=== PATIENT | male | born 1930 | race Caucasian/White ===

== ENCOUNTER → 2016-04-04 | Outpatient (CLI) | payer OTHER, BC ==
[~2016-04-04] MED LIST: ADVIN25/60 INH; ALBU1.257 INH; ALLO100T PO; B-COTAB18 PO; CLOP1TAB15 PO; DILT120C43 PO; DOXY-300 PO; DOXY100C76 PO; ESCI10TA17 PO; FLUT1INH INH; FURO40TA3 PO; IPRA1AER2 INH; IPRASOL4 INH; LEVO175T3 PO; MAGN1TAB19 PO; MECL1TAB42 PO; METO100T14 PO; MONT1TAB3 PO; NIVO1INJ INJ; ONDA8TAB6 PO; POLY335019 PO; POTA20TA13 PO; PRED10TA PO; PROC1TAB5 PO; PRT/40 PO; SPIR25TA PO; SPRIN/30 INH; WARF2TAB8 PO; WARF4TAB8 PO
[2016-04-04 11:09] LABS: HEMATOCRIT 34.1 % (42-52); MEAN CELL VOLUME 102.4 fL (80-100); MEAN CORPUSCULAR HEMOGLOBIN 32.7 pg (25-34); MEAN PLATELET VOLUME 10.7 fL (7.4-10.4); PLATELET COUNT 266 K/uL (130-400); RED BLOOD COUNT 3.33 M/uL (4.7-6.1)
[2016-04-04 11:41] LABS: BLOOD UREA NITROGEN 21 mg/dl (7-18); BUN/CREATININE RATIO 11.2 (10-20); CALCIUM 9.1 mg/dl (8.5-10.1); CARBON DIOXIDE 27 mmol/L (21-32); CHLORIDE 108 mmol/L (98-107); GLUCOSE 87 mg/dl (70-99); POTASSIUM 3.9 mmol/L (3.5-5.1); SODIUM 145 mmol/L (136-145)
== END | disposition home or self-care (01) ==
LOC: C.LAB 10:42
PROVIDERS: ATTEND Internal Medicine Cardiovascular Disease
DX: I10 Essential (primary) hypertension (principal); I47.1 Supraventricular tachycardia; I25.10 Atherosclerotic heart disease of native coronary artery without angina pectoris; I50.32 Chronic diastolic (congestive) heart failure; Z95.4 Presence of other heart-valve replacement; Z51.81 Encounter for therapeutic drug level monitoring; Z79.01 Long term (current) use of anticoagulants; I82.409 Acute embolism and thrombosis of unspecified deep veins of unspecified lower extremity

== ENCOUNTER → 2016-04-14 | Outpatient (CLI) | payer OTHER, BC ==
--- NOTE | 2016-04-14 11:01 | DIAGNOSTIC IMAGING REPORT ---
CHEST 2 VIEWS ROUTINE CLINICAL HISTORY: R06.09 Dyspnea on exertion COMPARISON STUDY: 03/23/2016 FINDINGS: There are postsurgical changes of a midline sternotomy and aortic valve replacement. The cardiac and mediastinal contours remain stable. There is chronic pleural and parenchymal scarring similar to the preceding study. There is no overt failure. There is no acute parenchymal consolidation.[ There are a few equivocal pulmonary nodules. These were better demonstrated on the prior January 2016 CT scan. IMPRESSION: 1. Stable pleural-parenchymal scarring. 2. The patient's known multiple pulmonary nodules are difficult to visualize with certainty on conventional radiographic imaging Electronically signed by: Sb Arredondo M.D. 04/14/2016 10:59 AM Dictated Date/Time: 04/14/2016 10:56 AM
[2016-04-14 11:31] LABS: URINE APPEARANCE CLEAR (CLEAR); URINE BILIRUBIN NEG (NEG); URINE COLOR YELLOW; URINE EPITHELIAL CELL AUTO 0-5 /lpf (0-5); URINE NITRITE NEG (NEG); URINE SPECIFIC GRAVITY 1.004 (1.000-1.030); UROBILINOGEN NEG (NEG)
[2016-04-14 11:40] LABS: MANUAL MICROSCOPIC REQUIRED? NO; REVIEW REQ? NO
== END | disposition home or self-care (01) ==
LOC: C.RAD 10:15
PROVIDERS: ATTEND Internal Medicine
DX: R06.09 Other forms of dyspnea (principal); R39.198 Other difficulties with micturition

== ENCOUNTER → 2016-04-22 | Outpatient (CLI) | payer OTHER, BC ==
--- NOTE | 2016-04-22 11:41 | DIAGNOSTIC IMAGING REPORT ---
CT SCAN OF THE CHEST WITH IV CONTRAST CLINICAL HISTORY: Dyspnea. Hypoxia. Metastatic renal cell carcinoma. COMPARISON STUDY: CT scan of the chest dated 02/15/2016. TECHNIQUE: Following the IV administration of 80 of Optiray 320, CT scan of the chest was performed from the upper abdomen to the thoracic inlet. The examination was performed to opacify the pulmonary arteries. Images are reviewed in the axial, sagittal, and coronal planes. IV contrast was administered without complication. Automated dose control exposure was utilized. CT DOSE: 500.91 mGy.cm FINDINGS: Thyroid: The right lobe of the thyroid gland is atrophic versus surgically absent. Thoracic aorta: There is atherosclerotic calcification of the thoracic aorta, which is normal in course and caliber. The aortic arch demonstrates standard 3-vessel anatomy. Pulmonary vasculature: The pulmonary trunk is normal in caliber. There are no filling defects identified in the main, lobar, or segmental pulmonary vessels to indicate pulmonary embolus. Heart: The patient is status post midline sternotomy and aortic valve replacement. The heart is mildly enlarged and without pericardial effusion. The coronary arteries are densely calcified. Lungs and pleural spaces: Emphysematous change is observed. There is no airspace consolidation typical for pneumonia. Trace pleural effusions are identified. Foci of scarring are seen in the lower lobes. Again seen are are too numerous to count small pulmonary and pleural-based metastatic lesions (greater than 20). These have continued to increase in size and number from to the 02/15/2016 examination. A printing supplies sales representative lesion at the right lung base and #70 measures 10 mm (previously measured 6 mm). A lesion at the left lung base image #57 measures 9 mm (previously measuring 5 mm). Mediastinum: There is no mediastinal lymphadenopathy. Iram: Mildly enlarged hilar lymph nodes measure up to 12 mm in short axis. Axillae: There is no axillary lymphadenopathy. Bony thorax: The skeletal structures are osteopenic. Degenerative change is noted throughout the thoracic spine. No lytic or blastic lesions are identified. There is a healed right posterior rib fracture. Soft tissues: Gynecomastia is noted. A 1.8 cm sebaceous cyst in the lower back on image #93 is unchanged. Upper abdomen: There is a small hiatal hernia. A 1.4 cm left adrenal nodule is unchanged. IMPRESSION: 1. There is no evidence of pulmonary embolus in the main, lobar, or segmental pulmonary arteries. 2. Cardiomegaly and emphysema. 3. There is no airspace consolidation typical for pneumonia. Trace pleural effusions are similar to previous. 4. There is been continued progression of pulmonary and pleural-based metastatic disease as compared to 02/15/2016. 5. Mildly enlarged hilar lymph nodes have modestly increased in size from previous. There is no mediastinal lymphadenopathy. 6. Additional findings as above. Electronically signed by: Arvind Keating M.D. 04/22/2016 11:40 AM Dictated Date/Time: 04/22/2016 11:26 AM
== END | disposition home or self-care (01) ==
LOC: C.CTS 11:06
PROVIDERS: ATTEND Internal Medicine Hematology & Oncology
DX: R06.02 Shortness of breath (principal); R09.02 Hypoxemia; I50.9 Heart failure, unspecified; J44.9 Chronic obstructive pulmonary disease, unspecified

== ENCOUNTER → 2016-05-20 | Outpatient (CLI) | payer OTHER, BC ==
[2016-05-20 13:54] LABS: BLOOD UREA NITROGEN 27 mg/dl (7-18); BUN/CREATININE RATIO 15.9 (10-20); CARBON DIOXIDE 29 mmol/L (21-32); CHLORIDE 110 mmol/L (98-107); GLUCOSE 105 mg/dl (70-99); MAGNESIUM 2.4 mg/dl (1.8-2.4); POTASSIUM 3.4 mmol/L (3.5-5.1); SODIUM 147 mmol/L (136-145)
== END | disposition home or self-care (01) ==
LOC: C.LAB 12:03
PROVIDERS: ATTEND Internal Medicine
DX: I27.2 Other secondary pulmonary hypertension (principal)

== ENCOUNTER → 2016-06-02 | Outpatient (CLI) | payer OTHER, BC ==
--- NOTE | 2016-06-02 12:59 | DIAGNOSTIC IMAGING REPORT ---
CHEST 2 VIEWS ROUTINE CLINICAL HISTORY: R06.09 Dyspnea on [id number] chest pain COMPARISON STUDY: 04/14/2016. FINDINGS: Chronic pleural and parenchymal change left and to a lesser extent right base. Prior median sternotomy. There are no focal acute infiltrate or changes. There has been a valve replacement. IMPRESSION: Chronic and postoperative change. No acute process. Electronically signed by: Lewis Mackey M.D. 06/02/2016 12:57 PM Dictated Date/Time: 06/02/2016 12:56 PM
== END | disposition home or self-care (01) ==
LOC: C.RAD1850 12:39
PROVIDERS: ATTEND Internal Medicine Pulmonary Disease
DX: R06.09 Other forms of dyspnea (principal)

== ENCOUNTER → 2016-07-14 | Outpatient (CLI) | payer OTHER, BC ==
[~2016-07-14] MED LIST changes: +MISCCAP55 PO; +OPTIRAY 320 IV PRN; +PANT40TA2 PO; -PRT/40 PO
--- NOTE | 2016-07-14 12:33 | DIAGNOSTIC IMAGING REPORT ---
CT ABD/PELVIS IV AND ORAL CONT CLINICAL HISTORY: Renal cell carcinoma. Restaging procedure. COMPARISON STUDY: None. TECHNIQUE: Following the IV administration of 100 mL of Optiray-320, CT scan of the abdomen and pelvis was performed from the lung bases to the proximal femurs. Images are reviewed in the axial, sagittal, and coronal planes. IV contrast was administered without complication. CT DOSE: FINDINGS: Lower chest: There are multiple lower lung zone peripheral subcentimeter nodules. There is bibasal atelectasis. Liver: The contrast-enhanced liver is normal in size, contour, and attenuation. There is no intrahepatic biliary ductal dilatation. The hepatic veins and portal veins are patent. Gallbladder: Cholelithiasis Spleen: Normal in size and attenuation. Pancreas: Unremarkable. Adrenal glands: There is a stable 11 mm left adrenal gland nodule Kidneys: There is a 51 mm complex left renal mass, similar to the prior study and consistent with a renal cell carcinoma. There is a stable 21 mm lower pole left renal lesion which exceeds water attenuation and is therefore indeterminate. There are also multiple renal cysts, the largest of which is located on the right measuring 5.9 cm. Bowel: There are no transition zones indicate bowel obstruction. There is colonic diverticulosis. There are no acute peridiverticular inflammatory changes. Peritoneum: There is no intraperitoneal free air or abdominal ascites. Vasculature: The abdominal aorta is normal in course and caliber. Adenopathy: None. Pelvic viscera: There is mild prostamegaly. There are bilateral fat-containing inguinal hernias. Skeletal structures: There are complex abdominal wall fluid collections. There is a left paracentral anterior abdominal wall collection measuring 37 mm. There is a right sided paracentral collection measuring 65 mm. These collections contain fat fluid levels and may represent fat necrosis. IMPRESSION: 1. Progressive lower lobe peripheral pulmonary nodules, suspicious for progressive metastatic disease 2. Stable 51 mm complex left renal mass, consistent with a renal cell carcinoma 3. No evidence of pathologic adenopathy 4. Anterior abdominal wall soft tissue nodules containing fat fluid levels, likely secondary to fat necrosis 5. No evidence of bowel obstruction. No evidence of free air Electronically signed by: Sb Arredondo M.D. 07/14/2016 12:31 PM Dictated Date/Time: 07/14/2016 12:24 PM
--- NOTE | 2016-07-14 12:44 | DIAGNOSTIC IMAGING REPORT ---
CT SCAN OF THE CHEST WITH IV CONTRAST CLINICAL HISTORY: Metastatic renal cell carcinoma. COMPARISON STUDY: Prior CT scans of the chest, most recently dated 04/22/2016. TECHNIQUE: Following the IV administration of 100 of Optiray 320, CT scan of the chest was performed from the upper abdomen to the thoracic inlet. The examination was performed to opacify the pulmonary arteries. Images are reviewed in the axial, sagittal, and coronal planes. IV contrast was administered without complication. Automated dose control exposure was utilized. CT DOSE: 1274.05 mGy.cm FINDINGS: Thyroid: The right lobe of the thyroid gland is atrophic versus surgically absent. A coarse calcification is noted in the left lobe. Thoracic aorta: There is atherosclerotic calcification of the thoracic aorta, which is normal in course and caliber. The aortic arch demonstrates standard 3-vessel anatomy. Pulmonary vasculature: The pulmonary trunk is normal in caliber. There are no filling defects identified in the central pulmonary vessels to indicate pulmonary embolus. Note that this examination was not protocoled to assess for pulmonary emboli. Heart: The patient is status post midline sternotomy and aortic valve replacement. The heart is enlarged and without pericardial effusion. The coronary arteries are densely calcified. Lungs and pleural spaces: Emphysematous change is observed. There is no airspace consolidation typical for pneumonia. Trace pleural effusions are again noted. Foci of scarring are again seen throughout both lungs. Again seen are are too numerous to count small pulmonary and pleural-based metastatic lesions (greater than 20). These have significantly decreased in size as compared to the 04/22/2016 examination. Reference Archivist lesions seen on the prior examination are difficult to discretely visualize today. The largest lesions on today's examination measure up to 7 mm as seen on images #198 and #200 at the right lung base. Mediastinum: There is no mediastinal lymphadenopathy. Iram: Mildly enlarged hilar lymph nodes measure up to 12 mm in short axis. Axillae: There is no axillary lymphadenopathy. Bony thorax: The skeletal structures are osteopenic. Degenerative change is noted throughout the thoracic spine. No lytic or blastic lesions are identified. There is a healed right posterior rib fracture. Soft tissues: Gynecomastia is noted. A 1.8 cm sebaceous cyst in the lower back on image #168 is unchanged. Upper abdomen: There is a small hiatal hernia. Mild nodularity of the hepatic surface contour is nonspecific and may represent early change of cirrhosis. A 1.3 cm left adrenal nodule is unchanged. Small upper pole renal cysts are only partially imaged. IMPRESSION: 1. Positive response to treatment with significant decrease in size of multifocal pulmonary metastatic lesions as compared to 04/22/2016. 2. Cardiomegaly and emphysema. 3. There is no airspace consolidation typical for pneumonia. Trace pleural effusions are unchanged. 4. Mildly enlarged hilar lymph nodes are unchanged from previous. 6. Additional findings as above. Electronically signed by: Arvind Keating M.D. 07/14/2016 12:42 PM Dictated Date/Time: 07/14/2016 12:28 PM
== END | disposition home or self-care (01) ==
LOC: C.CTS 11:46
PROVIDERS: ATTEND Internal Medicine Hematology & Oncology
DX: C64.2 Malignant neoplasm of left kidney, except renal pelvis (principal); R91.8 Other nonspecific abnormal finding of lung field; I51.7 Cardiomegaly; J43.9 Emphysema, unspecified

== ENCOUNTER → 2016-08-12 | Outpatient (CLI) | payer OTHER, BC ==
[~2016-08-12] MED LIST changes: -OPTIRAY 320 IV PRN
--- NOTE | 2016-08-12 16:13 | DIAGNOSTIC IMAGING REPORT ---
CHEST 2 VIEWS ROUTINE CLINICAL HISTORY: R06.02 Shortness of [id number] Chronic diastolic congestive he COMPARISON STUDY: 06/02/2016 FINDINGS: Mild stable cardiomegaly. Prior median sternotomy. Chronic pleural scarring and blunting of the gastric angles and diaphragms bilaterally. Chronic thickening of the major minor fissures. IMPRESSION: Chronic and postoperative change. No acute process. Electronically signed by: Lewis Mackey M.D. 08/12/2016 4:12 PM Dictated Date/Time: 08/12/2016 4:10 PM
== END | disposition home or self-care (01) ==
LOC: C.RAD1850 16:00
PROVIDERS: ATTEND Physician Assistant
DX: I50.32 Chronic diastolic (congestive) heart failure (principal); J43.9 Emphysema, unspecified; R06.02 Shortness of breath; R09.02 Hypoxemia

== ENCOUNTER → 2016-08-26 | Outpatient (CLI) | payer OTHER, BC ==
[~2016-08-26] MED LIST changes: -DOXY-300 PO
== END | disposition home or self-care (01) ==
LOC: C.LAB 11:05
PROVIDERS: ATTEND Physician Assistant
DX: C78.00 Secondary malignant neoplasm of unspecified lung (principal)

== ENCOUNTER → 2016-10-10 | Outpatient (CLI) | payer OTHER, BC ==
[~2016-10-10] MED LIST changes: -ADVIN25/60 INH; -IPRA1AER2 INH; -PANT40TA2 PO; +PRT/40 PO
[2016-10-10 10:24] LABS: CHOLESTEROL/HDL RATIO 2.1; MAGNESIUM 2.2 mg/dl (1.8-2.4)
== END | disposition home or self-care (01) ==
LOC: C.LAB 15:10
PROVIDERS: ATTEND Internal Medicine Cardiovascular Disease
DX: I10 Essential (primary) hypertension (principal); I47.1 Supraventricular tachycardia; I25.10 Atherosclerotic heart disease of native coronary artery without angina pectoris; I50.32 Chronic diastolic (congestive) heart failure; E83.42 Hypomagnesemia; C64.2 Malignant neoplasm of left kidney, except renal pelvis; C78.00 Secondary malignant neoplasm of unspecified lung; Z51.81 Encounter for therapeutic drug level monitoring; Z79.01 Long term (current) use of anticoagulants; I82.409 Acute embolism and thrombosis of unspecified deep veins of unspecified lower extremity

== ENCOUNTER → 2016-10-17 | Outpatient (CLI) | payer OTHER, BC ==
[~2016-10-17] MED LIST changes: +OPTIRAY 320 IV PRN
--- NOTE | 2016-10-17 13:53 | DIAGNOSTIC IMAGING REPORT ---
(CHEST) THORAX WITH CT DOSE: HISTORY: Renal cell carcinoma RENAL CELL CA TECHNIQUE: Multiaxial CT images of the chest were performed following the intravenous administration of contrast. A dose lowering technique was utilized adhering to the principles of ALARA. COMPARISON: 07/14/2016 FINDINGS: Pleural and parenchymal changes are slightly progressive compared to the prior study. The metastatic nodularity has remained generally stable. Slight increase in pleural thickening as well as a trace amount of fluid within the right as well as left hemithorax. Slight increase in fluid within the right as well as left major fissure. Slightly progressive interstitial change pulmonary apices. Mild stable cardiomegaly. Prior median sternotomy. Slightly progressive mid mediastinal adenopathy. This is most most prominent in the pretracheal and aortopulmonary window regions. Nodes have increased by several millimeters. Atherosclerotic change of thoracic aorta is stable. Pleural-based nodular densities previously described remains stable. Limited evaluation of the upper abdomen shows interval development of a trace amount of perihepatic and perisplenic ascites. Hyperplastic nodule change of the left adrenal is stable. IMPRESSION: 1. Slightly progressive mediastinal and hilar adenopathy with generally stable and are only slightly progressive pulmonary and pleural-based nodularity. 2. Slightly progressive pleural reactive change as well as pleural fluid in the lung bases and major fissure regions. 3. Slightly progressive and/or developing perihepatic as well as perisplenic ascites. 4. Although nonspecific, the overall impression of the study is one of potential slightly progressive metastatic change. The above report was generated using voice recognition software. It may contain grammatical, syntax or spelling errors. Electronically signed by: Lewis Mackey M.D. 10/17/2016 1:52 PM Dictated Date/Time: 10/17/2016 1:44 PM
--- NOTE | 2016-10-17 13:59 | DIAGNOSTIC IMAGING REPORT ---
ABD/PELVIS IV AND ORAL CONT CLINICAL HISTORY: 86 years-old Male presenting with RENAL CELL CA. TECHNIQUE: Multidetector CT of the abdomen and pelvis was performed after the administration of oral and intravenous contrast. IV contrast: 65 mL of Optiray 320. A dose lowering technique was used consistent with the principles of ALARA (as low as reasonably achievable). COMPARISON: 07/14/2016. CT DOSE (mGy.cm): The estimated cumulative dose is 1176.88 mGy.cm. FINDINGS: Plaster Patternmaker topogram: Median sternotomy wires and prosthetic aortic valve noted. Lung bases: Interval increase in small amount of pleural fluid and accompanying pleural thickening. Peripheral reticular and solid consolidation slightly increased from prior. Nodularity at the lung bases remains evident. Coronary artery and aortic valve calcification. Gynecomastia. Liver: Liver has a macronodular contour. Mild periportal edema. Patent hepatic vasculature. Biliary: No intrahepatic or extrahepatic biliary ductal dilatation. Gallbladder contains gallstones. Pancreas: Moderate parenchymal atrophy. Spleen: Normal. Adrenal glands: 11 mm left adrenal nodule unchanged from prior. Right adrenal gland normal. Kidneys and ureters: Previous seen noted complex left renal mass again demonstrates central hypodensity with peripheral soft tissue enhancing nodularity. The mass now measures 5.9 x 4.0 cm, previously 5.6 x 3.7 cm when remeasured at a comparable level. No evidence of vascular invasion or infiltration through the perinephric fat. Additionally, well-defined hypodensity in the right kidney likely simple cyst. Few additional hypodense lesions bilaterally likely also cysts. No hydronephrosis. Ureters normal. Gastrointestinal tract: Limited diverticulosis of the junction of the descending colon and sigmoid colon. Peritoneal cavity: Small amount of free fluid in the abdomen and pelvis. No free gas. Bladder: Incompletely evaluated secondary to underdistention. Pelvic organs: Prostate and seminal vesicles normal. Vasculature: Atherosclerosis of the normal caliber abdominal aorta. Lymph nodes: No enlarged lymph nodes in the abdomen or pelvis including at the level of the left renal hilum. Abdominal wall: Interval decrease in size of the subcutaneous collection in the anterior abdominal wall with a fat fluid level consistent with fat necrosis. Additional similar lesion along the right anterior abdominal wall more superiorly. Musculoskeletal: Degenerative changes of the spine. Bilateral pars defects of L5. IMPRESSION: 1. Stable to slight interval interval increase in size of the complex left renal mass consistent with renal cell carcinoma. No perinephric or vascular invasion or lymphadenopathy. 2. Interval increase in pleural fluid, pleural thickening, and dependent nodular opacities. This raises concern for worsening metastatic disease, although infection cannot be excluded. Correlate clinically. Electronically signed by: Anirudh Armstrong M.D. 10/17/2016 1:58 PM Dictated Date/Time: 10/17/2016 1:43 PM
== END | disposition home or self-care (01) ==
LOC: C.CTS 12:30
PROVIDERS: ATTEND Internal Medicine Hematology & Oncology
DX: C64.9 Malignant neoplasm of unspecified kidney, except renal pelvis (principal); R59.9 Enlarged lymph nodes, unspecified

== ENCOUNTER → 2017-01-02 | Outpatient (CLI) | payer OTHER, BC ==
[~2017-01-02] MED LIST changes: -DOXY100C76 PO; -PRED10TA PO
--- NOTE | 2017-01-02 15:32 | DIAGNOSTIC IMAGING REPORT ---
CT SCAN OF THE CHEST WITHOUT IV CONTRAST CLINICAL HISTORY: Metastatic renal cell carcinoma. COMPARISON STUDY: Prior CT scans of the chest, most recently dated 10/17/2016. TECHNIQUE: Unenhanced CT scan of the chest was performed from the upper abdomen to the thoracic inlet. Images are reviewed in the axial, sagittal, and coronal planes. IV contrast was not administered due to elevated serum creatinine. Automated dose control exposure was utilized. CT DOSE: 1400.65 mGy.cm FINDINGS: Thyroid: The right lobe of the thyroid gland is atrophic versus surgically absent. A coarse calcification is noted in the left lobe. Thoracic aorta: There is atherosclerotic calcification of the thoracic aorta, which is normal in course and caliber. The aortic arch demonstrates standard 3-vessel anatomy. Heart: The patient is status post midline sternotomy and aortic valve replacement. The heart is enlarged and without pericardial effusion. The coronary arteries are densely calcified. The main pulmonary arteries are mildly dilated suggesting pulmonary artery hypertension. Lungs and pleural spaces: Emphysematous change is observed. There is no airspace consolidation typical for pneumonia. Trace pleural effusions are again noted. Extensive subpleural scarring/fibrosis is again seen throughout both lungs. There has been continued positive response to treatment. The numerous pulmonary and pleural-based metastatic lesions seen on prior examinations have almost completely resolved. Residual subpleural nodules are seen in the right upper lobe on image #117 and in the right middle lobe on images #152 and #180.. These measure up to 4 mm. Mediastinum: There is no mediastinal lymphadenopathy. Iram: Normal assessed without IV contrast. Axillae: There is no axillary lymphadenopathy. Bony thorax: The skeletal structures are osteopenic. Degenerative change is noted throughout the thoracic spine. No lytic or blastic lesions are identified. There is a healed right posterior rib fracture. Soft tissues: Gynecomastia is noted. A 1.8 cm sebaceous cyst in the lower back on image #177 is unchanged. Upper abdomen: There is a small hiatal hernia. There are numerous calcified gallstones. Mild nodularity of the hepatic surface contour is nonspecific and may represent early change of cirrhosis. A 1.3 cm left adrenal nodule is unchanged. A 1.7 cm exophytic cyst arises from the upper pole of the left kidney. Heterogeneous mass lesion is partially visualized in the left kidney measures at least 4.3 cm. IMPRESSION: 1. Continued positive response to treatment. Pulmonary and pleural based metastatic lesions have almost completely resolved as compared to prior studies. No new pulmonary lesions are identified. 2. Cardiomegaly and emphysema. 3. There is no airspace consolidation typical for pneumonia. Trace pleural effusions are unchanged. 4. A mass lesion is partially visualized in the left kidney. 5. Additional findings as above. Electronically signed by: Arvind Keating M.D. 01/02/2017 3:31 PM Dictated Date/Time: 01/02/2017 3:22 PM
--- NOTE | 2017-01-02 15:34 | DIAGNOSTIC IMAGING REPORT ---
ABD/PELVIS ORAL CONT ONLY CLINICAL HISTORY: 86 years-old Male presenting with RENAL CELL CARCINOMA. TECHNIQUE: Multidetector CT of the abdomen and pelvis was performed after the administration of oral contrast only. IV contrast: None. A dose lowering technique was used consistent with the principles of ALARA (as low as reasonably achievable). COMPARISON: 10/17/2016. CT DOSE (mGy.cm): The estimated cumulative dose is 1400.65. FINDINGS: Hall Cleaner topogram: Median sternotomy wires and prosthetic aortic valve noted. Lung bases: Extensive dependent reticulation in diameter opacities, not significant changed from prior, possibly atelectasis and scarring. Normal heart size. Coronary artery calcification. Pleural thickening suggested. No pericardial effusion. Liver: Normal morphology. Normal density. Biliary: No intrahepatic or extrahepatic biliary ductal dilatation. Gallbladder contains gallstones. Pancreas: Moderate parenchymal atrophy. Spleen: Normal. Adrenal glands: Stable appearance of the 11 mm left adrenal nodule, which by density could suggest a benign adenoma (2 Hounsfield units). Right adrenal gland normal. Kidneys and ureters: Evaluation of the complex left renal mass limited bilateral contrast. The mass does not demonstrate significant change in size, now measuring proximally 5.5 cm, previously 5.8 cm. Hyperdense lesion at the upper pole the left kidney, indeterminate but unchanged in size. Multiple additional hypodensities bilaterally, likely cysts. No hydronephrosis. Ureters normal. No gross evidence of expansion of the renal vasculature to suggest intravascular tumor thrombus. Bladder: Normal. Pelvic organs: Prostate enlargement likely secondary to benign prostatic hyperplasia. Bowel: Diverticulosis of the sigmoid colon. Mild stool burden in normal caliber colon. No bowel obstruction. Peritoneal cavity: No free fluid or intraperitoneal gas. Lymph nodes: No gross lymphadenopathy allowing for noncontrast technique. Vasculature: Atherosclerosis of the normal caliber abdominal aorta. Abdominal wall: Sites of fat necrosis noted in the anterior abdominal wall, unchanged. Fat-containing inguinal hernias. Musculoskeletal: Degenerative changes of the spine. Bilateral pars defects of L5. No destructive osseous lesion. IMPRESSION: 1. Grossly stable appearance of the left renal mass. No lymphadenopathy. Evaluation significantly limited by lack of intravenous contrast. 2. Dependent opacities and pleural thickening. Please see separately dictated CT of the chest performed the same day. Electronically signed by: Anirudh Armstrong M.D. 01/02/2017 3:33 PM Dictated Date/Time: 01/02/2017 3:25 PM
== END | disposition home or self-care (01) ==
LOC: C.CTS 14:04
PROVIDERS: ATTEND Internal Medicine Hematology & Oncology
DX: C64.2 Malignant neoplasm of left kidney, except renal pelvis (principal); I51.7 Cardiomegaly; J43.9 Emphysema, unspecified

== ENCOUNTER → 2017-02-21 | Outpatient (CLI) | payer OTHER, BC ==
[~2017-02-21] MED LIST changes: -OPTIRAY 320 IV PRN; +PANT40TA2 PO; -PRT/40 PO
--- NOTE | 2017-02-21 14:44 | DIAGNOSTIC IMAGING REPORT ---
CHEST 2 VIEWS ROUTINE CLINICAL HISTORY: 86 years-old Male presenting with R06.00 [id number]. TECHNIQUE: PA and lateral views of the chest were obtained. COMPARISON: 08/12/2016. FINDINGS: Median sternotomy wires noted. Additional mediastinal surgical material and prosthetic aortic valve unchanged. Atherosclerosis of aortic arch. Cardiac silhouette normal in size. Persistent linear opacities in the right mid lung and left lung base. No new focal infiltrate. Blunting of the bilateral costophrenic angles could suggest trace pleural fluid. No pneumothorax. Degenerative changes of the thoracic spine. Upper abdomen normal. IMPRESSION: 1. Persistent right mid lung and left lung base atelectasis or scarring. 2. Trace bilateral pleural effusions. Electronically signed by: Anirudh Armstrong M.D. 02/21/2017 2:43 PM Dictated Date/Time: 02/21/2017 2:41 PM
[2017-02-21 15:56] LABS: ALT/SGPT 26 U/L (12-78); BLOOD UREA NITROGEN 47 mg/dl (7-18); CALCIUM 9.5 mg/dl (8.5-10.1); CARBON DIOXIDE 22 mmol/L (21-32); CHLORIDE 109 mmol/L (98-107); CREATININE 2.36 mg/dl (0.60-1.40); GLUCOSE 137 mg/dl (70-99); POTASSIUM 5.2 mmol/L (3.5-5.1); SODIUM 139 mmol/L (136-145)
[2017-02-21 15:59] LABS: ALB/GLOB RATIO 1.2 (0.9-2); ALKALINE PHOSPHATASE 93 U/L (45-117); AST/SGOT 19 U/L (15-37)
== END | disposition home or self-care (01) ==
LOC: C.RAD1850 14:09
PROVIDERS: ATTEND Physician Assistant
DX: R06.00 Dyspnea, unspecified (principal)

== ENCOUNTER → 2017-03-17 | Outpatient (CLI) | payer OTHER, BC ==
[~2017-03-17] MED LIST changes: +BUME1TAB PO; +BUME2TAB3 PO; +DANDELION ROOT PO; -FURO40TA3 PO; +IPRA-64 INH; -IPRASOL4 INH; +METO5TAB25 PO; +ONDA-170 PO; -ONDA8TAB6 PO; +PANT40TA PO; +PRED10TA PO; +PROC10TA PO; -PROC1TAB5 PO; +TORS20TA2 PO; +WARF-283 PO; +WARF4TAB43 PO
[2017-03-17 13:53] LABS: BLOOD UREA NITROGEN 53 mg/dl (7-18); CARBON DIOXIDE 23 mmol/L (21-32); CREATININE 2.24 mg/dl (0.60-1.40); GLUCOSE 150 mg/dl (70-99); POTASSIUM 5.6 mmol/L (3.5-5.1); SODIUM 142 mmol/L (136-145)
== END | disposition home or self-care (01) ==
LOC: C.LABBC 09:57
PROVIDERS: ATTEND Internal Medicine
DX: Z00.00 Encounter for general adult medical examination without abnormal findings (principal); N18.9 Chronic kidney disease, unspecified

== ENCOUNTER → 2017-03-22 | Outpatient (CLI) | payer OTHER, BC ==
[2017-03-22 16:54] LABS: BLOOD UREA NITROGEN 31 mg/dl (7-18); CALCIUM 8.7 mg/dl (8.5-10.1); CARBON DIOXIDE 26 mmol/L (21-32); CREATININE 1.69 mg/dl (0.60-1.40); GLUCOSE 146 mg/dl (70-99); POTASSIUM 4.7 mmol/L (3.5-5.1); SODIUM 142 mmol/L (136-145)
== END | disposition home or self-care (01) ==
LOC: C.LABBC 12:32
PROVIDERS: ATTEND Internal Medicine
DX: N18.9 Chronic kidney disease, unspecified (principal)

== ENCOUNTER → 2017-04-03 | Outpatient (CLI) | payer OTHER, BC ==
[~2017-04-03] MED LIST changes: -BUME1TAB PO; -BUME2TAB3 PO; -DANDELION ROOT PO; -IPRA-64 INH; +IPRASOL4 INH; -METO5TAB25 PO; -ONDA-170 PO; +ONDA8TAB6 PO; +OPTIRAY 320 IV PRN; -PANT40TA PO; -PROC10TA PO; +PROC1TAB5 PO; -SPIR25TA PO; -TORS20TA2 PO; -WARF-283 PO; -WARF4TAB8 PO
--- NOTE | 2017-04-03 16:13 | DIAGNOSTIC IMAGING REPORT ---
CT OF THE CHEST WITH IV CONTRAST CLINICAL HISTORY: RENAL CELL CARCINOMA COMPARISON STUDY: 01/02/2017 TECHNIQUE: Following the IV administration of 92 mL of Optiray-320, CT of the thorax was performed from the thoracic inlet to the lung bases. Images are reviewed in the axial, sagittal, and coronal planes. IV contrast was administered without complication. A dose lowering technique was utilized adhering to the principles of ALARA. CT DOSE: 1308.20 mGy.cm FINDINGS: Thyroid: The patient appears be status post a prior right thyroid resection. There is a 5 mm left thyroid nodule. Thoracic aorta: The thoracic aorta is normal in course and caliber, noting standard 3-vessel arch anatomy. No aneurysm or dissection is seen. Pulmonary vasculature: The pulmonary trunk is normal in caliber. There are no central filling defects identified to suggest pulmonary embolus. Note that this examination was not protocoled for the evaluation of pulmonary emboli. HEART: The heart is normal in size and configuration, without pericardial effusion. There are coronary artery calcifications. Lungs and pleural spaces: There is pulmonary emphysema. There is mild subpleural reticulation. There is mild lower lobe bronchiectasis. There is stable groundglass opacities within the anterior aspect of the left upper lobe. There is a stable 3 mm pleural-based right upper lobe pulmonary nodule. There is a stable 2 mm right middle lobe pulmonary nodule. There is stable left-sided pleural thickening. Mediastinum: There is no evidence of pathologic mediastinal lymphadenopathy. Iram: There is no evidence of pathologic hilar lymphadenopathy. Axilla: There is no evidence of pathologic axillary lymphadenopathy. Upper abdomen: There are bilateral renal masses including a partially visualized 5.4 cm left renal mass with areas of nodular enhancement suspicious for carcinoma. Skeletal structures: There are no lytic or blastic osseous lesions. IMPRESSION: 1. Stable tiny pulmonary nodules. No new or enlarging pulmonary nodules are visualized 2. No evidence of pathologic adenopathy 3. Stable interstitial lung disease with subpleural reticulation and mild lower lobe bronchiectasis 4. Partially visualized 5.4 cm left renal mass with areas of nodular enhancement suspicious for carcinoma Electronically signed by: Sb Arredondo M.D. 04/03/2017 4:11 PM Dictated Date/Time: 04/03/2017 4:04 PM
--- NOTE | 2017-04-03 16:21 | DIAGNOSTIC IMAGING REPORT ---
CT SCAN OF THE ABDOMEN AND PELVIS WITH IV CONTRAST CLINICAL HISTORY: Renal cell carcinoma. COMPARISON STUDY: Prior abdominal CT scans, most recently dated 01/02/2017. TECHNIQUE: Following the IV administration of 92 cc of Optiray 320, CT scan of the abdomen and pelvis is performed from the lung bases to the proximal femora. Images are reviewed in the axial, sagittal, and coronal planes. IV contrast was administered without complication. A dose lowering technique was utilized adhering to the principles of ALARA. FINDINGS: Lung bases: The patient is status post midline sternotomy. The coronary arteries are densely calcified. There is evidence of previous aortic valve surgery. The heart is mildly enlarged and without pericardial effusion. Chronic interstitial changes and pleural thickening are present at both lung bases. No airspace consolidation or pleural effusion is identified. There is a tiny hiatal hernia. A sebaceous cyst is present in the lower back on image #11. Liver: The contrast-enhanced liver is normal in size, contour, and attenuation. There is no intrahepatic biliary ductal dilatation. The hepatic veins and portal veins are patent. Gallbladder: There are layering calcified gallstones. There is no CT evidence of acute cholecystitis. Spleen: Normal in size and attenuation. Pancreas: Atrophic and grossly unremarkable. Adrenal glands: A 1.3 cm left adrenal adenoma is unchanged from previous. The right adrenal gland is normal in appearance. Kidneys: The contrast enhanced kidneys are atrophic and without hydronephrosis. The kidneys enhance symmetrically. A 5.4 cm solid and cystic mass lesion is again seen arising from the interpolar left kidney on image #158. Numerous bilateral renal cysts measure up to 6.2 cm. A 2.7 cm lesion arising from the upper pole of left kidney on image #129 and a 1.3 cm lesion arising from the interpolar right kidney on image #148 are indeterminant and likely resent complex cysts when compared to prior studies. Abdominal vasculature: The abdominal aorta is normal in course and caliber noting advanced atherosclerotic calcification. Bowel: There is moderate sigmoid diverticulosis without CT evidence of acute diverticulitis. Mild constipation is noted. No bowel obstruction is seen. The appendix is well-visualized and normal. Peritoneum: There is no intraperitoneal free air or abdominal ascites. There is a small fat-containing umbilical hernia. Lymphadenopathy: None. Pelvic viscera: The prostate gland is diminutive and heterogeneous. The bladder wall is thickened and trabeculated suggesting chronic outlet obstruction. There is a fat-containing right inguinal hernia. Skeletal structures: The skeletal structures are osteopenic. The skeletal structures are osteopenic. Moderate lumbosacral spondylosis is observed. No lytic or blastic lesions are seen. IMPRESSION: 1. There is been no significant change from 01/02/2017. 2. Again seen is a complex solid and cystic mass lesion arising from the interpolar left kidney typical in appearance for renal cell carcinoma. 3. There is no convincing evidence of metastatic disease in the abdomen or pelvis. 4. Additional cysts and indeterminant renal lesions are noted as above. These are similar to previous. 5. Colonic diverticulosis without CT evidence of acute diverticulitis. 6. Additional findings as above. Electronically signed by: Arvind Keating M.D. 04/03/2017 4:20 PM Dictated Date/Time: 04/03/2017 4:06 PM
== END | disposition home or self-care (01) ==
LOC: C.CTS 15:16
PROVIDERS: ATTEND Internal Medicine Hematology & Oncology
DX: C64.2 Malignant neoplasm of left kidney, except renal pelvis (principal); K57.30 Diverticulosis of large intestine without perforation or abscess without bleeding; R91.8 Other nonspecific abnormal finding of lung field; J84.9 Interstitial pulmonary disease, unspecified; J47.9 Bronchiectasis, uncomplicated

== ENCOUNTER → 2017-04-18 | Outpatient (CLI) | payer OTHER, BC ==
[~2017-04-18] MED LIST changes: -OPTIRAY 320 IV PRN
--- NOTE | 2017-04-18 15:23 | DIAGNOSTIC IMAGING REPORT ---
CHEST AND ABDOMEN 2 VIEWS HISTORY: Abdominal bloating. COMPARISON: Chest 02/21/2017. Abdomen and pelvis CT 04/03/2017. FINDINGS: Scarlike densities within the mid to lower lung zones are again noted. Stable blunting of the costophrenic sulci. No new focal lung consolidations. No evidence for pulmonary edema. No pneumothorax. There are poststernotomy changes. The heart is stable in size. No dilated loops of bowel to suggest an obstruction. No pneumoperitoneum or pneumatosis. Calcification within the right side the abdomen is likely vascular. No definite renal or ureteral calculi. Small to moderate amount of well-formed stool seen within the colon. Vascular calcifications are noted. IMPRESSION: 1. Stable chronic changes within the chest. 2. No evidence for bowel obstruction. Electronically signed by: Gonzalez Taylor M.D. 04/18/2017 3:22 PM Dictated Date/Time: 04/18/2017 3:19 PM
== END | disposition home or self-care (01) ==
LOC: C.RAD1850 15:02
PROVIDERS: ATTEND Physician Assistant
DX: R14.0 Abdominal distension (gaseous) (principal); Z99.81 Dependence on supplemental oxygen

== ENCOUNTER → 2017-05-04 | Outpatient (CLI) | payer OTHER, BC ==
[~2017-05-04] MED LIST changes: +BUME1TAB PO; +TORS20TA2 PO
[2017-05-04 14:17] LABS: BLOOD UREA NITROGEN 26 mg/dl (7-18); CALCIUM 9.5 mg/dl (8.5-10.1); CARBON DIOXIDE 30 mmol/L (21-32); CREATININE 1.62 mg/dl (0.60-1.40); GLUCOSE 179 mg/dl (70-99); POTASSIUM 3.6 mmol/L (3.5-5.1); SODIUM 142 mmol/L (136-145)
[2017-05-04 14:19] LABS: TRANSFERRIN 286 mg/dl (200-360)
== END | disposition home or self-care (01) ==
LOC: C.LAB1850 12:06
PROVIDERS: ATTEND Physician Assistant Medical
DX: R14.0 Abdominal distension (gaseous) (principal); Z99.81 Dependence on supplemental oxygen; I50.30 Unspecified diastolic (congestive) heart failure; I25.10 Atherosclerotic heart disease of native coronary artery without angina pectoris

== ENCOUNTER → 2017-05-15 | Outpatient (CLI) | payer OTHER, BC ==
[~2017-05-15] MED LIST changes: -TORS20TA2 PO
[2017-05-15 12:50] LABS: BLOOD UREA NITROGEN 39 mg/dl (7-18); CALCIUM 9.6 mg/dl (8.5-10.1); CARBON DIOXIDE 33 mmol/L (21-32); CREATININE 1.98 mg/dl (0.60-1.40); GLUCOSE 202 mg/dl (70-99); SODIUM 144 mmol/L (136-145)
== END | disposition home or self-care (01) ==
LOC: C.LAB1850 11:29
PROVIDERS: ATTEND Physician Assistant Medical
DX: R06.09 Other forms of dyspnea (principal); I50.30 Unspecified diastolic (congestive) heart failure

== ENCOUNTER → 2017-06-21 | Outpatient (CLI) | payer OTHER, BC ==
[~2017-06-21] MED LIST changes: +METO5TAB25 PO; +ONDA-170 PO; -ONDA8TAB6 PO
--- NOTE | 2017-06-21 15:52 | DIAGNOSTIC IMAGING REPORT ---
SOFT TISSUE NECK WITHOUT CLINICAL HISTORY: DYSPHAGIA TECHNIQUE: Transaxial acquisition with multi axial reformatted images COMPARISON STUDY: None FINDINGS: Major salivary glands of the neck are unremarkable. No significant cervical adenopathy. Structures of the pharynx and hypopharynx are unremarkable. Glottic and subglottic regions are unremarkable. Appears to be evidence for right thyroid lobe resection. There are degenerative changes of the cervical spine. IMPRESSION: 1. Post right thyroid lobe resection. 2. Otherwise negative study. The above report was generated using voice recognition software. It may contain grammatical, syntax or spelling errors. Electronically signed by: Lewis Mackey M.D. 06/21/2017 3:51 PM Dictated Date/Time: 06/21/2017 3:48 PM
== END | disposition home or self-care (01) ==
LOC: C.CTS 14:29
PROVIDERS: ATTEND Internal Medicine
DX: R13.10 Dysphagia, unspecified (principal)

== ENCOUNTER → 2017-06-21 | Outpatient (CLI) | payer OTHER, BC ==
--- NOTE | 2017-06-21 15:44 | DIAGNOSTIC IMAGING REPORT ---
ABD/PELVIS NO IV OR ORAL CONT CT DOSE: HISTORY: Renal cell carcinoma METASTATIC RENAL CELL CA TECHNIQUE: Multiaxial CT images of the abdomen and pelvis were performed without contrast. A dose lowering technique was utilized adhering to the principles of ALARA. COMPARISON STUDY: 04/03/2017 FINDINGS: Bibasilar chronic atelectatic/interstitial change. Minimal capsular scarring of the liver. Gallstones within the gallbladder lumen. Pancreas is uniform. Spleen is unremarkable. Several right renal cysts unchanged. The complex mass arising from the left kidney appears unchanged within limitations of an unenhanced scan. As a current maximum dimension of 5 cm essentially unaltered from the prior study. Several additional renal hyperdense and or simple cysts are present which also appear unchanged. Bowel pattern is nonobstructive. There is no significant abdominal or pelvic adenopathy. Bladder is midline. Mild chronic colonic diverticulosis. No evidence for acute diverticulitis. IMPRESSION: 1. No significant change in the examination compared to the prior study of 04/03/2017. 2. Stable left renal mass. 3. Unchanging bilateral renal cysts/hyperdense cysts. 4. No evidence for metastatic change The above report was generated using voice recognition software. It may contain grammatical, syntax or spelling errors. Electronically signed by: Lewis Mackey M.D. 06/21/2017 3:43 PM Dictated Date/Time: 06/21/2017 3:38 PM
--- NOTE | 2017-06-21 15:54 | DIAGNOSTIC IMAGING REPORT ---
(CHEST) THORAX WITHOUT CLINICAL HISTORY: 87 years-old Male presenting with METASTATIC RENAL CELL CA. TECHNIQUE: Multidetector CT imaging of the chest was performed without the use of intravenous contrast. IV contrast: None. A dose lowering technique was used consistent with the principles of ALARA (as low as reasonably achievable). COMPARISON: 04/03/2017. CT DOSE (mGy.cm): The estimated cumulative dose is 1405.31 mGycm. 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 On soft tissue windows, bilateral gynecomastia. The right lobe of the thyroid is surgically absent. Calcified nodule noted in the left lobe of the thyroid. No axillary, supraclavicular, or mediastinal lymphadenopathy. Evaluation of the jimena limited without intravenous contrast. Atherosclerosis of the aorta. Postsurgical changes of aortic valve replacement. Normal heart size. Coronary artery calcification. No pericardial or pleural effusion. The exophytic left renal mass is again noted though less well characterized without intravenous contrast. This is incompletely included within the [id number] but is grossly unchanged in size. Cholelithiasis. Small hiatal hernia. On lung windows, subpleural reticulation is similar to prior exam and is most pronounced in the dependent portions of the lower lobes though present to a lesser degree in the lateral right upper lobe. Architectural distortion of the lingula suggestive of scarring. Several punctate nodules are again noted (for example series 4 image 102, 137, 189). These are unchanged from prior and are largely in the right lung. No new or enlarging pulmonary nodule. Central airways patent to bronchial wall thickening noted with a lower lobe predominance. On bone windows, degenerative changes of the spine. IMPRESSION: 1. Stable punctate pulmonary nodules. No new pulmonary nodule or evidence of intrathoracic metastatic disease. 2. Subpleural reticulation could suggest chronic aspiration, postinfectious/postinflammatory change, or fibrosis. 3. Redemonstration of the partially visualized left renal mass, consistent with known renal cell carcinoma. Please see separately dictated CT of the abdomen and pelvis for additional findings. Electronically signed by: Anirudh Armstrong M.D. 06/21/2017 3:52 PM Dictated Date/Time: 06/21/2017 3:44 PM
== END | disposition home or self-care (01) ==
LOC: C.CTS 14:27
PROVIDERS: ATTEND Internal Medicine Hematology & Oncology
DX: C64.2 Malignant neoplasm of left kidney, except renal pelvis (principal); N28.1 Cyst of kidney, acquired

== ENCOUNTER → 2017-08-07 | Outpatient (CLI) | payer OTHER, BC ==
[~2017-08-07] MED LIST changes: +PROC10TA PO; -PROC1TAB5 PO
[2017-08-07 16:53] LABS: BASO % 0.1 %; BASO ABS # 0.01 K/uL (0-0.2); EOS % 1.5 %; EOS ABS # 0.12 K/uL (0-0.5); HEMATOCRIT 38.5 % (42-52); HEMOGLOBIN 12.7 g/dL (14.0-18.0); IG# 0.02 K/uL (0.00-0.02); LYMPH % 10.6 %; LYMPH ABS # 0.85 K/uL (1.2-3.4); MEAN CELL VOLUME 101.6 fL (80-100); MEAN CORPUSCULAR HEMOGLOBIN 33.5 pg (25-34); MEAN PLATELET VOLUME 10.7 fL (7.4-10.4); MONO ABS # 0.56 K/uL (0.11-0.59); NEUT % 80.6 %; NEUT ABS # 6.47 K/uL (1.4-6.5); PLATELET COUNT 177 K/uL (130-400); RED CELL DISTRIBUTION WIDTH CV 15.3 % (11.5-14.5); RED CELL DISTRIBUTION WIDTH SD 56.4 fL (36.4-46.3); WHITE BLOOD COUNT 8.03 K/uL (4.8-10.8)
[2017-08-07 17:05] LABS: ALBUMIN 2.8 gm/dl (3.4-5.0); ALT/SGPT 23 U/L (12-78); AST/SGOT 30 U/L (15-37); BLOOD UREA NITROGEN 38 mg/dl (7-18); CALCIUM 9.2 mg/dl (8.5-10.1); CARBON DIOXIDE 29 mmol/L (21-32); CREATININE 2.37 mg/dl (0.60-1.40); GLUCOSE 158 mg/dl (70-99); POTASSIUM 4.2 mmol/L (3.5-5.1); SODIUM 140 mmol/L (136-145)
[2017-08-07 17:16] LABS: ALKALINE PHOSPHATASE 85 U/L (45-117); TOTAL PROTEIN 6.9 gm/dl (6.4-8.2)
[2017-08-08 06:03] LABS: HEMOGLOBIN A1C 7.5 % (4.5-5.6)
== END | disposition home or self-care (01) ==
LOC: C.LABBC 12:39
PROVIDERS: ATTEND Internal Medicine
DX: D64.9 Anemia, unspecified (principal); N18.9 Chronic kidney disease, unspecified; E11.9 Type 2 diabetes mellitus without complications; F41.8 Other specified anxiety disorders; I25.10 Atherosclerotic heart disease of native coronary artery without angina pectoris; R26.89 Other abnormalities of gait and mobility; G25.2 Other specified forms of tremor; E55.9 Vitamin D deficiency, unspecified; R06.09 Other forms of dyspnea; I48.91 Unspecified atrial fibrillation

== ENCOUNTER 2017-08-09 12:47 | Emergency (ER) | payer OTHER, BC ==
[~2017-08-09] VITALS: Ht 167.6 cm; Wt 89.9 kg
[2017-08-09 12:56] VITALS: TEMP 36.6
[2017-08-09] MEDS ORDERED: SODIUM CHLORIDE 0.9% 1000ML 1,000 ML IV STA (13:14)
[2017-08-09 13:36] VITALS: O2SAT 95; Ht 167.6 cm; Wt 89.9 kg
--- NOTE | 2017-08-09 13:40 | DIAGNOSTIC IMAGING REPORT ---
CHEST ONE VIEW PORTABLE CLINICAL HISTORY: 87 years-old Male presenting with EVALUATE WEAKNESS. TECHNIQUE: Portable upright AP view of the chest was obtained. COMPARISON: 04/18/2017. FINDINGS: Median sternotomy wires and prosthetic aortic valve noted. Atherosclerosis and tortuosity of the thoracic aorta. Cardiac silhouette top normal in size. Mildly low lung volumes with hypoventilatory changes. Pulmonary vascular prominence. Ill-defined linear opacities at the lung bases. No large effusion or pneumothorax. Osseous structures normal. Upper abdomen normal. IMPRESSION: 1. Mildly low lung volumes with hypoventilatory changes and suspected bibasilar atelectasis. 2. Top normal cardiac size with possible volume overload. No misha pulmonary edema. Electronically signed by: Anirudh Armstrong M.D. 08/09/2017 1:39 PM Dictated Date/Time: 08/09/2017 1:37 PM
[2017-08-09 13:43] LABS: BASO % 0.2 %; BASO ABS # 0.01 K/uL (0-0.2); EOS % 2.1 %; EOS ABS # 0.14 K/uL (0-0.5); HEMATOCRIT 36.3 % (42-52); HEMOGLOBIN 12.3 g/dL (14.0-18.0); IG# 0.02 K/uL (0.00-0.02); LYMPH % 15.7 %; LYMPH ABS # 1.04 K/uL (1.2-3.4); MEAN CELL VOLUME 100.3 fL (80-100); MEAN CORPUSCULAR HGB CONC 33.9 g/dl (32-36); MEAN PLATELET VOLUME 10.5 fL (7.4-10.4); MONO % 6.2 %; MONO ABS # 0.41 K/uL (0.11-0.59); NEUT % 75.5 %; NEUT ABS # 5.02 K/uL (1.4-6.5); PLATELET COUNT 227 K/uL (130-400); RED CELL DISTRIBUTION WIDTH CV 15.2 % (11.5-14.5); RED CELL DISTRIBUTION WIDTH SD 56.2 fL (36.4-46.3); WHITE BLOOD COUNT 6.64 K/uL (4.8-10.8)
[2017-08-09 13:53] LABS: INR 2.9 (0.9-1.1); PTT PATIENT 38.5 SECONDS (21.0-31.0)
[2017-08-09 14:08] LABS: ALBUMIN 2.9 gm/dl (3.4-5.0); ALT/SGPT 23 U/L (12-78); AST/SGOT 30 U/L (15-37); BLOOD UREA NITROGEN 34 mg/dl (7-18); CALCIUM 9.2 mg/dl (8.5-10.1); CARBON DIOXIDE 29 mmol/L (21-32); CREATININE 2.27 mg/dl (0.60-1.40); GLUCOSE 113 mg/dl (70-99); POTASSIUM 4.8 mmol/L (3.5-5.1); SODIUM 141 mmol/L (136-145)
[2017-08-09 14:19] LABS: ALKALINE PHOSPHATASE 90 U/L (45-117); TOTAL PROTEIN 7.1 gm/dl (6.4-8.2)
--- NOTE | 2017-08-09 14:23 | DIAGNOSTIC IMAGING REPORT ---
CT HEAD WITHOUT CONTRAST (CT) CLINICAL HISTORY: Weakness COMPARISON STUDY: 10/18/2015 TECHNIQUE: Axial CT of the brain is performed from the vertex to the skull base. IV contrast was not administered for this examination. A dose lowering technique was utilized adhering to the principles of ALARA. CT DOSE: 537.48 mGy.cm FINDINGS: No intra or extra-axial mass lesions are visualized. There is no CT evidence of acute cortical infarction. There is no evidence of midline shift. There is no acute hemorrhage. No calvarial fractures are visualized. There are patchy white matter hypodensities likely on a small vessel basis. There is stable mild particular prominence which is felt to be secondary to volume loss There is minor mucosal thickening/fluid within the right sphenoid sinus IMPRESSION: No acute intracranial findings Electronically signed by: Sb Arredondo M.D. 08/09/2017 2:22 PM Dictated Date/Time: 08/09/2017 2:20 PM
[2017-08-09] MEDS ORDERED: PRED10TA PO (15:19)
[2017-08-09] MEDS ORDERED: DANDELION ROOT PO (15:19)
[2017-08-09] MEDS ORDERED: PANT40TA PO (15:19)
[2017-08-09] MEDS ORDERED: BUME2TAB3 PO (15:19)
[2017-08-09 17:23] VITALS: BP 143/72; PULSE 60; O2SAT 91
--- NOTE | 2017-08-09 19:18 | EMERGENCY ROOM VISIT NOTE ---
History Report prepared by Gricelda: Salvatore Nails Under the Supervision of: Dr. Ezio Conte D.O. 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 Per the patient's family, the patient saw Antonio Angeles of pulmonology, and was referred here because his pupils were not equal and he had weakness in his left arm. The patient states that he just feels worn out, and has had intermittent dizziness and nausea. He adds that he started coughing 10 days ago, and started having a runny nose a couple weeks ago. He says that when he stands up, blood runs to his head, and this even happens if he gets up slowly. The patient says that his last bowel movement was this morning and it was normal. Pt denies headache, change in vision, fevers, chest pain, worsening shortness of breath, vomiting, diarrhea, or pain with urination. He notes that he has not had any recent confusion. He is on Opdivo for his cancer. Per the nursing staff, the patient wears 2 liters of oxygen all the time, but when he showed up here he did not have his oxygen on. Source of History: patient, family, nursing staff Onset: Past couple weeks Position: other (global) Quality: other (weakness) Timing: worsening Associated Symptoms: + cough (and runny nose), + nausea, No fevers, No headache (or changes in vision), No chest pain, No SOB (no worsening), No vomiting, No diarrhea, No urinary symptoms Note: Associated symptoms: Dizziness. Denies confusion. Review of Systems See HPI for pertinent positives & negatives. A total of 10 systems reviewed and were otherwise negative. Past Medical & Surgical Medical Problems: (1) Aortic valve stenosis (2) Benign hypertension (3) Gout (4) Heart murmur (5) Hyperlipidemia Nec/Nos (6) Hypertension Nos (7) Kidney stone (8) Orthopedic surgery (9) Pre-diabetes (10) Renal disease (11) Spinal surgery Surgical Problems: (1) S/P CABG x 3 Family History Diabetes mellitus FHx: heart disease Hypertension Social History Smoking Status: Never Smoker Alcohol Use: none Drug Use: none Marital Status: , in relationship Housing Status: lives with significant other Occupation Status: retired Current/Historical Medications Scheduled Allopurinol (Zyloprim), 100 MG PO QAM B-Complex Vitamins (Vitamin B Complex), 1 TAB PO QAM Bumetanide (Bumex), 2 MG PO DAILY Clopidogrel (Plavix), 75 MG PO DAILY Diltiazem Hcl Coated Beads (Cartia Xt), 1 CAP PO QAM Escitalopram (Lexapro), 10 MG PO DAILY Fluticasone Furoate-Vilanterol (Breo Ellipta), 1 PUFF INH DAILY Ipratropium-Albuterol (Duoneb), 1 TREATMENT INH TID Levothyroxine Sodium (Levothyroxine Sodium), 87.5 MCG PO DAILY Magnesium Oxide (Mg Supplement (Magnesium Oxide), 400 MG PO DAILY Metolazone (Zaroxolyn), 5 MG PO Q2D Metoprolol Tartrate (Lopressor) (Lopressor), 150 MG PO BID Montelukast Sodium (Singulair), 10 MG PO HS Nivolumab (Opdivo), 1 DOSE INJ Q2WK Pantoprazole (Protonix), 40 MG PO BID Potassium Chloride Microencaps (Potassium Chloride Er), 40 MEQ PO BID Prednisone (Prednisone), Unknown Dose PO UD Tiotropium [place] (Spiriva Handihaler), 2 PUFFS INH DAILY Warfarin Sod (Jantoven), 4 MG PO 4XWK Warfarin Sodium (Warfarin Sodium), 2 MG PO 3XWK [Dandelion Root], 1 DOSE PO DAILY Scheduled PRN Albuterol Sulfate (Albuterol Sulfate), 1 UNIT INH Q4 PRN for SOB/Wheezing Meclizine Hcl (Meclizine Hcl), 1 TAB PO TID PRN for Dizziness or Vertigo Ondansetron Hcl (Zofran), 8 MG PO for Nausea Polyethylene Glycol 3350 (Miralax), 17 GM PO DAILY PRN for Constipation Prochlorperazine Maleate (Compazine), 10 MG PO DIRECTED PRN for Nausea or Vomiting Allergies Coded Allergies: ZACH Inhibitors (Verified Allergy, Intermediate, COUGH, 08/09/17) Cephalexin (Verified Allergy, Intermediate, ABDOMINAL PAIN, 08/09/17) Clindamycin (Verified Allergy, Intermediate, REFLUX, 08/09/17) Penicillins (Verified Allergy, Intermediate, ?RASH, 08/09/17) Sulfa Antibiotics (Verified Allergy, Intermediate, ?RASH, 08/09/17) Physical Exam Vital Signs Date Time Temp Pulse Resp B/P (MAP) Pulse Ox O2 Delivery O2 Flow Rate FiO2 08/09/17 17:23 60 18 143/72 91 Room Air 08/09/17 15:40 66 18 121/76 91 Room Air 08/09/17 14:52 66 18 126/70 71 124/68 66 121/76 08/09/17 14:51 64 18 92 Nasal Cannula 2.0 08/09/17 13:36 95 Room Air 08/09/17 13:36 95 Room Air 08/09/17 13:19 71 08/09/17 12:56 36.6 77 20 139/87 86 Room Air Physical Exam GENERAL: Laying in bed, on nasal cannula, chronically ill-appearing. EYE EXAM: normal conjunctiva. PERRL and EOM's intact. OROPHARYNX: no exudate, no erythema, lips, buccal mucosa, and tongue normal and mucous membranes are moist NECK: supple, no nuchal rigidity, no adenopathy, non-tender LUNGS: Clear to auscultation. Normal chest wall mechanics HEART: no murmurs, S1 normal and S2 normal ABDOMEN: abdomen soft, non-tender, normo-active bowel sounds, no masses, no rebound or guarding. BACK: Back is symmetrical on inspection and there is no deformity, no midline tenderness, no CVA tenderness. SKIN: no rashes and no bruising UPPER EXTREMITIES: upper extremities are grossly normal. LOWER EXTREMITIES: No pitting edema. NEURO EXAM: Normal sensorium, cranial nerves II-XII intact, normal speech, no weakness of arms, no weakness of legs. No drift. Finger to nose intact. Gross sensation intact. Medical Decision & Procedures ER Provider Diagnostic Interpretation: Radiology results as stated below per my review and the radiologist's interpretation: CT HEAD WITHOUT CONTRAST (CT) CLINICAL HISTORY: Weakness COMPARISON STUDY: 10/18/2015 TECHNIQUE: Axial CT of the brain is performed from the vertex to the skull base. IV contrast was not administered for this examination. A dose lowering technique was utilized adhering to the principles of ALARA. CT DOSE: 537.48 mGy.cm FINDINGS: No intra or extra-axial mass lesions are visualized. There is no CT evidence of acute cortical infarction. There is no evidence of midline shift. There is no acute hemorrhage. No calvarial fractures are visualized. There are patchy white matter hypodensities likely on a small vessel basis. There is stable mild particular prominence which is felt to be secondary to volume loss There is minor mucosal thickening/fluid within the right sphenoid sinus IMPRESSION: No acute intracranial findings Electronically signed by: Sb Arredondo M.D. 08/09/2017 2:22 PM Dictated Date/Time: 08/09/2017 2:20 PM CHEST ONE VIEW PORTABLE CLINICAL HISTORY: 87 years-old Male presenting with EVALUATE WEAKNESS. TECHNIQUE: Portable upright AP view of the chest was obtained. COMPARISON: 04/18/2017. FINDINGS: Median sternotomy wires and prosthetic aortic valve noted. Atherosclerosis and tortuosity of the thoracic aorta. Cardiac silhouette top normal in size. Mildly low lung volumes with hypoventilatory changes. Pulmonary vascular prominence. Ill-defined linear opacities at the lung bases. No large effusion or pneumothorax. Osseous structures normal. Upper abdomen normal. IMPRESSION: 1. Mildly low lung volumes with hypoventilatory changes and suspected bibasilar atelectasis. 2. Top normal cardiac size with possible volume overload. No misha pulmonary edema. Electronically signed by: Anirudh Armstrong M.D. 08/09/2017 1:39 PM Dictated Date/Time: 08/09/2017 1:37 PM Laboratory Results 08/09/17 13:30 Red Blood Count 3.62, Mean Corpuscular Volume 100.3, Mean Corpuscular Hemoglobin 34.0, Mean Corpuscular Hemoglobin Concent 33.9, Mean Platelet Volume 10.5, Neutrophils (%) (Auto) 75.5, Lymphocytes (%) (Auto) 15.7, Monocytes (%) ( Auto) 6.2, Eosinophils (%) (Auto) 2.1, Basophils (%) (Auto) 0.2, Neutrophils # ( Auto) 5.02, Lymphocytes # (Auto) 1.04, Monocytes # (Auto) 0.41, Eosinophils # ( Auto) 0.14, Basophils # (Auto) 0.01 08/09/17 13:30 Test 08/09/17 13:18 08/09/17 13:30 08/09/17 15:35 Bedside Glucose 113 mg/dl (70-99) White Blood Count 6.64 K/uL (4.8-10.8) Red Blood Count 3.62 M/uL (4.7-6.1) Hemoglobin 12.3 g/dL (14.0-18.0) Hematocrit 36.3 % (42-52) Mean Corpuscular Volume 100.3 fL (80-100) Mean Corpuscular Hemoglobin 34.0 pg (25-34) Mean Corpuscular Hemoglobin Concent 33.9 g/dl (32-36) Platelet Count 227 K/uL (130-400) Mean Platelet Volume 10.5 fL (7.4-10.4) Neutrophils (%) (Auto) 75.5 % Lymphocytes (%) (Auto) 15.7 % Monocytes (%) (Auto) 6.2 % Eosinophils (%) (Auto) 2.1 % Basophils (%) (Auto) 0.2 % Neutrophils # (Auto) 5.02 K/uL (1.4-6.5) Lymphocytes # (Auto) 1.04 K/uL (1.2-3.4) Monocytes # (Auto) 0.41 K/uL (0.11-0.59) Eosinophils # (Auto) 0.14 K/uL (0-0.5) Basophils # (Auto) 0.01 K/uL (0-0.2) RDW Standard Deviation 56.2 fL (36.4-46.3) RDW Coefficient of Variation 15.2 % (11.5-14.5) Immature Granulocyte % (Auto) 0.3 % Immature Granulocyte # (Auto) 0.02 K/uL (0.00-0.02) Prothrombin Time 29.7 SECONDS (9.0-12.0) Prothromb Time International Ratio 2.9 (0.9-1.1) Activated Partial Thromboplast Time 38.5 SECONDS (21.0-31.0) Partial Thromboplastin Ratio 1.5 Urine Color YELLOW Urine Appearance CLEAR (CLEAR) Urine pH 8.0 (4.5-7.5) Urine Specific [place] 1.012 (1.000-1.030) Urine Protein NEG (NEG) Urine Glucose (UA) NEG (NEG) Urine Ketones NEG (NEG) Urine Occult Blood NEG (NEG) Urine Nitrite NEG (NEG) Urine Bilirubin NEG (NEG) Urine Urobilinogen NEG (NEG) Urine Leukocyte Esterase NEG (NEG) Anion Gap 6.0 mmol/L (3-11) Est Creatinine Clear Calc Drug Dose 25.0 ml/min Estimated GFR () 29.4 Estimated GFR (Non- 25.4 BUN/Creatinine Ratio 14.8 (10-20) Calcium Level 9.2 mg/dl (8.5-10.1) Magnesium Level 2.4 mg/dl (1.8-2.4) Total Bilirubin 0.8 mg/dl (0.2-1) Direct Bilirubin 0.3 mg/dl (0-0.2) Aspartate Amino Transf (AST/SGOT) 30 U/L (15-37) Alanine Aminotransferase (ALT/SGPT) 23 U/L (12-78) Alkaline Phosphatase 90 U/L (45-117) Total Protein 7.1 gm/dl (6.4-8.2) Albumin 2.9 gm/dl (3.4-5.0) Thyroid Stimulating Hormone (TSH) 1.420 uIu/ml (0.300-4.500) Troponin I < 0.015 ng/ml (0-0.045) Laboratory results per my review. Medications Administered Medications (Trade) Dose Ordered Sig/Justin Route Start Time Stop Time Status Last Admin Dose Admin Sodium Chloride 1,000 ml @ 999 mls/hr Q1H1M STAT IV 08/09/17 13:14 08/09/17 14:14 DC 08/09/17 13:14 999 MLS/HR ECG Per My Interpretation Indication: nausea Rate (beats per minute): 68 Rhythm: sinus rhythm Findings: T-wave inversion (Inferior), left axis deviation Comparison ECG Date: compared to 03/23/16, T-wave inversions are new Change: Repeat EKG: Sinus rhythm at 60 bpm, normal axis, flipped T-wave in inferior leads, no ectopy. ED Course ED COURSE: Vital signs were reviewed and showed normal vitals requiring 2 liters of oxygen. The patients medical record was reviewed The above diagnostic studies were performed and reviewed. ED treatments and interventions as stated above. 1306: The patient was evaluated in room C8. A complete history and physical examination was performed. 1314: NSS 1000 ml @ 999 mls/hr IV. 1500: I discussed the patient with Antonio Carrasco PA-C [facility] - he said he will follow-up in outpatient. 1521: I reevaluated and updated the patient. 1713: I discussed the [facility] - he agrees with the plan of having the patient follow-up as outpatient, and having outpatient echo. 1716: Upon reevaluation, the patient is resting.I discussed my findings with the patient and he understands and agrees with the treatment plan. Based on the patients age, coexisting illnesses, exam and lab findings the decision to treat as an outpatient was made. The patient remained stable while under my care. The patient appeared well at the time of discharge. Medical Decision Differential Diagnosis includes but is not limited to dehydration, stroke, anemia, hypoglycemia, hyponatremia, hypernatremia, urinary tract infection, pneumonia, bronchitis, sepsis, gastroenteritis, additional abdominal pathology, metabolic abnormalities and infections. Patient is an 87-year-old male that presents the ER for weakness associated with intermittent shaking of the extremities. Patient has no other focal complaints. No chest pain or shortness of breath. CBC along with BMP was remarkable for a creatinine of 2.2 at baseline. LFTs, bilirubin and troponin was negative 2. TSH was unremarkable. 2 troponins were drawn due to the new inferior flipped T waves. Chest x-ray unremarkable. CT head was benign. I discussed my findings with Antonio Angeles and hematology oncology will follow him up as an outpatient. With the new flipped T waves I did discuss case with cardiology. They do agree with the current plan of care as patient has no cardiac symptoms at this time that he can likely be followed up as an outpatient. Patient was updated at bedside. He again notes that he has no chest pain or new shortness of breath. Patient was discharged follow-up with hematology oncology and cardiology as an outpatient to obtain an echo. Discussed with Pt concerning signs and symptoms to watch out for. Pt was instructed to follow up with their PCP and discussed with the patient their option to return to the ED at anytime for persistent or worsening symptoms. The appropriate anticipatory guidance and out-patient management, including indications for return to the emergency department, were explained at length to the patient and understood. Medication Reconcilliation Current Medication List: was personally reviewed by me Blood Pressure Screening Patient's blood pressure: Normal blood pressure Consults Time Called: 1450 Consulting Physician: Antonio Carrasco PA-C [facility] [place] Returned Call: 1500 I discussed the patient with Antonio Carrasco PA-C [facility] [place] - he said he will follow-up in outpatient. Additional Consults: Time Called: 171 Consulted Physician: Dr. Demetra HENDERSON cardiology Returned Call: 171 Additional Comments: I discussed the patient with Dr. Demetra HENDERSON cardiology - he agrees with the plan of having the patient follow-up as outpatient, and having outpatient echo. Impression Primary Impression: Weakness Additional Impression: Nonspecific ST-T wave electrocardiographic changes Scribe Attestation The scribe's documentation has been prepared under my direction and personally reviewed by me in its entirety. I confirm that the note above accurately reflects all work, treatment, procedures, and medical decision making performed by me. Departure Information Dispostion Home / Self-Care Referrals Anirudh Magdaleno M.D. (PCP) Migel Mccrary MD Patient Instructions ED Weakness [facility] [place] [facility] Additional Instructions Please follow up with your primary care doctor with in the next 24 hours. Any worsening of your symptoms, please return to the ED immediately. This includes any fevers greater than 100.4, worsening pain, chest pain, shortness breath, persistent nausea, vomiting, unable to eat or drink, or any other concerning signs or symptoms from your standpoint. Please call cardiology and set up an outpatient appointment for an echo. Please follow-up with your house superintendent oncologist. Problem Qualifiers
== END 2017-08-09 17:30 | disposition home or self-care (01) ==
LOC: C.EDB 12:49 → C.EDC 17:30
DX: R53.1 Weakness (principal); R25.1 Tremor, unspecified; R94.31 Abnormal electrocardiogram [ECG] [EKG]; I10 Essential (primary) hypertension; Z79.02 Long term (current) use of antithrombotics/antiplatelets; Z79.01 Long term (current) use of anticoagulants; N28.9 Disorder of kidney and ureter, unspecified; M10.9 Gout, unspecified; Z95.1 Presence of aortocoronary bypass graft; Z88.8 Allergy status to other drugs, medicaments and biological substances; Z88.1 Allergy status to other antibiotic agents; Z88.0 Allergy status to penicillin; Z88.2 Allergy status to sulfonamides

== ENCOUNTER 2018-09-09 12:43 | Inpatient (IN) ==
[2018-09-09] MEDS ORDERED: methylPREDNISolone 125 MG/2 ML VIAL IV STA (13:13)
[2018-09-09] MEDS ORDERED: ALBUT/IPRATROP 3MG/0.5MG NEB 3 ML VIAL NEB STA ×3 (13:13→14:00)
[2018-09-09 13:39] LABS: Basophils # (auto) 0.01 K/uL (0-0.2); Basophils % (auto) 0.1 %; Eosinophils # (auto) 0.77 K/uL (0-0.5); Eosinophils % (auto) 10.7 %; Hematocrit (blood only) 35.3 % (42-52); Hemoglobin 11.7 g/dL (14.0-18.0); Immature Granulocytes # (auto) 0.01 K/uL (0.00-0.02); Immature Granulocytes % (auto) 0.1 %; Lymphocytes # (auto) 0.94 K/uL (1.2-3.4); Lymphocytes % (auto) 13.1 %; Mean Corpuscular Hgb Conc 33.1 g/dL (32-36); Mean Corpuscular Volume 102.3 fL (80-100); Monocytes # (auto) 0.64 K/uL (0.11-0.59); Monocytes % (auto) 8.9 %; Neutrophils # (auto) 4.82 K/uL (1.4-6.5); Neutrophils % (auto) 67.1 %; Platelet Count 144 K/uL (130-400); RDW Coefficient of Variation 13.6 % (11.5-14.5); RDW Standard Deviation 51.1 fL (36.4-46.3); Red Blood Count 3.45 M/uL (4.7-6.1); White Blood Count 7.19 K/uL (4.8-10.8)
[2018-09-09 13:41] LABS: Base Excess VBG 4.7 mEq/L; Oxygen Saturation VBG 67.7 %; pH VBG 7.45 (7.36-7.41)
--- NOTE | 2018-09-09 13:46 | XRay Report ---
XR chest 1V portable CLINICAL HISTORY: Wheezing. Shortness of breath and cough. COMPARISON STUDY: Chest radiograph August 15, 2018. Chest CT July 16, 2018. FINDINGS: Median sternotomy wires and mediastinal surgical clips are noted. Cardiomediastinal silhoue tte is stable. Bibasilar opacities favor scarring or atelectasis. There is no evidence for pulmonary edema. Blunting of the costophrenic angles is unchanged. This is likely chronic. Right neck surgical clips are incidentally noted. IMPRESSION: No acute cardiopulmonary findings. No change in appearance of the chest. Electronically signed by: Mookie Lainez M.D. 09/09/2018 1:44 PM
[2018-09-09 13:49] LABS: INR 2.4 (0.9-1.1); Partial Thromboplastin Ratio 1.2; Partial Thromboplastin Time 33.4 Seconds (21.0-31.0)
[2018-09-09 13:55] LABS: Albumin Level 3.4 gm/dl (3.4-5.0); BUN Creatinine Ratio 8.9 (10-20); Bilirubin Direct 0.2 mg/dl (0-0.2); Calcium 9.1 mg/dl (8.5-10.1); Creatinine Clr Calc Pharmacy 23.9 ml/min; Est GFR (African American) 27.7; Est GFR (Non-African American) 23.9; Potassium 3.8 mmol/L (3.5-5.1)
[2018-09-09 14:00] LABS: Bilirubin,Total 0.9 mg/dl (0.2-1); Total Protein 6.6 gm/dl (6.4-8.2)
--- NOTE | 2018-09-09 15:20 | Emergency Department Note ---
Entered by Shania Vernon acting as a scribe for Navneet Ellison History of Present Illness General Chief complaint: Shortness of Breath/Dyspnea Stated complaint: SHORTNESS OF BREATH Time Seen by Provider: 09/09/18 13:10 Source: patient Limitations: no limitations History of Present Illness Provider complaint: cough Onset (ago): day(s) 5 Location: head Radiation: non-radiation Pain Consistency: + constant Maximum Pain Intensity: 0 Quality: + constant Exacerbated By: + none Associated symptoms: + cough; no chest pain and no fever/chills Treatments prior to arrival: other (3 L O2 at all times) The patient is a 88 year old male who presents to the emergency department with complaints of a cough. His family states that 6 days ago he was at a follow up appointment with his PCP and his lungs were clear. 5 days ago he developed a slight cough that was intermittent throughout the day. 4 days ago the cough worsened and has remained constant since. The patient is on 3 L of O2 at all times and denies any fever or chest pain. The patient also has a history of COPD and aphasia. Home Medications Home Medications Medication Instructions Recorded Confirmed Type DANDELION ROOT 1 dose PO QAM #0 08/09/17 09/09/18 History albuterol sulfate 1.25 mg INHALATION Q4H PRN 11/27/17 09/09/18 History allopurinol 100 mg PO QAM 11/27/17 09/09/18 History clopidogrel [Plavix] 75 mg PO QAM 11/27/17 09/09/18 History diltiazem HCl 120 mg PO QAM 11/27/17 09/09/18 History levothyroxine 87.5 mcg PO QAM 11/27/17 09/09/18 History magnesium oxide 400 mg PO QAM 11/27/17 09/09/18 History meclizine 25 mg PO TID PRN 11/27/17 09/09/18 History ondansetron HCl [Zofran] 8 mg PO UD PRN 11/27/17 09/09/18 History prochlorperazine maleate 10 mg PO UD PRN 11/27/17 09/09/18 History [Compazine] vitamin B complex 1 tab PO QAM 11/27/17 09/09/18 History metoprolol tartrate 100 mg tablet 150 mg PO BID tab 11/28/17 09/09/18 History nivolumab 40 mg/4 mL intravenous See Rx Instructions .ROUTE 11/28/17 09/09/18 History solution .COMPLEX ml pantoprazole 40 mg tablet,delayed 40 mg PO BID tab 11/28/17 09/09/18 History release polyethylene glycol 3350 17 gram 17 g PO DAILY PRN 11/28/17 09/09/18 History oral powder packet potassium chloride ER 20 mEq 40 meq PO BID tab 11/28/17 09/09/18 History tablet,extended release bumetanide 2 mg tablet 4 mg PO BID tab 03/06/18 09/09/18 History warfarin 4 mg tablet See Rx Instructions PO UD tab 07/30/18 09/09/18 History warfarin See Rx Instructions .ROUTE .COMPLEX 09/09/18 09/09/18 History Allergies Allergy/AdvReac Type Severity Reaction Status Date / Time ZACH Inhibitors Allergy Intermediate COUGH Verified 09/09/18 14:15 cephalexin Allergy Intermediate ABDOMINAL Verified 09/09/18 14:15 PAIN clindamycin Allergy Intermediate REFLUX Verified 09/09/18 14:15 Penicillins Allergy Intermediate ?RASH Verified 09/09/18 14:15 Sulfa (Sulfonamide Allergy Intermediate ?RASH Verified 09/09/18 14:15 Antibiotics) Past Med/Surg History Medical History Abdominal wall hematoma (Acute) Hypokalemia (Acute) Nasal bone fractures (Acute) Nasal bone fractures (Acute) Nonspecific ST-T wave electrocardiographic changes (Acute) PVC (premature ventricular contraction) (Acute) PVC (premature ventricular contraction) (Acute) Palpitations (Acute) Palpitations (Acute) Palpitations (Acute) Pre-diabetes Weakness (Acute) Surgical History S/P CABG x 3 (Chronic) Social History Feels Safe at Home: Yes Smoking Status: Former smoker Review of Systems See HPI for pertinent positives & negatives. and A total of 10 systems reviewed and were otherwise negative Physical Exam Vital Signs Vital Signs - 24 hr 09/09/18 12:55 09/09/18 12:59 09/09/18 13:20 Temperature 36.4 C L Temperature Source Oral Sepsis Recent Fever Within 48 Hours No Sepsis New/Unexplained Change in Mental Status No Sepsis Action Taken by Nursing No Action Required Pulse Rate 80 80 Pulse Rate [Finger] Pulse Rate from SpO2 Sensor Respiratory Rate 20 20 Respiratory Effort / Characteristics Blood Pressure 124/68 Blood Pressure Mean 86 Pulse Oximetry 91 97 97 Oxygen Delivery Method Nasal Cannula Nasal Cannula Nasal Cannula Oxygen Flow Rate 4 3 3 09/09/18 13:39 09/09/18 14:13 09/09/18 14:27 Temperature Temperature Source Sepsis Recent Fever Within 48 Hours Sepsis New/Unexplained Change in Mental Status Sepsis Action Taken by Nursing Pulse Rate 82 Pulse Rate [Finger] 72 71 Pulse Rate from SpO2 Sensor 72 Respiratory Rate 20 22 23 Respiratory Effort / Characteristics Spontaneous Short of Breath Spontaneous Short of Breath Blood Pressure 121/72 Blood Pressure Mean 88 Pulse Oximetry 93 96 98 Oxygen Delivery Method Nasal Cannula Nasal Cannula Nasal Cannula Oxygen Flow Rate 3 3 3 09/09/18 14:31 Temperature Temperature Source Sepsis Recent Fever Within 48 Hours Sepsis New/Unexplained Change in Mental Status Sepsis Action Taken by Nursing Pulse Rate 75 Pulse Rate [Finger] Pulse Rate from SpO2 Sensor 76 Respiratory Rate 19 Respiratory Effort / Characteristics Blood Pressure 124/80 Blood Pressure Mean 94 Pulse Oximetry 99 Oxygen Delivery Method Nasal Cannula Oxygen Flow Rate 3 Physical Exam GENERAL: He is oriented to person, place, and time. He appears well-developed and well-nourished. He does not appear distressed. ____ HENT: Exam performed. - Head: Normocephalic and atraumatic. - Right Ear: External ear normal. No mastoid tenderness. - Left Ear: External ear normal. No mastoid tenderness. - Mouth/Throat: The oropharynx is clear and moist. No trismus in the jaw. No dental abscesses or uvula swelling. No oropharyngeal exudate or tonsillar abscesses. ____ EYES: Conjunctivae and EOM are normal. Pupils are equal, round, and reactive to light. Right eye exhibits no discharge. Left eye exhibits no discharge. No scleral icterus. ____ NECK: Normal range of motion. Neck supple. No JVD present. No spinous process tenderness present. No carotid bruit present. No rigidity. No tracheal deviation and normal range of motion present. No Brudzinski's sign and no Kernig's sign noted. ____ CV: Normal rate, regular rhythm, normal heart sounds and intact distal pulses. There is no peripheral edema. Palpable radial pulses bue. ____ PULM/CHEST: Expiratory wheezes bilaterally. - Chest Wall: He exhibits no tenderness. ____ ABD: The abdomen is soft. Bowel sounds are normal. He has no distension. No mass is present. There is no tenderness. There is no rebound, no guarding, no Harper's sign and no tenderness at McBurney's point. Rovsig negative MUSC/SKEL: Normal range of motion. There is no peripheral edema, tenderness or deformity. LYMPH: No cervical adenopathy. ____ NEURO: He is alert and oriented to person, place, and time. He has normal strength. No cranial nerve deficit or sensory deficit. Coordination and gait normal. GCS eye subscore is 4. GCS verbal subscore is 5. GCS motor subscore is 6. cerbellar tests wnl. ____ SKIN: Skin is warm and dry. He is not diaphoretic. ____ PSYCH: He has a normal mood and affect. His behavior is normal. Judgment and thought content normal. ____ Course 1310: The patient was seen in room A10. He was evaluated and a physical exam was performed. 1430: The patient's vital signs are stable and he has a nasal cannula 3L O2 at all times. Status post the patient is still experiencing wheezes and does not feel better. His INR is therapeutic, normal proBNP and troponin, and his lactic acid is 3.4. It is thought that the elevated lactic acid level is not due to be an infection because the patient had no leukocytosis nor a fever. The elevated lactic acid level is most likely due to hypoxia or dehydration. His creatine level is 2.37 evaluated from baseline. I discussed admission with the patient for COPD exacerbation. I spoke with Teena Tom, [facility] hospitalist, who agreed to accept the patient for reevaluation. Administered Medications Discontinued Medications Albuterol (Duoneb) 3 ml NEB NOW STA Stop: 09/09/18 13:14 Last Admin: 09/09/18 13:33 Dose: 3 ml Documented by: [id number] Albuterol (Duoneb) 3 ml NEB NOW STA Stop: 09/09/18 13:20 Last Admin: 09/09/18 13:38 Dose: 3 ml Documented by: [id number] Albuterol (Duoneb) 3 ml NEB NOW STA Stop: 09/09/18 14:01 Last Admin: 09/09/18 14:09 Dose: 3 ml Documented by: [id number] Methylprednisolone (Solumedrol) 125 mg IV NOW STA Stop: 09/09/18 13:14 Last Admin: 09/09/18 13:44 Dose: 125 mg Documented by: [id number] Medical Decision Making Medical Records Attestation: I reviewed the patient's medical records. Home Medications Current Medication List: was personally reviewed by me Laboratory Data Attestation: I reviewed the patient's lab results. Result diagrams: 09/09/18 13:28 09/09/18 13:28 Lab Results 09/09/18 09/09/18 09/09/18 Range/Units 13:28 13:28 13:28 WBC 7.19 (4.8-10.8) K/uL RBC 3.45 L (4.7-6.1) M/uL Hgb 11.7 L (14.0-18.0) g/dL Hct 35.3 L (42-52) % MCV 102.3 H (80-100) fL MCH 33.9 (25-34) pg MCHC 33.1 (32-36) g/dL RDW Std Deviation 51.1 H (36.4-46.3) fL RDW Coeff of Sung 13.6 (11.5-14.5) % Plt Count 144 (130-400) K/uL MPV 11.0 H (7.4-10.4) fL Immature Gran % (Auto) 0.1 % Neut % (Auto) 67.1 % Lymph % (Auto) 13.1 % [place] % (Auto) 8.9 % Eos % (Auto) 10.7 % Baso % (Auto) 0.1 % Immature Gran # (Auto) 0.01 (0.00-0.02) K/uL Neut # (Auto) 4.82 (1.4-6.5) K/uL Lymph # (Auto) 0.94 L (1.2-3.4) K/uL [place] # (Auto) 0.64 H (0.11-0.59) K/uL Eos # (Auto) 0.77 H (0-0.5) K/uL Baso # (Auto) 0.01 (0-0.2) K/uL PT (9.0-12.0) Seconds INR (0.9-1.1) APTT (21.0-31.0) Seconds PTT Ratio VBG pH (7.36-7.41) VBG pCO2 (38-50) mmHg VBG pO2 mmHg VBG HCO3 mmol/L VBG O2 Saturation % VBG Base Excess mEq/L Barometric Pressure mm/Hg Sodium 145 (136-145) mmol/L Potassium 3.8 (3.5-5.1) mmol/L Chloride 105 (98-107) mmol/L Carbon Dioxide 32 (21-32) mmol/L Anion Gap 7.0 (3-11) BUN 21 H (7-18) mg/dl Creatinine 2.37 H (0.6-1.4) mg/dl Est Cr Clr Drug Dosing 23.9 ml/min Est GFR ( Amer) 27.7 Est GFR (Non-Af Amer) 23.9 BUN/Creatinine Ratio 8.9 L (10-20) Glucose 228 H (70-99) mg/dl Lactate 3.4 H* (0.4-2.0) mmol/L Calcium 9.1 (8.5-10.1) mg/dl Total Bilirubin 0.9 (0.2-1) mg/dl Direct Bilirubin 0.2 (0-0.2) mg/dl AST 21 (15-37) U/L ALT 22 (12-78) U/L Alkaline Phosphatase 114 (45-117) U/L Troponin I (0-0.045) ng/ml NT-Pro-B Natriuret Pep 831 (0-1800) pg/ml Total Protein 6.6 (6.4-8.2) gm/dl Albumin 3.4 (3.4-5.0) gm/dl 09/09/18 09/09/18 09/09/18 Range/Units 13:28 13:28 13:28 WBC (4.8-10.8) K/uL RBC (4.7-6.1) M/uL Hgb (14.0-18.0) g/dL Hct (42-52) % MCV (80-100) fL MCH (25-34) pg MCHC (32-36) g/dL RDW Std Deviation (36.4-46.3) fL RDW Coeff of Sung (11.5-14.5) % Plt Count (130-400) K/uL MPV (7.4-10.4) fL Immature Gran % (Auto) % Neut % (Auto) % Lymph % (Auto) % [place] % (Auto) % Eos % (Auto) % Baso % (Auto) % Immature Gran # (Auto) (0.00-0.02) K/uL Neut # (Auto) (1.4-6.5) K/uL Lymph # (Auto) (1.2-3.4) K/uL [place] # (Auto) (0.11-0.59) K/uL Eos # (Auto) (0-0.5) K/uL Baso # (Auto) (0-0.2) K/uL PT 23.0 H (9.0-12.0) Seconds INR 2.4 H (0.9-1.1) APTT 33.4 H (21.0-31.0) Seconds PTT Ratio 1.2 VBG pH 7.45 H (7.36-7.41) VBG pCO2 43 (38-50) mmHg VBG pO2 35 mmHg VBG HCO3 29 mmol/L VBG O2 Saturation 67.7 % VBG Base Excess 4.7 mEq/L Barometric Pressure 728.2 mm/Hg Sodium (136-145) mmol/L Potassium (3.5-5.1) mmol/L Chloride (98-107) mmol/L Carbon Dioxide (21-32) mmol/L Anion Gap (3-11) BUN (7-18) mg/dl Creatinine (0.6-1.4) mg/dl Est Cr Clr Drug Dosing ml/min Est GFR ( Amer) Est GFR (Non-Af Amer) BUN/Creatinine Ratio (10-20) Glucose (70-99) mg/dl Lactate (0.4-2.0) mmol/L Calcium (8.5-10.1) mg/dl Total Bilirubin (0.2-1) mg/dl Direct Bilirubin (0-0.2) mg/dl AST (15-37) U/L ALT (12-78) U/L Alkaline Phosphatase (45-117) U/L Troponin I < 0.015 (0-0.045) ng/ml NT-Pro-B Natriuret Pep (0-1800) pg/ml Total Protein (6.4-8.2) gm/dl Albumin (3.4-5.0) gm/dl Imaging Data Radiologist's Impression: Radiology results as stated below. Per my review and the radiologists interpretation: XR chest 1V portable CLINICAL HISTORY: Wheezing. Shortness of breath and cough. COMPARISON STUDY: Chest radiograph August 15, 2018. Chest CT July 16, 2018. FINDINGS: Median sternotomy wires and mediastinal surgical clips are noted. Cardiomediastinal silhouette is stable. Bibasilar opacities favor scarring or atelectasis. There is no evidence for pulmonary edema. Blunting of the costophrenic angles is unchanged. This is likely chronic. Right neck surgical clips are incidentally noted. IMPRESSION: No acute cardiopulmonary findings. No change in appearance of the chest. Electronically signed by: Mookie Lainez M.D. 09/09/2018 1:44 PM ECG Data Attestation: I personally reviewed and interpreted this ECG as follows: Indication: SOB/dyspnea Rate (beats per minute): 78 Rhythm: sinus rhythm Findings: + other (ND, QRS,QTC WNL); no ST depression and no ST elevation Blood Pressure Blood Pressure Findings: Normal blood pressure MDM Narrative The patient's vital signs are stable and he has a nasal cannula 3L O2 at all times. Status post the patient is still experiencing wheezes and does not feel better. His INR is therapeutic, normal proBNP and troponin, and his lactic acid is 3.4. It is thought that the elevated lactic acid level is not due to be an infection because the patient had no leukocytosis nor a fever. The elevated lactic acid level is most likely due to hypoxia or dehydration. His creatine level is 2.37 evaluated from baseline. I discussed admission with the patient for COPD exacerbation. I spoke with Teena Tom, [facility] hospitalist, who agreed to accept the patient for reevaluation. Impression & Plan COPD exacerbation Discharge Plan Visit Data Chief Complaint: Shortness of Breath/Dyspnea Stated Complaint: SHORTNESS OF BREATH ED Provider: Navneet Ellison Discharge Problem: COPD exacerbation Patient Disposition: Being Evaluated by Hospitalist Forms Stand Alone Forms: [facility] Prescriptions Prescriptions: No Action bumetanide 2 mg tablet 4 mg PO BID RF: 0 warfarin 4 mg tablet See Patient Comments PO UD RF: 0 albuterol sulfate 1.25 mg/3 mL Solution For Nebulization 1.25 mg INHALATION Q4H PRN (Reason: SOB) RF: 0 allopurinol 100 mg Tablet 100 mg PO QAM RF: 0 vitamin B complex Tablet 1 tab PO QAM RF: 0 levothyroxine 175 mcg Tablet 87.5 mcg PO QAM RF: 0 clopidogrel [Plavix] 75 mg Tablet 75 mg PO QAM RF: 0 magnesium oxide 400 mg (241.3 mg magnesium) Tablet 400 mg PO QAM RF: 0 meclizine 25 mg Tablet 25 mg PO TID PRN (Reason: Dizziness) RF: 0 diltiazem HCl 120 mg Capsule,Ext.Rel 24h Degradable 120 mg PO QAM RF: 0 ondansetron HCl [Zofran] 8 mg Tablet 8 mg PO UD PRN (Reason: Nausea) RF: 0 prochlorperazine maleate [Compazine] 10 mg Tablet 10 mg PO UD PRN (Reason: Nausea) RF: 0 metoprolol tartrate 100 mg tablet 150 mg PO BID RF: 0 nivolumab [Opdivo] 40 mg/4 mL solution See Patient Comments .ROUTE .COMPLEX RF: 0 pantoprazole 40 mg tablet,delayed release (DR/EC) 40 mg PO BID RF: 0 polyethylene glycol 3350 [Miralax] 17 gram powder in packet 17 g PO DAILY PRN (Reason: CONSTIPATION) RF: 0 potassium chloride 20 mEq tablet extended release 40 meq PO BID RF: 0 DANDELION ROOT 1 dose PO QAM Qty: 0 RF: 0 warfarin 2 mg Tablet See Rx Instructions .ROUTE .COMPLEX RF: 0 Referrals Referrals: Anirudh Magdaleno MD [Primary Care Provider] - The scribe's documentation has been prepared under my direction and personally reviewed by me in its entirety. I confirm that the note above accurately reflects all work, treatment, procedures, and medical decision making performed by me.
--- NOTE | 2018-09-09 16:11 | History & Physical Report ---
Date of Service September 09, 2018 Assessment & Plan (1) COPD exacerbation: Failed multiple outpt management attempts Nebs, solu-medrol 60mg TID CXR neg for PNA Possibly related to elevated pollen counts, humidity--family states it happens this time of year regulary Baseline O2 3L continuous Trop neg x1, BNP WNL Last CT chest 07/16 was neg for cancerous concerns but some suggestion of pulmonary fibrosis which is likely not helping his COPD status, will not repeat (2) Elevated blood sugar: Hx of DM that resolved s/p weight loss BS elevated in the setting of recent steroid use SSI PRN A1c pending (3) 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 Bee Active chemo Last CT chest 07/16 was neg for cancerous concerns but some suggestion of pulmonary fibrosis which is likely not helping his COPD status Baseline cr is 2.0-2.2, 2.3 on admission--monitor (4) Hypothyroid: continue home meds (5) HTN (hypertension): continue home meds (6) GERD (gastroesophageal reflux disease): continue home meds (7) Hx-TIA (transient ischemic attack): Plavix use (8) History of DVT (deep vein thrombosis): Remote--10 yrs ago Has been on coumadin since that time INR WNL (9) Hypokalemia: Stable, continue home meds (10) S/P AVR: continue home meds (11) DVT prophylaxis: Therapeutic on coumadin History of Present Illness Primary Care Provider: Anirudh Magdaleno MD 88 y/o M c/o SOB and wheezing. Pt has COPD and is baseline O2 dependent at 3L continuous. Over the last month pt has had ongoing issues with SOB. He follows with Antonio Angeles for his pulmonology issues. He was seen and completed a course of steroids and abx about 2 weeks ago for COPD exacerbation. He was feeling a bit improved. He saw Antonio Angeles in the office on Monday and was told his lungs were clear. Monday afternoon pt started to have a bit of SOB again. It was worse on . They called Antonio Angeles and he was directed to use his nebs Q4hrs and an additional neb medication was added. They are unsure as to which one. Pt continued to have worsening SOB, especially at night. SOB was with exertion and at rest. He increased his O2 to 4L, but no improvement. He notes that after he would use the nebs, he would have about 2 hours of improvement, but then his SOB would worsen again. Family states that this happens every spring. Pt was given steroids and multiple nebs in the ED, but was still with audible wheezing until the last neb. He states he is feeling much better. No longer SOB at rest. Family states they can no longer hear him wheeze. 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 He follows with Dr. Bee. Family states that they were told that the chemo he is getting could cause his COPD to worsen. He has regular CT scans to monitor. They state that his lung nodules are no longer seen on imaging. He had an appt with Dr. Bee last week and they report that he is happy with pt's progress. Pt denies fever, chest pain, abd pain, n/v/c/d, LE pain or swelling. Allergies Allergy/AdvReac Type Severity Reaction Status Date / Time ZACH Inhibitors Allergy Intermediate COUGH Verified 09/09/18 14:15 cephalexin Allergy Intermediate ABDOMINAL Verified 09/09/18 14:15 PAIN clindamycin Allergy Intermediate REFLUX Verified 09/09/18 14:15 Penicillins Allergy Intermediate ?RASH Verified 09/09/18 14:15 Sulfa (Sulfonamide Allergy Intermediate ?RASH Verified 09/09/18 14:15 Antibiotics) Home Medications Home Medications Medication Instructions Recorded Confirmed Type DANDELION ROOT 1 dose PO QAM #0 08/09/17 09/09/18 History albuterol sulfate 1.25 mg INHALATION Q4H PRN 11/27/17 09/09/18 History allopurinol 100 mg PO QAM 11/27/17 09/09/18 History clopidogrel [Plavix] 75 mg PO QAM 11/27/17 09/09/18 History diltiazem HCl 120 mg PO QAM 11/27/17 09/09/18 History levothyroxine 87.5 mcg PO QAM 11/27/17 09/09/18 History magnesium oxide 400 mg PO QAM 11/27/17 09/09/18 History meclizine 25 mg PO TID PRN 11/27/17 09/09/18 History ondansetron HCl [Zofran] 8 mg PO UD PRN 11/27/17 09/09/18 History prochlorperazine maleate 10 mg PO UD PRN 11/27/17 09/09/18 History [Compazine] vitamin B complex 1 tab PO QAM 11/27/17 09/09/18 History metoprolol tartrate 100 mg tablet 150 mg PO BID tab 11/28/17 09/09/18 History nivolumab 40 mg/4 mL intravenous See Rx Instructions .ROUTE 11/28/17 09/09/18 History solution .COMPLEX ml pantoprazole 40 mg tablet,delayed 40 mg PO BID tab 11/28/17 09/09/18 History release polyethylene glycol 3350 17 gram 17 g PO DAILY PRN 11/28/17 09/09/18 History oral powder packet potassium chloride ER 20 mEq 40 meq PO BID tab 11/28/17 09/09/18 History tablet,extended release bumetanide 2 mg tablet 4 mg PO BID tab 03/06/18 09/09/18 History warfarin 4 mg tablet See Rx Instructions PO UD tab 07/30/18 09/09/18 History warfarin See Rx Instructions .ROUTE .COMPLEX 09/09/18 09/09/18 History Past Med/Surg History Medical History Abdominal wall hematoma (Acute) Hypokalemia (Acute) Nasal bone fractures (Acute) Nasal bone fractures (Acute) Nonspecific ST-T wave electrocardiographic changes (Acute) PVC (premature ventricular contraction) (Acute) PVC (premature ventricular contraction) (Acute) Palpitations (Acute) Palpitations (Acute) Palpitations (Acute) Pre-diabetes Weakness (Acute) Surgical History S/P CABG x 3 (Chronic) Family History Mother Myocardial infarction Father Myocardial infarction Social History Preferred Language: Mohawk Communication Ability: Effective Beliefs That Will Affect Care: None Current Living Situation: Significant Other Other Information That Helps Us Care for You: No Feels Safe at Home: Yes Safety Concerns: Feels Safe At This Time Smoking Status: Former smoker Number of Years Since Quit: 60 Hx Alcohol Use: No Hx Substance Use: No Review of Systems Review of Systems: Pertinent positives and negatives reviewed in HPI--all others negative Physical Exam Constitutional: WD/WN, vitals as above Eyes: normal visual lynch by confrontation and + anicteric sclerae Neck: normal visual inspection and trachea midline Respiratory: normal respiratory effort; no respiratory distress Auscultation: + wheezes (diffuse, expiratory) No audible wheezing without stethoscope Cardiovascular: Rate/Rhythm: regular rate and regular rhythm Gastrointestinal (Abdomen): Inspection/Auscultation: abdomen not distended Percussion/Palpation: abdomen soft; abdomen nontender Musculoskeletal: Head/Neck/Chest: normocephalic and head atraumatic negative for edema, peripheral pulses intact Skin: no rashes, warm and dry Neurologic: awake; not confused Speech / Cognition: normal speech Psychiatric: A+Ox3, euthymic affect Results & Data Vital Signs (Past 12 Hours) Vital Signs Temp Pulse Pulse Resp BP Pulse Ox 09/09/18 15:31 73 15 167/89 H 97 09/09/18 15:01 65 21 143/72 H 95 09/09/18 14:31 75 19 124/80 99 09/09/18 14:27 82 23 121/72 98 09/09/18 14:13 71 22 96 09/09/18 13:39 72 20 93 09/09/18 13:20 80 20 97 09/09/18 12:59 97 09/09/18 12:55 36.4 C L 80 20 124/68 91 Diagnostic Findings CXR: neg for acute ECG Additional Comments: Incomplete LBBB Code Status & VTE Plan Code Status Full code, although pt states no prolonged mechanical life support, feeding tubes, etc VTE Prophylaxis Plan VTE Prophylaxis will be ordered: Yes PG Care Time/CCT Total # of Minutes Spent Total Time Spent with Patient: Total time spent is greater than 50% in coordination of care (as documented) at patient's floor/unit and/or counseling patient:
[2018-09-09] MEDS ORDERED: ACETAMINOPHEN 325 MG TAB PO PRN (18:18)
[2018-09-09] MEDS ORDERED: GLUCOSE 10 TABS/TUBE PO PRN (18:18)
[2018-09-09] MEDS ORDERED: GLUCAGON FOR INJ 1 MG VIAL SQ PRN (18:18)
[2018-09-09] MEDS ORDERED: POLYETHYLENE (MIRALAX) 17 GM PACK PO PRN (18:18)
[2018-09-09] MEDS ORDERED: PROCHLORPERAZINE MALEATE 10 MG TAB PO PRN (18:18)
[2018-09-09] MEDS ORDERED: MECLIZINE HCL 25 MG TAB PO PRN (18:18)
[2018-09-09] MEDS ORDERED: ONDANSETRON 8 MG TABLET PO PRN (18:18)
[2018-09-09] MEDS ORDERED: ALBUTEROL HFA 8 GM INHALER INH PRN (18:18)
[2018-09-09] MEDS ORDERED: MAGNESIUM HYDROXIDE SUSP 30 ML UDC PO PRN (18:18)
[2018-09-09] MEDS ORDERED: CARBOHYDRATES FOR HYPOGLYCEMIA PO PRN (18:18)
[2018-09-09] MEDS ORDERED: DEXTROSE 50% 50 ML SYRINGE IV PRN (18:18)
[2018-09-09] MEDS ORDERED: ONDANSETRON INJ 2 MG/ML 2 ML VIAL IV PRN (18:18)
[2018-09-09] MEDS ORDERED: GLUCOSE 40% GEL 15 GM TUBE PO PRN (18:18)
[2018-09-09] MEDS ORDERED: POTASSIUM CHLORIDE 20 MEQ TABCR PO SCH (19:00)
[2018-09-09] MEDS: BUMETANIDE 1 MG TAB PO SCH (19:50)
[2018-09-09] MEDS: WARFARIN SOD 2 MG TAB PO SCH (19:50)
[2018-09-09] MEDS: METOPROLOL TARTRATE 100 MG TAB PO SCH (19:51)
[2018-09-09] MEDS: PANTOprazole 40 MG TAB PO SCH (19:52)
[2018-09-09] MEDS: INSULIN ASPART 100 UNITS/ML 3 ML PEN SC SCH ×2 (19:53→23:25)
[2018-09-09] MEDS: LEVALBUTEROL 1.25MG/0.5ML NEB INH SCH ×2 (20:01→23:41)
[2018-09-09] MEDS: methylPREDNISolone 60 MG in SYRINGE 0 ML IV SCH (20:57)
[2018-09-10] MEDS: LEVALBUTEROL 1.25MG/0.5ML NEB INH SCH ×6 (03:25→23:20)
[2018-09-10] MEDS ORDERED: LEVOTHYROXINE SODIUM 175 MCG TABLET PO SCH (06:30)
[2018-09-10 07:26] LABS: Prothrombin Time 19.7 Seconds (9.0-12.0)
[2018-09-10 07:35] LABS: BUN Creatinine Ratio 10.1 (10-20); Calcium 9.2 mg/dl (8.5-10.1); Creatinine Clr Calc Pharmacy 23.6 ml/min; Est GFR (African American) 27.3; Est GFR (Non-African American) 23.5; Potassium 4.5 mmol/L (3.5-5.1)
[2018-09-10 08:43] LABS: Estimated Average Glucose 186 mg/dl; Hemoglobin A1C 8.1 % (4.5-5.6)
[2018-09-10] MEDS ORDERED: INSULIN GLARGINE SOLOSTAR 100 UNITS/ML 3 ML PEN SC SCH ×3 (09:00→21:00)
[2018-09-10] MEDS ORDERED: DANDELION ROOT PO SCH (09:00)
[2018-09-10] MEDS: INSULIN ASPART 100 UNITS/ML 3 ML PEN SC SCH ×4 (09:38→21:37)
[2018-09-10] MEDS: BUMETANIDE 1 MG TAB PO SCH ×2 (09:43→17:09)
[2018-09-10] MEDS: METOPROLOL TARTRATE 100 MG TAB PO SCH ×2 (09:45→21:35)
[2018-09-10] MEDS: POTASSIUM CHLORIDE 20 MEQ TABCR PO SCH ×2 (09:45→17:11)
[2018-09-10] MEDS: MAGNESIUM OXIDE 400 MG TAB PO SCH (09:47)
[2018-09-10] MEDS: CLOPIDOGREL BISULFATE 75 MG TAB PO SCH (09:47)
[2018-09-10] MEDS: PANTOprazole 40 MG TAB PO SCH ×2 (09:48→21:37)
[2018-09-10] MEDS: VITAMIN B COMPLEX TAB PO SCH (09:48)
[2018-09-10] MEDS: ALLOPURINOL 100 MG TAB PO SCH (09:48)
[2018-09-10] MEDS: methylPREDNISolone 60 MG in SYRINGE 0 ML IV SCH ×3 (09:50→21:38)
[2018-09-10] MEDS ORDERED: INSULIN GLARGINE SOLOSTAR 100 UNITS/ML 3 ML PEN SC STA (11:49)
[2018-09-10] MEDS ORDERED: PHARMACY GLYCEMIC MGMT CONSULT PRN (12:44)
[2018-09-10] MEDS ORDERED: INSULIN GLARGINE SOLOSTAR 100 UNITS/ML 3 ML PEN SC ONE (12:45)
[2018-09-10] MEDS ORDERED: INSULIN HUMAN REGULAR PER UNIT 9 UNITS in SYRINGE 8.91 ML IV ONE (13:00)
--- NOTE | 2018-09-10 14:42 | Pharmacy Report ---
Glycemic Control Consultation - Date of Service September 10, 2018 - Scope Scope: Glycemic Pharmacist consulted by Dr Schultz on 09/10/18 for glycemic control and to write orders per [facility] inpatient glycemic control protocol - Objective Weight: 93.3 kg Accuchecks BSG (last 24hrs): 09/09/18 09/09/18 09/10/18 18:34 23:23 06:49 Glucose 284 H POC Glucose 270 H 308 H* 09/10/18 09/10/18 09/10/18 07:45 07:47 11:34 Glucose POC Glucose 306 H* 292 H 327 H* 09/10/18 11:37 Glucose POC Glucose 303 H* Laboratory Data (last 24hrs): 09/10/18 06:49 Potassium 4.5 D Carbon Dioxide 29 Anion Gap 6.0 Creatinine 2.40 H Est Cr Clr Drug Dosing 23.6 HbA1c: Hemoglobin A1c 8.1 % (4.5-5.6) H 09/10/18 06:49 - Recent Pertinent Medications Outpatient Anti-diabetic Regimen: * N/A The patient is currently receiving: * Basal insulin: Lantus 10 units every 12 hours * Correctional Insulin: Novolog Correction per scale ACHS Goal Range: Low 100 mg/dL - High 140 mg/dL Correction Factor: 20 mg/dL/unit * Prandial insulin: Per carb ratio of 1 unit per 8 grams CHO consumed Risk Factors for Insulin Resistance: * Steroids: Solu-Medrol 125 mg IV x 1 then Solu-Medrol 60 mg IV q8 hours --> COPD exacerbation * Diet: T2DM - Assessment & Plan Assessment & Plan: ASSESSMENT: * Mr Beth is an 88 y/o M with previously undiagnosed diabetes who presents with a COPD exacerbation. Patient received Solu-Medrol 125 mg yesterday in the ED at 1344 and was started on Solu-Medrol 60 mg IV TID. * Pharmacy received consult around noon today. Blood sugar this morning was 306 mg/dL and was 327 mg/dL at lunch. Patient received 11 units of Novolog and 10 units of Lantus this morning. * Since patient is on high-dose steroids start weight-based stress of 3 Novolog with overnight checks. Gave additional 10 units to make 20 units (1/2 weight- based stress of 3) plus a scale of Lantus tonight with doses of weight-based stress of 1,2, 3 as options. Overnight checks added to ensure 24 hour control. * As steroids taper expect patient's needs to decrease. PLAN FOR INPATIENT GLYCEMIC CONTROL: * Basal insulin * Lantus 10 units SQ x 1 then 10-20 (10 units if blood sugar less than 120 mg/dL; 15 units if blood sugar 120-180 mg/dL; 20 units if blood sugar over 180 mg/dL) * Bolus insulin * NovoLog per scale ACHS or Q6hrs while NPO * Goal Range: Low 110 mg/dL - High 140 mg/dL * Correction Factor: 15 mg/dL/unit * Nutritional / Prandial insulin per carb ratio of 1 unit per 5 grams CHO consumed * Please note that the plan above was derived based on current level of insulin resistance and hospital stress. These recommendations are appropriate for inpatient admission only. Plan of care upon discharge will need to be reassessed to avoid potential outpatient hypo/hyperglycemia. Thank you.
--- NOTE | 2018-09-10 16:10 | Hospitalist Progress Note ---
Date of Service September 10, 2018 Assessment & Plan (1) COPD exacerbation: Failed multiple outpt management attempts with prednisone and antibiotics CXR neg for PNA Possibly related to elevated pollen counts, humidity--family states it happens this time of year regularly Baseline O2 3L continuous and remains on that now VBG within acceptable limits Trop neg x1, BNP WNL Last CT chest 07/16 was neg for cancerous concerns but some suggestion of pulmonary fibrosis which is likely not helping his COPD status, will not repeat -Much improved today with IV steroids -Given severe hyperglycemia, along with improvement in pulmonary symptoms-will begin tapering steroids down to Solu-Medrol 60 mg IV every 12 hours -Continue levalbuterol nebs [id number] (2) Hypothyroid: Most recent TSH was elevated at 6 and levothyroxine dose was increased as per to 137 mcg daily -Change dose here to 137 mcg once daily in the morning (3) HTN (hypertension): Blood pressures are well controlled here -Continue bumetanide 4 mg p.o. twice daily, diltiazem 120 mg p.o. once daily, and metoprolol tartrate 150 mg p.o. twice daily (4) GERD (gastroesophageal reflux disease): No acute issues -Continue pantoprazole 40 mg p.o. twice daily (5) Hx-TIA (transient ischemic attack): No current issues -Continue Plavix, atorvastatin (6) History of DVT (deep vein thrombosis): Remote--10 yrs ago, had DVT x2 Has been on coumadin since that time INR therapeutic today at 2.0 -Continue Coumadin -Follow INR in the morning (7) Hypokalemia: Potassium levels are actually creeping upward here, could be related to steroid use -Decrease potassium chloride to 20 mEq p.o. twice daily -Follow BMP in the morning (8) S/P AVR: For history of severe aortic stenosis Follows with Dr. Mccrary of cardiology (9) Chronic respiratory failure with hypoxia: Chronic respiratory failure with hypoxia in setting of COPD who is dependent on O2 ATC -Continue supplemental O2 3 L nasal cannula continuously (10) CAD (coronary artery disease), [place] coronary artery: Status post CABG. No evidence of acute coronary syndrome here, no chest p ain -Continue Plavix, statin, beta-tiera (11) CKD (chronic kidney disease) stage 4, GFR 15-29 ml/min: Baseline creatinine around 2.2, fairly stable here today with creatinine 2.4 -Avoid nephrotoxins -Renally dose medications -Follow BMP (12) Diabetes mellitus: Was previously told he had diet controlled diabetes but now hemoglobin A1c is up to 8.1% likely due to frequent steroid use for his moderately severe COPD over the years With hyperglycemia here secondary to IV Solu-Medrol use -Added on Lantus and tightened NovoLog -Consulted pharmacy glycemic management -He should definitely be started on some sort of medication upon discharge- perhaps insulin? 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 Bee, diagnosed in 2016 and doing fairly well now on immunotherapy with Opdivo Last CT chest 07/16 was neg for cancerous concerns but some suggestion of pulmonary fibrosis which is likely not helping his COPD status (14) DVT prophylaxis: Therapeutic on coumadin Disposition-remain hospitalized Subjective Patient reports feeling much better today. He is less short of breath. He is coughing up minimal sputum. Denies chest pain, denies headache or lightheadedness, denies abdominal pain. Denies constipation or diarrhea. Review of Systems Review of Systems: All systems reviewed & are unremarkable except as noted in HPI & below Physical Exam Constitutional: WD/WN, vitals as above Eyes: PERRL, conjunctivae normal, anicteric sclerae ENMT: external ear and nose normal, oropharynx normal Neck: trachea midline, no thyromegaly Respiratory: normal respiratory effort; no labored breathing Auscultation: + wheezes (Diffuse bilateral expiratory) and + abnormal I/E ratio (Prolonged expiratory phase); no crackles and no rhonchi Cardiovascular: RRR, no murmur, no edema Gastrointestinal (Abdomen): normal bowel sounds, soft, nontender, no hepatosplenomegaly Musculoskeletal: Extremities: extremities normal to inspection; no cyanosis and no clubbing Skin: no rashes, warm and dry Neurologic: moves all extremities and awake; no focal motor deficits Psychiatric: A+Ox3, euthymic affect Results & Data Vital Signs (Past 12 Hours) Vital Signs Temp Pulse Resp BP Pulse Ox 09/10/18 15:21 36.7 C 69 16 127/72 95 09/10/18 15:15 65 18 96 09/10/18 11:16 72 16 98 06/17/19 11:00 36.7 C 71 20 137/78 94 09/10/18 07:25 70 16 97 09/10/18 07:18 36.9 C 72 20 171/90 H 96 Laboratory Results 09/10/18 09/10/18 09/10/18 Range/Units 16:46 14:50 11:37 PT (9.0-12.0) Seconds INR (0.9-1.1) Sodium (136-145) mmol/L Potassium (3.5-5.1) mmol/L Chloride (98-107) mmol/L Carbon Dioxide (21-32) mmol/L Anion Gap (3-11) BUN (7-18) mg/dl Creatinine (0.6-1.4) mg/dl Est Cr Clr Drug Dosing ml/min Est GFR ( Amer) Est GFR (Non-Af Amer) BUN/Creatinine Ratio (10-20) Glucose (70-99) mg/dl POC Glucose 210 H 202 H 303 H* (70-99) Estimat Average Glucose mg/dl Hemoglobin A1c (4.5-5.6) % Calcium (8.5-10.1) mg/dl Procalcitonin (0-0.5) ng/ml 09/10/18 09/10/18 09/10/18 Range/Units 11:34 07:47 07:45 PT (9.0-12.0) Seconds INR (0.9-1.1) Sodium (136-145) mmol/L Potassium (3.5-5.1) mmol/L Chloride (98-107) mmol/L Carbon Dioxide (21-32) mmol/L Anion Gap (3-11) BUN (7-18) mg/dl Creatinine (0.6-1.4) mg/dl Est Cr Clr Drug Dosing ml/min Est GFR ( Amer) Est GFR (Non-Af Amer) BUN/Creatinine Ratio (10-20) Glucose (70-99) mg/dl POC Glucose 327 H* 292 H 306 H* (70-99) Estimat Average Glucose mg/dl Hemoglobin A1c (4.5-5.6) % Calcium (8.5-10.1) mg/dl Procalcitonin (0-0.5) ng/ml 09/10/18 09/10/18 09/10/18 Range/Units 06:49 06:49 06:49 PT 19.7 H (9.0-12.0) Seconds INR 2.0 H (0.9-1.1) Sodium 139 (136-145) mmol/L Potassium 4.5 D (3.5-5.1) mmol/L Chloride 104 (98-107) mmol/L Carbon Dioxide 29 (21-32) mmol/L Anion Gap 6.0 (3-11) BUN 24 H (7-18) mg/dl Creatinine 2.40 H (0.6-1.4) mg/dl Est Cr Clr Drug Dosing 23.6 ml/min Est GFR ( Amer) 27.3 Est GFR (Non-Af Amer) 23.5 BUN/Creatinine Ratio 10.1 (10-20) Glucose 284 H (70-99) mg/dl POC Glucose (70-99) Estimat Average Glucose 186 mg/dl Hemoglobin A1c 8.1 H (4.5-5.6) % Calcium 9.2 (8.5-10.1) mg/dl Procalcitonin (0-0.5) ng/ml 09/09/18 09/09/18 09/09/18 Range/Units 23:23 18:34 13:28 PT (9.0-12.0) Seconds INR (0.9-1.1) Sodium (136-145) mmol/L Potassium (3.5-5.1) mmol/L Chloride (98-107) mmol/L Carbon Dioxide (21-32) mmol/L Anion Gap (3-11) BUN (7-18) mg/dl Creatinine (0.6-1.4) mg/dl Est Cr Clr Drug Dosing ml/min Est GFR ( Amer) Est GFR (Non-Af Amer) BUN/Creatinine Ratio (10-20) Glucose (70-99) mg/dl POC Glucose 308 H* 270 H (70-99) Estimat Average Glucose mg/dl Hemoglobin A1c (4.5-5.6) % Calcium (8.5-10.1) mg/dl Procalcitonin 0.08 (0-0.5) ng/ml PG Care Time/CCT Total # of Minutes Spent Total Time Spent with Patient: Total time spent is greater than 50% in coordination of care (as documented) at patient's floor/unit and/or counseling patient:
[2018-09-10] MEDS ORDERED: WARFARIN SOD 4 MG TAB PO SCH (17:00)
[2018-09-10] MEDS: ATORVASTATIN 40 MG TAB PO SCH (21:35)
[2018-09-11] MEDS ORDERED: INSULIN ASPART 100 UNITS/ML 3 ML PEN SC SCH (02:00)
[2018-09-11] MEDS: LEVALBUTEROL 1.25MG/0.5ML NEB INH SCH ×5 (03:05→19:47)
[2018-09-11] MEDS: LEVOTHYROXINE SODIUM 137 MCG TABLET PO SCH (06:40)
[2018-09-11 08:04] LABS: INR 2.4 (0.9-1.1)
[2018-09-11 08:25] LABS: BUN Creatinine Ratio 14.4 (10-20); Calcium 9.6 mg/dl (8.5-10.1); Creatinine Clr Calc Pharmacy 18.7 ml/min; Est GFR (African American) 20.7; Est GFR (Non-African American) 17.8; Potassium 4.5 mmol/L (3.5-5.1)
[2018-09-11] MEDS: CLOPIDOGREL BISULFATE 75 MG TAB PO SCH (08:42)
[2018-09-11] MEDS: PANTOprazole 40 MG TAB PO SCH ×2 (08:42→21:28)
[2018-09-11] MEDS: BUMETANIDE 1 MG TAB PO SCH (08:42)
[2018-09-11] MEDS: POTASSIUM CHLORIDE 20 MEQ TABCR PO SCH ×2 (08:42→16:33)
[2018-09-11] MEDS: ALLOPURINOL 100 MG TAB PO SCH (08:46)
[2018-09-11] MEDS: METOPROLOL TARTRATE 100 MG TAB PO SCH ×2 (08:46→21:28)
[2018-09-11] MEDS: MAGNESIUM OXIDE 400 MG TAB PO SCH (08:48)
[2018-09-11] MEDS: VITAMIN B COMPLEX TAB PO SCH (08:48)
[2018-09-11] MEDS: INSULIN ASPART 100 UNITS/ML 3 ML PEN SC SCH ×4 (08:52→21:26)
[2018-09-11] MEDS: methylPREDNISolone 60 MG in SYRINGE 0 ML IV SCH (08:53)
[2018-09-11] MEDS ORDERED: INSULIN GLARGINE SOLOSTAR 100 UNITS/ML 3 ML PEN SC ONE ×2 (09:00→21:00)
--- NOTE | 2018-09-11 11:08 | Pharmacy Report ---
Pharmacy Glycemic Short Note 2 - Date of Service September 11, 2018 - Glycemic Short BSG Results (Last 24 hours): 09/10/18 09/10/18 09/10/18 11:34 11:37 14:50 Glucose POC Glucose 327 H* 303 H* 202 H 09/10/18 09/10/18 09/11/18 16:46 20:28 02:26 Glucose POC Glucose 210 H 244 H 219 H 09/11/18 09/11/18 07:39 07:45 Glucose 255 H POC Glucose 250 H OUTPATIENT ANTIDIABETIC REGIMEN: * None. Patient had diabetes that resolved s/p weight loss * HbA1c 8.1% on 09/10/18 is elevated. However, patient also had recent steroid use. ASSESSMENT: * 88 yo M w hx of metastatic renal CA on active chemo admitted with COPD exacerbation * Patient currently with steroid-induced hyperglycemia. Methylprednisolone tapered from q8h to q12h yesterday afternoon * BSG's persistently elevated, ranging 210-306 mg/dL yesterday * AM fasting elevated to 250 mg/dL - will increase Lantus, but only slightly and will continue BID as concerned about being overly aggressive and then have steroids tapered/discontinued which may cause AM hypoglycemia. Will not order basal insulin for tomorrow to allow for assessment of steroid plan/changes * OK to tighten CHO ratio as post-prandial elevations are noted, but this will need to be loosened if/when steroids are tapered/discontinued PLAN FOR INPATIENT GLYCEMIC CONTROL: * Basal insulin: Lantus 30 units x1 now then HS x1 tonight based on BSG (PM dose to be held if methylprednisolone not admin in PM) * 0 units for BSG less than 120 mg/dL * 10 units for BSG 120-180 mg/dL * 20 units for BSG greater than 180 mg/dL * Bolus insulin * NovoLog per scale ACHS or Q6hrs while NPO * Goal Range: Low 110 mg/dL - High 140 mg/dL * Correction Factor: 15 mg/dL/unit * Nutritional / Prandial insulin per carb ratio of 1 unit per 4 grams CHO consumed PLAN FOR DISCHARGE: * Recheck HbA1c as outpatient after patient has been off steroids for at least 1 month (2-3 months preferred) * If patient will be on frequent steroids as an outpatient (and assuming the steroid used will be prednisone), may consider starting NPH qAM to be given on days where patient also receives prednisone qAM
[2018-09-11] MEDS: SODIUM CHLORIDE 0.9% 1000ML 1,000 ML IV SCH (14:11)
[2018-09-11] MEDS: WARFARIN SOD 2 MG TAB PO SCH (16:33)
--- NOTE | 2018-09-11 17:59 | Hospitalist Progress Note ---
Date of Service September 11, 2018 Assessment & Plan (1) COPD exacerbation: Failed multiple outpt management attempts with prednisone and antibiotics CXR neg for PNA Possibly related to elevated pollen counts, humidity--family states it happens this time of year regularly Baseline O2 3L continuous and remains on that now VBG within acceptable limits Trop neg x1, BNP WNL Last CT chest 07/16 was neg for cancerous concerns but some suggestion of pulmonary fibrosis which is likely not helping his COPD status, will not repeat -continues to improve symptomatically, is less dyspneic -continue to taper Solu-Medrol down to 40 mg IV every 12 hours and will convert to po prednisone taper on discharge -Continue levalbuterol nebs [id number] -will need f/u with Pulm after discharge (2) Hypothyroid: Most recent TSH was elevated at 6 and levothyroxine dose was increased as per to 137 mcg daily -Change dose here to 137 mcg once daily in the morning (3) HTN (hypertension): Blood pressures are well controlled here and low at times -Continue diltiazem 120 mg p.o. once daily, and metoprolol tartrate 150 mg p.o. twice daily -hold bumetanide 4 mg p.o. twice daily for CARLOS as below (4) GERD (gastroesophageal reflux disease): No acute issues -Continue pantoprazole 40 mg p.o. twice daily (5) Hx-TIA (transient ischemic attack): No current issues -Continue Plavix, atorvastatin (6) History of DVT (deep vein thrombosis): Remote--10 yrs ago, had DVT x2 Has been on coumadin since that time INR therapeutic today at 2.4 -Continue Coumadin -Follow INR in the morning (7) Hypokalemia: Potassium levels have been normal and now with CARLOS and holding Bumex--> will dc po KCl for now -Follow BMP in the morning (8) S/P AVR: For history of severe aortic stenosis Follows with Dr. Mccrary of cardiology (9) Chronic respiratory failure with hypoxia: Chronic respiratory failure with hypoxia in setting of COPD who is dependent on O2 ATC -Continue supplemental O2 3 L nasal cannula continuously (10) CAD (coronary artery disease), [place] coronary artery: Status post CABG. No evidence of acute coronary syndrome here, no chest pain -Continue Plavix, statin, beta-tiera (11) CKD (chronic kidney disease) stage 4, GFR 15-29 ml/min: Baseline creatinine around 2.2, now with worsening renal function/CARLOS -Avoid nephrotoxins -Renally dose medications -Follow BMP (12) Diabetes mellitus: Was previously told he had diet controlled diabetes but now hemoglobin A1c is up to 8.1% likely due to frequent steroid use for his moderately severe COPD over the years With hyperglycemia here secondary to IV Solu-Medrol use -Pharmacy managing--> increased Lantus to 30 units in the AM and sliding scale of Lantus for evening, continue supplemental NovoLog -appreciate pharmacy glycemic management and Diabetic Nurse Educator teaching, he received a glucometer -plan to start insulin on discharge--> Pharmacy suggests NPH with AM prednisone, but Lantus pen may be easier -He will need close follow-up with PCP (13) 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 Bee, diagnosed in 2015 and doing fairly well now on immunotherapy with Opdivo Last CT chest 07/16 was neg for cancerous concerns but some suggestion of pulmonary fibrosis which is likely not helping his COPD status (14) CARLOS (acute kidney injury): Cane Stripper up to 3.[address] also [address] up to 44. Likely prerenal given low BPs and steroid use, hyperglycemia may be leading ot dehydration in settin gof taking Bumex. Also pt reports not taking much water in like he usually does -hold Bumex -give 500mL of NS at 80mL/hr -follow BMP in AM (15) DVT prophylaxis: Therapeutic on coumadin Disposition-remain hospitalized, likely dc to home tomorrow if renal function stable to improved Subjective Feeling greatly improved today. Breathing improved, not nearly as dyspneic as before. Was able to get up and walk around the room and rearrange his furniture without much difficulty. He is urinating but not as much as before. Moving his bowels. Denies CP. He is coughing up some white sputum. Afebrile Review of Systems Review of Systems: All systems reviewed & are unremarkable except as noted in HPI & below Physical Exam Constitutional: WD/WN, vitals as above Eyes: PERRL, conjunctivae normal, anicteric sclerae ENMT: external ear and nose normal, oropharynx normal Neck: trachea midline, no thyromegaly Respiratory: normal respiratory effort; no labored breathing Auscultation: + wheezes (a few bilateral expiratory wheezes but improved air movement throughout ); no crackles and no rhonchi Cardiovascular: RRR, no murmur, no edema Gastrointestinal (Abdomen): normal bowel sounds, soft, nontender, no hepatosplenomegaly Musculoskeletal: Extremities: extremities normal to inspection; no cyanosis and no clubbing Skin: no rashes, warm and dry Neurologic: moves all extremities and awake; no focal motor deficits Psychiatric: A+Ox3, euthymic affect Results & Data Vital Signs (Past 12 Hours) Vital Signs Temp Pulse Resp BP Pulse Ox 09/11/18 15:45 36.5 C 67 20 129/70 95 09/11/18 15:12 70 16 97 09/11/18 11:57 36.6 C 71 20 143/73 H 97 09/11/18 11:33 71 16 97 09/11/18 08:00 36.8 C 68 20 122/62 96 09/11/18 07:36 68 16 96 Laboratory Results 09/11/18 09/11/18 09/11/18 Range/Units 20:58 16:41 11:31 PT (9.0-12.0) Seconds INR (0.9-1.1) Sodium (136-145) mmol/L Potassium (3.5-5.1) mmol/L Chloride (98-107) mmol/L Carbon Dioxide (21-32) mmol/L Anion Gap (3-11) BUN (7-18) mg/dl Creatinine (0.6-1.4) mg/dl Est Cr Clr Drug Dosing ml/min Est GFR ( Amer) Est GFR (Non-Af Amer) BUN/Creatinine Ratio (10-20) Glucose (70-99) mg/dl POC Glucose 261 H 157 H 214 H (70-99) Calcium (8.5-10.1) mg/dl 09/11/18 09/11/18 09/11/18 Range/Units 07:45 07:39 07:39 PT 23.0 H (9.0-12.0) Seconds INR 2.4 H (0.9-1.1) Sodium 140 (136-145) mmol/L Potassium 4.5 (3.5-5.1) mmol/L Chloride 103 (98-107) mmol/L Carbon Dioxide 26 (21-32) mmol/L Anion Gap 11.0 (3-11) BUN 44 H D (7-18) mg/dl Creatinine 3.02 H D (0.6-1.4) mg/dl Est Cr Clr Drug Dosing 18.7 ml/min Est GFR ( Amer) 20.7 Est GFR (Non-Af Amer) 17.8 BUN/Creatinine Ratio 14.4 (10-20) Glucose 255 H (70-99) mg/dl POC Glucose 250 H (70-99) Calcium 9.6 (8.5-10.1) mg/dl 09/11/ Range/Units 02:26 PT (9.0-12.0) Seconds INR (0.9-1.1) Sodium (136-145) mmol/L Potassium (3.5-5.1) mmol/L Chloride (98-107) mmol/L Carbon Dioxide (21-32) mmol/L Anion Gap (3-11) BUN (7-18) mg/dl Creatinine (0.6-1.4) mg/dl Est Cr Clr Drug Dosing ml/min Est GFR ( Amer) Est GFR (Non-Af Amer) BUN/Creatinine Ratio (10-20) Glucose (70-99) mg/dl POC Glucose 219 H (70-99) Calcium (8.5-10.1) mg/dl PG Care Time/CCT Total # of Minutes Spent Total Time Spent with Patient: Total time spent is greater than 50% in coordination of care (as documented) at patient's floor/unit and/or counseling patient:
[2018-09-11] MEDS: ATORVASTATIN 40 MG TAB PO SCH (21:28)
[2018-09-11] MEDS: methylPREDNISolone 40 MG in SYRINGE 0 ML IV SCH (21:30)
[2018-09-11] MEDS: LEVALBUTEROL HCL 1.25 MG/3 ML NEB INH SCH (23:16)
[2018-09-12] MEDS ORDERED: INSULIN ASPART 100 UNITS/ML 3 ML PEN SC ONE (02:00)
[2018-09-12] MEDS: SODIUM CHLORIDE 0.9% 1000ML 1,000 ML IV SCH ×2 (02:02→13:57)
[2018-09-12] MEDS: LEVALBUTEROL HCL 1.25 MG/3 ML NEB INH SCH ×3 (03:10→11:32)
[2018-09-12] MEDS: LEVOTHYROXINE SODIUM 137 MCG TABLET PO SCH (06:01)
[2018-09-12 06:47] LABS: INR 2.9 (0.9-1.1)
[2018-09-12 07:00] LABS: BUN Creatinine Ratio 18.1 (10-20); Calcium 8.8 mg/dl (8.5-10.1); Creatinine Clr Calc Pharmacy 19.2 ml/min; Est GFR (African American) 21.3; Est GFR (Non-African American) 18.3; Potassium 4.3 mmol/L (3.5-5.1)
[2018-09-12] MEDS: INSULIN ASPART 100 UNITS/ML 3 ML PEN SC SCH ×2 (08:14→12:02)
[2018-09-12] MEDS: VITAMIN B COMPLEX TAB PO SCH (08:25)
[2018-09-12] MEDS: MAGNESIUM OXIDE 400 MG TAB PO SCH (08:25)
[2018-09-12] MEDS: METOPROLOL TARTRATE 100 MG TAB PO SCH (08:26)
[2018-09-12] MEDS: PANTOprazole 40 MG TAB PO SCH (08:28)
[2018-09-12] MEDS: CLOPIDOGREL BISULFATE 75 MG TAB PO SCH (08:29)
[2018-09-12] MEDS: ALLOPURINOL 100 MG TAB PO SCH (08:29)
[2018-09-12] MEDS: methylPREDNISolone 40 MG in SYRINGE 0 ML IV SCH (08:29)
[2018-09-12] MEDS ORDERED: INSULIN GLARGINE SOLOSTAR 100 UNITS/ML 3 ML PEN SC ONE (09:00)
--- NOTE | 2018-09-12 11:34 | Discharge Summary ---
Date of Service September 12, 2018 Admission HPI Per Admitting Provider 88 y/o M c/o SOB and wheezing. Pt has COPD and is baseline O2 dependent at 3L continuous. Over the last month pt has had ongoing issues with SOB. He follows with Antonio Angeles for his pulmonology issues. He was seen and completed a course of steroids and abx about 2 weeks ago for COPD exacerbation. He was feeling a bit improved. He saw Antonio Angeles in the office on Monday and was told his lungs were clear. Monday afternoon pt started to have a bit of SOB again. It was worse on . They called Antonio Angeles and he was directed to use his nebs Q4hrs and an additional neb medication was added. They are unsure as to which one. Pt continued to have worsening SOB, especially at night. SOB was with exertion and at rest. He increased his O2 to 4L, but no improvement. He notes that after he would use the nebs, he would have about 2 hours of improvement, but then his SOB would worsen again. Family states that this happens every spring. Pt was given steroids and multiple nebs in the ED, but was still with audible wheezing until the last neb. He states he is feeling much better. No longer SOB at rest. Family states they can no longer hear him wheeze. 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 He follows with Dr. Bee. Family states that they were told that the chemo he is getting could cause his COPD to worsen. He has regular CT scans to monitor. They state that his lung nodules are no longer seen on imaging. He had an appt with Dr. Bee last week and they report that he is happy with pt's progress. Pt denies fever, chest pain, abd pain, n/v/c/d, LE pain or swelling. Principal Diagnosis Acute exacerbation of COPD Discharge Exam Constitutional WD/WN, vitals as above Eyes PERRL, conjunctivae normal, anicteric sclerae ENMT external ear and nose normal, oropharynx normal Neck trachea midline, no thyromegaly Respiratory normal respiratory effort; no labored breathing Auscultation: + diminished lung sounds (But improved from previous, moving air better); no crackles, no rhonchi and no wheezes Cardiovascular RRR, no murmur, no edema Gastrointestinal (Abdomen) normal bowel sounds, soft, nontender, no hepatosplenomegaly Musculoskeletal Extremities: extremities normal to inspection; no cyanosis and no clubbing Skin no rashes, warm and dry Neurologic moves all extremities and awake; no focal motor deficits Psychiatric A+Ox3, euthymic affect Discharge Data Allergies Allergy/AdvReac Type Severity Reaction Status Date / Time ZACH Inhibitors Allergy Intermediate COUGH Verified 09/09/18 14:15 cephalexin Allergy Intermediate ABDOMINAL Verified 09/09/18 14:15 PAIN clindamycin Allergy Intermediate REFLUX Verified 09/09/18 14:15 Penicillins Allergy Intermediate ?RASH Verified 09/09/18 14:15 Sulfa (Sulfonamide Allergy Intermediate ?RASH Verified 09/09/18 14:15 Antibiotics) Consultations None Ordered Studies Chest x-ray Hospital Course (1) COPD exacerbation: Failed multiple outpt management attempts with prednisone and antibiotics CXR neg for PNA Possibly related to elevated pollen counts, humidity--family states it happens this time of year regularly Baseline O2 3L continuous and remains on that now VBG within acceptable limits Trop neg x1, BNP WNL Last CT chest 07/16 was neg for cancerous concerns but some suggestion of pulmonary fibrosis which is likely not helping his COPD status -Is much improved and dyspnea have returned to baseline by the day of discharge. He was ambulating the halls -Initially treated with IV Solu-Medrol and will convert to po prednisone taper on discharge with 60 mg daily and then decreasing by 10 mg every 3 days -Continue albuterol nebulizer regularly at home -will need f/u with Pulm after discharge (2) Hypothyroid: Most recent TSH was elevated at 6 and levothyroxine dose was increased as per to 137 mcg daily -Continue 137 mcg once daily in the morning -We will need repeat TSH in 4 to 6 weeks (3) HTN (hypertension): Blood pressures are well controlled here -Continue diltiazem 120 mg p.o. once daily, and metoprolol tartrate 150 mg p.o. twice daily -hold bumetanide 4 mg p.o. twice daily for CARLOS as below until after repeat labs in 2 days (4) GERD (gastroesophageal reflux disease): No acute issues -Continue pantoprazole 40 mg p.o. twice daily (5) Hx-TIA (transient ischemic attack): No current issues -Continue Plavix, atorvastatin (6) History of DVT (deep vein thrombosis): Remote--10 yrs ago, had DVT x2 Has been on coumadin since that time INR therapeutic today at 2.9 -Continue Coumadin usual dosing -Follow INR as scheduled at anticoagulation clinic in 1 week (7) Hypokalemia: Potassium levels have been normal and now with CARLOS and holding Bumex--> will dc po KCl for now and can restart when he restarts his Bumex -Follow BMP in 2 days as an outpatient with results sent to PCP (8) S/P AVR: For history of severe aortic stenosis Follows with Dr. Mccrary of cardiology (9) Chronic respiratory failure with hypoxia: Chronic respiratory failure with hypoxia in setting of COPD who is dependent on O2 ATC -Continue supplemental O2 3 L nasal cannula continuously (10) CAD (coronary artery disease), knik coronary artery: Status post CABG. No evidence of acute coronary syndrome here, no chest pain -Continue Plavix, statin, beta-tiera (11) CKD (chronic kidney disease) stage 4, GFR 15-29 ml/min: Baseline creatinine around 2.2, had worsening renal function/CARLOS as below which is now improved -Avoid nephrotoxins -Renally dose medications -Follow BMP (12) Diabetes mellitus: Was previously told he had diet controlled diabetes but now hemoglobin A1c is up to 8.1% likely due to frequent steroid use for his moderately severe COPD over the years With hyperglycemia here secondary to IV Solu-Medrol use -Was treated with Lantus and supplemental NovoLog -Appreciate diabetic Nurse Educator teaching, he received a glucometer and will check his sugar 4 times a day -plan to start insulin on discharge--> Pharmacy suggests NPH with AM prednisone, will give 40 units once daily and decrease by 10 units every 3 days until he gets to 10 units once daily indefinitely -He will need close follow-up with PCP (13) 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 Bee, diagnosed in 2016 and doing fairly well now on immunotherapy with Opdivo Last CT chest 07/16 was neg for cancerous concerns but some suggestion of pulmonary fibrosis which is likely not helping his COPD status (14) CARLOS (acute kidney injury): Property Assistant up to 3.0 the day prior to discharge and BUN also increased to the 50s. Likely prerenal given low BPs and steroid use, hyperglycemia may be leading to dehydration in the setting of taking Bumex. Also pt reports not taking much water in like he usually does Creatinine had improved to 2.95 on the day of discharge with giving gentle IV fluids and holding his Bumex -continue to hold Bumex after discharge -Instructed and given a prescription for BMP to check on the morning of 09/14 with results sent to the primary care physician -Advised him to await results from PCP to determine if he should restart his Bumex and potassium supplement on Monday -In the meantime, he is certainly not volume overloaded, he is making urine (15) DVT prophylaxis: Therapeutic on coumadin Disposition-remain hospitalized, likely dc to home tomorrow if renal function stable to improved stable for discharge to home Total Time Total Time Spent Total Time Spent (In Minutes): Greater than 30 minutes Total Time Includes: Examination of the Patient, Discharge Planning and Medication Reconciliation Discharge Plan Discharge Items Patient Disposition: Home - Self-Care Reason For Visit: COPD EXACERBATION Discharge Diagnosis: COPD Exacerbation Condition: Good Discharge Goals: Diagnostic testing, Learn about illness and Therapeutic intervention Activity: As commented below Lifting: Gradually increase as tolerated Bathing: No limitations Exercise/Sports: Gradually increase as tolerated Non-emergency contact: Primary Care Provider and Stencil Typist Call non-emergency contact if: you have any medication questions, your symptoms worsen and your temperature is above 100.5 Follow-up/Referrals: Anirudh Magdaleno MD [Primary Care Provider] - 09/18/18 3:45 pm (A follow up appointment has been made with your PCP, Dr. Anirudh Magdaleno, on MondaySeptember 18 at 3:45pm. If you have any questions or need to reschedule, please call the office at [phone].) Sukhwinder Angeles PA-C [Family Provider] - 09/24/18 1:00 pm (Dr. Sukhwinder Angeles does not have any follow up appointments available at this time. A pulmonary appointment was scheduled with ENRIQUE España, on MondaySeptember 24 at 1:00pm. It is located at [address] [place] [address] in [place], [place]. Call the offi ce if you have any questions or have to reschedule [phone].) Diet: Carb Consistent or DM2 Other Ambulatory Orders: Basic Metabolic Panel (Routine) Timeframe: 2 Days Location: Determined by Patient Ordered By: Radhika Tamayo Provider Instructions: Please finish out the course of prednisone as instructed and continue your nebulizer treatments as needed for your COPD exacerbation. A follow up appointment will be made for you with Antonio Anglees. Please discuss with him about starting back on a long acting daily inhaler for your COPD such as Spiriva or Advair, etc. Your blood sugar was quite high while you were admitted, some of which was from the steroids you received for your COPD. Your hemoglobin A1C is now up to 8.1% and you were started on insulin. Please continue the Novolin NPH insulin once daily in the morning and check your blood glucose 4 times daily (in the morning and before lunch, before dinner, and at bedtime). Please follow the taper down on the insulin regimen. Keep a log record of your blood sugars for your doctor. Your insulin may need to be adjusted over time; your blood sugar may start to go lower as your prednisone dose decreases as well. Your kidney function was slightly worse while you were here but was improving at the time of discharge. Please continue to HOLD OFF ON TAKING your bumetanide (water pill) and your potassium pills until advised to restart by your doctor. Go to the lab on Monday morning 09/14/18 to have your blood work redrawn to check your kidney function. Please follow up with your PCP as scheduled for you within 1 week. Prescriptions: New prednisone 20 mg tablet 60 mg PO DAILY Qty: 32 RF: 0 Accu-Chek Guide strip .ROUTE .MEDSUPPLY Qty: 100 RF: 0 lancets [Accu-Chek Fastclix Lancet Drum] misc .ROUTE .MEDSUPPLY Qty: 100 RF: 0 Novolin N NPH U-100 Insulin 100 unit/mL suspension 40 units SQ QAM Qty: 10 RF: 0 syringe with needle 1/2 mL 28 x 1/2" syringe .ROUTE .MEDSUPPLY Qty: 500 RF: 0 Continued warfarin 4 mg tablet See Patient Comments PO UD RF: 0 albuterol sulfate 1.25 mg/3 mL Solution For Nebulization 1.25 mg INHALATION Q4H PRN (Reason: SOB) RF: 0 allopurinol 100 mg Tablet 100 mg PO QAM RF: 0 vitamin B complex Tablet 1 tab PO QAM RF: 0 clopidogrel [Plavix] 75 mg Tablet 75 mg PO QAM RF: 0 magnesium oxide 400 mg (241.3 mg magnesium) Tablet 400 mg PO QAM RF: 0 meclizine 25 mg Tablet 25 mg PO TID PRN (Reason: Dizziness) RF: 0 diltiazem HCl 120 mg Capsule,Ext.Rel 24h Degradable 120 mg PO QAM RF: 0 ondansetron HCl [Zofran] 8 mg Tablet 8 mg PO UD PRN (Reason: Nausea) RF: 0 prochlorperazine maleate [Compazine] 10 mg Tablet 10 mg PO UD PRN (Reason: Nausea) RF: 0 metoprolol tartrate 100 mg tablet 150 mg PO BID RF: 0 nivolumab [Opdivo] 40 mg/4 mL solution See Patient Comments .ROUTE .COMPLEX RF: 0 polyethylene glycol 3350 [Miralax] 17 gram powder in packet 17 g PO DAILY PRN (Reason: CONSTIPATION) RF: 0 DANDELION ROOT 1 dose PO QAM Qty: 0 RF: 0 pantoprazole 40 mg tablet,delayed release (DR/EC) 40 mg PO BID Qty: 180 RF: 3 warfarin 2 mg Tablet See Rx Instructions .ROUTE .COMPLEX RF: 0 atorvastatin 40 mg tablet 40 mg PO HS RF: 0 levothyroxine 137 mcg tablet 137 mcg PO DAILY RF: 0 Discontinued bumetanide 2 mg tablet 4 mg PO BID RF: 0 potassium chloride 20 mEq tablet extended release 40 meq PO BID RF: 0 Stand-Alone Forms: [facility] Discharge Orders: Discharge Order (Routine); Ordered 09/12/18 Ordered By: Radhika Schultz Admission Data Admit Date/Time: 09/09/18 16:05 Attending Provider: Radhika Schultz Admit Provider: Angie Tom Primary Care Provider: Anirudh Magdaleno Other Providers: Angie Tom Service: Medical Other Interventions: Discharge Summary Assessment (RN) Last Done: 09/12/18 11:48 Pending Studies at Discharge: No DC Date/Time DO NOT enter until pt leaves facility: 09/12/18 14:16
== END 2018-09-12 14:16 | disposition home or self-care (01) | DRG 191 ==
LOC: ED 12:43 → 2N 16:05 → SUATTDRO 16:05 → 2N 17:17

== ENCOUNTER 2019-02-18 15:15 | Inpatient (IN) ==
[2019-02-18 15:54] LABS: Basophils # (auto) 0.01 K/uL (0-0.2); Basophils % (auto) 0.1 %; Eosinophils # (auto) 0.03 K/uL (0-0.5); Eosinophils % (auto) 0.3 %; Hemoglobin 13.4 g/dL (14.0-18.0); Immature Granulocytes # (auto) 0.03 K/uL (0.00-0.02); Immature Granulocytes % (auto) 0.3 %; Lymphocytes # (auto) 0.87 K/uL (1.2-3.4); Lymphocytes % (auto) 8.7 %; Mean Corpuscular Hemoglobin 33.8 pg (25-34); Mean Corpuscular Hgb Conc 32.7 g/dL (32-36); Mean Corpuscular Volume 103.3 fL (80-100); Monocytes # (auto) 0.33 K/uL (0.11-0.59); Monocytes % (auto) 3.3 %; Neutrophils # (auto) 8.78 K/uL (1.4-6.5); Neutrophils % (auto) 87.3 %; Platelet Count 185 K/uL (130-400); RDW Coefficient of Variation 13.5 % (11.5-14.5); RDW Standard Deviation 50.9 fL (36.4-46.3); Red Blood Count 3.97 M/uL (4.7-6.1); White Blood Count 10.05 K/uL (4.8-10.8)
[2019-02-18 16:22] LABS: Albumin Globulin Ratio 1.2 (0.9-2); Albumin Level 3.8 gm/dl (3.4-5.0); BUN Creatinine Ratio 13.2 (10-20); Bilirubin,Total 0.7 mg/dl (0.2-1); Calcium 8.9 mg/dl (8.5-10.1); Creatinine Clr Calc Pharmacy 20.2 ml/min; Est GFR (African American) 22.7; Est GFR (Non-African American) 19.6; Globulin 3.2 gm/dl (2.5-4.0); Potassium 4.3 mmol/L (3.5-5.1)
[2019-02-18 16:22] LABS: Appearance Urine Clear (Clear); Bilirubin Urine Negative (Negative); Blood Urine Negative (Negative); Color Urine Yellow; Glucose Urine UA 3+ (Negative); Ketones Urine Negative (Negative); Leukocyte Esterase Urine Negative (Negative); Nitrite Urine Negative (Negative); Protein Urine Negative (Negative); Urobilinogen Urine Negative (Negative)
[2019-02-18 16:59] LABS: Beta-Hydroxybutyrate 2.84 mg/dl (0.2-2.81)
[2019-02-18] MEDS ORDERED: INSULIN PROTOCOL GOAL RANGE ONE (17:32)
[2019-02-18] MEDS ORDERED: INSULIN REGULAR 250 UNITS in SODIUM CHLORIDE 0.9% 247.5 ML IV SCH ×2 (17:45→20:28)
--- NOTE | 2019-02-18 18:18 | Emergency Department Note ---
Entered by Jolene Guerrero acting as a scribe for History of Present Illness General Chief complaint: Hyperglycemia Stated complaint: HIGH BP Source: patient and family () History of Present Illness Onset (ago): hour(s) (this afternoon) Location: head Pain Consistency: + other (episode) Quality: + other (hyperglycemia) Associated symptoms: + denies other symptoms (vomiting, diarrhea, chest pain) and + other (dizziness, excessive thirst, urinary frequency, weakness) The patient is a 88 year old male that is presenting to the Emergency Room with complaints of an episode of hyperglycemia that was found on a blood test this afternoon. The patient reports that he was getting blood work done prior to his chemotherapy treatment tomorrow, and he states that he was told to come to the ED as his blood glucose was over 600mg/dL. He denies being diabetic or taking any insulin currently. He notes that he had a similar episode in the past but states that it was secondary to steroid use at that time. He reports that he is on steroids chronically but denies that there has been any recent change in his regiment. His states that the patient has blood work done monthly prior to his treatments and notes that his blood glucose has been around 400mg/dL in the past. His reports that the patient has been placed on insulin in the past for a short period of time until his blood glucose returned to normal. His notes that the patients blood sugar level was 196mg/dL at home last week. The patient states that he has had increasing dizziness over the past year that his PCP, Dr. Magdaleno, has attributed to an inner ear issue. He notes that he is feeling thirsty all of the time and has been urinating often. His states that his thirst has been worse over the past 3-4 days. He reports feeling weak recently. He denies any vomiting, diarrhea, or chest pain. He notes that he has eaten today as usual. Home Medications Home Medications Medication Instructions Recorded Confirmed Type magnesium oxide 400 mg PO QAM 11/27/17 02/18/19 History meclizine 25 mg PO TID PRN 11/27/17 02/18/19 History ondansetron HCl [Zofran] 8 mg PO UD PRN 11/27/17 02/18/19 History vitamin B complex 1 tab PO QAM 11/27/17 02/18/19 History nivolumab 40 mg/4 mL intravenous See Rx Instructions .ROUTE 11/28/17 02/18/19 History solution .COMPLEX ml polyethylene glycol 3350 17 gram 17 g PO DAILY PRN 11/28/17 02/18/19 History oral powder packet atorvastatin 40 mg PO HS 09/10/18 02/18/19 History pantoprazole 40 mg tablet,delayed 40 mg PO BID #180 tab 09/12/18 02/18/19 Rx release albuterol sulfate 2.5 mg/3 mL 1.25 mg INH Q4H PRN 09/13/18 02/18/19 History (0.083 %) solution for nebulization dandelion 500 mg capsule 500 mg PO DAILY cap 09/13/18 02/18/19 History ipratropium bromide 0.02 % 1.25 ml INH QID PRN ml 09/13/18 02/18/19 History solution for inhalation prednisone 10 mg tablet 10 mg PO DAILY #30 tab 12/05/18 02/18/19 Rx clopidogrel 75 mg PO DAILY 12/10/18 02/18/19 History diltiazem HCl 120 mg 120 mg PO QAM #90 cap 12/18/18 02/18/19 Rx capsule,extended release 24 hr, controlled allopurinol 100 mg tablet 100 mg PO DAILY #90 tab 01/14/19 02/18/19 Rx potassium chloride 20 mEq 100 meq PO DAILY #450 tab 01/15/19 02/18/19 Rx tablet,extended release metoprolol tartrate 100 mg tablet 100 mg PO BID #180 tab 02/03/19 02/18/19 Rx warfarin 4 mg tablet 4 mg PO 2XWK 02/12/19 02/18/19 History azithromycin 500 mg PO .PRN/UD PRN 02/18/19 02/18/19 History levothyroxine 75 mcg PO QAM 02/18/19 02/18/19 History warfarin 2 mg PO 5XWK 02/18/19 02/18/19 History bumetanide 2 mg tablet 4 mg PO BID #120 tab 02/19/19 Rx Allergies Allergy/AdvReac Type Severity Reaction Status Date / Time cephalexin Allergy Intermediate ABDOMINAL Verified 02/18/19 17:16 PAIN pramipexole [From Mirapex] AdvReac Severe Hallucinati Verified 02/18/19 17:16 ng ZACH Inhibitors AdvReac Intermediate COUGH Verified 02/18/19 17:16 clindamycin AdvReac Intermediate REFLUX Verified 02/18/19 17:16 Penicillins AdvReac Intermediate ?RASH Verified 02/18/19 17:17 Sulfa (Sulfonamide AdvReac Intermediate ?RASH Verified 02/18/19 17:17 Antibiotics) Past Med/Surg History Medical History Adult situational stress disorder (Acute) Anemia (Acute) Arteriosclerosis of coronary artery (Acute) Asthma (Acute) Asymptomatic carotid artery stenosis (Acute) Atrial fibrillation (Acute) Chronic constipation (Acute) Chronic diastolic congestive heart failure (Chronic) COPD, moderate (Acute) Dependence on supplemental oxygen (Acute) Depression with anxiety (Acute) DVT, recurrent, lower extremity, chronic (Acute) Dyslipidemia (Resolved) Dysphagia (Acute) Dyspnea on exertion (Acute) Elevated prostate specific antigen (PSA) (Acute) Fatigue (Acute) Gout (Resolved 05/11/12) Hearing loss (Acute) Heart failure with preserved ejection fraction (Acute) Hyperlipidemia (Acute) Hypokalemia (Resolved) Hypomagnesemia (Acute) Intention tremor (Acute) Kidney stone (Resolved 05/11/12) [place] cell carcinoma (Acute) 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) Nasal bone fractures (Resolved) Nasal bone fractures (Resolved) Nonspecific ST-T wave electrocardiographic changes (Resolved) Palpitations (Resolved) Palpitations (Resolved) Paroxysmal supraventricular tachycardia (Acute) Personal history of gout (Acute) 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 (Acute) Pulmonary hypertension, secondary (Acute) PVC (premature ventricular contraction) PVC (premature ventricular contraction) (Resolved) Reactive airway disease (Acute) Renal cancer Slowing of urinary stream (Acute) Transient ischemic attack (TIA) (Acute) Vitamin D deficiency (Acute) Surgical History S/P CABG x 3 (Chronic) S/P spinal surgery (Resolved 05/11/12) Family History Mother Myocardial infarction Father Myocardial infarction Unknown Diabetes Heart disease Hypertension Social History Preferred Language: Monegasque Communication Ability: Effective Hearing Ability: Use of Hearing Aid Manager Front Office Required: No Beliefs That Will Affect Care: None marital status: Life Partner Current Living Situation: Significant Other Feels Safe at Home: Yes Smoking Status: Never smoker Tobacco Type: cigarettes ; Age Started Using Tobacco: 17 ; Age Quit Using Tobacco: 38 ; packs per day: 3 ; Second Hand Exposure: No ; Hx Alcohol Use: No Hx Substance Use: No Seatbelt Use: always Sunscreen Use: No Review of Systems See HPI for pertinent positives & negatives. and A total of 10 systems reviewed and were otherwise negative Physical Exam Vital Signs Vital Signs - 24 hr 02/18/19 15:22 02/18/19 17:20 Temperature 36.6 C Temperature Source Oral Pulse Rate 73 Pulse Rate [Right Finger] 76 Respiratory Rate 73 H 20 Respiratory Effort / Characteristics Non-Labored Respiratory Depth Normal Blood Pressure 185/79 H Blood Pressure [Left Arm] 177/84 H Blood Pressure Mean 114 Blood Pressure Mean [Left Arm] 115 Pulse Oximetry 94 96 Oxygen Delivery Method Nasal Cannula Nasal Cannula Oxygen Flow Rate 2 2 Sepsis Recent Fever Within 48 Hours No Sepsis New/Unexplained Change in Mental Status No Sepsis Action Taken by Nursing No Action Required Vital signs reviewed. General: Chronically ill-appearing male, in no significant distress. On nasal cannula. HEENT: No scleral icterus, PERRLA, neck supple. Atraumatic. DMM. Cardiovascular: Regular rate and rhythm, no extra sounds. Pulmonary: Clear to auscultation bilaterally, normal work of breathing. Abdomen: Soft, nontender, nondistended, positive bowel sounds. Musculoskeletal: Atraumatic, no peripheral edema. Neurologic: Patient awake alert and oriented x 3. Skin: Warm, dry, no rash Course Course 1547:The patient was evaluated in room C04. A complete history and physical examination was performed. 1735: I discussed the patients case with Dr. Bean, who will evaluate the patient for further management and care. 1740: Upon reevaluation, the patient is resting comfortably. I discussed laboratory and radiographic results with the patient. He verbalized agreement of the treatment plan. The patient will be evaluated for further management and care. Administered Medications Discontinued Medications Allopurinol (Zyloprim) 100 mg PO DAILY TI Stop: 03/21/19 08:59 Last Admin: 02/19/19 08:58 Dose: 100 mg Documented by: [id number] Atorvastatin Calcium (Lipitor) 40 mg PO HS [facility] Stop: 03/20/19 20:59 Last Admin: 02/18/19 21:46 Dose: 40 mg Documented by: [id number] Clopidogrel Bisulfate (Plavix) 75 mg PO DAILY [facility] Stop: 03/21/19 08:59 Last Admin: 02/19/19 08:58 Dose: 75 mg Documented by: [id number] Diltiazem HCl (Dilacor Xr) 120 mg PO QAM [facility] Stop: 03/21/19 08:59 Last Admin: 02/19/19 08:58 Dose: 120 mg Documented by: [id number] Insulin Human Regular 250 (units/ Sodium Chloride) 250 mls @ 0.9 mls/hr IV .Q24H [facility]; Protocol Stop: 03/20/19 17:44 Last Titration: 02/19/19 09:00 Dose: 0 units/hr, 0 mls/hr Documented by: [id number] Cosigned by: [id number] Titration: 02/19/19 08:30 Dose: 0.8 units/hr, 0.8 mls/hr Documented by: [id number] Cosigned by: [id number] Titration: 02/19/19 07:30 Dose: 0.7 units/hr, 0.7 mls/hr Documented by: [id number] Cosigned by: [id number] Titration: 02/19/19 07:15 Dose: 0 units/hr, 0 mls/hr Documented by: [id number] Cosigned by: [id number] Titration: 02/19/19 06:33 Dose: 0.7 units/hr, 0.7 mls/hr Documented by: [id number] Cosigned by: [id number] Titration: 02/19/19 05:30 Dose: 0.9 units/hr, 0.9 mls/hr Documented by: [id number] Cosigned by: [id number] Titration: 02/19/19 04:32 Dose: 0.9 units/hr, 0.9 mls/hr Documented by: [id number] Cosigned by: [id number] Titration: 02/19/19 03:33 Dose: 1.1 units/hr, 1.1 mls/hr Documented by: [id number] Cosigned by: [id number] Titration: 02/19/19 02:33 Dose: 1.1 units/hr, 1.1 mls/hr Documented by: [id number] Cosigned by: [id number] Titration: 02/19/19 01:27 Dose: 1.1 units/hr, 1.1 mls/hr Documented by: [id number] Cosigned by: [id number] Titration: 02/19/19 00:33 Dose: 1.4 units/hr, 1.4 mls/hr Documented by: [id number] Cosigned by: [id number] Titration: 02/18/19 23:33 Dose: 1.4 units/hr, 1.4 mls/hr Documented by: [id number] Cosigned by: [id number] Titration: 02/18/19 22:34 Dose: 1.7 units/hr, 1.7 mls/hr Documented by: [id number] Cosigned by: [id number] Titration: 02/18/19 21:32 Dose: 2.1 units/hr, 2.1 mls/hr Documented by: [id number] Cosigned by: [id number] Titration: 02/18/19 20:40 Dose: 2.6 units/hr, 2.6 mls/hr Documented by: [id number] Cosigned by: [id number] Admin: 02/18/19 18:44 Dose: 2.2 units/hr, 2.2 mls/hr Documented by: [id number] Cosigned by: [id number] Parenteral Electrolytes (Normosol-R) 1,000 mls @ 500 mls/hr IV .Q2H TI Stop: 02/18/19 22:59 Last Infusion: 02/18/19 23:23 Dose: 0 mls/hr Documented by: [id number] Admin: 02/18/19 21:19 Dose: 500 mls/hr Documented by: [id number] Potassium Chloride/Dextrose/Sod Cl (D5w And 1/2nss + 20meq Kcl) 20 meq in 1,000 mls @ 125 mls/hr IV .Q8H TI Stop: 03/20/19 22:59 Last Infusion: 02/19/19 11:58 Dose: 0 mls/hr Documented by: [id number] Admin: 02/19/19 06:34 Dose: 125 mls/hr Documented by: [id number] Infusion: 02/19/19 06:34 Dose: 125 mls/hr Documented by: [id number] Admin: 02/18/19 23:02 Dose: 125 mls/hr Documented by: [id number] Insulin Aspart (Novolog Flexpen) 0 units SC ACHS TI Stop: 03/20/19 20:59 Last Admin: 02/19/19 11:50 Dose: Not Given Documented by: [id number] Cosigned by: [id number] Admin: 02/19/19 08:58 Dose: Not Given Documented by: [id number] Cosigned by: [id number] Admin: 02/18/19 21:47 Dose: Not Given Documented by: [id number] Cosigned by: [id number] Insulin Human Regular (Novolin R Bolus From Bag) 2 units IV ONE ONE Stop: 02/18/19 18:31 Last Admin: 02/18/19 18:46 Dose: 2 units Documented by: [id number] Cosigned by: [id number] Levothyroxine Sodium (Synthroid) 75 mcg PO DAILYBB [facility] Stop: 03/21/19 06:29 Last Admin: 02/19/19 06:08 Dose: 75 mcg Documented by: [id number] Magnesium Oxide (Mag-Ox) 400 mg PO QAM [facility] Stop: 03/21/19 08:59 Last Admin: 02/19/19 08:58 Dose: 400 mg Documented by: [id number] Metoprolol Tartrate (Lopressor) 100 mg PO BID [facility] Stop: 03/20/19 20:59 Last Admin: 02/19/19 08:58 Dose: 100 mg Documented by: [id number] Admin: 02/18/19 21:46 Dose: 100 mg Documented by: [id number] Miscellaneous (Insulin Protocol Goal Range) 1 ea N/A ONE ONE Stop: 02/18/19 17:33 Last Admin: 02/18/19 19:03 Dose: Not Given Documented by: [id number] Miscellaneous (Insulin Protocol Moderate Stress Level) 1 ea N/A ONE ONE Stop: 02/18/19 18:31 Last Admin: 02/18/19 18:46 Dose: 1 ea Documented by: [id number] Miscellaneous (Insulin Protocol Hhs Goal Range) 1 ea N/A ONE ONE Stop: 02/18/19 20:29 Last Admin: 02/18/19 21:46 Dose: 1 ea Documented by: [id number] Pantoprazole Sodium (Protonix) 40 mg PO BID [facility] Stop: 03/20/19 20:59 Last Admin: 02/19/19 08:58 Dose: 40 mg Documented by: [id number] Admin: 02/18/19 21:46 Dose: 40 mg Documented by: [id number] Potassium Chloride (Klor-Con M20) 100 meq PO DAILY [facility] Stop: 03/21/19 08:59 Last Admin: 02/19/19 09:06 Dose: Not Given Documented by: [id number] Prednisone (Prednisone) 10 mg PO DAILY TI Stop: 03/21/19 08:59 Last Admin: 02/19/19 08:58 Dose: 10 mg Documented by: [id number] Vitamin B Complex (Vitamin B Complex) 1 tab PO DAILY TI Stop: 03/21/19 08:59 Last Admin: 02/19/19 08:58 Dose: 1 tab Documented by: [id number] Warfarin Sodium (Coumadin) 2 mg PO [id number] TI Stop: 03/20/19 21:59 Last Admin: 02/18/19 21:58 Dose: 2 mg Documented by: [id number] Medical Decision Making Differential Diagnosis Differential Diagnosis includes but is not limited to dehydration, stroke, anemia, hypoglycemia, hyponatremia, hypernatremia, urinary tract infection, pneumonia, bronchitis, sepsis, gastroenteritis, additional abdominal pathology, metabolic abnormalities and infections. Medical Records Attestation: I reviewed the patient's medical records. Home Medications Current Medication List: was personally reviewed by me Laboratory Data Attestation: I reviewed the patient's lab results. Result diagrams: 02/18/19 15:34 02/19/19 07:20 Lab Results 02/18/19 02/18/19 02/18/19 Range/Units 15:34 15:34 15:34 WBC 10.05 (4.8-10.8) K/uL RBC 3.97 L (4.7-6.1) M/uL Hgb 13.4 L (14.0-18.0) g/dL Hct 41.0 L (42-52) % MCV 103.3 H (80-100) fL MCH 33.8 (25-34) pg MCHC 32.7 (32-36) g/dL RDW Std Deviation 50.9 H (36.4-46.3) fL RDW Coeff of [place]ung 13.5 (11.5-14.5) % Plt Count 185 (130-400) K/uL MPV 12.0 H (7.4-10.4) fL Immature Gran % (Auto) 0.3 % Neut % (Auto) 87.3 % Lymph % (Auto) 8.7 % [place] % (Auto) 3.3 % Eos % (Auto) 0.3 % Baso % (Auto) 0.1 % Immature Gran # (Auto) 0.03 H (0.00-0.02) K/uL Neut # (Auto) 8.78 H (1.4-6.5) K/uL Lymph # (Auto) 0.87 L (1.2-3.4) K/uL [place] # (Auto) 0.33 (0.11-0.59) K/uL Eos # (Auto) 0.03 (0-0.5) K/uL Baso # (Auto) 0.01 (0-0.2) K/uL PT (9.0-12.0) Seconds INR (0.9-1.1) Sodium 133 L (136-145) mmol/L Potassium 4.3 (3.5-5.1) mmol/L Chloride 97 L (98-107) mmol/L Carbon Dioxide 31 (21-32) mmol/L Anion Gap 5.0 (3-11) BUN 37 H (7-18) mg/dl Creatinine 2.79 H (0.6-1.4) mg/dl Est Cr Clr Drug Dosing 20.2 ml/min Est GFR ( Amer) 22.7 Est GFR (Non-Af Amer) 19.6 BUN/Creatinine Ratio 13.2 (10-20) Glucose 705 H* (70-99) mg/dl POC Glucose (70-99) Estimat Average Glucose 286 mg/dl Hemoglobin A1c 11.6 H (4.5-5.6) % Calcium 8.9 (8.5-10.1) mg/dl Total Bilirubin 0.7 (0.2-1) mg/dl AST 21 (15-37) U/L ALT 29 (12-78) U/L Alkaline Phosphatase 101 (45-117) U/L Total Protein 7.0 (6.4-8.2) gm/dl Albumin 3.8 (3.4-5.0) gm/dl Globulin 3.2 (2.5-4.0) gm/dl Albumin/Globulin Ratio 1.2 (0.9-2) Beta-Hydroxybutyric Acd 2.84 H (0.2-2.81) mg/dl Urine Color Urine Appearance (Clear) Urine pH (4.5-7.5) Ur Specific [place] (1.000-1.030) Urine Protein (Negative) Urine Glucose (UA) (Negative) Urine Ketones (Negative) Urine Blood (Negative) Urine Nitrite (Negative) Urine Bilirubin (Negative) Urine Urobilinogen (Negative) Ur Leukocyte Esterase (Negative) 02/18/19 02/18/19 02/18/19 Range/Units 15:34 16:00 18:19 WBC (4.8-10.8) K/uL RBC (4.7-6.1) M/uL Hgb (14.0-18.0) g/dL Hct (42-52) % MCV (80-100) fL MCH (25-34) pg MCHC (32-36) g/dL RDW Std Deviation (36.4-46.3) fL RDW Coeff of [place] (11.5-14.5) % Plt Count (130-400) K/uL MPV (7.4-10.4) fL Immature Gran % (Auto) % Neut % (Auto) % Lymph % (Auto) % [place] % (Auto) % Eos % (Auto) % Baso % (Auto) % Immature Gran # (Auto) (0.00-0.02) K/uL Neut # (Auto) (1.4-6.5) K/uL Lymph # (Auto) (1.2-3.4) K/uL [place] # (Auto) (0.11-0.59) K/uL Eos # (Auto) (0-0.5) K/uL Baso # (Auto) (0-0.2) K/uL PT 24.1 H (9.0-12.0) Seconds INR 2.5 H (0.9-1.1) Sodium (136-145) mmol/L Potassium (3.5-5.1) mmol/L Chloride (98-107) mmol/L Carbon Dioxide (21-32) mmol/L Anion Gap (3-11) BUN (7-18) mg/dl Creatinine (0.6-1.4) mg/dl Est Cr Clr Drug Dosing ml/min Est GFR ( Amer) Est GFR (Non-Af Amer) BUN/Creatinine Ratio (10-20) Glucose (70-99) mg/dl POC Glucose 526 H* (70-99) Estimat Average Glucose mg/dl Hemoglobin A1c (4.5-5.6) % Calcium (8.5-10.1) mg/dl Total Bilirubin (0.2-1) mg/dl AST (15-37) U/L ALT (12-78) U/L Alkaline Phosphatase (45-117) U/L Total Protein (6.4-8.2) gm/dl Albumin (3.4-5.0) gm/dl Globulin (2.5-4.0) gm/dl Albumin/Globulin Ratio (0.9-2) Beta-Hydroxybutyric Acd (0.2-2.81) mg/dl Urine Color Yellow Urine Appearance Clear (Clear) Urine pH 7.0 (4.5-7.5) Ur Specific [place] 1.020 (1.000-1.030) Urine Protein Negative (Negative) Urine Glucose (UA) 3+ H (Negative) Urine Ketones Negative (Negative) Urine Blood Negative (Negative) Urine Nitrite Negative (Negative) Urine Bilirubin Negative (Negative) Urine Urobilinogen Negative (Negative) Ur Leukocyte Esterase Negative (Negative) Blood Pressure Blood Pressure Findings: Elevated blood pressure Blood Pressure Disposition: elevated BP felt to be situational MDM Narrative creatinine is 2.79.This patient was evaluated and appeared to be in no significant distress. Patient is found to have dry mucous membranes but otherwise stable physical exam. Laboratory work reveals blood glucose of 705. Beta hydroxybutyrate is found to be high normal at 2.84. Patient's creatinine is 2.79. IV hydration was initiated with normal saline solution. An insulin drip was initiated for better glucose control. Patient's case was discussed with the hospitalist service will evaluate the patient for further management. Patient is aware of the plan and agrees. 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 I confirm that the note above accurately reflects all work, treatment, procedures, and medical decision making performed by me.
[2019-02-18] MEDS ORDERED: NovoLIN-R BOLUS FROM BAG IV ONE ×2 (18:30)
[2019-02-18] MEDS ORDERED: MODERATE STRESS LEVEL ONE (18:30)
--- NOTE | 2019-02-18 18:30 | History & Physical Report ---
Date of Service February 18, 2019 Assessment & Plan (1) Severe hyperglycemia due to diabetes mellitus: appears that his change in eating habits over the last few days probably precipitated a degree of hyperglycemic dehydration, and unfortunately once he started to get thirsty he drank a soda to quench his thirst making it worse, driving his sugars higher. -Admit to telemetry for close monitoring with insulin infusion and IV fluids -Given his CHF history we will be more gentle with his IV fluids then normally would, however given that he is more or less asymptomatic with this and his labs are not in severe disarray, I suspect he is more 3 to 5 L down than the typical 8-10 of a true HHS. (2) Diabetes mellitus: Currently uncontrolled, PCP has an A1c goal of less than 8, which seems quite reasonable given his overall situation. Check an A1c, educated on the importance of avoiding soda. (3) CKD (chronic kidney disease) stage 4, GFR 15-29 ml/min: Acute renal failure superimposed on CKDanticipate improvement with fluids (4) Chronic respiratory failure with hypoxia: Appears most likely related to his COPD but also chronic HFpEF. Follow closely, hold Bumex, continue oxygen. (5) COPD, moderate: See above, continue home meds (6) Atrial fibrillation: Rate controlled with metoprolol and diltiazem, anticoagulation with Coumadin (7) CARLOS (acute kidney injury): See above. Anticipate improvement. (8) Arteriosclerosis of coronary artery: As well as HFpEFcurrently dry. Hold Bumex, follow closely, discussed with patient if he starts to feel even the slightest shortness of breath we would want to be notified as he is currently dry, but obviously the risk of volume overload looms. More gentle with fluids only normally would be because of this. No angina as it relates to his coronary disease. (9) DVT, recurrent, lower extremity, chronic: Continue Coumadin (10) Hypothyroid: Continue Synthroid (11) HTN (hypertension): Continue home meds and follow (12) GERD (gastroesophageal reflux disease): Continue home PPI (13) Discharge planning issues: Admit to telemetry under the care of [facility] [place] [facility] service. Anticipate ability to discharge home once his sugar and volume status has improved. History of Present Illness Chief Complaint: Hyperglycemia Primary Care Provider: Anirudh Magdaleno MD Patient is a very pleasant 88-year-old male who presented after being called with outpatient labs showing a sugar greater than 600. He notes that he was coming for his Opdivo infusion and as part of the lab work they noted his sugar was high. He notes it was not much past when he got home that they called and said he should come to the ER for further evaluation. He notes generally speaking he is feeling okay. He has chronic lightheaded and dizziness that he is been told is an inner ear problem and he notes this is may be slightly worse than normal but not in any dramatic since. Otherwise the only thing he is really noticed its new his brings forward is polyuria and polydipsia over the last couple of days. Over the weekend they had traveled to [place] for a . It seems that their eating habits were not the same as normal, started to get more thirsty and water was not quenching his thirst so he started quenching his thirst with Coca-Cola. He is on chronic prednisone for what sounds to be a COPD, this is no different and has been on it for a couple of months. There are no other new medication changes, and otherwise he does not feel ill. Allergies Allergy/AdvReac Type Severity Reaction Status Date / Time cephalexin Allergy Intermediate ABDOMINAL Verified 02/18/19 17:16 PAIN pramipexole [From Mirapex] AdvReac Severe Hallucinati Verified 02/18/19 17:16 ng ZACH Inhibitors AdvReac Intermediate COUGH Verified 02/18/19 17:16 clindamycin AdvReac Intermediate REFLUX Verified 02/18/19 17:16 Penicillins AdvReac Intermediate ?RASH Verified 02/18/19 17:17 Sulfa (Sulfonamide AdvReac Intermediate ?RASH Verified 02/18/19 17:17 Antibiotics) Home Medications Home Medications Medication Instructions Recorded Confirmed Type magnesium oxide 400 mg PO QAM 11/27/17 02/18/19 History meclizine 25 mg PO TID PRN 11/27/17 02/18/19 History ondansetron HCl [Zofran] 8 mg PO UD PRN 11/27/17 02/18/19 History vitamin B complex 1 tab PO QAM 11/27/17 02/18/19 History nivolumab 40 mg/4 mL intravenous See Rx Instructions .ROUTE 11/28/17 02/18/19 History solution .COMPLEX ml polyethylene glycol 3350 17 gram 17 g PO DAILY PRN 11/28/17 02/18/19 History oral powder packet atorvastatin 40 mg PO HS 09/10/18 02/18/19 History pantoprazole 40 mg tablet,delayed 40 mg PO BID #180 tab 09/12/18 02/18/19 Rx release albuterol sulfate 2.5 mg/3 mL 1.25 mg INH Q4H PRN 09/13/18 02/18/19 History (0.083 %) solution for nebulization dandelion 500 mg capsule 500 mg PO DAILY cap 09/13/18 02/18/19 History ipratropium bromide 0.02 % 1.25 ml INH QID PRN ml 09/13/18 02/18/19 History solution for inhalation bumetanide 2 mg tablet 4 mg PO BID tab 10/31/18 02/18/19 History prednisone 10 mg tablet 10 mg PO DAILY #30 tab 12/05/18 02/18/19 Rx clopidogrel 75 mg PO DAILY 12/10/18 02/18/19 History diltiazem HCl 120 mg 120 mg PO QAM #90 cap 12/18/18 02/18/19 Rx capsule,extended release 24 hr, controlled allopurinol 100 mg tablet 100 mg PO DAILY #90 tab 01/14/19 02/18/19 Rx potassium chloride 20 mEq 100 meq PO DAILY #450 tab 01/15/19 02/18/19 Rx tablet,extended release metoprolol tartrate 100 mg tablet 100 mg PO BID #180 tab 02/03/19 02/18/19 Rx warfarin 4 mg tablet 4 mg PO 2XWK 02/12/19 02/18/19 History azithromycin 500 mg PO .PRN/UD PRN 02/18/19 02/18/19 History levothyroxine 75 mcg PO QAM 02/18/19 02/18/19 History warfarin 2 mg PO 5XWK 02/18/19 02/18/19 History Past Med/Surg History Medical History Adult situational stress disorder (Acute) Anemia (Acute) Arteriosclerosis of coronary artery (Acute) Asthma (Acute) Asymptomatic carotid artery stenosis (Acute) Atrial fibrillation (Acute) Chronic constipation (Acute) Chronic diastolic congestive heart failure (Chronic) COPD, moderate (Acute) Dependence on supplemental oxygen (Acute) Depression with anxiety (Acute) DVT, recurrent, lower extremity, chronic (Acute) Dyslipidemia (Resolved) Dysphagia (Acute) Dyspnea on exertion (Acute) Elevated prostate specific antigen (PSA) (Acute) Fatigue (Acute) Gout (Resolved 05/11/12) Hearing loss (Acute) Heart failure with preserved ejection fraction (Acute) Hyperlipidemia (Acute) Hypokalemia (Resolved) Hypomagnesemia (Acute) Intention tremor (Acute) Kidney stone (Resolved 05/11/12) [place] cell carcinoma (Acute) 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) Nasal bone fractures (Resolved) Nasal bone fractures (Resolved) Nonspecific ST-T wave electrocardiographic changes (Resolved) Palpitations (Resolved) Palpitations (Resolved) Paroxysmal supraventricular tachycardia (Acute) Personal history of gout (Acute) 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 (Acute) Pulmonary hypertension, secondary (Acute) PVC (premature ventricular contraction) PVC (premature ventricular contraction) (Resolved) Reactive airway disease (Acute) Renal cancer Slowing of urinary stream (Acute) Transient ischemic attack (TIA) (Acute) Vitamin D deficiency (Acute) Surgical History S/P CABG x 3 (Chronic) S/P spinal surgery (Resolved 05/11/12) Family History Mother Myocardial infarction Father Myocardial infarction Unknown Diabetes Heart disease Hypertension Social History Preferred Language: [place] Communication Ability: Effective Hearing Ability: Use of Hearing Aid Beliefs That Will Affect Care: None marital status: Single Current Living Situation: Significant Other Feels Safe at Home: Yes Smoking Status: Never smoker Tobacco Type: cigarettes ; Age Started Using Tobacco: 17 ; Age Quit Using Tobacco: 38 ; packs per day: 3 ; Hx Alcohol Use: No Hx Substance Use: No Seatbelt Use: always Sunscreen Use: No Review of Systems Review of Systems: All systems reviewed & are unremarkable except as noted in HPI & below Physical Exam Physical Exam: General he is awake alert oriented pleasant no distress HEENT normocephalic atraumatic mucous membranes neutral, may be slightly on the dry side of moist Cardio is regular without rubs there is may be a little bit of a murmur in the aortic valve area no gallops Lungs clear to auscultation may be minimally decreased air entry globally but no rales no rhonchi no wheezes good effort no accessory muscle use Abdomen soft nondistended nontender no masses organomegaly Extremities show no sinus clubbing or edema no calf tenderness Skin shows no rashes no pallor or icterus Neuro shows no focal deficits cranial nerves II through XII are grossly intact gross motor and sensory are intact Mental status shows good recent and remote recall normal mood and affect good judgment and insight Musculoskeletal exam shows no gross deformities lesions or restrictions Results & Data Vital Signs (Past 12 Hours) Vital Signs Temp Pulse Pulse Resp BP BP Pulse Ox 02/18/19 17:20 76 20 177/84 H 96 02/18/19 15:22 97.9 F 73 73 H 185/79 H 94 Code Status & VTE Plan VTE Prophylaxis Plan VTE Prophylaxis will be ordered: Yes PG Care Time/CCT Total # of Minutes Spent Total Time Spent with Patient: Total time spent is greater than 50% in coordination of care (as documented) at patient's floor/unit and/or counseling patient: (1) HTN (hypertension) Hypertension type: essential hypertension Qualified Code(s): I10 - Essential (primary) hypertension (2) Diabetes mellitus Diabetes mellitus type: type 2 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
[2019-02-18] MEDS ORDERED: IPRATROPIUM BROMIDE NEB SOLN 0.02% 2.5 ML VIAL INH PRN (20:28)
[2019-02-18] MEDS ORDERED: ALBUTEROL 0.083% NEBU SOLN 3 ML VIAL INH PRN (20:28)
[2019-02-18] MEDS ORDERED: ALUMINUM/MAGNESIUM SUSP 30 ML UDC PO PRN (20:28)
[2019-02-18] MEDS ORDERED: MAGNESIUM HYDROXIDE SUSP 30 ML UDC PO PRN (20:28)
[2019-02-18] MEDS ORDERED: ACETAMINOPHEN 325 MG TAB PO PRN (20:28)
[2019-02-18] MEDS ORDERED: HHS GOAL RANGE 250-350 mg/dl ONE (20:28)
[2019-02-18] MEDS ORDERED: POLYETHYLENE (MIRALAX) 17 GM PACK PO PRN (20:28)
[2019-02-18] MEDS ORDERED: PENDING D5 1/2NS+20mEq KCL IVF SCH (20:28)
[2019-02-18] MEDS ORDERED: MECLIZINE HCL 25 MG TAB PO PRN (20:28)
[2019-02-18] MEDS ORDERED: ONDANSETRON 8 MG TABLET PO PRN (20:28)
[2019-02-18] MEDS ORDERED: ONDANSETRON INJ 2 MG/ML 2 ML VIAL IV PRN (20:28)
[2019-02-18] MEDS ORDERED: NORMOSOL-R 1,000 ML IV SCH ×2 (21:00→23:00)
[2019-02-18] MEDS ORDERED: ATORVASTATIN 40 MG TAB PO SCH (21:00)
[2019-02-18 21:04] LABS: INR 2.5 (0.9-1.1); Prothrombin Time 24.1 Seconds (9.0-12.0)
[2019-02-18] MEDS: PANTOprazole 40 MG TAB PO SCH (21:46)
[2019-02-18] MEDS: METOPROLOL TARTRATE 100 MG TAB PO SCH (21:46)
[2019-02-18] MEDS: INSULIN ASPART 100 UNITS/ML 3 ML PEN SC SCH (21:47)
[2019-02-18] MEDS ORDERED: WARFARIN SOD 2 MG TAB PO SCH (22:00)
[2019-02-18] MEDS: D5W AND 1/2NSS + 20MEQ KCL 20 MEQ/1,000 ML BAG IV SCH (23:02)
[2019-02-19 06:08] LABS: Estimated Average Glucose 286 mg/dl; Hemoglobin A1C 11.6 % (4.5-5.6)
[2019-02-19] MEDS ORDERED: LEVOTHYROXINE SODIUM 75 MCG TABLET PO SCH (06:30)
[2019-02-19] MEDS: D5W AND 1/2NSS + 20MEQ KCL 20 MEQ/1,000 ML BAG IV SCH (06:34)
[2019-02-19 07:46] LABS: INR 2.4 (0.9-1.1); Prothrombin Time 23.5 Seconds (9.0-12.0)
[2019-02-19] MEDS: POTASSIUM CHLORIDE 20 MEQ TABCR PO SCH ×2 (08:58→09:06)
[2019-02-19] MEDS: PANTOprazole 40 MG TAB PO SCH (08:58)
[2019-02-19] MEDS: INSULIN ASPART 100 UNITS/ML 3 ML PEN SC SCH ×2 (08:58→11:50)
[2019-02-19] MEDS: METOPROLOL TARTRATE 100 MG TAB PO SCH (08:58)
[2019-02-19] MEDS ORDERED: VITAMIN B COMPLEX TAB PO SCH (09:00)
[2019-02-19] MEDS ORDERED: allopurinoL 100 MG TAB PO SCH (09:00)
[2019-02-19] MEDS ORDERED: MAGNESIUM OXIDE 400 MG TAB PO SCH (09:00)
[2019-02-19] MEDS ORDERED: predniSONE 10 MG TABLET PO SCH (09:00)
[2019-02-19] MEDS ORDERED: CLOPIDOGREL BISULFATE 75 MG TAB PO SCH (09:00)
[2019-02-19 10:12] LABS: Calcium 8.9 mg/dl (8.5-10.1); Creatinine Clr Calc Pharmacy 27.8 ml/min; Est GFR (Non-African American) 29.3; Potassium 3.6 mmol/L (3.5-5.1)
[2019-02-19] MEDS ORDERED: WARFARIN SOD 4 MG TAB PO SCH (16:00)
--- NOTE | 2019-02-19 17:56 | Discharge Summary ---
Date of Service February 19, 2019 Admission HPI Per Admitting Provider Patient is a very pleasant 88-year-old male who presented after being called with outpatient labs showing a sugar greater than 600. He notes that he was coming for his Opdivo infusion and as part of the lab work they noted his sugar was high. He notes it was not much past when he got home that they called and said he should come to the ER for further evaluation. He notes generally speaking he is feeling okay. He has chronic lightheaded and dizziness that he is been told is an inner ear problem and he notes this is may be slightly worse than normal but not in any dramatic since. Otherwise the only thing he is really noticed its new his brings forward is polyuria and polydipsia over the last couple of days. Over the weekend they had traveled to [place] for a . It seems that their eating habits were not the same as normal, started to get more thirsty and water was not quenching his thirst so he started quenching his thirst with Coca-Cola. He is on chronic prednisone for what sounds to be a COPD, this is no different and has been on it for a couple of months. There are no other new medication changes, and otherwise he does not feel ill. Principal Diagnosis hyperglycemic dehydration Discharge Exam General he is awake and alert pleasant no distress. HEENT normocephalic atrauma tic mucous members moist. Breathing unlabored no accessory muscle use good effort. Skin shows no rashes no pallor or icterus. Discharge Data Allergies Allergy/AdvReac Type Severity Reaction Status Date / Time cephalexin Allergy Intermediate ABDOMINAL Verified 02/18/19 17:16 PAIN pramipexole [From Mirapex] AdvReac Severe Hallucinati Verified 02/18/19 17:16 ng ZACH Inhibitors AdvReac Intermediate COUGH Verified 02/18/19 17:16 clindamycin AdvReac Intermediate REFLUX Verified 02/18/19 17:16 Penicillins AdvReac Intermediate ?RASH Verified 02/18/19 17:17 Sulfa (Sulfonamide AdvReac Intermediate ?RASH Verified 02/18/19 17:17 Antibiotics) Consultations 02/19/19 12:38 Consult [employer] tool technician Routine Hospital Course (1) Severe hyperglycemia due to diabetes mellitus: appears that his change in eating habits over the last few days probably precipitated a degree of hyperglycemic dehydration, and unfortunately once he started to get thirsty he drank a soda to quench his thirst making it worse, driving his sugars higher. -Improved nicely with IV fluids and IV insulin. Off of IV insulin his sugars did not rise precipitously. Discussed avoiding soda, recommended minimizing carbohydrates. It appears that his hyperglycemic dehydration is resolved. Stable for home. See below otherwise. (2) Diabetes mellitus: A1c has jumped significantly up to 11.6. I suspect steroids of played a significant role in this, but it is also not clear how much lifestyle has. Given his age and renal function med management is somewhat risky at any angle. We will start with having him improve diet and check postprandial sugars, then follow-up with his PCP closely. If his sugars do require further control, addin g a basal insulin alone may be enough to get him more towards an A1c of 8, or adding a GLP would be another reasonable option. Given the lack of clear-cut good choices, and the need for ongoing management, as well as the fact that now that he is out of hyperglycemic dehydration there is no emergency, I will defer to his PCPs judgment in this regard. (3) CKD (chronic kidney disease) stage 4, GFR 15-29 ml/min: Acute renal failure superimposed on CKDimproved with fluids (4) Chronic respiratory failure with hypoxia: Stable for home. (5) COPD, moderate: See above, continue home meds (6) Atrial fibrillation: Rate controlled with metoprolol and diltiazem, anticoagulation with Coumadin (7) CARLOS (acute kidney injury): See above. (8) Arteriosclerosis of coronary artery: Asymptomatic with this during his stay (9) DVT, recurrent, lower extremity, chronic: Continue Coumadin (10) Hypothyroid: Continue Synthroid (11) HTN (hypertension): Continue home meds and follow (12) GERD (gastroesophageal reflux disease): Continue home PPI (13) Discharge planning issues: Discharging this afternoon in anticipation of his Opdivo infusion. Close PCP follow-up thereafter. Total Time Total Time Spent Total Time Spent (In Minutes): Greater than 30 Discharge Plan Discharge Items Patient Disposition: Home - Self-Care Reason For Visit: HYPERGLYCEMIA,ARF Discharge Diagnosis: hyperglycemia, dehydration from high sugars Activity: Resume your previous activity Non-emergency contact: Primary Care Provider Call non-emergency contact if: you have any medication questions Follow-up/Referrals: [facility] [Provider Group] - 12/02/19 10:00 am (Please, follow up at [facility] on MondayFebruary 25 at 10:00 am. *If you need to change this appointment, call Central Scheduling at [phone].) Anirudh Magdaleno MD [Primary Care Provider] - 02/27/19 11:00 am (Please, follow up at Dr. Anirudh Magdaleno's office with his associate, Mary Sanders PA-C, on MondayFebruary 27 at 11:00 am. *If you need to change this appointment, call their office at [phone].) Sukhwinder Angeles PA-C [Physician Heat Engineering Teacher] - 03/08/19 10:00 am (Please, follow up at [facility] with Antonio Angeles PA-C on MondayMarch 08 at 10:00 am. *The office is located at [address] [place] [address] in [place]. *If you need to change this appointment, call the office at [phone].) Diet: Carb Consistent or DM2 Addtl Attending Provider Instructions: hyperglycemic dehydration / uncontrolled type 2 diabetes -your sugars got high on you initially, most likely due to a change in diet when you were travelling. from there, once sugars are above about 200, they start to act a little like a diuretic -- by osmosis they pull fluid out of your cells and into your kidneys. this creates a stress response where in response to the dehydration, your adrenal glands crank out a hormone called cortisol that raises sugar higher. this, in and of itself, is a vicious cycle that leads to really high sugars and dehydration, but on top of it the sugar intake from soda was what "put you over the top" so quickly. 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 it's looking like we'll need to do something to offset the effect of the steroids - but with your age and kidney function the "best answer" is somewhat difficult to discern --> and since Dr Magdaleno knows you well / will be following through with how you're doing with this (and because, now that we have your sugars in reasonable ranges there's not a crisis emergency) we'll defer to his judgement on what will be the best option -one option would be a once daily dose of insulin (like lantus or NPH) to just bring sugars down some during the day when you're eating -- the downside would be that it's a daily injection and can potentially cause low sugars - a different option would be a once weekly injectable (like victoza) that makes your pancreas release more insulin when you eat -- there's less risk of low sugars and it's only once a week, but cost can sometimes be an issue -for now, be more regular at checking sugars -- check 1-2 times a day - particularly AFTER you eat so that you can see what your worst readings are -- that way as you meet with Dr Magdaleno you'll both have real information to review to help guide the decision making -regardless of what direction things need to go with medications, it is critical to minimize simple sugars and simple starches as much as you can, and avoid sugary drinks like sodas as though they are poison! doing that will at least help keep things more reasonable as you move forward. Pending Studies at Discharge: No Stand-Alone Forms: [facility] SourceClear, Smoking Cessation Medications and DC Order Prescriptions: Continued vitamin B complex Tablet 1 tab PO QAM RF: 0 magnesium oxide 400 mg (241.3 mg magnesium) Tablet 400 mg PO QAM RF: 0 meclizine 25 mg Tablet 25 mg PO TID PRN (Reason: Dizziness) RF: 0 ondansetron HCl [Zofran] 8 mg Tablet 8 mg PO UD PRN (Reason: Nausea) RF: 0 nivolumab [Opdivo] 40 mg/4 mL solution See Rx Instructions .ROUTE .COMPLEX RF: 0 polyethylene glycol 3350 [Miralax] 17 gram powder in packet 17 g PO DAILY PRN (Reason: CONSTIPATION) RF: 0 pantoprazole 40 mg tablet,delayed release (DR/EC) 40 mg PO BID Qty: 180 RF: 3 diltiazem HCl 120 mg capsule,ext.rel 24h degradable 120 mg PO QAM Qty: 90 RF: 1 allopurinol 100 mg tablet 100 mg PO DAILY Qty: 90 RF: 3 potassium chloride 20 mEq tablet extended release 100 meq PO DAILY Qty: 450 RF: 3 metoprolol tartrate 100 mg tablet 100 mg PO BID Qty: 180 RF: 1 albuterol sulfate 2.5 mg /3 mL (0.083 %) solution for nebulization 1.25 mg INH Q4H PRN (Reason: Shortness Of Breath Or Wheezing) RF: 0 dandelion 500 mg capsule 500 mg PO DAILY RF: 0 ipratropium bromide 0.02 % solution 1.25 ml INH QID PRN (Reason: shortness of breath or wheezing) RF: 0 prednisone 10 mg tablet 10 mg PO DAILY Qty: 30 RF: 3 atorvastatin 40 mg tablet 40 mg PO HS RF: 0 clopidogrel 75 mg tablet 75 mg PO DAILY RF: 0 warfarin 4 mg tablet 4 mg PO 2XWK RF: 0 levothyroxine 75 mcg tablet 75 mcg PO QAM RF: 0 warfarin 4 mg Tablet 2 mg PO 5XWK RF: 0 azithromycin 250 mg tablet 500 mg PO .PRN/UD PRN (Reason: Prophylaxis) RF: 0 No Action bumetanide 2 mg tablet 4 mg PO BID Qty: 120 RF: 3 Discharge Orders: Discharge Order (Routine); Ordered 02/19/19 Ordered By: Ezio Galvan/Other Patient Handouts: Diabetes Sports Internship Complications, Insulin Injected, Insulin Types, Diabetes Healthy Meals, Diabetes Carbs, Diabetes Exercise Benefits, Diabetes Low Blood Sugar Ch, Diabetes Living Life, A1C Admission Data Admit Date/Time: 02/18/19 18:22 Attending Provider: Ezio Kincaid Admit Provider: Ezio Kincaid Primary Care Provider: Anirudh Magdaleno Other Interventions: Discharge Summary Assessment (RN) Last Done: 02/19/19 13:03 DC Date/Time DO NOT enter until pt leaves facility: 02/19/19 13:43
== END 2019-02-19 13:43 | disposition home or self-care (01) | DRG 638 ==
LOC: ED 15:15 → 2S 18:22

== ENCOUNTER 2020-12-05 12:19 | Inpatient (IN) ==
--- NOTE | 2020-12-05 12:53 | Emergency Department Note ---
History of Present Illness General Chief complaint: Leg Injury/Pain Stated complaint: LEG PAIN Time Seen by Provider: 12/05/20 12:26 Source: patient and family (Significant other who is at the bedside) Mode of arrival: ambulatory Limitations: no limitations History of Present Illness Maximum Pain Intensity: 6 This patient comes in after having pain and redness in his right murray. This happened about 3 or 4 weeks ago when he woke up and he had an area in the central murray that looked bruised there is no trauma he is on Coumadin. It was dark. Since then is gotten more red. He saw Dr. Magdaleno's surgical assistant certified this past week and had ultrasound of the soft tissue which showed multiple soft tissue lesions and MRI was recommended follow-up. Since then he has had bruising in the left ankle is increasing redness it hurts when he walks. He is on chronic oxygen for COPD but has had no change in that. Denies chest pain or increased cough. No fever chills or abdominal pain. He does have a history of having blood clots in his legs in the past. 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 Home Medications Medication Instructions Recorded Confirmed Type magnesium oxide 400 mg (241.3 mg 400 mg PO QAM 11/27/17 12/05/20 History magnesium) tablet vitamin B complex 1 tab PO QAM 11/27/17 12/05/20 History nivolumab 40 mg/4 mL intravenous See Rx Instructions .ROUTE 11/28/17 12/05/20 History solution (Opdivo) .COMPLEX ml polyethylene glycol 3350 17 gram 17 g PO DAILY PRN 11/28/17 12/05/20 History oral powder packet (Miralax) dandelion 500 mg capsule 500 mg PO DAILY cap 09/13/18 12/05/20 History levothyroxine 75 mcg tablet 75 mcg PO QAM 02/18/19 12/05/20 History metoprolol tartrate 100 mg tablet 100 mg PO BID #180 tab 02/03/20 12/05/20 Rx nebulizers #1 ea 02/19/20 12/05/20 Rx ipratropium 0.5 mg-albuterol 3 mg 3 ml INHALATION Q6H PRN #360 ml 04/15/20 12/05/20 Rx (2.5 mg base)/3 mL nebulization soln diltiazem HCl 120 mg 120 mg PO QAM #90 cap 06/09/20 12/05/20 Rx capsule,extended release 24 hr, controlled cholecalciferol (vitamin D3) 25 25 mcg PO DAILY 06/11/20 12/05/20 History mcg (1,000 unit) tablet insulin NPH isoph U-100 human 100 12 unit SQ Q OTHER DAY ml 06/18/20 12/05/20 History unit/mL (3 mL) subcutaneous pen (Humulin N NPH U-100 Insulin KwikPen) pantoprazole 40 mg tablet,delayed 40 mg PO BID #180 tab 06/25/20 12/05/20 Rx release nebulizer accessories #1 ea 07/07/20 12/05/20 Rx nebulizers #1 ea 07/07/20 12/05/20 Rx bumetanide 2 mg tablet 4 mg PO BID #140 tab 08/17/20 12/05/20 Rx lactulose 10 gram/15 mL (15 mL) 10 g PO BID PRN #1440 ml 09/23/20 12/05/20 Rx oral solution clopidogrel 75 mg tablet 75 mg PO DAILY #90 tab 09/24/20 12/05/20 Rx nut.tx.gluc.intol,lac-free,soy 1 ea PO DAILY ml 09/30/20 12/05/20 History (Glucerna Shake) warfarin 4 mg tablet See Rx Instructions PO UD tab 10/05/20 12/05/20 History atorvastatin 40 mg tablet 40 mg PO HS #90 tab 11/03/20 12/05/20 Rx potassium chloride 20 mEq 60 meq PO BID #450 tab 11/24/20 12/05/20 Rx tablet,extended release prednisone 20 mg tablet 10 mg PO DAILY tab 12/02/20 12/05/20 History Allergies Allergy/AdvReac Type Severity Reaction Status Date / Time cephalexin Allergy Intermediate ABDOMINAL Verified 12/05/20 14:34 PAIN pramipexole [From Mirapex] AdvReac Severe Hallucinati Verified 12/05/20 14:34 ng ZACH Inhibitors AdvReac Intermediate COUGH Verified 12/05/20 14:34 clindamycin AdvReac Intermediate REFLUX Verified 12/05/20 14:34 Penicillins AdvReac Intermediate ?RASH Verified 12/05/20 14:34 Sulfa (Sulfonamide AdvReac Intermediate ?RASH Verified 12/05/20 14:34 Antibiotics) Past Med/Surg History Medical History (Updated 12/05/20 @ 15:49 by Rufino Pablo MD) Chronic constipation DVT, recurrent, lower extremity, chronic Dysphagia Dyspnea on exertion Gout (05/11/12) Hearing loss History of DVT (deep vein thrombosis) Hypokalemia Kidney stone (05/11/12) 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 Nasal bone fractures Nasal bone fractures Nonspecific ST-T wave electrocardiographic changes Palpitations Palpitations Paroxysmal supraventricular tachycardia Personal history of gout 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, secondary PVC (premature ventricular contraction) PVC (premature ventricular contraction) Reactive airway disease Slowing of urinary stream SNHL (sensorineural hearing loss) Vitamin D deficiency Surgical History 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 S/P spinal surgery (05/11/12) Family History Mother Myocardial infarction Heart disease Father Myocardial infarction Hypertension Stroke Heart disease Unknown Diabetes Aunt Colorectal cancer Myocardial infarction Other No family history of adverse response to anesthesia No family history of bleeding disorder Denies family history of Ovarian cancer Prostate cancer Breast cancer Social History Smoking Status: Former smoker Tobacco Type: Cigarettes Age Started Using Tobacco: 17; Age Quit Using Tobacco: 38; packs per day: 3; Years Smoked: 20; Number of Years Since Quit: 50; Second Hand Exposure: No; Hx Alcohol Use: No Hx Substance Use: No Preferred Language: Malian Communication Ability: Effective Visual Impairment: No Limitations Hearing Ability: Use of Hearing Aid Automobile Rental Agent Required: No Beliefs That Will Affect Care: None marital status: Life Partner Current Living Situation: Significant Other current occupational status: retired How many Children do You have: 2 Feels Safe at Home: Yes Childhood Exposure to Second-Hand Smoke: No caffeine: Yes Dental Care, Regularly: Yes Physical Activity Frequency: Does not Exercise Seatbelt Use: always Sunscreen Use: No Assistive Devices: Denture - Upper and Denture - Lower Review of Systems A total of 10 systems reviewed and were otherwise negative Physical Exam Vital Signs Vital Signs - 24 hr 12/05/20 12:21 12/05/20 13:11 12/05/20 13:30 Temperature 36.5 C Temperature Source Oral Pulse Rate 76 Pulse Rhythm Regular Pulse Strength Normal Respiratory Rate 20 21 Respiratory Effort / Characteristics Non-Labored Spontaneous Non-Labored Non-Labored Respiratory Depth Normal Respiratory Pattern Regular Blood Pressure 163/85 H Blood Pressure Mean 111 Pulse Oximetry 97 99 Oxygen Delivery Method Room Air Nasal Cannula Oxygen Flow Rate 3 Sepsis Recent Fever Within 48 Hours No Sepsis New/Unexplained Change in Mental Status N/A Sepsis Action Taken by Nursing No Action Required General: Well developed well nourished not ill-appearing older male who appears in no acute distress, breathing comfortably on baseline nasal cannula oxygen. Normal speech HEENT: Normal cephalic atraumatic. Pupils are equal round and reactive to light. Extraocular movements are intact. Oropharynx is pink with moist mucous membranes. No swelling of the mouth lips or tongue. Neck: Supple with a midline trachea. No meningeal signs or stiffness, no JVD or bruits. No Stridor. Chest: Clear to auscultation bilaterally. No wheezes or rhonchi. No increased work of breathing. Heart: Regular rate and rhythm without murmurs or gallops. Abdomen: Soft nontender, nondistended without rebound guarding or rigidity. Extremities: No cyanosis clubbing or edema. He has a rare red swollen area in the right anterior murray that has some redness around it distally in the ankle there is bruising he does have palpable pulses there is edema to the right leg compared to the left Spine/Back. Non tender to palpation. No CVA tenderness Skin: Good turgor without rashes. Neurologic exam: Cranial nerves two through 12 are intact. Motor and sensation are intact and symmetrical throughout. Medical Decision Making Differential Diagnosis Hematoma, DVT, abscess, cellulitis, electrolyte or metabolic abnormality, trauma, vascular disease, tumor Medical Records Attestation: I reviewed the patient's medical records. Home Medications Current Medication List: was personally reviewed by me Laboratory Data Attestation: I reviewed the patient's lab results. Result diagrams: 12/05/20 13:19 12/05/20 13:19 Lab Results 12/05/20 12/05/20 12/05/20 Range/Units 13:19 13:19 13:19 WBC 10.42 (4.8-10.8) K/uL RBC 3.41 L (4.7-6.1) M/uL Hgb 11.5 L (14.0-18.0) g/dL Hct 35.3 L (42-52) % MCV 103.5 H (80-100) fL MCH 33.7 (25-34) pg MCHC 32.6 (32-36) g/dL RDW Std Deviation 53.5 H (36.4-46.3) fL RDW Coeff of Sung 14.3 (11.5-14.5) % Plt Count 192 (130-400) K/uL MPV 11.3 H (7.4-10.4) fL Immature Gran % (Auto) 0.6 % Neut % (Auto) 83.5 % Lymph % (Auto) 6.3 % [place] % (Auto) 8.3 % Eos % (Auto) 1.2 % Baso % (Auto) 0.1 % Neut # (Auto) 8.70 H (1.4-6.5) K/uL Lymph # (Auto) 0.66 L (1.2-3.4) K/uL [place] # (Auto) 0.87 H (0.11-0.59) K/uL Eos # (Auto) 0.12 (0-0.5) K/uL Baso # (Auto) 0.01 (0-0.2) K/uL Immature Gran # (Auto) 0.06 H (0.00-0.02) K/uL PT 17.1 H (9.0-12.0) Seconds INR 1.8 H (0.9-1.1) APTT 27.6 (21.0-31.0) Seconds PTT Ratio 1.0 Sodium (136-145) mmol/L Potassium (3.5-5.1) mmol/L Chloride (98-107) mmol/L Carbon Dioxide (21-32) mmol/L Anion Gap (3-11) BUN (7-18) mg/dl Creatinine (0.6-1.4) mg/dl Est Cr Clr Drug Dosing ml/min Est GFR ( Amer) ml/min Est GFR (Non-Af Amer) ml/min BUN/Creatinine Ratio (10-20) Glucose (70-99) mg/dl Lactate (0.4-2.0) mmol/L Calcium (8.5-10.1) mg/dl Magnesium (1.8-2.4) mg/dl Total Bilirubin (0.2-1) mg/dl AST (15-37) U/L ALT (12-78) U/L Alkaline Phosphatase (45-117) U/L Total Protein (6.4-8.2) gm/dl Albumin (3.4-5.0) gm/dl Globulin (2.5-4.0) gm/dl Albumin/Globulin Ratio (0.9-2) Procalcitonin 0.10 (0-0.5) ng/ml Urine Color Urine Appearance (Clear) Urine pH (4.5-7.5) Ur Specific [place] (1.000-1.030) Urine Protein (Negative) Urine Glucose (UA) (Negative) Urine Ketones (Negative) Urine Blood (Negative) Urine Nitrite (Negative) Urine Bilirubin (Negative) Urine Urobilinogen (Negative) Ur Leukocyte Esterase (Negative) Urine WBC (Auto) (0-5) /hpf Urine RBC (Auto) (0-4) /hpf U Hyaline Cast (Auto) (0-5) /lpf U Epithel Cells (Auto) (0-5) /lpf Urine Bacteria (Auto) (Negative) 12/05/20 12/05/20 12/05/20 Range/Units 13:19 13:19 14:05 WBC (4.8-10.8) K/uL RBC (4.7-6.1) M/uL Hgb (14.0-18.0) g/dL Hct (42-52) % MCV (80-100) fL MCH (25-34) pg MCHC (32-36) g/dL RDW Std Deviation (36.4-46.3) fL RDW Coeff of Sung (11.5-14.5) % Plt Count (130-400) K/uL MPV (7.4-10.4) fL Immature Gran % (Auto) % Neut % (Auto) % Lymph % (Auto) % [place] % (Auto) % Eos % (Auto) % Baso % (Auto) % Neut # (Auto) (1.4-6.5) K/uL Lymph # (Auto) (1.2-3.4) K/uL [place] # (Auto) (0.11-0.59) K/uL Eos # (Auto) (0-0.5) K/uL Baso # (Auto) (0-0.2) K/uL Immature Gran # (Auto) (0.00-0.02) K/uL PT (9.0-12.0) Seconds INR (0.9-1.1) APTT (21.0-31.0) Seconds PTT Ratio Sodium 143 (136-145) mmol/L Potassium 3.6 (3.5-5.1) mmol/L Chloride 104 (98-107) mmol/L Carbon Dioxide 34 H (21-32) mmol/L Anion Gap 5.0 (3-11) BUN 36 H (7-18) mg/dl Creatinine 2.23 H (0.6-1.4) mg/dl Est Cr Clr Drug Dosing 23.2 ml/min Est GFR ( Amer) 29.4 ml/min Est GFR (Non-Af Amer) 25.4 ml/min BUN/Creatinine Ratio 15.9 (10-20) Glucose 253 H (70-99) mg/dl Lactate 2.2 H* (0.4-2.0) mmol/L Calcium 8.8 (8.5-10.1) mg/dl Magnesium 2.6 H (1.8-2.4) mg/dl Total Bilirubin 1.1 H (0.2-1) mg/dl AST 16 (15-37) U/L ALT 23 (12-78) U/L Alkaline Phosphatase 95 (45-117) U/L Total Protein 6.4 (6.4-8.2) gm/dl Albumin 3.3 L (3.4-5.0) gm/dl Globulin 3.1 (2.5-4.0) gm/dl Albumin/Globulin Ratio 1.1 (0.9-2) Procalcitonin (0-0.5) ng/ml Urine Color Yellow Urine Appearance Clear (Clear) Urine pH 7.0 (4.5-7.5) Ur Specific [place] 1.011 (1.000-1.030) Urine Protein Trace H (Negative) Urine Glucose (UA) 1+ H (Negative) Urine Ketones Negative (Negative) Urine Blood Negative (Negative) Urine Nitrite Negative (Negative) Urine Bilirubin Negative (Negative) Urine Urobilinogen Negative (Negative) Ur Leukocyte Esterase Negative (Negative) Urine WBC (Auto) 0 (0-5) /hpf Urine RBC (Auto) 0-4 (0-4) /hpf U Hyaline Cast (Auto) 1-5 (0-5) /lpf U Epithel Cells (Auto) 5-10 H (0-5) /lpf Urine Bacteria (Auto) Negative (Negative) Imaging Data Attestation: I personally reviewed and interpreted this imaging study as follow s: Radiologist's Impression: Soft Tissue Ultrasound 12/05/20 12:39 US soft tissue ext ltd HISTORY: 89 years-old Male eval for abcess/mass rle soft tissue swelling of the right lower leg COMPARISON: Ultrasound study 12/02/2020 TECHNIQUE: Multiple real-time sonographic images of the right calf were obtained assessing grayscale appearance and color flow FINDINGS: Within the mid pretibial tissues there is a 7.0 x 1.7 x 3.6 cm complex hypoechoic collection. Within the medial mid proximal calf there is a complex 4.8 x 1.3 x 3.6 cm collection. Lastly, within the proximal medial calf there is a 3.2 x 0.6 x 1.7 cm collection. Moderate associated subcutaneous edema. These findings are similar in size from comparison however are more hypoechoic on today's study. IMPRESSION: Hypoechoic complex collections of the right lower extremity are suggestive of liquefying hematomas, similar in size to the 12/02/2020 exam. Follow-up recommended. ACT 112: Negative or not required by law. The above report was generated using voice recognition software. It may contain grammatical, syntax or spelling errors. Electronically signed by: Terry Roberts M.D. 12/05/2020 3:28 PM Venous Doppler Study 12/05/20 12:39 US venous doppler LE RT HISTORY: 89 years-old Male eval for dvt acute pain and swelling of the right lower extremity COMPARISON: Duplex venous Doppler study 07/31/2015 TECHNIQUE: Multiple real-time sonographic images of the right lower extremity deep venous structures were obtained assessing grayscale appearance, color and spectral flow. FINDINGS: Normal flow, compressibility, phasicity and augmentation. Subcutaneous edema. IMPRESSION: No sonographic evidence of deep venous thrombosis. ACT 112: Negative or not required by law. The above report was generated using voice recognition software. It may contain grammatical, syntax or spelling errors. Electronically signed by: Terry Roberts M.D. 12/05/2020 3:22 PM ECG Data Attestation: I personally reviewed and interpreted this ECG as follows: Indication: + weakness Rate (beats per minute): 60 Rhythm: + normal sinus ECG Intervals/blocks: + Left bundle branch block (Incomplete), + Prolonged QT and + Normal CO ECG Jerome: + Normal ECG ST segments: + Nonspecific ST abnormalities ECG Findings: no PACs or no PVCs Comparison ECG Date: from (09/09/18) Change: no significant change MDM Narrative Patient comes in as described above he has had increasing redness and bruising in his right leg. He had ultrasound done just of the soft tissues but not the vascular areas a couple days ago and it was a vague read with concern for possible live liposarcoma. Clinically I think is more likely hematomas given his presentation. IV access was established and blood work was obtained he had a full sepsis type work-up given the redness and the concern for possible infection. I also repeated the ultrasound and did a vascular ultrasound as well to rule in or out DVT. He is on Coumadin. He was reassessed frequently. His ultrasound was negative for DVT. White counts not elevated nor his procalcitonin however lactic acid is mildly elevated. He has baseline renal insufficiency. He has nothing to suggest acute a UTI. EKG does not suggest acute ischemic changes. He was actually subtherapeutic with an INR of 1.8. His soft tissue ultrasound shows no fluid collections which I think are hematomas they appear more hypoechoic. I am concerned he may have a secondary cellulitis as well as lactic acid is elevated however given the fact that he has significant CHF and his vital signs are stable and not given the significant fluid bolus I did give him Rocephin 2 g IV and have consulted the [facility] hospitalist to see him for these measures. I am concerned about infection and the fact that he has significant pain and ambulatory issues that and the fact that he is on Coumadin. He has no evidence suggest compartment syndrome at this point or neurovascular compromise. Continuous cardiac monitoring: Orders placed in EMR for continuous cardiac monitoring. Upon my interpretation the patient was noted to be normal sinus rhythm with a rate of 70 Impression & Plan Cellulitis, Leg pain, right, Leg edema, right, Current use of watermelon inspector anticoagulation, Hematoma Discharge Plan Visit Data Chief Complaint: Leg Injury/Pain Stated Complaint: LEG PAIN ED Provider: Rufino Pablo Discharge Problem: Cellulitis, Leg pain, right, Leg edema, right, Current use of jail ant icoagulation, Hematoma Forms Stand Alone Forms: My [facility] Prescriptions Prescriptions: No Action prednisone 20 mg tablet 10 mg PO DAILY RF: 0 vitamin B complex Tablet 1 tab PO QAM RF: 0 magnesium oxide 400 mg (241.3 mg magnesium) Tablet 400 mg PO QAM RF: 0 nivolumab [Opdivo] 40 mg/4 mL solution See Rx Instructions .ROUTE .COMPLEX RF: 0 Hold Instructions: Stopped by oncology polyethylene glycol 3350 [Miralax] 17 gram powder in packet 17 g PO DAILY PRN (Reason: CONSTIPATION) RF: 0 warfarin 4 mg tablet See Rx Instructions PO UD RF: 0 metoprolol tartrate 100 mg tablet 100 mg PO BID Qty: 180 RF: 3 (DME) nebulizers Misc See Rx Instructions .ROUTE .MEDSUPPLY Qty: 1 RF: 0 diltiazem HCl 120 mg capsule,ext.rel 24h degradable 120 mg PO QAM Qty: 90 RF: 3 pantoprazole 40 mg tablet,delayed release (DR/EC) 40 mg PO BID Qty: 180 RF: 3 (DME) nebulizers Misc See Rx Instructions miscellaneous .MEDSUPPLY Qty: 1 RF: 0 (DME) nebulizer accessories Kit See Rx Instructions .MEDSUPPLY Qty: 1 RF: 0 bumetanide 2 mg tablet 4 mg PO BID Qty: 140 RF: 3 lactulose 10 gram/15 mL (15 mL) solution 10 g PO BID PRN (Reason: constipation) Qty: 1440 RF: 1 clopidogrel 75 mg tablet 75 mg PO DAILY Qty: 90 RF: 3 atorvastatin 40 mg tablet 40 mg PO HS Qty: 90 RF: 3 potassium chloride 20 mEq tablet extended release 60 meq PO BID Qty: 450 RF: 3 cholecalciferol (vitamin D3) 25 mcg (1,000 unit) tablet 25 mcg PO DAILY RF: 0 Humulin N NPH Insulin KwikPen 100 unit/mL (3 mL) insulin pen 12 unit SQ Q OTHER DAY RF: 0 Glucerna Shake Liquid 1 ea PO DAILY RF: 0 dandelion 500 mg capsule 500 mg PO DAILY RF: 0 ipratropium-albuterol 0.5 mg-3 mg(2.5 mg base)/3 mL solution for nebulization 3 ml inhalation Q6H PRN (Reason: wheezing) Qty: 360 RF: 5 levothyroxine 75 mcg tablet 75 mcg PO QAM RF: 0 Referrals Referrals: Anirudh Magdaleno MD [Primary Care Provider] -
[2020-12-05 13:45] LABS: Basophils # (auto) 0.01 K/uL (0-0.2); Basophils % (auto) 0.1 %; Eosinophils # (auto) 0.12 K/uL (0-0.5); Eosinophils % (auto) 1.2 %; Hematocrit (blood only) 35.3 % (42-52); Hemoglobin 11.5 g/dL (14.0-18.0); Immature Granulocytes # (auto) 0.06 K/uL (0.00-0.02); Immature Granulocytes % (auto) 0.6 %; Lymphocytes # (auto) 0.66 K/uL (1.2-3.4); Lymphocytes % (auto) 6.3 %; Mean Corpuscular Hemoglobin 33.7 pg (25-34); Mean Corpuscular Hgb Conc 32.6 g/dL (32-36); Mean Corpuscular Volume 103.5 fL (80-100); Mean Platelet Volume 11.3 fL (7.4-10.4); Monocytes # (auto) 0.87 K/uL (0.11-0.59); Monocytes % (auto) 8.3 %; Neutrophils % (auto) 83.5 %; Platelet Count 192 K/uL (130-400); RDW Coefficient of Variation 14.3 % (11.5-14.5); RDW Standard Deviation 53.5 fL (36.4-46.3); Red Blood Count 3.41 M/uL (4.7-6.1); White Blood Count 10.42 K/uL (4.8-10.8)
[2020-12-05 14:02] LABS: Albumin Level 3.3 gm/dl (3.4-5.0); BUN Creatinine Ratio 15.9 (10-20); Calcium 8.8 mg/dl (8.5-10.1); Creatinine Clr Calc Pharmacy 23.2 ml/min; Est GFR (African American) 29.4 ml/min; Est GFR (Non-African American) 25.4 ml/min; INR 1.8 (0.9-1.1); Magnesium 2.6 mg/dl (1.8-2.4); Partial Thromboplastin Time 27.6 Seconds (21.0-31.0); Potassium 3.6 mmol/L (3.5-5.1); Prothrombin Time 17.1 Seconds (9.0-12.0)
[2020-12-05 14:04] LABS: Albumin Globulin Ratio 1.1 (0.9-2); Bilirubin,Total 1.1 mg/dl (0.2-1); Globulin 3.1 gm/dl (2.5-4.0); Total Protein 6.4 gm/dl (6.4-8.2)
[2020-12-05 14:52] LABS: Appearance Urine Clear (Clear); Bacteria Urine Automated Negative (Negative); Bilirubin Urine Negative (Negative); Blood Urine Negative (Negative); Color Urine Yellow; Glucose Urine UA 1+ (Negative); Ketones Urine Negative (Negative); Leukocyte Esterase Urine Negative (Negative); Nitrite Urine Negative (Negative); Protein Urine Trace (Negative); RBC Urine Automated 0-4 /hpf (0-4); Specific Gravity Urine 1.011 (1.000-1.030); Urobilinogen Urine Negative (Negative); WBC Urine Automated 0 /hpf (0-5)
--- NOTE | 2020-12-05 15:23 | Ultrasound Report ---
US venous doppler LE RT HISTORY: 89 years-old Male eval for dvt acute pain and swelling of the right lower extremity COMPARISON: Duplex venous Doppler study 07/31/2015 TECHNIQUE: Multiple real-time sonographic images of the right lower extremity deep venous structures were obtained assessing grayscale appearance, color and spectral flow. FINDINGS: Normal flow, compressibility, phasicity and augmentation. Subcutaneous edema. IMPRESSION: No sonographic evidence of deep venous thrombosis. ACT 112: Negative or not required by law. The above report was generated using voice recognition software. It may contain grammatical, syntax o r spelling errors. Electronically signed by: Terry Roberts M.D. 12/05/2020 3:22 PM
--- NOTE | 2020-12-05 15:30 | Ultrasound Report ---
US soft tissue ext ltd HISTORY: 89 years-old Male eval for abcess/mass rle soft tissue swelling of the right lower leg COMPARISON: Ultrasound study 12/02/2020 TECHNIQUE: Multiple real-time sonographic images of the right calf were obtained assessing grayscale appearance and color flow FINDINGS: Within the mid pretibial tissues there is a 7.0 x 1.7 x 3.6 cm complex hypoechoic collection. Within the medial mid proximal calf there is a complex 4.8 x 1.3 x 3.6 cm collection. Lastly, within the pro ximal medial calf there is a 3.2 x 0.6 x 1.7 cm collection. Moderate associated subcutaneous edema. T hese findings are similar in size from comparison however are more hypoechoic on today's study. IMPRESSION: Hypoechoic complex collections of the right lower extremity are suggestive of liquefying hematomas, similar in size to the 12/02/2020 exam. Follow-up recommended. ACT 112: Negative or not required by law. The above report was generated using voice recognition software. It may contain grammatical, syntax o r spelling errors. Electronically signed by: Terry Roberts M.D. 12/05/2020 3:28 PM
[2020-12-05] MEDS ORDERED: cefTRIAXone SODIUM 2,000 MG/70 ML BAG IV STA (15:35)
--- NOTE | 2020-12-05 17:06 | History & Physical Report ---
Date of Service December 05, 2020 Assessment & Plan (1) Leg edema, right: Plan: Possible infected hematoma with cellulitis- Patient with history of trauma and fracture to that leg in the past - MRI evaluate for mass and/or bone involvement - Hold warfarin for afib stroke reduction for now - Continue Plavix - Edie hose for compression - Received Rocephin 2GM in EMD- defer continuing until imaging results - Daptomycin added 4mg/kg (2) Hematoma: Plan: As above presumed spontaneous with no reported history of trauma/injury recently - evaluate for mass or oncological process with MRI - Continue Plavix as above (3) Cellulitis: Plan: As above- local cellulins or infected hematoma - MRI - Surgical consult pending if needed (4) Mild cognitive impairment: Plan: Mild - maitnain normal sleep wake cycle - delirium precautions - re-orient frequently as needed (5) Hyperlipidemia: Plan: Continue statin (6) Heart failure with preserved ejection fraction: Plan: Continue BB Continue Bumex - Echo 09/16/20: Normal LV size/function. EF 55-60%. No RWMA. Septal motion consistent with prior cardiac surgery. Mild LVH. Bioprosthetic aortic valve with appropriate transvalvular gradient/velocity. RVSP 35. Normal RV size, mildly reduced systolic function. (7) COPD, moderate: Plan: Continue with Albuterol Nebs prn (8) Atrial fibrillation: Plan: Rate controlled continue with Dilt and Metoprlol - Hold Warfarin until evaluation of fluid collection and surgical indication/need identified (9) H/O heart valve replacement with bioprosthetic valve: Plan: Continue Plavix - Tissue valve - See echo results as above - no symptoms of congestion or worsening History of Present Illness Primary Care Provider: Anirudh Magdaleno MD 89 YOM with past medical history of: Renal cell carcinoma, Autumn cell carcinoma left neck , COPD, OA, HTN, HLD, CAD with CABG prosthetic AVR (on Plavix), Afib (on Warfarin), HFpEF, Hypothyroidism, GERD, DMII (on insulin), Carotid artery disease. Patient comes to the emergency room for increase in swelling, bruising and pain to his righ lower leg and ankle. The patient was originally seen for this on December 15 by his PCP. The patient states that it has been going on for the past 10 days, and was spontaneous, without trauma or other injury. After that encounter, the patient had an ultrasound performed which revealed, Multiple subcutaneous lesions as detailed above. Liposarcoma cannot be completely ruled out. Further evaluation with MRI is suggested. In the EMD patient had a repeat ultrasound of his right leg revealed liquefying hematoma in similar size, and also had a ultrasound performed that was negative for DVT. For concern of surrounding cellulitis and pain the patient was started given 2GM Rocephin in the EMD. The Hospitalist team was consulted for admission secondary to pain with ambulating and continued workup. Patient will be observed overnight, MRI of the right lower leg and ankle will be obtained to better identify fluid collection and bone involvement. Will hold his Warfarin and will cover with Daptomycin. Patient has received his COVID vaccine and his COVID test on admission is: Allergies Allergy/AdvReac Type Severity Reaction Status Date / Time cephalexin Allergy Intermediate ABDOMINAL Verified 12/05/20 14:34 PAIN pramipexole [From Mirapex] AdvReac Severe Hallucinati Verified 12/05/20 14:34 ng ZACH Inhibitors AdvReac Intermediate COUGH Verified 12/05/20 14:34 clindamycin AdvReac Intermediate REFLUX Verified 12/05/20 14:34 Penicillins AdvReac Intermediate ?RASH Verified 12/05/20 14:34 Sulfa (Sulfonamide AdvReac Intermediate ?RASH Verified 12/05/20 14:34 Antibiotics) Home Medications Medication Instructions Recorded Confirmed Type magnesium oxide 400 mg (241.3 mg 400 mg PO QAM 11/27/17 12/05/20 History magnesium) tablet vitamin B complex 1 tab PO QAM 11/27/17 12/05/20 History nivolumab 40 mg/4 mL intravenous See Rx Instructions .ROUTE 11/28/17 12/05/20 History solution (Opdivo) .COMPLEX ml polyethylene glycol 3350 17 gram 17 g PO DAILY PRN 11/28/17 12/05/20 History oral powder packet (Miralax) dandelion 500 mg capsule 500 mg PO DAILY cap 09/13/18 12/05/20 History levothyroxine 75 mcg tablet 75 mcg PO QAM 02/18/19 12/05/20 History metoprolol tartrate 100 mg tablet 100 mg PO BID #180 tab 02/03/20 12/05/20 Rx nebulizers #1 ea 02/19/20 12/05/20 Rx ipratropium 0.5 mg-albuterol 3 mg 3 ml INHALATION Q6H PRN #360 ml 04/15/20 12/05/20 Rx (2.5 mg base)/3 mL nebulization soln diltiazem HCl 120 mg 120 mg PO QAM #90 cap 06/09/20 12/05/20 Rx capsule,extended release 24 hr, controlled cholecalciferol (vitamin D3) 25 25 mcg PO DAILY 06/11/20 12/05/20 History mcg (1,000 unit) tablet insulin NPH isoph U-100 human 100 12 unit SQ Q OTHER DAY ml 06/18/20 12/05/20 History unit/mL (3 mL) subcutaneous pen (Humulin N NPH U-100 Insulin KwikPen) pantoprazole 40 mg tablet,delayed 40 mg PO BID #180 tab 06/25/20 12/05/20 Rx release nebulizer accessories #1 ea 07/07/20 12/05/20 Rx nebulizers #1 ea 07/07/20 12/05/20 Rx bumetanide 2 mg tablet 4 mg PO BID #140 tab 08/17/20 12/05/20 Rx lactulose 10 gram/15 mL (15 mL) 10 g PO BID PRN #1440 ml 09/23/20 12/05/20 Rx oral solution clopidogrel 75 mg tablet 75 mg PO DAILY #90 tab 09/24/20 12/05/20 Rx nut.tx.gluc.intol,lac-free,soy 1 ea PO DAILY ml 09/30/20 12/05/20 History (Jeremiasertimbo Workman) warfarin 4 mg tablet See Rx Instructions PO UD tab 10/05/20 12/05/20 History atorvastatin 40 mg tablet 40 mg PO HS #90 tab 11/03/20 12/05/20 Rx potassium chloride 20 mEq 60 meq PO BID #450 tab 11/24/20 12/05/20 Rx tablet,extended release prednisone 20 mg tablet 10 mg PO DAILY tab 12/02/20 12/05/20 History Past Med/Surg History Medical History Chronic constipation DVT, recurrent, lower extremity, chronic Dysphagia Dyspnea on exertion Gout (05/11/12) Hearing loss History of DVT (deep vein thrombosis) Hypokalemia Kidney stone (05/11/12) 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 Nasal bone fractures Nasal bone fractures Nonspecific ST-T wave electrocardiographic changes Palpitations Palpitations Paroxysmal supraventricular tachycardia Personal history of gout 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, secondary PVC (premature ventricular contraction) PVC (premature ventricular contraction) Reactive airway disease Slowing of urinary stream SNHL (sensorineural hearing loss) Vitamin D deficiency Surgical History (Updated 12/05/20 @ 16:58 by YOEL Vasques) 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 S/P spinal surgery (05/11/12) Family History Mother Myocardial infarction Heart disease Father Myocardial infarction Hypertension Stroke Heart disease Unknown Diabetes Aunt Colorectal cancer Myocardial infarction Other No family history of adverse response to anesthesia No family history of bleeding disorder Denies family history of Ovarian cancer Prostate cancer Breast cancer Social History Smoking Status: Former smoker Tobacco Type: Cigarettes Age Started Using Tobacco: 17; Age Quit Using Tobacco: 38; packs per day: 3; Years Smoked: 20; Smoking End Date: 60 YEARS AGO; Number of Years Since Quit: 50; Second Hand Exposure: No; Hx Alcohol Use: No Hx Substance Use: No Preferred Language: Tajik Communication Ability: Effective Visual Impairment: No Limitations Hearing Ability: Use of Hearing Aid Distance Learning Program Coordinator Required: No Beliefs That Will Affect Care: Taoist Taoist Beliefs: YARSANISM marital status: Life Partner Current Living Situation: Spouse current occupational status: retired How many Children do You have: 2 Other Information That Helps Us Care for You: No Feels Safe at Home: Yes Safety Concerns: Feels Safe At This Time Childhood Exposure to Second-Hand Smoke: No caffeine: Yes Dental Care, Regularly: Yes Physical Activity Frequency: Does not Exercise Seatbelt Use: always Sunscreen Use: No Assistive Devices: Walker Review of Systems Review of Systems: REVIEW OF SYSTEMS: Constitutional: No fever, sweats or chills Eyes: No diplopia, no worsening or blurred vision ENT: normal hearing, no trouble swallowing Respiratory: No cough, sputum, dyspnea at rest or on exertion Cardiovascular: No chest pain, tightness or palpitations Abdomen: No pain, nausea, vomiting, diarrhea or constipation Musculoskeletal: (+) right murray pain and ankle joint pain, calf pain, swelling Neurologic: No weakness, numbness/tingling, or balance problems Psychiatric: No anxiety or depression Skin: No rash or itch Physical Exam Physical Exam: PHYSICAL EXAM: General: awake, alert, no apparent distress Head: Normocephalic, atraumatic ENT: PERRL, EOMI, no pharyngeal exudate, mucous membranes moist Neuro: AAO x 3, speech clear and appropriate, strength intact bilaterally 5/5, sensation intact and equal all extremities and dermatomes, no pronator drift Chest: equal rise and fall of the chest, no accessory muscle use, no heaves or thirlls, scattered wheeze in the bases bilaterally, on room air, Cardiac: irregular rate and rhythm, telemetry reviewed-Afib, skin warm dry, cap refill <3 seconds, peripheral pulses +2 no JVD, no murmur, no JVD, no edema to left leg, +3 edema to the right leg GI: NABS x 4 quadrants, soft, nontender to palpation, no rebound, guarding or tenderness : Spontaneously voiding, no pain, no CVA tenderness, Psych: Normal mood and affect Skin: soft area with fluctuance on the right murray with surrounding erythema and edema, small pinpoint white area on the murray that had just came out in the day, ecchymosis that has extended to the ankle medially and laterally, painful to the murray and top of the foot. Results & Data Results & Data ([facility]) Vital Signs (Past 12 Hours) Vital Signs Temp Pulse Resp BP Pulse Ox 12/05/20 13:30 21 99 12/05/20 12:21 36.5 C 76 20 163/85 H 97 Laboratory Results Abnormal lab results 12/05/20 12/05/20 12/05/20 Range/Units 13:19 13:19 13:19 RBC 3.41 L (4.7-6.1) M/uL Hgb 11.5 L (14.0-18.0) g/dL Hct 35.3 L (42-52) % MCV 103.5 H (80-100) fL RDW Std Deviation 53.5 H (36.4-46.3) fL MPV 11.3 H (7.4-10.4) fL Neut # (Auto) 8.70 H (1.4-6.5) K/uL Lymph # (Auto) 0.66 L (1.2-3.4) K/uL Ector # (Auto) 0.87 H (0.11-0.59) K/uL Immature Gran # (Auto) 0.06 H (0.00-0.02) K/uL PT 17.1 H (9.0-12.0) Seconds INR 1.8 H (0.9-1.1) Carbon Dioxide 34 H (21-32) mmol/L BUN 36 H (7-18) mg/dl Creatinine 2.23 H (0.6-1.4) mg/dl Glucose 253 H (70-99) mg/dl Lactate (0.4-2.0) mmol/L Magnesium 2.6 H (1.8-2.4) mg/dl Total Bilirubin 1.1 H (0.2-1) mg/dl Albumin 3.3 L (3.4-5.0) gm/dl Urine Protein (Negative) Urine Glucose (UA) (Negative) U Epithel Cells (Auto) (0-5) /lpf 12/05/20 12/05/20 Range/Units 13:19 14:05 RBC (4.7-6.1) M/uL Hgb (14.0-18.0) g/dL Hct (42-52) % MCV (80-100) fL RDW Std Deviation (36.4-46.3) fL MPV (7.4-10.4) fL Neut # (Auto) (1.4-6.5) K/uL Lymph # (Auto) (1.2-3.4) K/uL Ector # (Auto) (0.11-0.59) K/uL Immature Gran # (Auto) (0.00-0.02) K/uL PT (9.0-12.0) Seconds INR (0.9-1.1) Carbon Dioxide (21-32) mmol/L BUN (7-18) mg/dl Creatinine (0.6-1.4) mg/dl Glucose (70-99) mg/dl Lactate 2.2 H* (0.4-2.0) mmol/L Magnesium (1.8-2.4) mg/dl Total Bilirubin (0.2-1) mg/dl Albumin (3.4-5.0) gm/dl Urine Protein Trace H (Negative) Urine Glucose (UA) 1+ H (Negative) U Epithel Cells (Auto) 5-10 H (0-5) /lpf Diagnostic Findings Soft Tissue Ultrasound 12/05/20 12:39 US soft tissue ext ltd HISTORY: 89 years-old Male eval for abcess/mass rle soft tissue swelling of the right lower leg COMPARISON: Ultrasound study 12/02/2020 TECHNIQUE: Multiple real-time sonographic images of the right calf were obtained assessing grayscale appearance and color flow FINDINGS: Within the mid pretibial tissues there is a 7.0 x 1.7 x 3.6 cm complex hypoechoic collection. Within the medial mid proximal calf there is a complex 4.8 x 1.3 x 3.6 cm collection. Lastly, within the proximal medial calf there is a 3.2 x 0.6 x 1.7 cm collection. Moderate associated subcutaneous edema. These findings are similar in size from comparison however are more hypoechoic on today's study. IMPRESSION: Hypoechoic complex collections of the right lower extremity are suggestive of liquefying hematomas, similar in size to the 12/02/2020 exam. Follow-up recommended. ACT 112: Negative or not required by law. The above report was generated using voice recognition software. It may contain grammatical, syntax or spelling errors. Electronically signed by: Terry Roberts M.D. 12/05/2020 3:28 PM Venous Doppler Study 12/05/20 12:39 US venous doppler LE RT HISTORY: 89 years-old Male eval for dvt acute pain and swelling of the right lower extremity COMPARISON: Duplex venous Doppler study 07/31/2015 TECHNIQUE: Multiple real-time sonographic images of the right lower extremity deep venous structures were obtained assessing grayscale appearance, color and spectral flow. FINDINGS: Normal flow, compressibility, phasicity and augmentation. Subcutaneous edema. IMPRESSION: No sonographic evidence of deep venous thrombosis. ACT 112: Negative or not required by law. The above report was generated using voice recognition software. It may contain grammatical, syntax or spelling errors. Electronically signed by: Terry Roberts M.D. 12/05/2020 3:22 PM Medications Administered Home Medications magnesium oxide 400 mg (241.3 mg magnesium) tablet 400 mg PO QAM 11/27/17 [History Confirmed 12/05/20] vitamin B complex 1 tab PO QAM 11/27/17 [History Confirmed 12/05/20] nivolumab 40 mg/4 mL intravenous solution (Opdivo) See Rx Instructions .ROUTE .COMPLEX ml 11/28/17 [History Confirmed 12/05/20] polyethylene glycol 3350 17 gram oral powder packet (Miralax) 17 g PO DAILY PRN 11/28/17 [History Confirmed 12/05/20] dandelion 500 mg capsule 500 mg PO DAILY cap 09/13/18 [History Confirmed 12/05/20] levothyroxine 75 mcg tablet 75 mcg PO QAM 02/18/19 [History Confirmed 12/05/20] metoprolol tartrate 100 mg tablet 100 mg PO BID #180 tab 02/03/20 [Rx Confirmed 12/05/20] nebulizers #1 ea 02/19/20 [Rx Confirmed 12/05/20] ipratropium 0.5 mg-albuterol 3 mg (2.5 mg base)/3 mL nebulization soln 3 ml INHALATION Q6H PRN #360 ml 04/15/20 [Rx Confirmed 12/05/20] diltiazem HCl 120 mg capsule,extended release 24 hr, controlled 120 mg PO QAM #90 cap 06/09/20 [Rx Confirmed 12/05/20] cholecalciferol (vitamin D3) 25 mcg (1,000 unit) tablet 25 mcg PO DAILY 06/11/20 [History Confirmed 12/05/20] insulin NPH isoph U-100 human 100 unit/mL (3 mL) subcutaneous pen (Humulin N NPH U-100 Insulin KwikPen) 12 unit SQ Q OTHER DAY ml 06/18/20 [History Confirmed 12/05/20] pantoprazole 40 mg tablet,delayed release 40 mg PO BID #180 tab 06/25/20 [Rx Confirmed 12/05/20] nebulizer accessories #1 ea 07/07/20 [Rx Confirmed 12/05/20] nebulizers #1 ea 07/07/20 [Rx Confirmed 12/05/20] bumetanide 2 mg tablet 4 mg PO BID #140 tab 08/17/20 [Rx Confirmed 12/05/20] lactulose 10 gram/15 mL (15 mL) oral solution 10 g PO BID PRN #1440 ml 09/23/20 [Rx Confirmed 12/05/20] clopidogrel 75 mg tablet 75 mg PO DAILY #90 tab 09/24/20 [Rx Confirmed 12/05/20] nut.tx.gluc.intol,lac-free,soy (Glucerna Shake) 1 ea PO DAILY ml 09/30/20 [History Confirmed 12/05/20] warfarin 4 mg tablet See Rx Instructions PO UD tab 10/05/20 [History Confirmed 12/05/20] atorvastatin 40 mg tablet 40 mg PO HS #90 tab 11/03/20 [Rx Confirmed 12/05/20] potassium chloride 20 mEq tablet,extended release 60 meq PO BID #450 tab 11/24/20 [Rx Confirmed 12/05/20] prednisone 20 mg tablet 10 mg PO DAILY tab 12/02/20 [History Confirmed 12/05/20] ECG Additional Comments: Normal sinus rhythm Left ventricular hypertrophy with QRS widening ST & T wave abnormality, consider inferior ischemia Abnormal ECG When compared with ECG of 10-DEC-2018 21:28, No significant change was found Code Status & VTE Plan Code Status CODE: FULL VTE: TEDS, chemoprophylaxis on hold pending MRI VTE Prophylaxis Plan VTE Prophylaxis will be ordered: Yes Supervising Physician Co-Signing Physician Notes Attending addendum: I have physically seen this patient, have supervised the TRIPP's activities, and agree with the H&P unless as otherwise noted. Assessment and Plan: Right lower extremity edema/cellulitis with possible infected hematoma- MRI to further assess Hold warfarin Continue Plavix EDIE hose Given ceftriaxone 2 g IV in ED Placed on daptomycin 4 mg kilogram IV daily Remaining orders and notations as noted PG Care Time/CCT Total # of Minutes Spent Total Time Spent with Patient: Total time spent is greater than 50% in coordination of care (as documented) at patient's floor/unit and/or counseling patient: Coding Level of Care Code INT OBSERVATION CARE 72M LVL 3 Diagnoses Leg edema, right R60.0 Hematoma T14.8XXA Cellulitis L03.115 Laterality: right Site of cellulitis: extremity Site of cellulitis of extremity: lower extremity Mild cognitive impairment G31.84 Hyperlipidemia E78.5 Heart failure with preserved ejection fraction I50.30 COPD, moderate J44.9 Atrial fibrillation I48.91 H/O heart valve replacement with bioprosthetic valve Z95.3 (1) Cellulitis Laterality: right Site of cellulitis: extremity Site of cellulitis of extremity: lower extremity Qualified Code(s): L03.115 - Cellulitis of right lower limb
--- NOTE | 2020-12-05 20:05 | Magnetic Resonance Report ---
MR lower leg RT wo con HISTORY: 89 years-old Male evaluate fluid collection and infection/mass soft tissue swelling status post trauma in the right lower leg COMPARISON: Lower extremity ultrasound of same day and also 12/12/2020 TECHNIQUE: Multiplanar multisequence MRI of the right lower leg was obtained without the use of IV co ntrast. FINDINGS: Extensive diffuse subcutaneous edema. Moderate lower extremity muscular atrophy. There are 3 separate subcutaneous lesions/collections which demonstrate intermediate to slightly increased T1 signal with mixed T2/STIR signal characteristics. The largest pretibial lesion measures 4.2 x 1.2 x 5.5 cm. The more lateral lesion measures 3.2 x 1.4 x 5.5 cm. The smallest most lateral lesion measures 1.3 cm in greatest dimension. Osteoarthritis of the knee and ankle. No bone marrow edema, acute fracture, subluxation or marrow rep lacing process. IMPRESSION: 1. There are three subcutaneous lesions of the mid lower leg redemonstrated, the largest within the p retibial tissues measuring up to 5.5 cm demonstrating signal characteristics suggestive of probable h ematomas. Clinical follow-up recommended. 2. Diffuse subcutaneous edema suggestive of venous stasis, cellulitis or lymphedema. 3. No acute fracture or bone marrow edema. ACT 112: Negative or not required by law. The above report was generated using voice recognition software. It may contain grammatical, syntax o r spelling errors. Electronically signed by: Terry Roberts M.D. 12/05/2020 8:04 PM
[2020-12-05] MEDS ORDERED: ALBUT/IPRATROP 3MG/0.5MG NEB 3 ML VIAL INH PRN (21:14)
[2020-12-05] MEDS ORDERED: GLUCAGON FOR INJ 1 MG VIAL SQ PRN (21:14)
[2020-12-05] MEDS ORDERED: GLUCOSE 10 TABS/TUBE PO PRN (21:14)
[2020-12-05] MEDS ORDERED: CARBOHYDRATES FOR HYPOGLYCEMIA PO PRN (21:14)
[2020-12-05] MEDS ORDERED: LACTULOSE SYRUP 20 GM/30 ML UDC PO PRN (21:14)
[2020-12-05] MEDS ORDERED: GLUCOSE 40% GEL 15 GM TUBE PO PRN (21:14)
[2020-12-05] MEDS ORDERED: ALBUTEROL 0.083% NEBU SOLN 3 ML VIAL NEB PRN (21:14)
[2020-12-05] MEDS ORDERED: ACETAMINOPHEN 325 MG TAB PO PRN (21:14)
[2020-12-05] MEDS ORDERED: DEXTROSE 50% 50 ML SYRINGE IV PRN (21:14)
[2020-12-05 21:41] LABS: C Reactive Protein 1.49 mg/dl (0-0.29)
[2020-12-05] MEDS ORDERED: DAPTOmycin 275 MG in SYRINGE 0 ML IV SCH (22:00)
[2020-12-05] MEDS: METOPROLOL TARTRATE 100 MG TAB PO SCH (22:25)
[2020-12-05] MEDS: POTASSIUM CHLORIDE CRTAB 20 MEQ TABCR PO SCH (22:26)
[2020-12-05] MEDS: PANTOprazole 40 MG TAB PO SCH (22:26)
[2020-12-05] MEDS: INSULIN ASPART 100 UNITS/ML 3 ML PEN SC SCH (22:27)
[2020-12-05] MEDS: BUMETANIDE 1 MG TAB PO SCH (22:27)
[2020-12-05] MEDS: ATORVASTATIN 40 MG TAB PO SCH (22:27)
[2020-12-06] MEDS: LEVOTHYROXINE SODIUM 75 MCG TABLET PO SCH (05:58)
[2020-12-06 07:54] LABS: Eosinophils # (auto) 0.07 K/uL (0-0.5); Eosinophils % (auto) 0.9 %; Hemoglobin 10.1 g/dL (14.0-18.0); Immature Granulocytes # (auto) 0.05 K/uL (0.00-0.02); Immature Granulocytes % (auto) 0.6 %; Lymphocytes # (auto) 0.86 K/uL (1.2-3.4); Lymphocytes % (auto) 10.9 %; Mean Corpuscular Hemoglobin 33.1 pg (25-34); Mean Corpuscular Hgb Conc 32.6 g/dL (32-36); Mean Corpuscular Volume 101.6 fL (80-100); Mean Platelet Volume 11.1 fL (7.4-10.4); Monocytes # (auto) 0.87 K/uL (0.11-0.59); Monocytes % (auto) 11.1 %; Neutrophils # (auto) 6.02 K/uL (1.4-6.5); Neutrophils % (auto) 76.5 %; Platelet Count 171 K/uL (130-400); RDW Coefficient of Variation 14.6 % (11.5-14.5); RDW Standard Deviation 53.5 fL (36.4-46.3); Red Blood Count 3.05 M/uL (4.7-6.1); White Blood Count 7.87 K/uL (4.8-10.8)
[2020-12-06 08:21] LABS: BUN Creatinine Ratio 17.4 (10-20); Calcium 8.6 mg/dl (8.5-10.1); Est GFR (African American) 31.8 ml/min; Est GFR (Non-African American) 27.4 ml/min; Magnesium 2.4 mg/dl (1.8-2.4); Potassium 3.8 mmol/L (3.5-5.1)
[2020-12-06] MEDS: INSULIN ASPART 100 UNITS/ML 3 ML PEN SC SCH ×4 (08:37→21:18)
[2020-12-06] MEDS: BUMETANIDE 1 MG TAB PO SCH ×2 (08:40→18:00)
[2020-12-06] MEDS: dilTIAZem ER 120 MG CAPCR PO SCH (08:40)
[2020-12-06] MEDS: METOPROLOL TARTRATE 100 MG TAB PO SCH ×2 (08:41→20:04)
[2020-12-06] MEDS: CLOPIDOGREL BISULFATE 75 MG TAB PO SCH (08:41)
[2020-12-06] MEDS: POTASSIUM CHLORIDE CRTAB 20 MEQ TABCR PO SCH ×2 (08:42→20:03)
[2020-12-06] MEDS: PANTOprazole 40 MG TAB PO SCH ×2 (08:42→20:04)
[2020-12-06] MEDS: predniSONE 10 MG TABLET PO SCH (08:43)
--- NOTE | 2020-12-06 08:49 | Magnetic Resonance Report ---
MR ankle RT wo con HISTORY: Right ankle swelling. evaluate for infection or oncologic process TECHNIQUE: Multiplanar multisequence MRI of the right ankle was performed without contrast according to standard departmental protocol. COMPARISON STUDY: Right lower leg MRI 12/05/2020. FINDINGS: Please refer to the same day right lower leg MRI for further evaluation of the distal right lower leg. There is diffuse subcutaneous edema within the right ankle and visualized foot. Thickenin g and abnormal signal within the peroneus brevis tendon consistent with a tendinopathy. The flexor, e xtensor, and Achilles tendons appear intact. Severe osteoarthritis of the tibiotalar joint demonstrat ed by full-thickness cartilage loss, subchondral cystic change, and mild subchondral edema. The plant ar fascia is intact. No fracture or dislocation within the ankle. No suspicious erosive changes or ma rrow signal abnormality to suggest an osteomyelitis. Thinning of the medial and lateral stabilizing l igaments suggestive of chronic injury. There is a plantar heel spur. Edema within the plantar muscles which may also be chronic. IMPRESSION: 1. Diffuse subcutaneous trace edema within the ankle and foot. This could be due to venous stasis, ce llulitis, or lymphedema. 2. No evidence for osteomyelitis. 3. Severe degenerative changes at the tibiotalar joint. ACT 112: Negative or not required by law. Electronically signed by: Gonzaelz Taylor M.D. 12/06/2020 8:48 AM
--- NOTE | 2020-12-06 09:24 | Electrocardiogram Report ---
Test Reason : Blood Pressure : / mmHG Vent. Rate : 072 BPM Atrial Rate : 072 BPM P-R Int : 132 ms QRS Dur : 120 ms QT Int : 428 ms P-R-T Axes : 063 -13 -81 degrees QTc Int : 468 ms Normal sinus rhythm Left ventricular hypertrophy with QRS widening Abnormal ECG When compared with ECG of 10-DEC-2018 21:28, No significant change was found Confirmed by Ceasar Grant ([id number]) on 12/06/2020 9:24:00 AM Referred By: REFERRED SELF Confirmed By:Ceasar Grant
[2020-12-06] MEDS: SOD PHOSPHATE/SOD BIPHOSPHATE ENEMA 132 ML BTL PR SCH (11:08)
--- NOTE | 2020-12-06 12:12 | Billing Data ---
Date of Service December 06, 2020 Coding Level of Care Code INT OBSERVATION CARE 72M LVL 3
--- NOTE | 2020-12-06 19:42 | Hospitalist Progress Note ---
Date of Service December 06, 2020 Assessment & Plan (1) Leg edema, right: Plan: Possible infected hematoma with cellulitis- Patient with history of trauma and fracture to that leg in the past - MRI completed show signs of hematoma, no bone involement. -May consider consult ortho. -will monitor for another 24 hours. -may benefit from warm compresses at discharge - Hold warfarin for afib stroke reduction for now - Continue Plavix - Parrish hose for compression - Received Rocephin 2GM in EMD- defer continuing until imaging results - Daptomycin added 4mg/kg -uncertain if this is cellulitis, may consider keflex at discharge. (2) Hematoma: Plan: As above presumed spontaneous with no reported history of trauma/injury recently - evaluate for mass or oncological process with MRI - Continue Plavix as above (3) Cellulitis: Plan: As above- local cellulins or infected hematoma - MRI - Ortho consult pending if needed (4) Mild cognitive impairment: Plan: Mild - maitnain normal sleep wake cycle - delirium precautions - re-orient frequently as needed (5) Hyperlipidemia: Plan: Continue statin (6) Heart failure with preserved ejection fraction: Plan: Continue BB Continue Bumex - Echo 09/16/20: Normal LV size/function. EF 55-60%. No RWMA. Septal motion consistent with prior cardiac surgery. Mild LVH. Bioprosthetic aortic valve with appropriate transvalvular gradient/velocity. RVSP 35. Normal RV size, mildly reduced systolic function. (7) COPD, moderate: Plan: Continue with Albuterol Nebs prn (8) Atrial fibrillation: Plan: Rate controlled continue with Dilt and Metoprlol - Hold Warfarin until evaluation of fluid collection and surgical indication/need identified (9) H/O heart valve replacement with bioprosthetic valve: Plan: Continue Plavix - Tissue valve - See echo results as above - no symptoms of congestion or worsening Admission and Anticipated Discharge Date Admission Date: December 05, 2020 Subjective Patient reports his pain has improved. Review of Systems Review of Systems: All systems reviewed & are unremarkable except as noted in HPI & below Physical Exam Physical Exam: General: awake, alert, no apparent distress Head: Normocephalic, atraumatic ENT: PERRL, EOMI, no pharyngeal exudate, mucous membranes moist Neuro: AAO x 3, speech clear and appropriate, strength intact bilaterally 5/5, sensation intact and equal all extremities and dermatomes, no pronator drift Chest: equal rise and fall of the chest, no accessory muscle use, no heaves or thirlls, scattered wheeze in the bases bilaterally, on room air, Cardiac: irregular rate and rhythm, telemetry reviewed-Afib, skin warm dry, cap refill <3 seconds, peripheral pulses +2 no JVD, no murmur, no JVD, no edema to left leg, +3 edema to the right leg GI: NABS x 4 quadrants, soft, nontender to palpation, no rebound, guarding or tenderness : Spontaneously voiding, no pain, no CVA tenderness, Psych: Normal mood and affect Skin:dry dressing over affected leg Results & Data Results & Data ([facility]) Vital Signs (Past 12 Hours) Vital Signs Temp Pulse Resp BP Pulse Ox 12/06/20 15:26 37.1 C 69 18 149/78 H 95 12/06/20 07:43 36.9 C 66 18 175/84 H 94 PG Care Time/CCT Total # of Minutes Spent Total Time Spent with Patient: Total time spent is greater than 50% in coordination of care (as documented) at patient's floor/unit and/or counseling patient: Coding Level of Care Code 84282 Subseq Obs Care Lvl 2 Diagnoses Leg edema, right R60.0 Hematoma T14.8XXA Cellulitis L03.115 Laterality: right Site of cellulitis: extremity Site of cellulitis of extremity: lower extremity Mild cognitive impairment G31.84 Hyperlipidemia E78.5 Heart failure with preserved ejection fraction I50.30 COPD, moderate J44.9 Atrial fibrillation I48.91 H/O heart valve replacement with bioprosthetic valve Z95.3 (1) Cellulitis Laterality: right Site of cellulitis: extremity Site of cellulitis of extremity: lower extremity Qualified Code(s): L03.115 - Cellulitis of right lower limb
[2020-12-06] MEDS: ATORVASTATIN 40 MG TAB PO SCH (20:04)
[2020-12-07] MEDS: LEVOTHYROXINE SODIUM 75 MCG TABLET PO SCH (06:00)
[2020-12-07 08:34] LABS: Eosinophils # (auto) 0.11 K/uL (0-0.5); Eosinophils % (auto) 1.5 %; Hematocrit (blood only) 32.2 % (42-52); Hemoglobin 10.4 g/dL (14.0-18.0); Immature Granulocytes # (auto) 0.03 K/uL (0.00-0.02); Immature Granulocytes % (auto) 0.4 %; Lymphocytes # (auto) 1.16 K/uL (1.2-3.4); Lymphocytes % (auto) 15.7 %; Mean Corpuscular Hemoglobin 33.5 pg (25-34); Mean Corpuscular Hgb Conc 32.3 g/dL (32-36); Mean Corpuscular Volume 103.9 fL (80-100); Mean Platelet Volume 10.7 fL (7.4-10.4); Monocytes # (auto) 0.83 K/uL (0.11-0.59); Monocytes % (auto) 11.2 %; Neutrophils # (auto) 5.28 K/uL (1.4-6.5); Neutrophils % (auto) 71.2 %; Platelet Count 166 K/uL (130-400); RDW Coefficient of Variation 14.5 % (11.5-14.5); RDW Standard Deviation 55.3 fL (36.4-46.3); White Blood Count 7.41 K/uL (4.8-10.8)
[2020-12-07] MEDS: PANTOprazole 40 MG TAB PO SCH ×2 (08:36→20:17)
[2020-12-07] MEDS: METOPROLOL TARTRATE 100 MG TAB PO SCH ×2 (08:36→20:16)
[2020-12-07] MEDS: dilTIAZem ER 120 MG CAPCR PO SCH (08:36)
[2020-12-07] MEDS: predniSONE 10 MG TABLET PO SCH (08:37)
[2020-12-07] MEDS: BUMETANIDE 1 MG TAB PO SCH ×2 (08:37→17:20)
[2020-12-07] MEDS: CLOPIDOGREL BISULFATE 75 MG TAB PO SCH (08:37)
[2020-12-07] MEDS: POTASSIUM CHLORIDE CRTAB 20 MEQ TABCR PO SCH ×2 (08:38→20:16)
[2020-12-07] MEDS: INSULIN ASPART 100 UNITS/ML 3 ML PEN SC SCH ×4 (08:42→20:47)
[2020-12-07 09:00] LABS: BUN Creatinine Ratio 16.6 (10-20); Calcium 8.8 mg/dl (8.5-10.1); Creatinine Clr Calc Pharmacy 24.3 ml/min; Est GFR (African American) 30.7 ml/min; Est GFR (Non-African American) 26.5 ml/min; Magnesium 2.6 mg/dl (1.8-2.4); Potassium 3.5 mmol/L (3.5-5.1)
[2020-12-07] MEDS: SOD PHOSPHATE/SOD BIPHOSPHATE ENEMA 132 ML BTL PR SCH (09:48)
[2020-12-07 10:54] LABS: INR 1.3 (0.9-1.1); Prothrombin Time 12.9 Seconds (9.0-12.0)
[2020-12-07] MEDS ORDERED: PHARMACY GLYCEMIC MGMT CONSULT PRN (12:44)
[2020-12-07] MEDS ORDERED: INSULIN GLARGINE SOLOSTAR 100 UNITS/ML 3 ML PEN SC ONE (13:15)
--- NOTE | 2020-12-07 13:17 | Pharmacy Report ---
Pharmacy Glycemic Short Note 2 - Date of Service December 07, 2020 - Glycemic Short BSG Results (Last 24 hours): 12/06/20 12/06/20 12/06/20 17:18 17:20 20:49 Glucose POC Glucose 316 H* 299 H 297 H 12/07/20 12/07/20 12/07/20 08:20 08:27 12:27 Glucose 163 H POC Glucose 162 H 176 H OUTPATIENT ANTIDIABETIC REGIMEN: * NPH 12 units QOD * prednisone 10 mg daily ASSESSMENT: * Mr Beth is an 89 y/o M with a PMH of T2DM controlled with insulin who presents with a hematoma. * Patient's BSGs yesterday were [phone] mg/dL. * Fasting today was 162 mg/dL. * Pharmacy consulted at lunchtime. Give Lantus 20 units x 1 (~0.2 units/kg) then weight-based scale tomorrow morning. * Weight-based stress of 3 Novolog until Lantus at steady state. PLAN FOR INPATIENT GLYCEMIC CONTROL: * Basal insulin * Lantus 20 units SQ x 1 then 10-20 units qAM (see eMAR for scale) * Bolus insulin * NovoLog per scale ACHS or Q6hrs while NPO * Goal Range: Low 110 mg/dL - High 140 mg/dL * Correction Factor: 20 mg/dL/unit * Nutritional / Prandial insulin per carb ratio of 1 unit per 7 grams CHO consumed PLAN FOR DISCHARGE: * TBD
--- NOTE | 2020-12-07 15:20 | Surgery Consultation ---
Date of Consultation December 07, 2020 Assessment & Plan (1) Current use of rat exterminator anticoagulation: (2) Hematoma: discussed his options. I do not believe it is infected. I do believe draining it would improve his symptoms quickly. may be a difficult area to self resolve. d/w Dr. Randhawa. Ok to hole plavix and coumadin. INR 1.3 now. will hold plavix as well and plan I&D on monday. (3) Leg pain, right: (4) Leg edema, right: (5) H/O heart valve replacement with bioprosthetic valve: History of Present Illness Attending Physician: Nate Randhawa MD History of Present Illness 89 y/o with extensive PHM including ckd, cad, renal ca, chronic resp failure, htn, copd, dm, afib on plavix and coumadin. about 2 weeks ago developed pain/swelling over murray of the RLE. mild erythema. pain only with standing or pushing hard on it. vaguely recalls bumping it on a car door awhile ago. Allergies Allergy/AdvReac Type Severity Reaction Status Date / Time cephalexin Allergy Intermediate ABDOMINAL Verified 12/05/20 14:34 PAIN pramipexole [From Mirapex] AdvReac Severe Hallucinati Verified 12/05/20 14:34 ng ZACH Inhibitors AdvReac Intermediate COUGH Verified 12/05/20 14:34 clindamycin AdvReac Intermediate REFLUX Verified 12/05/20 14:34 Penicillins AdvReac Intermediate ?RASH Verified 12/05/20 14:34 Sulfa (Sulfonamide AdvReac Intermediate ?RASH Verified 12/05/20 14:34 Antibiotics) Home Medications Medication Instructions Recorded Confirmed Type magnesium oxide 400 mg (241.3 mg 400 mg PO QAM 11/27/17 12/05/20 History magnesium) tablet vitamin B complex 1 tab PO QAM 11/27/17 12/05/20 History nivolumab 40 mg/4 mL intravenous See Rx Instructions .ROUTE 11/28/17 12/05/20 History solution (Opdivo) .COMPLEX ml polyethylene glycol 3350 17 gram 17 g PO DAILY PRN 11/28/17 12/05/20 History oral powder packet (Miralax) dandelion 500 mg capsule 500 mg PO DAILY cap 09/13/18 12/05/20 History levothyroxine 75 mcg tablet 75 mcg PO QAM 02/18/19 12/05/20 History metoprolol tartrate 100 mg tablet 100 mg PO BID #180 tab 02/03/20 12/05/20 Rx nebulizers #1 ea 02/19/20 12/05/20 Rx ipratropium 0.5 mg-albuterol 3 mg 3 ml INHALATION Q6H PRN #360 ml 04/15/2012/05 Rx (2.5 mg base)/3 mL nebulization soln diltiazem HCl 120 mg 120 mg PO QAM #90 cap 06/09/20 12/05/20 Rx capsule,extended release 24 hr, controlled cholecalciferol (vitamin D3) 25 25 mcg PO DAILY 06/11/20 12/05/20 History mcg (1,000 unit) tablet insulin NPH isoph U-100 human 100 12 unit SQ Q OTHER DAY ml 06/18/20 12/05/20 History unit/mL (3 mL) subcutaneous pen (Humulin N NPH U-100 Insulin KwikPen) pantoprazole 40 mg tablet,delayed 40 mg PO BID #180 tab 06/25/20 12/05/20 Rx release nebulizer accessories #1 ea 07/07/20 12/05/20 Rx nebulizers #1 ea 07/07/20 12/05/20 Rx bumetanide 2 mg tablet 4 mg PO BID #140 tab 08/17/20 12/05/20 Rx lactulose 10 gram/15 mL (15 mL) 10 g PO BID PRN #1440 ml 09/23/20 12/05/20 Rx oral solution clopidogrel 75 mg tablet 75 mg PO DAILY #90 tab 09/24/20 12/05/20 Rx nut.tx.gluc.intol,lac-free,soy 1 ea PO DAILY ml 09/30/20 12/05/20 History (Glucerna Shake) warfarin 4 mg tablet See Rx Instructions PO UD tab 10/05/20 12/05/20 History atorvastatin 40 mg tablet 40 mg PO HS #90 tab 11/03/20 12/05/20 Rx potassium chloride 20 mEq 60 meq PO BID #450 tab 11/24/20 12/05/20 Rx tablet,extended release prednisone 20 mg tablet 10 mg PO DAILY tab 12/02/20 12/05/20 History Patient History Medical History Chronic constipation DVT, recurrent, lower extremity, chronic Dysphagia Dyspnea on exertion Gout (05/11/12) Hearing loss History of DVT (deep vein thrombosis) Hypokalemia Kidney stone (05/11/12) 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 Nasal bone fractures Nasal bone fractures Nonspecific ST-T wave electrocardiographic changes Palpitations Palpitations Paroxysmal supraventricular tachycardia Personal history of gout 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, secondary PVC (premature ventricular contraction) PVC (premature ventricular contraction) Reactive airway disease Slowing of urinary stream SNHL (sensorineural hearing loss) Vitamin D deficiency Surgical History (Updated 12/05/20 @ 16:58 by YOEL Vasques) 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 S/P spinal surgery (05/11/12) Family History Mother Myocardial infarction Heart disease Father Myocardial infarction Hypertension Stroke Heart disease Unknown Diabetes Aunt Colorectal cancer Myocardial infarction Other No family history of adverse response to anesthesia No family history of bleeding disorder Denies family history of Ovarian cancer Prostate cancer Breast cancer Social History Smoking Status: Former smoker Tobacco Type: Cigarettes Age Started Using Tobacco: 17; Age Quit Using Tobacco: 38; packs per day: 3; Years Smoked: 20; Smoking End Date: 60 YEARS AGO; Number of Years Since Quit: 50; Second Hand Exposure: No; Hx Alcohol Use: No Hx Substance Use: No Preferred Language: Maltese Communication Ability: Effective Visual Impairment: No Limitations Hearing Ability: Use of Hearing Aid Internet Marketing Manager Required: No Beliefs That Will Affect Care: Catholic Catholic Beliefs: JAIN marital status: Life Partner Current Living Situation: Spouse current occupational status: retired How many Children do You have: 2 Other Information That Helps Us Care for You: No Feels Safe at Home: Yes Safety Concerns: Feels Safe At This Time Childhood Exposure to Second-Hand Smoke: No caffeine: Yes Dental Care, Regularly: Yes Physical Activity Frequency: Does not Exercise Seatbelt Use: always Sunscreen Use: No Assistive Devices: None Review of Systems Review of Systems: All systems reviewed & are unremarkable except as noted in HPI & below Physical Exam Constitutional: WD/WN, vitals as above no acute distress and not ill appearing Eyes: PERRL, conjunctivae normal, anicteric sclerae EOM intact bilaterally ENMT: external ear and nose normal, oropharynx normal Ears: no hearing impairment Neck: trachea midline, no thyromegaly Respiratory: normal respiratory effort; no respiratory distress and does not use accessory muscles Cardiovascular: irregular rhythm/pulses Gastrointestinal (Abdomen): normal bowel sounds, soft, nontender, no hepatosplenomegaly Skin: area over RLE anterior lower leg c/w fluid/hematoma. mildly tender. mild erythema. approx 8-9 cm diameter. Psychiatric: Orientation: alert, oriented x 3 and cooperative Results & Data ([facility]) Vital Signs (Past 12 Hours) Vital Signs Temp Pulse Resp BP BP Pulse Ox 12/07/20 14:59 36.6 C 63 18 150/74 H 100 12/07/20 12:31 66 160/72 H 96 12/07/20 07:17 36.7 C 61 16 180/82 H 98 PG Care Time/CCT Total # of Minutes Spent Total Time Spent with Patient: Total time spent is greater than 50% in coordination of care (as documented) at patient's floor/unit and/or counseling patient: Coding Level of Care Code 24727 Initial Inpt Care Lvl 3 Diagnoses Current use of rat exterminator anticoagulation Z79.01 Hematoma T14.8XXA Leg pain, right M79.604 Leg edema, right R60.0 H/O heart valve replacement with bioprosthetic valve Z95.3
[2020-12-07] MEDS: ATORVASTATIN 40 MG TAB PO SCH (20:16)
[2020-12-08] MEDS: LEVOTHYROXINE SODIUM 75 MCG TABLET PO SCH (06:03)
[2020-12-08 06:20] LABS: Eosinophils # (auto) 0.11 K/uL (0-0.5); Eosinophils % (auto) 1.4 %; Hematocrit (blood only) 33.2 % (42-52); Hemoglobin 10.7 g/dL (14.0-18.0); Immature Granulocytes # (auto) 0.03 K/uL (0.00-0.02); Immature Granulocytes % (auto) 0.4 %; Lymphocytes # (auto) 0.92 K/uL (1.2-3.4); Lymphocytes % (auto) 11.9 %; Mean Corpuscular Hemoglobin 33.5 pg (25-34); Mean Corpuscular Hgb Conc 32.2 g/dL (32-36); Mean Corpuscular Volume 104.1 fL (80-100); Mean Platelet Volume 10.9 fL (7.4-10.4); Monocytes # (auto) 0.83 K/uL (0.11-0.59); Monocytes % (auto) 10.8 %; Neutrophils # (auto) 5.81 K/uL (1.4-6.5); Neutrophils % (auto) 75.5 %; Platelet Count 174 K/uL (130-400); RDW Coefficient of Variation 14.4 % (11.5-14.5); RDW Standard Deviation 54.9 fL (36.4-46.3); Red Blood Count 3.19 M/uL (4.7-6.1)
[2020-12-08 06:35] LABS: INR 1.2 (0.9-1.1); Prothrombin Time 11.9 Seconds (9.0-12.0)
[2020-12-08 06:59] LABS: BUN Creatinine Ratio 16.8 (10-20); Calcium 8.9 mg/dl (8.5-10.1); Est GFR (African American) 30.2 ml/min; Est GFR (Non-African American) 26.1 ml/min; Magnesium 2.5 mg/dl (1.8-2.4); Potassium 3.9 mmol/L (3.5-5.1)
--- NOTE | 2020-12-08 08:21 | Surgery Progress Note ---
Date of Service December 08, 2020 Assessment & Plan (1) Hematoma: Plan: IN are now normalized and Plavix held for yesterday today and tomorrow. Discussed options with Lalito. Discussed risks which include bleeding/infection/DVT/PE/MN/CVA etc. Answered all of his questions. We will make him n.p.o. after midnight tonight and planned incision and drainage of right lower extremity hematoma tomorrow morning. Admission and Anticipated Discharge Date Admission Date: December 07, 2020 Subjective pt seen. no changes fromyesterday. Physical Exam Physical Exam: alert. oriented. nad leg exam unchanged from yesterday. Results & Data ([facility]) Vital Signs (Past 12 Hours) Vital Signs Temp Pulse Pulse Resp BP Pulse Ox 12/08/20 07:48 36.4 C L 66 20 181/77 H 99 12/07/20 20:51 36.9 C 71 16 149/72 H 97 PG Care Time/CCT Total # of Minutes Spent Total Time Spent with Patient: Total time spent is greater than 50% in coordination of care (as documented) at patient's floor/unit and/or counseling patient: Coding Level of Care Code 57901 Subseq Hosp Care Lvl 2 Diagnoses Hematoma T14.8XXA
[2020-12-08] MEDS: BUMETANIDE 1 MG TAB PO SCH ×2 (08:36→17:55)
[2020-12-08] MEDS: dilTIAZem ER 120 MG CAPCR PO SCH (08:37)
[2020-12-08] MEDS: METOPROLOL TARTRATE 100 MG TAB PO SCH ×2 (08:37→21:03)
[2020-12-08] MEDS: PANTOprazole 40 MG TAB PO SCH ×2 (08:37→21:03)
[2020-12-08] MEDS: predniSONE 10 MG TABLET PO SCH (08:37)
[2020-12-08] MEDS: POTASSIUM CHLORIDE CRTAB 20 MEQ TABCR PO SCH ×2 (08:37→21:03)
[2020-12-08] MEDS ORDERED: INSULIN GLARGINE SOLOSTAR 100 UNITS/ML 3 ML PEN SC SCH (09:00)
[2020-12-08] MEDS: INSULIN ASPART 100 UNITS/ML 3 ML PEN SC SCH ×4 (09:08→21:04)
--- NOTE | 2020-12-08 09:49 | Hospitalist Progress Note ---
Date of Service December 07, 2020 Assessment & Plan (1) Hematoma: Plan: Hematoma - low suspicion of infection although not seen on admission by myself but no WBC or fever/chills - Patient with history of trauma and fracture to that leg in the past - MRI completed show signs of hematoma, no bone involvement. - Hold warfarin for afib stroke reduction for now - Hold Plavix (already had dose today) - Parrish hose for compression - stop daptomycin Consult general surgery (2) Leg edema, right: Plan: as above (3) Cellulitis: Plan: low suspicion of this - stop daptomycin (4) Mild cognitive impairment: Plan: Mild - maitnain normal sleep wake cycle - delirium precautions - re-orient frequently as needed (5) Hyperlipidemia: Plan: Continue statin (6) Heart failure with preserved ejection fraction: Plan: Continue BB Continue Bumex - Echo 09/16/20: Normal LV size/function. EF 55-60%. No RWMA. Septal motion consistent with prior cardiac surgery. Mild LVH. Bioprosthetic aortic valve with appropriate transvalvular gradient/velocity. RVSP 35. Normal RV size, mildly reduced systolic function. (7) COPD, moderate: Plan: Continue with Albuterol Nebs prn (8) Atrial fibrillation: Plan: NSR on EKG. RRR today. Rate controlled continue with Dilt and Metoprol - Hold Warfarin for hematoma (9) H/O heart valve replacement with bioprosthetic valve: Plan: Hold Plavix - Tissue valve - See echo results as above - no symptoms of congestion or worsening Admission and Anticipated Discharge Date Admission Date: December 05, 2020 Subjective No fevers or chills. Reports no significant change in hematoma since admission. Possibly erythema surrounding hematoma has improved but he is unclear about this. Still having significant pain on walking. Thinks he may have bumped it against a car door. Review of Systems Review of Systems: All systems reviewed & are unremarkable except as noted in HPI & below Physical Exam Constitutional: WD/WN, vitals as above Respiratory: normal respiratory effort, lungs clear to auscultation Cardiovascular: RRR, no murmur, no edema Skin: Hematoma on right lower extremity. NV intact distally. Results & Data Results & Data ([facility]) Vital Signs (Past 12 Hours) Vital Signs Temp Pulse Resp BP Pulse Ox 12/07/20 12:31 66 160/72 H 96 09/13/21 07:17 36.7 C 61 16 180/82 H 98 PG Care Time/CCT Total # of Minutes Spent Total Time Spent with Patient: Total time spent is greater than 50% in coordination of care (as documented) at patient's floor/unit and/or counseling patient: Coding Level of Care Code 92683 Subseq Hosp Care Lvl 2 Diagnoses Leg edema, right R60.0 Hematoma T14.8XXA Cellulitis L03.115 Laterality: right Site of cellulitis: extremity Site of cellulitis of extremity: lower extremity Mild cognitive impairment G31.84 Hyperlipidemia E78.5 Heart failure with preserved ejection fraction I50.30 COPD, moderate J44.9 Atrial fibrillation I48.91 H/O heart valve replacement with bioprosthetic valve Z95.3 (1) Cellulitis Laterality: right Site of cellulitis: extremity Site of cellulitis of extremity: lower extremity Qualified Code(s): L03.115 - Cellulitis of right lower limb
[2020-12-08] MEDS: ceFAZolin 1000MG 1,000 MG/7.5 ML SYR IV SCH ×2 (10:50→21:04)
[2020-12-08] MEDS: SOD PHOSPHATE/SOD BIPHOSPHATE ENEMA 132 ML BTL PR SCH (10:58)
--- NOTE | 2020-12-08 12:25 | Hospitalist Progress Note ---
Date of Service December 08, 2020 Assessment & Plan (1) Hematoma: Plan: Hematoma - low suspicion of infection although not seen on admission by myself but no WBC or fever/chills - Patient with history of trauma and fracture to that leg in the past - MRI completed show signs of hematoma, no bone involvement. - Hold warfarin for afib stroke reduction for now - Hold Plavix (last dose was Monday) - Parrish hose for compression - stopped daptomycin, will continue on Ancef as planning on surgical evacuation of hematoma Consult general surgery (2) Leg edema, right: Plan: as above (3) Cellulitis: Plan: low suspicion of this - stop daptomycin, start Ancef as above (4) Mild cognitive impairment: Plan: Mild - maitnain normal sleep wake cycle - delirium precautions - re-orient frequently as needed (5) Hyperlipidemia: Plan: Continue statin (6) Heart failure with preserved ejection fraction: Plan: Continue BB Continue Bumex - Echo 09/16/20: Normal LV size/function. EF 55-60%. No RWMA. Septal motion consistent with prior cardiac surgery. Mild LVH. Bioprosthetic aortic valve with appropriate transvalvular gradient/velocity. RVSP 35. Normal RV size, mildly reduced systolic function. (7) COPD, moderate: Plan: Continue with Albuterol Nebs prn (8) Atrial fibrillation: Plan: NSR on EKG. RRR today. Rate controlled continue with Dilt and Metoprol - Hold Warfarin for hematoma (9) H/O heart valve replacement with bioprosthetic valve: Plan: Hold Plavix - Tissue valve - See echo results as above - no symptoms of congestion or worsening Admission and Anticipated Discharge Date Admission Date: December 07, 2020 Subjective No fevers or chills. Reports no significant change in hematoma since admission. Surgery planning on hematoma evacuation tomorrow. Hgb stable. No dizziness, chest pain or shortness of breath. Review of Systems Review of Systems: All systems reviewed & are unremarkable except as noted in HPI & below Physical Exam Constitutional: WD/WN, vitals as above Respiratory: normal respiratory effort, lungs clear to auscultation Cardiovascular: RRR, no murmur, no edema Skin: approximately 7 x4 cm hematoma RLE without surrounding cellulitis Results & Data Results & Data ([facility]) Vital Signs (Past 12 Hours) Vital Signs Temp Pulse Resp BP Pulse Ox 12/08/20 07:48 36.4 C L 66 20 181/77 H 99 PG Care Time/CCT Total # of Minutes Spent Total Time Spent with Patient: Total time spent is greater than 50% in coordination of care (as documented) at patient's floor/unit and/or counseling patient: Coding Level of Care Code 52680 Subseq Hosp Care Lvl 2 Diagnoses Hematoma T14.8XXA Leg edema, right R60.0 Cellulitis L03.115 Laterality: right Site of cellulitis: extremity Site of cellulitis of extremity: lower extremity Mild cognitive impairment G31.84 Hyperlipidemia E78.5 Heart failure with preserved ejection fraction I50.30 COPD, moderate J44.9 Atrial fibrillation I48.91 H/O heart valve replacement with bioprosthetic valve Z95.3 (1) Cellulitis Laterality: right Site of cellulitis: extremity Site of cellulitis of extremity: lower extremity Qualified Code(s): L03.115 - Cellulitis of right lower limb
--- NOTE | 2020-12-08 14:36 | Pharmacy Report ---
Pharmacy Glycemic Short Note 2 - Date of Service December 08, 2020 - Glycemic Short BSG Results (Last 24 hours): 12/07/20 12/07/20 12/08/20 17:19 20:39 05:59 Glucose 114 H POC Glucose 174 H 264 H 12/08/20 12/08/20 08:18 12:08 Glucose POC Glucose 112 H 184 H OUTPATIENT ANTIDIABETIC REGIMEN: * NPH 12 units QOD * prednisone 10 mg daily ASSESSMENT: 12/09: * Patient received total 47 units of insulin yesterday; 20 units basal + 27 units bolus. * Fasting BSG today = 112 mg/dl. Pt received Lantus 10 units this AM. * Pre-lunch BSG increased to 184. Novolog CR tightened slightly to 6 12/07/20: * Mr Beth is an 89 y/o M with a PMH of T2DM controlled with insulin who presents with a hematoma. * Patient's BSGs yesterday were [phone] mg/dL. * Fasting today was 162 mg/dL. * Pharmacy consulted at lunchtime. Give Lantus 20 units x 1 (~0.2 units/kg) then weight-based scale tomorrow morning. * Weight-based stress of 3 Novolog until Lantus at steady state. PLAN FOR INPATIENT GLYCEMIC CONTROL: * Basal insulin: increased * Lantus 10 units today * Lantus 20 units QAM * Bolus insulin: tightened CR * NovoLog per scale ACHS or Q6hrs while NPO * Goal Range: Low 110 mg/dL - High 140 mg/dL * Correction Factor: 20 mg/dL/unit * Nutritional / Prandial insulin per carb ratio of 1 unit per 6 grams CHO consumed PLAN FOR DISCHARGE: * TBD
[2020-12-08] MEDS: ATORVASTATIN 40 MG TAB PO SCH (21:02)
--- NOTE | 2020-12-08 22:12 | Anesthesiology Consultation ---
Date of Service December 08, 2020 Assessment & Plan (1) Encounter for pre-operative examination: Chart Review Chart Review: Acceptable Risk for Surgery and Patient NOT seen in Pre Admission Testing Consults Requested none History Surgery Operation Date: 12/09/20 08:45 Proposed Procedures p Right Incision and Drainage Lower Extremity Hematoma - Salvatore Benson, DO Height/Weight Height: 5 ft 6.5 in Weight: 83.6 kg Allergies Allergy/AdvReac Type Severity Reaction Status Date / Time cephalexin Allergy Intermediate ABDOMINAL Verified 12/05/20 14:34 PAIN pramipexole [From Mirapex] AdvReac Severe Hallucinati Verified 12/05/20 14:34 ng ZACH Inhibitors AdvReac Intermediate COUGH Verified 12/05/20 14:34 clindamycin AdvReac Intermediate REFLUX Verified 12/05/20 14:34 Penicillins AdvReac Intermediate ?RASH Verified 12/05/20 14:34 Sulfa (Sulfonamide AdvReac Intermediate ?RASH Verified 12/05/20 14:34 Antibiotics) Medications Home Medications Medication Instructions Recorded Confirmed Last Taken magnesium oxide 400 mg (241.3 mg 400 mg PO QAM 11/27/17 12/05/20 12/04/20 magnesium) tablet vitamin B complex 1 tab PO QAM 11/27/17 12/05/20 12/04/20 nivolumab 40 mg/4 mL intravenous See Rx Instructions .ROUTE 11/28/17 12/05/20 09/04/18 solution (Opdivo) .COMPLEX ml polyethylene glycol 3350 17 gram 17 g PO DAILY PRN 11/28/17 12/05/20 Unknown oral powder packet (Miralax) dandelion 500 mg capsule 500 mg PO DAILY cap 09/13/18 12/05/20 12/04/20 levothyroxine 75 mcg tablet 75 mcg PO QAM 02/18/19 12/05/20 12/04/20 metoprolol tartrate 100 mg tablet 100 mg PO BID #180 tab 02/03/20 12/05/20 12/04/20 nebulizers #1 ea 02/19/20 12/05/20 12/04/20 ipratropium 0.5 mg-albuterol 3 mg 3 ml INHALATION Q6H PRN #360 ml 04/15/20 12/05/20 Unknown (2.5 mg base)/3 mL nebulization soln diltiazem HCl 120 mg 120 mg PO QAM #90 cap 06/09/20 12/05/20 12/04/20 capsule,extended release 24 hr, controlled cholecalciferol (vitamin D3) 25 25 mcg PO DAILY 06/11/20 12/05/20 12/04/20 mcg (1,000 unit) tablet insulin NPH isoph U-100 human 100 12 unit SQ Q OTHER DAY ml 06/18/20 12/05/20 12/04/20 unit/mL (3 mL) subcutaneous pen (Humulin N NPH U-100 Insulin KwikPen) pantoprazole 40 mg tablet,delayed 40 mg PO BID #180 tab 06/25/20 12/05/20 12/04/20 release nebulizer accessories #1 ea 07/07/20 12/05/20 12/04/20 nebulizers #1 ea 07/07/20 12/05/20 12/04/20 bumetanide 2 mg tablet 4 mg PO BID #140 tab 08/17/20 12/05/20 12/04/20 lactulose 10 gram/15 mL (15 mL) 10 g PO BID PRN #1440 ml 09/23/20 12/05/20 12/04/20 oral solution clopidogrel 75 mg tablet 75 mg PO DAILY #90 tab 09/24/20 12/05/20 12/04/20 nut.tx.gluc.intol,lac-free,soy 1 ea PO DAILY ml 09/30/20 12/05/20 12/04/20 (Glucerna Shake) warfarin 4 mg tablet See Rx Instructions PO UD tab 10/05/20 12/05/20 12/04/20 atorvastatin 40 mg tablet 40 mg PO HS #90 tab 11/03/20 12/05/20 12/04/20 potassium chloride 20 mEq 60 meq PO BID #450 tab 11/24/20 12/05/20 12/04/20 tablet,extended release prednisone 20 mg tablet 10 mg PO DAILY tab 12/02/20 12/05/20 12/04/20 Active Medications Generic Name Dose Route Start Last Admin Trade Name Freq PRN Reason Stop Dose Admin Atorvastatin Calcium 40 mg 12/05/20 21:14 12/08/20 21:02 Atorvastatin 40 Mg Tab PO 01/04/21 21:13 40 mg HS TI Administration Bumetanide 4 mg 12/05/20 21:14 12/08/20 17:55 Bumetanide 1 Mg Tab PO 01/04/21 21:13 4 mg BID17 IT Administration Clopidogrel Bisulfate 75 mg 12/06/20 09:00 12/07/20 08:37 Clopidogrel Bisulfate 75 Mg Tab PO 01/05/21 08:59 75 mg DAILY TI Administration Diltiazem HCl 120 mg 12/06/20 09:00 12/08/20 08:37 Diltiazem Er 120 Mg Capcr PO 01/05/21 08:59 120 mg QAM TI Administration Cefazolin Sodium 1,000 mg in 7.5 mls @ 2.5 mls/min 12/08/20 10:00 12/08/20 21:04 Ancef 1000mg IV 12/15/20 09:59 2.5 mls/min Q12H TI Administration Protocol Insulin Aspart 0 units 12/05/20 21:14 12/08/20 21:04 Insulin Aspart 100 Units/Ml 3 Ml Pen SC 01/04/21 21:13 1 units ACHS TI Administration Levothyroxine Sodium 75 mcg 12/06/20 06:30 12/08/20 06:03 Levothyroxine Sodium 75 Mcg Tablet PO 01/05/21 06:29 75 mcg DAILYBB TI Administration Metoprolol Tartrate 100 mg 12/05/20 21:14 12/08/20 21:03 Metoprolol Tartrate 100 Mg Tab PO 01/04/21 21:13 100 mg BID TI Administration Pantoprazole Sodium 40 mg 12/05/20 21:14 12/08/20 21:03 Pantoprazole 40 Mg Tab PO 01/04/21 21:13 40 mg BID TI Administration Potassium Chloride 60 meq 12/05/20 21:14 12/08/20 21:03 Potassium Chloride Crtab 20 Meq Tabcr PO 01/04/21 21:13 60 meq BID TI Administration Prednisone 10 mg 12/06/20 09:00 12/08/20 08:37 Prednisone 10 Mg Tablet PO 01/05/21 08:59 10 mg DAILY TI Administration Sodium Biphosphate/Sodium Phosphate 132 ml 12/06/20 10:00 12/08/20 10:58 Sod Phosphate/Sod Biphosphate Enema 132 Ml Btl [place] 01/05/21 09:59 Not Given DAILY TI Past Medical History Medical History (Updated 12/08/20 @ 22:10 by Ester Osei MD) Chronic constipation DVT, recurrent, lower extremity, chronic Dysphagia Dyspnea on exertion Gout (05/11/12) Hearing loss History of DVT (deep vein thrombosis) Hypokalemia Kidney stone (05/11/12) 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 Nasal bone fractures Nasal bone fractures Nonspecific ST-T wave electrocardiographic changes Palpitations Palpitations Paroxysmal supraventricular tachycardia Personal history of gout 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, secondary PVC (premature ventricular contraction) PVC (premature ventricular contraction) Reactive airway disease Slowing of urinary stream SNHL (sensorineural hearing loss) Vitamin D deficiency Past Family History Family History Mother Myocardial infarction Heart disease Father Myocardial infarction Hypertension Stroke Heart disease Unknown Diabetes Aunt Colorectal cancer Myocardial infarction Other No family history of adverse response to anesthesia No family history of bleeding disorder Denies family history of Ovarian cancer Prostate cancer Breast cancer Past Surgical History Surgical History (Updated 12/05/20 @ 16:58 by YOEL Vasques) 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 S/P spinal surgery (05/11/12) Social History Smoking Status: Former smoker tobacco type: cigarettes Smoking End Date: 60 YEARS AGO Hx Alcohol Use: No Hx Substance Use: No Physical Exam Vital Signs Last Vital Signs Temp 36.9 C 12/08/20 15:30 Pulse 66 12/08/20 20:58 Resp 16 12/08/20 15:30 BP 156/71 H 12/08/20 20:58 Pulse Ox 99 12/08/20 07:48 Testing Laboratory Results 12/08/20 05:59 12/08/20 05:59 PT 11.9 Seconds (9.0-12.0) 12/08/20 05:59 INR 1.2 (0.9-1.1) H 12/08/20 05:59 APTT 27.6 Seconds (21.0-31.0) 12/05/20 13:19 Urine Color Yellow 12/05/20 14:05 Urine Appearance Clear (Clear) 12/05/20 14:05 Urine pH 7.0 (4.5-7.5) 12/05/20 14:05 Ur Specific [place] 1.011 (1.000-1.030) 12/05/20 14:05 Urine Protein Trace (Negative) H 12/05/20 14:05 Urine Glucose (UA) 1+ (Negative) H 12/05/20 14:05 Urine Ketones Negative (Negative) 12/05/20 14:05 Urine Nitrite Negative (Negative) 12/05/20 14:05 Ur Leukocyte Esterase Negative (Negative) 12/05/20 14:05 Urine WBC (Auto) 0 /hpf (0-5) 12/05/20 14:05 Urine RBC (Auto) 0-4 /hpf (0-4) 12/05/20 14:05 U Hyaline Cast (Auto) 1-5 /lpf (0-5) 12/05/20 14:05 U Epithel Cells (Auto) 5-10 /lpf (0-5) H 12/05/20 14:05 Urine Bacteria (Auto) Negative (Negative) 12/05/20 14:05 12/05/20 13:53 Aerobic Blood Culture - Preliminary Blood No growth in Aerobic bottle after 48 hours. Anaerobic Blood Culture - Preliminary No growth in Anaerobic bottle after 48 hours. 12/05/20 13:19 Aerobic Blood Culture - Preliminary Blood No growth in Aerobic bottle after 48 hours. Anaerobic Blood Culture - Preliminary No growth in Anaerobic bottle after 48 hours. 12/08/20 12/08/20 12/08/20 20:18 17:12 12:08 POC Glucose 156 H 232 H 184 H Electrocardiogram Date: 12/05/20 Findings: + NSR @ (72) Left ventricular hypertrophy with QRS widening Abnormal ECG When compared with ECG of 10-DEC-2018 21:28, No significant change was found Echocardiogram Date: 09/16/20 EF: 55-60% LV Function: normal RWMA: + none Other Findings: + LVH (mild concentric) Valvular Disease: + MR (mild) functioning bioprosthetic valve, nl RVSP, normal RV size with mildly decreased function, mild left atrial dilation.
[2020-12-09] MEDS ORDERED: Nursing to Pharmacy Communication SCH ×2 (04:15→12:00)
[2020-12-09] MEDS ORDERED: INSULIN ASPART 100 UNITS/ML 3 ML PEN SC SCH ×2 (06:00→12:00)
[2020-12-09] MEDS: LEVOTHYROXINE SODIUM 75 MCG TABLET PO SCH (06:35)
[2020-12-09 07:49] LABS: Estimated Average Glucose 192 mg/dl; Hemoglobin A1C 8.3 % (4.5-5.6)
--- NOTE | 2020-12-09 08:31 | History & Physical Bridge Note ---
Date of Service December 09, 2020 History & Physical Bridge Note I have examined the patient, reviewed the History & Physical and in the interval since the performance of the History & Physical I have noted the following changes of clinical significance: no changes noted
[2020-12-09] MEDS ORDERED: MIDAZOLAM HCL 1 MG/ML 2ML VIAL ONE (08:35)
[2020-12-09] MEDS ORDERED: PROPOFOL IV EMULSION 10 MG/ML 20 ML VIAL IV ONE (08:35)
[2020-12-09] MEDS ORDERED: fentaNYL citrate 100 MCG/2 ML VIAL ONE (08:35)
[2020-12-09] MEDS ORDERED: LIDOCAINE 2% 2 ML VIAL/AMP(20MG/ML) INFIL ONE (08:35)
[2020-12-09] MEDS ORDERED: EPINEPHrine INJ 1 MG/ML AMP ONE (08:46)
[2020-12-09] MEDS ORDERED: BUPIVACAINE 0.5 % 5 MG/1 ML MPF 30ML VIAL ONE (08:46)
[2020-12-09] MEDS ORDERED: ONDANSETRON INJ 2 MG/ML 2 ML VIAL IV PRN (08:49)
[2020-12-09] MEDS ORDERED: fentaNYL citrate 100 MCG/2 ML VIAL IV PRN (08:49)
[2020-12-09] MEDS ORDERED: HYDROmorphone INJ 2 MG/ML SYR/VIAL IV PRN (08:49)
[2020-12-09] MEDS ORDERED: ATROPINE SULFATE 0.1 MG/ML 10ML SYR IV PRN (08:49)
[2020-12-09] MEDS ORDERED: ePHEDrine sulfate 50 MG/ML AMP IV PRN (08:49)
--- NOTE | 2020-12-09 08:49 | Anesthesiology Consultation ---
Date of Service December 09, 2020 Assessment & Plan ASA ASA3 Proposed Anesthesia Anesthesia Type: MAC Risk / Benefits Reviewed With: PT / POA / Parent / Guardian, Accepts Plan and Informed Consent Obtained History Surgery Operation Date: 12/09/20 08:45 Proposed Procedures p Right Incision and Drainage Lower Extremity Hematoma - Salvatore Benson, DO Height/Weight Height: 5 ft 6.5 in Weight: 83.6 kg Allergies Allergy/AdvReac Type Severity Reaction Status Date / Time cephalexin Allergy Intermediate ABDOMINAL Verified 12/05/20 14:34 PAIN pramipexole [From Mirapex] AdvReac Severe Hallucinati Verified 12/05/20 14:34 ng ZACH Inhibitors AdvReac Intermediate COUGH Verified 12/05/20 14:34 clindamycin AdvReac Intermediate REFLUX Verified 12/05/20 14:34 Penicillins AdvReac Intermediate ?RASH Verified 12/05/20 14:34 Sulfa (Sulfonamide AdvReac Intermediate ?RASH Verified 12/05/20 14:34 Antibiotics) Medications Home Medications Medication Instructions Recorded Confirmed Last Taken magnesium oxide 400 mg (241.3 mg 400 mg PO QAM 11/27/17 12/05/20 12/04/20 magnesium) tablet vitamin B complex 1 tab PO QAM 11/27/17 12/05/20 12/04/20 nivolumab 40 mg/4 mL intravenous See Rx Instructions .ROUTE 11/28/17 12/05/20 09/04/18 solution (Opdivo) .COMPLEX ml polyethylene glycol 3350 17 gram 17 g PO DAILY PRN 11/28/17 12/05/20 Unknown oral powder packet (Miralax) dandelion 500 mg capsule 500 mg PO DAILY cap 09/13/18 12/05/20 12/04/20 levothyroxine 75 mcg tablet 75 mcg PO QAM 02/18/19 12/05/20 12/04/20 metoprolol tartrate 100 mg tablet 100 mg PO BID #180 tab 02/03/20 12/05/20 12/04/20 nebulizers #1 ea 02/19/20 12/05/20 12/04/20 ipratropium 0.5 mg-albuterol 3 mg 3 ml INHALATION Q6H PRN #360 ml 04/15/20 12/05/20 Unknown (2.5 mg base)/3 mL nebulization soln diltiazem HCl 120 mg 120 mg PO QAM #90 cap 06/09/20 12/05/20 12/04/20 capsule,extended release 24 hr, controlled cholecalciferol (vitamin D3) 25 25 mcg PO DAILY 06/11/20 12/05/20 12/04/20 mcg (1,000 unit) tablet insulin NPH isoph U-100 human 100 12 unit SQ Q OTHER DAY ml 06/18/20 12/05/20 12/04/20 unit/mL (3 mL) subcutaneous pen (Humulin N NPH U-100 Insulin KwikPen) pantoprazole 40 mg tablet,delayed 40 mg PO BID #180 tab 06/25/20 12/05/20 12/04/20 release nebulizer accessories #1 ea 07/07/20 12/05/20 12/04/20 nebulizers #1 ea 07/07/20 12/05/20 12/04/20 bumetanide 2 mg tablet 4 mg PO BID #140 tab 08/17/20 12/05/20 12/04/20 lactulose 10 gram/15 mL (15 mL) 10 g PO BID PRN #1440 ml 09/23/20 12/05/20 12/04/20 oral solution clopidogrel 75 mg tablet 75 mg PO DAILY #90 tab 09/24/20 12/05/20 12/04/20 nut.tx.gluc.intol,lac-free,soy 1 ea PO DAILY ml 09/30/20 12/05/20 12/04/20 (Glucerna Shake) warfarin 4 mg tablet See Rx Instructions PO UD tab 10/05/20 12/05/20 12/04/20 atorvastatin 40 mg tablet 40 mg PO HS #90 tab 11/03/20 12/05/20 12/04/20 potassium chloride 20 mEq 60 meq PO BID #450 tab 11/24/20 12/05/20 12/04/20 tablet,extended release prednisone 20 mg tablet 10 mg PO DAILY tab 12/02/20 12/05/20 12/04/20 Active Medications Generic Name Dose Route Start Last Admin Trade Name Freq PRN Reason Stop Dose Admin Atorvastatin Calcium 40 mg 12/05/20 21:14 12/08/20 21:02 Atorvastatin 40 Mg Tab PO 01/04/21 21:13 40 mg HS TI Administration Bumetanide 4 mg 12/05/20 21:14 12/08/20 17:55 Bumetanide 1 Mg Tab PO 01/04/21 21:13 4 mg BID17 TI Administration Clopidogrel Bisulfate 75 mg 12/06/20 09:00 12/07/20 08:37 Clopidogrel Bisulfate 75 Mg Tab PO 01/05/21 08:59 75 mg DAILY TI Administration Diltiazem HCl 120 mg 12/06/20 09:00 12/08/20 08:37 Diltiazem Er 120 Mg Capcr PO 01/05/21 08:59 120 mg QAM TI Administration Cefazolin Sodium 1,000 mg in 7.5 mls @ 2.5 mls/min 12/08/20 10:00 12/08/20 21:04 Ancef 1000mg IV 12/15/20 09:59 2.5 mls/min Q12H TI Administration Protocol Insulin Aspart 0 units 12/09/20 06:00 12/09/20 06:23 Insulin Aspart 100 Units/Ml 3 Ml Pen SC 01/04/21 21:13 Not Given Q6 TI Levothyroxine Sodium 75 mcg 12/06/20 06:30 12/09/20 06:35 Levothyroxine Sodium 75 Mcg Tablet PO 01/05/21 06:29 75 mcg DAILYBB TI Administration Metoprolol Tartrate 100 mg 12/05/20 21:14 12/08/20 21:03 Metoprolol Tartrate 100 Mg Tab PO 01/04/21 21:13 100 mg BID TI Administration Pantoprazole Sodium 40 mg 12/05/20 21:14 12/08/20 21:03 Pantoprazole 40 Mg Tab PO 01/04/21 21:13 40 mg BID TI Administration Potassium Chloride 60 meq 12/05/20 21:14 12/08/20 21:03 Potassium Chloride Crtab 20 Meq Tabcr PO 01/04/21 21:13 60 meq BID TI Administration Prednisone 10 mg 12/06/20 09:00 12/08/20 08:37 Prednisone 10 Mg Tablet PO 01/05/21 08:59 10 mg DAILY TI Administration Sodium Biphosphate/Sodium Phosphate 132 ml 12/06/20 10:00 12/08/20 10:58 Sod Phosphate/Sod Biphosphate Enema 132 Ml Btl [place] 01/05/21 09:59 Not Given DAILY TI NPO Date Last Intake of Fluids: 12/08/20 Time Last Intake of Fluids: 20:00 Date Last Intake of Solids: 12/08/20 Time Last Intake of Solids: 21:00 Past Medical History Medical History (Updated 12/08/20 @ 22:10 by Ester Osei MD) Chronic constipation DVT, recurrent, lower extremity, chronic Dysphagia Dyspnea on exertion Gout (05/11/12) Hearing loss History of DVT (deep vein thrombosis) Hypokalemia Kidney stone (05/11/12) 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 Nasal bone fractures Nasal bone fractures Nonspecific ST-T wave electrocardiographic changes Palpitations Palpitations Paroxysmal supraventricular tachycardia Personal history of gout 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, secondary PVC (premature ventricular contraction) PVC (premature ventricular contraction) Reactive airway disease Slowing of urinary stream SNHL (sensorineural hearing loss) Vitamin D deficiency Exercise / Class Metabolic Activity II 4-5 Yardwork/Stairs/Walk up hill Past Family History Family History Mother Myocardial infarction Heart disease Father Myocardial infarction Hypertension Stroke Heart disease Unknown Diabetes Aunt Colorectal cancer Myocardial infarction Other No family history of adverse response to anesthesia No family history of bleeding disorder Denies family history of Ovarian cancer Prostate cancer Breast cancer Past Surgical History Surgical History (Updated 12/05/20 @ 16:58 by YOEL Vasques) 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 S/P spinal surgery (05/11/12) Past Anesthesia History No Hx of Anesthesia Complications and No Family Hx of Anesthesia Complications History of PONV No Hx of PONV and No Hx of Motion Sickness Social History Smoking Status: Former smoker tobacco type: cigarettes Smoking End Date: 60 YEARS AGO Hx Alcohol Use: No Hx Substance Use: No Review of Systems denies fever/cough/ colds/ chest pain/ SOB/ ABELARDO wheres 2l O2 17/10 denies ABELARDO Physical Exam Vital Signs Last Vital Signs Temp 37 C 12/09/20 08:24 Pulse 68 12/09/20 08:24 Resp 20 12/09/20 08:24 BP 172/82 H 12/09/20 08:24 Pulse Ox 100 12/09/20 08:24 ENMT Mouth: + poor dentition; no TMJ abnormality and no dentition abnormality Thyromental Distance: > or= 3.5 Finger Breadths Mallampati Class: III Neck neck extension not limited Respiratory normal respiratory effort; no respiratory distress Auscultation: lungs clear to auscultation bilaterally Cardiovascular Rate/Rhythm: regular rate and regular rhythm Neurologic moves all extremities Psychiatric Orientation: alert and oriented x 3 Testing Laboratory Results 12/08/20 05:59 12/08/20 05:59 PT 11.9 Seconds (9.0-12.0) 12/08/20 05:59 INR 1.2 (0.9-1.1) H 12/08/20 05:59 APTT 27.6 Seconds (21.0-31.0) 12/05/20 13:19 Hemoglobin A1c 8.3 % (4.5-5.6) H 12/08/20 05:59 Urine Color Yellow 12/05/20 14:05 Urine Appearance Clear (Clear) 12/05/20 14:05 Urine pH 7.0 (4.5-7.5) 12/05/20 14:05 Ur Specific [place] 1.011 (1.000-1.030) 12/05/20 14:05 Urine Protein Trace (Negative) H 12/05/20 14:05 Urine Glucose (UA) 1+ (Negative) H 12/05/20 14:05 Urine Ketones Negative (Negative) 12/05/20 14:05 Urine Nitrite Negative (Negative) 12/05/20 14:05 Ur Leukocyte Esterase Negative (Negative) 12/05/20 14:05 Urine WBC (Auto) 0 /hpf (0-5) 12/05/20 14:05 Urine RBC (Auto) 0-4 /hpf (0-4) 12/05/20 14:05 U Hyaline Cast (Auto) 1-5 /lpf (0-5) 12/05/20 14:05 U Epithel Cells (Auto) 5-10 /lpf (0-5) H 12/05/20 14:05 Urine Bacteria (Auto) Negative (Negative) 12/05/20 14:05 12/05/20 13:53 Aerobic Blood Culture - Preliminary Blood No growth in Aerobic bottle after 48 hours. Anaerobic Blood Culture - Preliminary No growth in Anaerobic bottle after 48 hours. 12/05/20 13:19 Aerobic Blood Culture - Preliminary Blood No growth in Aerobic bottle after 48 hours. Anaerobic Blood Culture - Preliminary No growth in Anaerobic bottle after 48 hours. 12/09/20 05:54 POC Glucose 114 H Electrocardiogram Date: 12/05/20 Findings: + NSR @ (72) Left ventricular hypertrophy with QRS widening Abnormal ECG When compared with ECG of 10-DEC-2018 21:28, No significant change was found Echocardiogram Date: 09/16/20 EF: 55-60% LV Function: normal RWMA: + none Other Findings: + LVH (mild concentric) Valvular Disease: + MR (mild) functioning bioprosthetic valve, nl RVSP, normal RV size with mildly decreased function, mild left atrial dilation.
[2020-12-09] MEDS ORDERED: INSULIN GLARGINE SOLOSTAR 100 UNITS/ML 3 ML PEN SC SCH ×3 (09:00)
[2020-12-09] MEDS ORDERED: ONDANSETRON INJ 2 MG/ML 2 ML VIAL ONE (09:05)
--- NOTE | 2020-12-09 09:27 | Operative Report ---
PG Post Operative Report Pre & Post Diagnosis Operation Date: 12/09/20 08:45 Pre-Op Diagnosis: RIGHT LEG HEMATOMA Post-Op Diagnosis: RIGHT LEG HEMATOMA I identified the patient and participated in the time-out.: Yes Procedure Operation Date: 12/09/20 08:45 Actual Procedures p Right Incision and Drainage Lower Extremity Hematoma(Right) - Salvatore Benson DO Surgeon Salvatore Benson, Palliative Care Nurse none Estimated Blood Loss 5 Findings Consistent with Post-Op Diagnosis Specimens fluid for culture Description of Procedure After informed consent was attained the patient was taken the operating room placed in supine position. IV sedation was administered by anesthesia and titrated to effect. After adequate sedation the right lower extremity was sterilely prepped and draped in usual fashion. Marcaine with epinephrine was injected in the skin overlying the hematoma. I then made a vertical incision with a 15 blade scalpel. This immediately released a large old hematoma. There was no foul odor no pus. I did send fluid for Gram stain culture and sensitivity. After I evacuated the hematoma I then irrigated the wound. We then placed a compressive dressing using gauze, gauze Zohreh as well as an Ricky wrap. The patient was awakened and transferred to recovery in stable condition. I attest to the content of the Intraoperative Record and any orders documented therein. Any exceptions are noted below.
[2020-12-09] MEDS: predniSONE 10 MG TABLET PO SCH (10:50)
[2020-12-09] MEDS: dilTIAZem ER 120 MG CAPCR PO SCH (10:50)
[2020-12-09] MEDS: METOPROLOL TARTRATE 100 MG TAB PO SCH (10:51)
[2020-12-09] MEDS: POTASSIUM CHLORIDE CRTAB 20 MEQ TABCR PO SCH (10:51)
[2020-12-09] MEDS: BUMETANIDE 1 MG TAB PO SCH (10:51)
[2020-12-09] MEDS: PANTOprazole 40 MG TAB PO SCH (10:51)
--- NOTE | 2020-12-09 10:59 | Anesthesiology Progress Note ---
Date of Service December 09, 2020 Anesthesia Post Procedure Vital Signs Vital Signs: Temp Pulse Pulse Pulse Resp BP Pulse Ox 12/09/20 10:45 37.0 C 66 20 177/90 H 98 12/09/20 10:35 67 18 179/80 H 100 12/09/20 10:20 68 18 169/78 H 98 12/09/20 10:10 68 16 149/74 H 99 12/09/20 10:00 37.2 C 68 16 165/95 H 100 12/09/20 09:50 67 15 175/82 H 100 12/09/20 09:40 67 15 177/86 H 100 12/09/20 09:30 37.4 C 67 14 170/87 H 100 12/09/20 08:24 37 C 68 20 172/82 H 100 12/09/20 07:07 36.8 C 66 16 164/80 H 98 12/09/20 02:29 36.5 C 64 16 153/67 H 96 12/08/20 20:58 66 156/71 H 12/08/20 15:30 36.9 C 69 16 162/78 H Pain Intensity Right Leg: Pain Intensity: 2 Transfer of Care Handoff Completed per policy Notes Mental Status: alert / awake / arousable and participated in evaluation Patient Amnestic to Procedure: Yes Nausea / Vomiting: adequately controlled Pain: adequately controlled Airway Patency, RR, SpO2: stable & adequate BP & HR: stable & adequate Hydration State: stable & adequate Anesthetic Complications: no major complications apparent and Pt Satisfied with anesthetic care
[2020-12-09] MEDS: ceFAZolin 1000MG 1,000 MG/7.5 ML SYR IV SCH (11:01)
--- NOTE | 2020-12-09 11:45 | Pharmacy Report ---
Pharmacy Glycemic Short Note 2 - Date of Service December 09, 2020 - Glycemic Short BSG Results (Last 24 hours): 12/08/20 12/08/20 12/08/20 12:08 17:12 20:18 POC Glucose 184 H 232 H 156 H 12/09/20 05:54 POC Glucose 114 H OUTPATIENT ANTIDIABETIC REGIMEN: * NPH 12 units QOD * prednisone 10 mg daily ASSESSMENT: 12/09/20 * Patient's BSGs yesterday were [phone] mg/dL. Patient received 36 units of insulin with 10 units of basal and 26 units of bolus insulin. * Patient's fasting today is 114 mg/dL. He was NPO but now has diet. * Give Lantus 8 units today since was NPO then continue 10 units tomorrow as fasting in goal range. * Tighten carbohydrate ratio since BSGs trend upwards throughout the day. 12/08: * Patient received total 47 units of insulin yesterday; 20 units basal + 27 unit s bolus. * Fasting BSG today = 112 mg/dl. Pt received Lantus 10 units this AM. * Pre-lunch BSG increased to 184. Novolog CR tightened slightly to 6 12/07/20: * Mr Beth is an 89 y/o M with a PMH of T2DM controlled with insulin who presents with a hematoma. * Patient's BSGs yesterday were [phone] mg/dL. * Fasting today was 162 mg/dL. * Pharmacy consulted at lunchtime. Give Lantus 20 units x 1 (~0.2 units/kg) then weight-based scale tomorrow morning. * Weight-based stress of 3 Novolog until Lantus at steady state. PLAN FOR INPATIENT GLYCEMIC CONTROL: * Basal insulin: * Lantus 8 units today * Lantus 10 units QAM * Bolus insulin: tightened CR * NovoLog per scale ACHS or Q6hrs while NPO * Goal Range: Low 110 mg/dL - High 140 mg/dL * Correction Factor: 20 mg/dL/unit * Nutritional / Prandial insulin per carb ratio of 1 unit per 5 grams CHO consumed PLAN FOR DISCHARGE: * Patient's HbA1C is slightly above goal range. Goal would be <8% and HbA1C is currently 8.3% * It is reasonable to consider NPH 15 units daily with prednisone 10 mg daily.
[2020-12-09] MEDS: SOD PHOSPHATE/SOD BIPHOSPHATE ENEMA 132 ML BTL PR SCH (14:32)
[2020-12-10] MEDS ORDERED: INSULIN GLARGINE SOLOSTAR 100 UNITS/ML 3 ML PEN SC SCH (09:00)
--- NOTE | 2020-12-10 15:44 | Discharge Summary ---
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 Patient comes to the emergency room for increase in swelling, bruising and pain to his righ lower leg and ankle. The patient was originally seen for this on December 15 by his PCP. The patient states that it has been going on for the past 10 days, and was spontaneous, without trauma or other injury. After that encounter, the patient had an ultrasound performed which revealed, Multiple subcutaneous lesions as detailed above. Liposarcoma cannot be completely ruled out. Further evaluation with MRI is suggested. In the EMD patient had a repeat ultrasound of his right leg revealed liquefying hematoma in similar size, and also had a ultrasound performed that was negative for DVT. For concern of surrounding cellulitis and pain the patient was started given 2GM Rocephin in the EMD. The Hospitalist team was consulted for admission secondary to pain with ambulating and continued workup. Patient will be observed overnight, MRI of the right lower leg and ankle will be obtained to better identify fluid collection and bone involvement. Will hold his Warfarin and will cover with Daptomycin. Patient has received his COVID vaccine and his COVID test on admission is: Principal Diagnosis Right leg hematoma Discharge Exam Constitutional WD/WN, vitals as above Respiratory normal respiratory effort; no labored breathing Skin Dressing clean dry and intact over hematoma, not removed NV intact distally Neurologic moves all extremities and awake; no focal motor deficits Psychiatric A+Ox3, euthymic affect Discharge Data Allergies Allergy/AdvReac Type Severity Reaction Status Date / Time cephalexin Allergy Intermediate ABDOMINAL Verified 12/05/20 14:34 PAIN pramipexole [From Mirapex] AdvReac Severe Hallucinati Verified 12/05/20 14:34 ng ZACH Inhibitors AdvReac Intermediate COUGH Verified 12/05/20 14:34 clindamycin AdvReac Intermediate REFLUX Verified 12/05/20 14:34 Penicillins AdvReac Intermediate ?RASH Verified 12/05/20 14:34 Sulfa (Sulfonamide AdvReac Intermediate ?RASH Verified 12/05/20 14:34 Antibiotics) Consultations 12/05/20 15:49 ED Decision to Admit Stat 12/07/20 10:44 Consult General Surgery Routine Procedures Performed Operation Date: 12/09/20 08:45 Actual Procedures p Right Incision and Drainage Lower Extremity Hematoma(Right) - Salvatore Benson DO Ordered Studies 12/05/20 12:39 US soft tissue ext ltd Routine FINDINGS: Within the mid pretibial tissues there is a 7.0 x 1.7 x 3.6 cm complex hypoechoic collection. Within the medial mid proximal calf there is a complex 4.8 x 1.3 x 3.6 cm collection. Lastly, within the proximal medial calf there is a 3.2 x 0.6 x 1.7 cm collection. Moderate associated subcutaneous edema. These findings are similar in size from comparison however are more hypoechoic on today's study. IMPRESSION: Hypoechoic complex collections of the right lower extremity are suggestive of liquefying hematomas, similar in size to the 12/02/2020 exam. Follow-up recommended. US venous doppler LE RT Stat FINDINGS: Normal flow, compressibility, phasicity and augmentation. Subcutaneous edema. IMPRESSION: No sonographic evidence of deep venous thrombosis. 12/05/20 17:41 MR ankle RT wo con Urgent FINDINGS: Please refer to the same day right lower leg MRI for further evaluation of the distal right lower leg. There is diffuse subcutaneous edema within the right ankle and visualized foot. Thickening and abnormal signal within the peroneus brevis tendon consistent with a tendinopathy. The flexor, extensor, and Achilles tendons appear intact. Severe osteoarthritis of the tib iotalar joint demonstrated by full-thickness cartilage loss, subchondral cystic change, and mild subchondral edema. The plantar fascia is intact. No fracture or dislocation within the ankle. No suspicious erosive changes or marrow signal abnormality to suggest an osteomyelitis. Thinning of the medial and lateral stabilizing ligaments suggestive of chronic injury. There is a plantar heel spur. Edema within the plantar muscles which may also be chronic. IMPRESSION: 1. Diffuse subcutaneous trace edema within the ankle and foot. This could be due to venous stasis, cellulitis, or lymphedema. 2. No evidence for osteomyelitis. 3. Severe degenerative changes at the tibiotalar joint. MR lower leg RT wo con Stat FINDINGS: Extensive diffuse subcutaneous edema. Moderate lower extremity muscular atrophy. There are 3 separate subcutaneous lesions/collections which demonstrate intermediate to slightly increased T1 signal with mixed T2/STIR signal characteristics. The largest pretibial lesion measures 4.2 x 1.2 x 5.5 cm. The more lateral lesion measures 3.2 x 1.4 x 5.5 cm. The smallest most lateral lesion measures 1.3 cm in greatest dimension. Osteoarthritis of the knee and ankle. No bone marrow edema, acute fracture, subluxation or marrow replacing process. IMPRESSION: 1. There are three subcutaneous lesions of the mid lower leg redemonstrated, the largest within the pretibial tissues measuring up to 5.5 cm demonstrating signal characteristics suggestive of probable hematomas. Clinical follow-up recommended. 2. Diffuse subcutaneous edema suggestive of venous stasis, cellulitis or lymphedema. 3. No acute fracture or bone marrow edema. Hospital Course (1) Hematoma: Lalito Dias is an 89 year old male admitted at [facility] from December 05 - 2020 due to right leg hematoma. His warfarin and clopidogrel were held and he underwent incision and drainage by Dr Benson on December 09. He should continue with daily pressure dressing changes at home with gauze, gauze Zohreh wrap, and ZACH bandage. He can restart clopidogrel on MondayDecember 11. Warfarin can be restarted December 10 and will be uptitrated as needed by the anticoagulation clinic. No infection was found on gram stain of evacuated hematoma but to cover for possible surrounding cellulitis he was treated during his inpatient stay with daptomycin and Ancef and will be switched to Keflex as prescribed for three further days on discharge. I am unclear why his insulin is dosed every other day but recommend daily dosing of this while on prednisone with 15 units based upon inpatient utilization. He should follow up with his primary care physician for ongoing management of this. (2) Leg edema, right: (3) Cellulitis: (4) Mild cognitive impairment: (5) Hyperlipidemia: (6) Heart failure with preserved ejection fraction: (7) COPD, moderate: (8) Atrial fibrillation: (9) H/O heart valve replacement with bioprosthetic valve: Total Time Total Time Spent Total Time Spent (In Minutes): 35 Discharge Plan Discharge Items Patient Disposition: Home - Home Health Services Reason For Visit: RIGHT LEG HEMATOMA Discharge Diagnosis: Right leg hematoma Activity: Resume your previous activity Non-emergency contact: Primary Care Provider Call non-emergency contact if: you have any medication questions and your symptoms worsen Follow-up/Referrals: Anirudh Magdaleno MD [Primary Care Provider] - 12/15/20 3:45 pm Salvatore Benson DO [Surgeon] - 12/16/20 1:15 pm Diet: Carb Consistent or DM2 Addtl Attending Provider Instructions: You were admitted at [facility] from December 05 - 2020 due to right leg hematoma. Your warfarin and clopidogrel were held and you underwent incision and drainage by Dr Benson on December 09. Please restart your clopidogrel on MondayDecember 11. Warfarin can be restarted tomorrow at your usual dose with ongoing management per the anticoagulation clinic. No infetion was found on gram stain of evacuated hematoma but to cover for possible surrounding cellulitis please continue on Keflex as prescribed for three further days. Please use your insulin daily while on prednisone and follow up with your primary care physician for ongoing management of this. Kind regards, Dr Nate Randhawa Pending Studies at Discharge: Yes Stand-Alone Forms: My [facility], Smoking Cessation Medications and DC Order Prescriptions: New cephalexin 250 mg tablet 250 mg PO BID 3 Days Qty: 6 RF: 0 Continued prednisone 20 mg tablet 10 mg PO DAILY RF: 0 vitamin B complex Tablet 1 tab PO QAM RF: 0 magnesium oxide 400 mg (241.3 mg magnesium) Tablet 400 mg PO QAM RF: 0 nivolumab [Opdivo] 40 mg/4 mL solution See Rx Instructions .ROUTE .COMPLEX RF: 0 Hold Instructions: Stopped by oncology polyethylene glycol 3350 [Miralax] 17 gram powder in packet 17 g PO DAILY PRN (Reason: CONSTIPATION) RF: 0 warfarin 4 mg tablet See Rx Instructions PO UD RF: 0 metoprolol tartrate 100 mg tablet 100 mg PO BID Qty: 180 RF: 3 (DME) nebulizers Misc See Rx Instructions .ROUTE .MEDSUPPLY Qty: 1 RF: 0 diltiazem HCl 120 mg capsule,ext.rel 24h degradable 120 mg PO QAM Qty: 90 RF: 3 pantoprazole 40 mg tablet,delayed release (DR/EC) 40 mg PO BID Qty: 180 RF: 3 (DME) nebulizers Misc See Rx Instructions miscellaneous .MEDSUPPLY Qty: 1 RF: 0 (DME) nebulizer accessories Kit See Rx Instructions .MEDSUPPLY Qty: 1 RF: 0 bumetanide 2 mg tablet 4 mg PO BID Qty: 140 RF: 3 lactulose 10 gram/15 mL (15 mL) solution 10 g PO BID PRN (Reason: constipation) Qty: 1440 RF: 1 clopidogrel 75 mg tablet 75 mg PO DAILY Qty: 90 RF: 3 atorvastatin 40 mg tablet 40 mg PO HS Qty: 90 RF: 3 potassium chloride 20 mEq tablet extended release 60 meq PO BID Qty: 450 RF: 3 cholecalciferol (vitamin D3) 25 mcg (1,000 unit) tablet 25 mcg PO DAILY RF: 0 Glucerna Shake Liquid 1 ea PO DAILY RF: 0 dandelion 500 mg capsule 500 mg PO DAILY RF: 0 ipratropium-albuterol 0.5 mg-3 mg(2.5 mg base)/3 mL solution for nebulization 3 ml inhalation Q6H PRN (Reason: wheezing) Qty: 360 RF: 5 levothyroxine 75 mcg tablet 75 mcg PO QAM RF: 0 Changed Humulin N NPH Insulin KwikPen 100 unit/mL (3 mL) insulin pen 15 unit SQ QAM Qty: 0 RF: 0 Discharge Orders: Discharge Order (Routine); Ordered 12/09/20 Ordered By: Nate Galvan/Other Patient Handouts: A1C, Managing Type 2 Diabetes Admission Data Admit Date/Time: 12/07/20 17:58 Attending Provider: Nate Randhawa Admit Provider: Alfredo Hutchinson Primary Care Provider: Anirudh Magdaleno Other Providers: [facility],Home Healthcare ; Alfredo Hutchinson ; Salvatore Benson Other Interventions: Discharge Summary Assessment (RN) Last Done: 12/09/20 15:57 Coding Level of Care Code D/C DAY MANAGEMENT >30 MINS Diagnoses Hematoma T14.8XXA Leg edema, right R60.0 Cellulitis L03.115 Laterality: right Site of cellulitis: extremity Site of cellulitis of extremity: lower extremity Mild cognitive impairment G31.84 Hyperlipidemia E78.5 Heart failure with preserved ejection fraction I50.30 COPD, moderate J44.9 Atrial fibrillation I48.91 H/O heart valve replacement with bioprosthetic valve Z95.3 Home Health Attestation I certify that this patient is under my care and that I, or a physicians mobile sales assistant working with me, had a face to-face encounter that meets the home health [id number] encounter requirements with this patient. The encounter with the patient was in whole, or in part, for the following medical condition, which is the primary reason for home health care (list medical condition): Right lower leg swelling I certify that, based on my findings, the following services are medically necessary home health services: My clinical findings support the need for the above services because: Skilled Nsg Assessment Dressing changes Further, I certify that my clinical findings support that this patient is homebound (i.e. absences from home require considerable and taxing effort and are for medical reasons or church services or infrequently or of short duration when for other reasons) because: Supportive Aid - Walker Certification for Home Health Services: Based on the above findings, I certify that this patient is confined to the home and needs intermittent shelter care, physical therapy and/or speech therapy or continues to need occupational therapy. The patient is under my care, and I have initiated the establishment of the plan of care. This patient will be followed by a physician who will periodically review the plan of care.
== END 2020-12-09 16:18 | disposition home health service (06) | DRG 605 ==
LOC: ED 12:19 → 3N 12:19 → SUATTDRO 16:35 → 3N 19:55
DX: I50.32 Chronic diastolic (congestive) heart failure; Y92.89 Other specified places as the place of occurrence of the external cause; G31.84 Mild cognitive impairment of uncertain or unknown etiology; Z79.4 Long term (current) use of insulin; Z79.02 Long term (current) use of antithrombotics/antiplatelets; H90.5 Unspecified sensorineural hearing loss; I13.0 Hypertensive heart and chronic kidney disease with heart failure and stage 1 through stage 4 chronic kidney disease, or unspecified chronic kidney disease; Z95.1 Presence of aortocoronary bypass graft; C78.00 Secondary malignant neoplasm of unspecified lung; Z87.891 Personal history of nicotine dependence; Z95.2 Presence of prosthetic heart valve; Z79.01 Long term (current) use of anticoagulants; E11.9 Type 2 diabetes mellitus without complications; S80.12XA Contusion of left lower leg, initial encounter; C64.2 Malignant neoplasm of left kidney, except renal pelvis; I48.91 Unspecified atrial fibrillation; J96.10 Chronic respiratory failure, unspecified whether with hypoxia or hypercapnia; Z88.8 Allergy status to other drugs, medicaments and biological substances; Z88.1 Allergy status to other antibiotic agents; M10.9 Gout, unspecified; J44.9 Chronic obstructive pulmonary disease, unspecified; L03.116 Cellulitis of left lower limb; X58.XXXA Exposure to other specified factors, initial encounter; E78.5 Hyperlipidemia, unspecified

== ENCOUNTER 2021-03-15 09:45 | Inpatient (IN) ==
[2021-03-15] MEDS ORDERED: OPTIRAY 320 125ml IV ONE ×2 (10:00→10:03)
--- NOTE | 2021-03-15 10:14 | CT Scan Report ---
CT OF THE HEAD WITHOUT CONTRAST CLINICAL HISTORY: Stroke Like Symptoms COMPARISON STUDY: Head CT December 10, 2018. MRI of the brain April 06, 2020. TECHNIQUE: Helical axial images of the head were obtained without IV contrast. Automated exposure con trol was utilized for the study. A dose lowering technique was utilized adhering to the principles o f ALARA. FINDINGS: No acute intracranial hemorrhage, midline shift or mass effect is present. Ventricular syst em is stable. Basal cisterns are patent. There are no extra axial collections. White matter hypodensi ty suggests small vessel disease. There are no CT findings to suggest acute dural sinus stenosis or a cute territorial infarct. A 4 mm hypodensity within the left caudate head is new since prior exam. Th ere are no significant calvarial abnormalities. Mild ethmoid sinus mucosal thickening is present. IMPRESSION: 1. No acute intracranial hemorrhage or mass effect. 2. Tiny age indeterminate lacunar infarct within left caudate head. ACT 112: Negative or not required by law. Electronically signed by: Mookie Lainez M.D. 03/15/2021 10:12 AM
--- NOTE | 2021-03-15 10:18 | CT Scan Report ---
CTA ANGIOGRAPHY OF THE HEAD CLINICAL HISTORY: Stroke Like Symptoms COMPARISON STUDY: MRA of the head October 24, 2018. TECHNIQUE: Helical axial images of the head were obtained following uneventful intravenous administr ation of 1 cc of Optiray. Sagittal and coronal reconstructions were viewed as well as maximal intensi ty projections on an independent 3-D workstation. Automated exposure control was utilized for the st udy. A dose lowering technique was utilized adhering to the principles of ALARA. CT DOSE: 1134.29 mGy.cm FINDINGS: No acute intracranial hemorrhage, midline shift or mass effect is present. Ventricular syst em is stable. Basal cisterns are patent. There are no extra axial collections. There is mild ethmoid sinus mucosal thickening. The bilateral M1, M2, A1 and A2 segments are patent. No intracranial aneury sm. There is no central vessel occlusion. There are large bilateral posterior communicating arteries. No central vessel occlusion is present. There is mild atherosclerotic plaque within the bilateral ca vernous carotids. No significant stenosis is present. IMPRESSION: No central vessel occlusion. No intracranial aneurysm. ACT 112: Negative or not required by law. Electronically signed by: Mookie Lainez M.D. 03/15/2021 10:16 AM
[2021-03-15 10:31] LABS: Eosinophils # (auto) 0.02 K/uL (0-0.5); Eosinophils % (auto) 0.3 %; Hematocrit (blood only) 37.1 % (42-52); Immature Granulocytes # (auto) 0.02 K/uL (0.00-0.02); Immature Granulocytes % (auto) 0.3 %; Lymphocytes # (auto) 0.71 K/uL (1.2-3.4); Lymphocytes % (auto) 10.6 %; Mean Corpuscular Hemoglobin 33.3 pg (25-34); Mean Corpuscular Hgb Conc 32.3 g/dL (32-36); Mean Corpuscular Volume 103.1 fL (80-100); Mean Platelet Volume 11.4 fL (7.4-10.4); Monocytes # (auto) 0.82 K/uL (0.11-0.59); Monocytes % (auto) 12.2 %; Neutrophils # (auto) 5.15 K/uL (1.4-6.5); Neutrophils % (auto) 76.6 %; Platelet Count 129 K/uL (130-400); RDW Coefficient of Variation 14.2 % (11.5-14.5); RDW Standard Deviation 53.6 fL (36.4-46.3); White Blood Count 6.72 K/uL (4.8-10.8)
--- NOTE | 2021-03-15 10:33 | CT Scan Report ---
CT angio neck with con CLINICAL HISTORY: 89 years-old Male with Stroke Like Symptoms. Acute strokelike symptoms COMPARISON STUDY: CT head and CTA head studies of same day, CT soft tissue neck 06/21/2017 TECHNIQUE: Following the IV administration of 120 mL of Optiray, CT angiogram of the neck was perform ed from the aortic arch to the skull base. Images are reviewed in the axial, sagittal, and coronal pl anes. 3-D MIPS images are created and assessed. IV contrast was administered without complication. Al l measurements were calculated based on NASCET criteria. A dose lowering technique was utilized adhe ring to the principles of ALARA. FINDINGS: Atherosclerosis of the aorta. Prior median sternotomy. Patency of the innominate and imaged subclavia n arteries. The common carotid arteries are patent. There is moderate atherosclerotic plaque of the r ight greater than left carotid bulbs. There is less than 50% stenosis of the left ICA. Motion degrada tion limits the study. 60% stenosis of the proximal cervical segment right ICA on image 248 of series 6. Atherosclerotic plaque at the origin of the left vertebral artery causes moderate stenosis. Mild narrowing at the origin of the right vertebral artery. No aneurysm, dissection or arterial occlusion identified. No pneumothorax. Unremarkable soft tissues. Laminectomy changes of the cervical spine with multilevel degenerative changes. IMPRESSION: 1. Moderate atherosclerotic plaque of the carotid bulbs results in 60% stenosis of the proximal cervi leela segment of the right ICA and less than 50% stenosis on the left. 2. Moderate narrowing at the origin of the V1 segment of the left vertebral artery. ACT 112: Negative or not required by law. The above report was generated using voice recognition software. It may contain grammatical, syntax o r spelling errors. Electronically signed by: Terry Roberts M.D. 03/15/2021 10:32 AM
[2021-03-15 10:41] LABS: INR 1.9 (0.9-1.1); Partial Thromboplastin Ratio 1.2; Partial Thromboplastin Time 30.8 Seconds (21.0-31.0); Prothrombin Time 18.6 Seconds (9.0-12.0)
[2021-03-15] MEDS ORDERED: ALBUT/IPRATROP 3MG/0.5MG NEB 3 ML VIAL NEB STA (10:47)
[2021-03-15] MEDS ORDERED: ACETAMINOPHEN 1,000 MG/100 ML VIAL IV STA (10:47)
[2021-03-15] MEDS ORDERED: dexAMETHasone**PF** 10 MG/ML VIAL IV ONE (10:49)
[2021-03-15 10:51] LABS: Albumin Level 2.7 gm/dl (3.4-5.0); BUN Creatinine Ratio 15.5 (10-20); Calcium 8.9 mg/dl (8.5-10.1); Creatinine Clr Calc Pharmacy 26.4 ml/min; Est GFR (African American) 35.4 ml/min; Est GFR (Non-African American) 30.6 ml/min; Magnesium 2.2 mg/dl (1.8-2.4); Potassium 3.1 mmol/L (3.5-5.1)
[2021-03-15 10:56] LABS: Albumin Globulin Ratio 0.9 (0.9-2); Bilirubin,Total 0.8 mg/dl (0.2-1); Total Protein 5.7 gm/dl (6.4-8.2); Troponin I 0.019 ng/ml (0-0.045)
--- NOTE | 2021-03-15 10:58 | Emergency Department Note ---
Impression & Plan Pneumonia due to COVID-19 virus, O2 dependent, Lacunar infarction, Generalized weakness ED Provider Note NAME: AJ MARIN AGE: 89 SEX: M ARRIVES VIA: Ambulance INFORMANT: Patient ED PROVIDER(S): Chong Wallace MD CHIEF COMPLAINT: Weakness, confusion. PLAN: Disposition: Admit MEDICAL DECISION MAKING: The patient is a pleasant 89-year-old gentleman with a past medical history of O2 dependence in the setting of chronic HFpEF, COPD, interstitial lung disease, history of paroxysmal atrial fibrillation on warfarin, CKD, history of metasta tic renal cell carcinoma of treatment after effective treatment response per records, type 2 diabetes who presents to the emergency department for evaluation of confusion and generalized weakness with question of increased left-sided weakness that was noticed this morning. Per the patient he was feeling fine in his normal state of health yesterday and awoke feeling ill. There is a report of a fall approximately 2 weeks ago where he did not seek medical evaluation but had subsequently followed with his PCP and family prefer to defer any brain imaging at that time as he was doing well. Per report the patient's grandson is Covid positive. The patient himself is vaccinated for COVID-19. On arrival the patient is fatigued appearing, mildly confused to situation but alert to person and place, febrile to 38.2 with HR 120s and otherwise with vital signs otherwise stable. He is saturating normally on his home 3 L nasal cannula. Lungs with intermittent wheezes and diminished at bases. He has generalized weakness throughout without focal weakness. He has 1+ bilateral lower extremity pitting edema. EKG demonstrates sinus tachycardia with ST abnormalities but artifact present and otherwise appears similar to prior. WBC within normal limits. H/H similar to prior. Platelets 129K, approximate to prior nonspecific. Chemistry without metabolic acidosis. Potassium 3.1. Electrolytes otherwise unremarkable. Creatinine 1.9 in the setting of patient's CKD and similar to prior. Troponin 0.019, within normal limits. The patient's COVID-19 RNA, NAAT test was positive. Given EMS report of possible left-sided weakness patient was taken to CT immediately upon arrival and had a CT of the head and CTA of the head and neck performed. CT of the head demonstrates tiny age-indeterminate lacunar infarct within the left caudate head. Moderate carotid disease noted. Otherwise no severe narrowing or occlusion of large vessels. Patient treated with apap, dexamethasone, duoneb. Patient agrees with plan for admission. Dr. Randhawa [facility] hospitalist to evaluate the patient for admission. Triage Nursing notes reviewed and agree them. Prior medical records reviewed Vital Signs: reviewed and remarkable for tachycardia and fever. Differential diagnosis: Infection, dehydration, metabolic abnormality, hypo/hyperglycemia, electrolyte disturbance, anemia, hypoxia, cardiac sources, intracerebral event, toxicologic, neurologic, as well as other pathologies. ER treatment provided: See below. Diagnostics interpreted by me: ECG: Sinus tachycardia, 122 bpm, LVH with QRS widening, ST abnormality, no overt ST elevation, similar to prior. Artifact present. Cardiac Monitoring: An order for continuous cardiac monitoring was placed and demonstrated Sinus tachycardia, 122 bpm, no ectopy. Laboratory studies: See below Imaging studies: See below. Consultation(s): Dr. Randhawa [facility] hospitalist to evaluate the patient for admission. HPI: The patient is a pleasant 89-year-old gentleman with a past medical history of O2 dependence in the setting of chronic HFpEF, COPD, interstitial lung disease, history of paroxysmal atrial fibrillation on warfarin, CKD, history of metastatic renal cell carcinoma of treatment after effective treatment response per records, type 2 diabetes who presents to the emergency department for evaluation of confusion and generalized weakness with question of increased left-sided weakness that was noticed this morning. Per the patient he was feeling fine in his normal state of health yesterday and awoke feeling ill. There is a report of a fall approximately 2 weeks ago where he did not seek medical evaluation but had subsequently followed with his PCP and family prefer to defer any brain imaging at that time as he was doing well. Per report the patient's grandson is Covid positive. The patient himself is vaccinated for COVID-19. ROS: See above HPI for pertinent positives & negatives. A total of 10 systems reviewed and were otherwise negative. PAST MEDICAL HISTORY:See Below PAST SURGICAL HISTORY:See Below FAMILY HISTORY:See Below SOCIAL HISTORY:See Below HOME MEDICATIONS:See Below ALLERGIES:See Below VITALS:See Below PHYSICAL EXAMINATION: GENERAL: Awake, alert, fatigued-appearing, in no distress HENT: Normocephalic, atraumatic. Oropharynx with dry mucous membranes and otherwise unremarkable. EYES: Normal conjunctiva. Sclera non-icteric. NECK: Supple. No nuchal rigidity. FROM. No JVD. RESPIRATORY: Intermittent wheezes and diminished at bases. CARDIAC: Regular rate, normal rhythm. Extremities warm and well perfused. Pulses equal. ABDOMEN: Soft, non-distended. No tenderness to palpation. No rebound or guarding. No masses. RECTAL: Deferred. MUSCULOSKELETAL: Chest examination reveals no tenderness. The back is symmetr ical on inspection without obvious abnormality. There is no CVA tenderness to palpation. No joint edema. LOWER EXTREMITIES: Calves are equal size bilaterally and non-tender. 1+ bilateral lower extremity edema. No discoloration. NEURO: Mild confusion but alert to self and place. Generalized weakness with no sensory or motor deficits noted. 4/5 strength x 4 Ext. SKIN: No rash or jaundice noted. 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 Benson 12-09-2020 S/P AVR S/P CABG x 3 S/P spinal surgery (05/11/12) Family History Mother Myocardial infarction Heart disease Father Myocardial infarction Hypertension Stroke Heart disease Unknown Diabetes Aunt Colorectal cancer Myocardial infarction Other No family history of adverse response to anesthesia No family history of bleeding disorder Denies family history of Ovarian cancer Prostate cancer Breast cancer Social History Smoking Status: Former smoker Tobacco Type: Cigarettes Age Started Using Tobacco: 17; Age Quit Using Tobacco: 38; packs per day: 3; Years Smoked: 20; Number of Years Since Quit: 50; Second Hand Exposure: No; Hx Alcohol Use: No Hx Substance Use: No Preferred Language: Finnish Communication Ability: Effective Visual Impairment: No Limitations Hearing Ability: Use of Hearing Aid Hand Endband Cutter Required: No Beliefs That Will Affect Care: Temple Temple Beliefs: RASTAFARIAN marital status: Life Partner Current Living Situation: Spouse current occupational status: retired How many Children do You have: 2 Feels Safe at Home: Yes Childhood Exposure to Second-Hand Smoke: No caffeine: Yes during the past year weight has: decreased > 10 lbs Dental Care, Regularly: Yes Physical Activity Frequency: Does not Exercise Seatbelt Use: always Sunscreen Use: No Assistive Devices: Walker Allergies Allergies Allergy/AdvReac Type Severity Reaction Status Date / Time cephalexin Allergy Intermediate ABDOMINAL Verified 03/15/21 11:36 PAIN pramipexole [From Mirapex] AdvReac Severe Hallucinati Verified 03/15/21 11:36 ng ZACH Inhibitors AdvReac Intermediate COUGH Verified 03/15/21 11:36 clindamycin AdvReac Intermediate REFLUX Verified 03/15/21 11:36 Penicillins AdvReac Intermediate ?RASH Verified 03/15/21 11:36 Sulfa (Sulfonamide AdvReac Intermediate ?RASH Verified 03/15/21 11:36 Antibiotics) Home Meds Home Medications Medication Instructions Recorded Confirmed magnesium oxide 400 mg (241.3 mg 400 mg PO QAM 11/27/17 03/15/21 magnesium) tablet vitamin B complex 1 tab PO QAM 11/27/17 03/15/21 nivolumab 40 mg/4 mL intravenous See Rx Instructions .ROUTE 11/28/17 03/15/21 solution (Opdivo) .COMPLEX ml polyethylene glycol 3350 17 gram 17 g PO DAILY PRN 11/28/17 03/15/21 oral powder packet (Miralax) dandelion 500 mg capsule 500 mg PO DAILY cap 09/13/18 03/15/21 levothyroxine 75 mcg tablet 75 mcg PO QAM 02/18/19 03/15/21 cholecalciferol (vitamin D3) 25 25 mcg PO DAILY 06/11/20 03/15/21 mcg (1,000 unit) tablet nut.tx.gluc.intol,lac-free,soy 1 ea PO DAILY ml 09/30/20 03/15/21 (Glucerna Shake) insulin NPH isoph U-100 human 100 12 unit SUBCUT Q2D ml 01/15/21 03/15/21 unit/mL (3 mL) subcutaneous pen (Humulin N NPH U-100 Insulin KwikPen) warfarin 4 mg tablet See Rx Instructions PO UD tab 02/23/21 03/15/21 prednisone 20 mg tablet 20 mg PO DAILY 03/15/21 03/15/21 Previous Rx's Medication Instructions Recorded metoprolol tartrate 100 mg tablet 100 mg PO BID #180 tab 02/03/20 nebulizers #1 ea 02/19/20 ipratropium 0.5 mg-albuterol 3 mg 3 ml INHALATION Q6H PRN #360 ml 04/15/20 (2.5 mg base)/3 mL nebulization soln diltiazem HCl 120 mg 120 mg PO QAM #90 cap 06/09/20 capsule,extended release 24 hr, controlled pantoprazole 40 mg tablet,delayed 40 mg PO BID #180 tab 06/25/20 release nebulizer accessories #1 ea 07/07/20 nebulizers #1 ea 07/07/20 lactulose 10 gram/15 mL (15 mL) 10 g PO BID PRN #1440 ml 09/23/20 oral solution atorvastatin 40 mg tablet 40 mg PO HS #90 tab 11/03/20 potassium chloride 20 mEq 60 meq PO BID #450 tab 11/24/20 tablet,extended release bumetanide 2 mg tablet 4 mg PO BID #140 tab 01/15/21 Results & Data (ED) Vital Signs Vital Signs - 24 hr 03/15/21 09:39 Temperature 38.2 C H Temperature Source Oral Pulse Rate 84 Respiratory Rate 22 Blood Pressure 158/97 H Blood Pressure Mean 117 Pulse Oximetry 99 Oxygen Delivery Method Nasal Cannula Oxygen Flow Rate 3 Sepsis Recent Fever Within 48 Hours Yes Sepsis New/Unexplained Change in Mental Status Yes Sepsis Action Taken by Nursing Physician Notified Laboratory Data Attestation: I reviewed the patient's lab results. Result diagrams: 03/15/21 10:14 03/15/21 10:14 Lab Results 03/15/21 03/15/21 03/15/21 Range/Units 10:14 10:14 10:14 WBC 6.72 (4.8-10.8) K/uL RBC 3.60 L (4.7-6.1) M/uL Hgb 12.0 L (14.0-18.0) g/dL Hct 37.1 L (42-52) % MCV 103.1 H (80-100) fL MCH 33.3 (25-34) pg MCHC 32.3 (32-36) g/dL RDW Std Deviation 53.6 H (36.4-46.3) fL RDW Coeff of Sung 14.2 (11.5-14.5) % Plt Count 129 L (130-400) K/uL MPV 11.4 H (7.4-10.4) fL Immature Gran % (Auto) 0.3 % Neut % (Auto) 76.6 % Lymph % (Auto) 10.6 % Cass % (Auto) 12.2 % Eos % (Auto) 0.3 % Baso % (Auto) 0.0 % Neut # (Auto) 5.15 (1.4-6.5) K/uL Lymph # (Auto) 0.71 L (1.2-3.4) K/uL Cass # (Auto) 0.82 H (0.11-0.59) K/uL Eos # (Auto) 0.02 (0-0.5) K/uL Baso # (Auto) 0.00 (0-0.2) K/uL Immature Gran # (Auto) 0.02 (0.00-0.02) K/uL PT 18.6 H (9.0-12.0) Seconds INR 1.9 H (0.9-1.1) APTT 30.8 (21.0-31.0) Seconds PTT Ratio 1.2 Sodium (136-145) mmol/L Potassium (3.5-5.1) mmol/L Chloride (98-107) mmol/L Carbon Dioxide (21-32) mmol/L Anion Gap (3-11) BUN (7-18) mg/dl Creatinine (0.6-1.4) mg/dl Est Cr Clr Drug Dosing ml/min Est GFR ( Amer) ml/min Est GFR (Non-Af Amer) ml/min BUN/Creatinine Ratio (10-20) Glucose (70-99) mg/dl Calcium (8.5-10.1) mg/dl Phosphorus (2.5-4.9) mg/dl Magnesium (1.8-2.4) mg/dl Total Bilirubin (0.2-1) mg/dl AST (15-37) U/L ALT (12-78) Alkaline Phosphatase (45-117) U/L Troponin I (0-0.045) ng/ml C-Reactive Protein (0-0.29) mg/dl Total Protein (6.4-8.2) gm/dl Albumin (3.4-5.0) gm/dl Globulin (2.5-4.0) gm/dl Albumin/Globulin Ratio (0.9-2) Procalcitonin (0-0.5) ng/ml SARS-CoV-2, RNA, NAAT (NEGATIVE) Blood Type A Positive Antibody Screen NEGATIVE 03/15/21 03/15/21 03/15/21 Range/Units 10:14 10:14 10:14 WBC (4.8-10.8) K/uL RBC (4.7-6.1) M/uL Hgb (14.0-18.0) g/dL Hct (42-52) % MCV (80-100) fL MCH (25-34) pg MCHC (32-36) g/dL RDW Std Deviation (36.4-46.3) fL RDW Coeff of Sung (11.5-14.5) % Plt Count (130-400) K/uL MPV (7.4-10.4) fL Immature Gran % (Auto) % Neut % (Auto) % Lymph % (Auto) % Cass % (Auto) % Eos % (Auto) % Baso % (Auto) % Neut # (Auto) (1.4-6.5) K/uL Lymph # (Auto) (1.2-3.4) K/uL Cass # (Auto) (0.11-0.59) K/uL Eos # (Auto) (0-0.5) K/uL Baso # (Auto) (0-0.2) K/uL Immature Gran # (Auto) (0.00-0.02) K/uL PT (9.0-12.0) Seconds INR (0.9-1.1) APTT (21.0-31.0) Seconds PTT Ratio Sodium 143 (136-145) mmol/L Potassium 3.1 L (3.5-5.1) mmol/L Chloride 105 (98-107) mmol/L Carbon Dioxide 30 (21-32) mmol/L Anion Gap 7.0 (3-11) BUN 30 H (7-18) mg/dl Creatinine 1.90 H (0.6-1.4) mg/dl Est Cr Clr Drug Dosing 26.4 ml/min Est GFR ( Amer) 35.4 ml/min Est GFR (Non-Af Amer) 30.6 ml/min BUN/Creatinine Ratio 15.5 (10-20) Glucose 164 H (70-99) mg/dl Calcium 8.9 (8.5-10.1) mg/dl Phosphorus 2.3 L (2.5-4.9) mg/dl Magnesium 2.2 (1.8-2.4) mg/dl Total Bilirubin 0.8 (0.2-1) mg/dl AST 13 L (15-37) U/L ALT 23 (12-78) Alkaline Phosphatase 79 (45-117) U/L Troponin I 0.019 (0-0.045) ng/ml C-Reactive Protein 3.77 H (0-0.29) mg/dl Total Protein 5.7 L (6.4-8.2) gm/dl Albumin 2.7 L (3.4-5.0) gm/dl Globulin 3.0 (2.5-4.0) gm/dl Albumin/Globulin Ratio 0.9 (0.9-2) Procalcitonin (0-0.5) ng/ml SARS-CoV-2, RNA, NAAT (NEGATIVE) Blood Type Antibody Screen 03/15/21 03/15/21 Range/Units 10:14 10:27 WBC (4.8-10.8) K/uL RBC (4.7-6.1) M/uL Hgb (14.0-18.0) g/dL Hct (42-52) % MCV (80-100) fL MCH (25-34) pg MCHC (32-36) g/dL RDW Std Deviation (36.4-46.3) fL RDW Coeff of Sung (11.5-14.5) % Plt Count (130-400) K/uL MPV (7.4-10.4) fL Immature Gran % (Auto) % Neut % (Auto) % Lymph % (Auto) % Cass % (Auto) % Eos % (Auto) % Baso % (Auto) % Neut # (Auto) (1.4-6.5) K/uL Lymph # (Auto) (1.2-3.4) K/uL Cass # (Auto) (0.11-0.59) K/uL Eos # (Auto) (0-0.5) K/uL Baso # (Auto) (0-0.2) K/uL Immature Gran # (Auto) (0.00-0.02) K/uL PT (9.0-12.0) Seconds INR (0.9-1.1) APTT (21.0-31.0) Seconds PTT Ratio Sodium (136-145) mmol/L Potassium (3.5-5.1) mmol/L Chloride (98-107) mmol/L Carbon Dioxide (21-32) mmol/L Anion Gap (3-11) BUN (7-18) mg/dl Creatinine (0.6-1.4) mg/dl Est Cr Clr Drug Dosing ml/min Est GFR ( Amer) ml/min Est GFR (Non-Af Amer) ml/min BUN/Creatinine Ratio (10-20) Glucose (70-99) mg/dl Calcium (8.5-10.1) mg/dl Phosphorus (2.5-4.9) mg/dl Magnesium (1.8-2.4) mg/dl Total Bilirubin (0.2-1) mg/dl AST (15-37) U/L ALT (12-78) Alkaline Phosphatase (45-117) U/L Troponin I (0-0.045) ng/ml C-Reactive Protein (0-0.29) mg/dl Total Protein (6.4-8.2) gm/dl Albumin (3.4-5.0) gm/dl Globulin (2.5-4.0) gm/dl Albumin/Globulin Ratio (0.9-2) Procalcitonin 0.13 (0-0.5) ng/ml SARS-CoV-2, RNA, NAAT POSITIVE A* (NEGATIVE) Blood Type Antibody Screen Administered Medications Atorvastatin Calcium (Atorvastatin 40 Mg Tab) 40 mg PO HS TI Stop: 04/14/21 20:59 Last Admin: 03/15/21 21:17 Dose: 40 mg Documented by: [id number] Bumetanide (Bumetanide 1 Mg Tab) 4 mg PO BID TI Stop: 04/14/21 20:59 Last Admin: 03/15/21 21:17 Dose: 4 mg Documented by: [id number] Azithromycin 500 mg/ Dextrose 255 mls @ 127.5 mls/hr IV Q24H TI Stop: 03/22/21 15:59 Last Infusion: 03/15/21 18:51 Dose: 0 mls/hr Documented by: [id number] Admin: 03/15/21 16:22 Dose: 127.5 mls/hr Documented by: [id number] Insulin Aspart (Insulin Aspart Per Unit) 0 units SC ACHS TI Stop: 04/14/21 16:29 Last Admin: 03/15/21 21:17 Dose: 11 units Documented by: [id number] Cosigned by: [id number] Admin: 03/15/21 16:35 Dose: Not Given Documented by: [id number] Metoprolol Tartrate (Metoprolol Tartrate 100 Mg Tab) 100 mg PO BID TI Stop: 04/14/21 20:59 Last Admin: 03/15/21 21:18 Dose: 100 mg Documented by: [id number] Pantoprazole Sodium (Pantoprazole 40 Mg Tab) 40 mg PO BID [facility] Stop: 04/14/21 20:59 Last Admin: 03/15/21 21:18 Dose: 40 mg Documented by: [id number] Potassium Chloride (Potassium Chloride Crtab 20 Meq Tabcr) 60 meq PO BID TI Stop: 04/14/21 20:59 Last Admin: 03/15/21 21:18 Dose: 60 meq Documented by: [id number] Warfarin Sodium (Warfarin Sod 4 Mg Tab) 4 mg PO Mo@1600 [facility] Stop: 04/14/21 15:59 Last Admin: 03/15/21 16:52 Dose: 4 mg Documented by: [id number] Discontinued Medications Albuterol (Albut/Ipratrop 3mg/0.5mg Neb 3 Ml Vial) 3 ml NEB NOW STA; Protocol Stop: 03/15/21 10:48 Last Admin: 03/15/21 11:19 Dose: 3 ml Documented by: [id number] Dexamethasone Sodium Phosphate (DexamethasonePf 10 Mg/Ml Vial) 6 mg IV NOW ONE Stop: 03/15/21 10:50 Last Admin: 03/15/21 11:19 Dose: 6 mg Documented by: [id number] Acetaminophen (Ofirmev) 1,000 mg in 100 mls @ 400 mls/hr IV NOW STA Stop: 03/15/21 11:01 Last Infusion: 03/15/21 15:53 Dose: 0 mls/hr Documented by: [id number] Admin: 03/15/21 11:19 Dose: 400 mls/hr Documented by: [id number] Insulin Human NPH (Insulin Human Nph) 12 units SQ NOW ONE Stop: 03/15/21 16:31 Last Admin: 03/15/21 16:20 Dose: 12 units Documented by: [id number] Cosigned by: [id number] Ioversol (Optiray 320 125ml) 120 ml IV ONCE ONE Stop: 03/15/21 10:01 Last Admin: 03/15/21 17:08 Dose: Not Given Documented by: [id number] Ioversol (Optiray 320 125ml) 120 ml IV ONCE ONE Stop: 03/15/21 10:04 Last Admin: 03/15/21 10:03 Dose: 120 ml Documented by: [id number] Potassium Chloride (Potassium Chloride Crtab 20 Meq Tabcr) 60 meq PO NOW STA Stop: 03/15/21 12:48 Last Admin: 03/15/21 14:46 Dose: 60 meq Documented by: [id number] Imaging Data Radiologist's Impression: Head CT 03/15/21 09:46 CT OF THE HEAD WITHOUT CONTRAST CLINICAL HISTORY: Stroke Like Symptoms COMPARISON STUDY: Head CT December 10, 2018. MRI of the brain April 06, 2020. TECHNIQUE: Helical axial images of the head were obtained without IV contrast. Automated exposure control was utilized for the study. A dose lowering technique was utilized adhering to the principles of ALARA. FINDINGS: No acute intracranial hemorrhage, midline shift or mass effect is present. Ventricular system is stable. Basal cisterns are patent. There are no extra axial collections. White matter hypodensity suggests small vessel disease. There are no CT findings to suggest acute dural sinus stenosis or acute territorial infarct. A 4 mm hypodensity within the left caudate head is new since prior exam. There are no significant calvarial abnormalities. Mild ethmoid sinus mucosal thickening is present. IMPRESSION: 1. No acute intracranial hemorrhage or mass effect. 2. Tiny age indeterminate lacunar infarct within left caudate head. ACT 112: Negative or not required by law. Electronically signed by: Mookie Lainez M.D. 03/15/2021 10:12 AM Head CTA 03/15/21 09:46 CTA ANGIOGRAPHY OF THE HEAD CLINICAL HISTORY: Stroke Like Symptoms COMPARISON STUDY: MRA of the head October 24, 2018. TECHNIQUE: Helical axial images of the head were obtained following uneventful intravenous administration of 1 cc of Optiray. Sagittal and coronal reconstructions were viewed as well as maximal intensity projections on an independent 3-D workstation. Automated exposure control was utilized for the study. A dose lowering technique was utilized adhering to the principles of ALARA. CT DOSE: 1134.29 mGy.cm FINDINGS: No acute intracranial hemorrhage, midline shift or mass effect is present. Ventricular system is stable. Basal cisterns are patent. There are no extra axial collections. There is mild ethmoid sinus mucosal thickening. The bilateral M1, M2, A1 and A2 segments are patent. No intracranial aneurysm. There is no central vessel occlusion. There are large bilateral posterior communicating arteries. No central vessel occlusion is present. There is mild atherosclerotic plaque within the bilateral cavernous carotids. No significant s tenosis is present. IMPRESSION: No central vessel occlusion. No intracranial aneurysm. ACT 112: Negative or not required by law. Electronically signed by: Mookie Lainez M.D. 03/15/2021 10:16 AM Neck CTA 03/15/21 09:46 CT angio neck with con CLINICAL HISTORY: 89 years-old Male with Stroke Like Symptoms. Acute strokelike symptoms COMPARISON STUDY: CT head and CTA head studies of same day, CT soft tissue neck 06/21/2017 TECHNIQUE: Following the IV administration of 120 mL of Optiray, CT angiogram of the neck was performed from the aortic arch to the skull base. Images are reviewed in the axial, sagittal, and coronal planes. 3-D MIPS images are created and assessed. IV contrast was administered without complication. All melisa surements were calculated based on NASCET criteria. A dose lowering technique was utilized adhering to the principles of ALARA. FINDINGS: Atherosclerosis of the aorta. Prior median sternotomy. Patency of the innominate and imaged subclavian arteries. The common carotid arteries are patent. There is moderate atherosclerotic plaque of the right greater than left carotid bulbs. There is less than 50% stenosis of the left ICA. Motion degradation limits the study. 60% stenosis of the proximal cervical segment right ICA on image 248 of series 6. Atherosclerotic plaque at the origin of the left vertebral artery causes moderate stenosis. Mild narrowing at the origin of the right vertebral artery. No aneurysm, dissection or arterial occlusion identified. No pneumothorax. Unremarkable soft tissues. Laminectomy changes of the cervical spine with multilevel degenerative changes. IMPRESSION: 1. Moderate atherosclerotic plaque of the carotid bulbs results in 60% stenosis of the proximal cervical segment of the right ICA and less than 50% stenosis on the left. 2. Moderate narrowing at the origin of the V1 segment of the left vertebral artery. ACT 112: Negative or not required by law. The above report was generated using voice recognition software. It may contain grammatical, syntax or spelling errors. Electronically signed by: Terry Roberts M.D. 03/15/2021 10:32 AM Chest X-Ray 03/15/21 10:54 XR chest 1V portable CLINICAL HISTORY: sob, ams, covid COMPARISON STUDY: Chest CT December 29, 2020. FINDINGS: Incidental note is made of median sternotomy wires and prosthetic aortic valve. Cardiac mediastinal silhouette is stable. There is no pneumothorax. Blunting of the left costophrenic angle is likely chronic. Bilateral mid to lower lung reticulonodular interstitial thickening and airspace opacities are present. Findings have increased since prior exam and favor an infectious process superimposed upon interstitial lung disease. IMPRESSION: Increase in bilateral mid and lower lung reticulonodular residual thickening with airspace opacities, increased since prior exam. The findings favor an infectious process superimposed upon interstitial lung disease. Radiographic follow-up is recommended. ACT 112: Negative or not required by law. Electronically signed by: Mookie Lainez M.D. 03/15/2021 11:43 AM Discharge Plan Visit Data Chief Complaint: Altered Mental Status ED Provider: Chong Wallace Discharge Problem: Pneumonia due to COVID-19 virus, O2 dependent, Lacunar infarction, Generalized weakness Discharge Instructions Interventions: ED Discharge Assessment Last Done: 03/15/21 14:26
--- NOTE | 2021-03-15 11:19 | History & Physical Report ---
Date of Service March 15, 2021 Assessment & Plan (1) Pneumonia due to severe acute respiratory syndrome coronavirus 2 ( RS-CoV-2): Plan: Mr. 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 ER via ambulance this morning with confusion/likely an encephalopathy and SARS CoV 2 pneumonia. Patient was in his usual state of health yesterday when he went to bed, but upon awakening this morning he was unable to get up and out of bed -- even with the help of Deepa (his significant other). She tells me that he was too weak to stand up on his own or to stay standing once he was upright with assistance. He was noted to be mildly confused -- but no focal neurologic deficits were noticed such as a facial droop, weak arm, flaccid limb, or slurred speech. In the emergency room, patient was noted to be febrile with a temperature of 38.2 C, and he has a positive COVID test. Chest x-ray today shows patchy infiltrates consistent with SARS Co-V 2 pneumonia. Patient is chronically on supplemental oxygen at 3 L/minute and his O2 saturations are staying in 93% to 98% range. His CBC with diff shows a normal WBC count, hemoglobin of 12.0 g/dL and hematocrit of 37.1%, platelet count [id number], and a reduced lymphocyte count. INR is slightly subtherapeutic to 1.9. Sodium is 143, potassium 3.1 millimoles per L, BUN 30 mg/dL with creatinine of 1.90 mg/dL. Estimated GFR is 30.6 ml/min. He is hyperglycemic with a blood sugar 164 mg/dL. Serum magnesium level is 2.2 mg/dL. C reactive protein is elevated at 3.77 mg/dL. Procalcitonin level is normal at 0.13 ng/mL. COVID test is positive. CTA of the head shows no acute changes. CTA of Neck shows < 50% stenosis of the LICA, 60% stenosis of the RUBEN proximal cervical segment. CT Scan off the head shows a small age indeterminate lacunar infarct within the left caudate head. MRI of Brain is pending. Recommend the followin. Admit to PCU on telemetry. 2. IV Dexamethasone 6 mg daily. 3. He is not a candidate for Remdesivir due to his renal function. 4. Not a candidate for Tocilizumab/baricitinib on admission. 5. Continue supplemental O2 to keep O2 saturations at 94% or greater. 6. Continue nebulizers and home inhalers. 7. IV Azithromycin 500 mg daily. (2) Confusion: Plan: -- Probably encephalopathic due to acute illness. -- With age indeterminate lacunar infarct on Head CT scan, will order MRI. -- Continue to monitor mental status, treat underlying infectious process. (3) Encephalopathy acute: Plan: -- As outlined above. (4) H/O heart valve replacement with bioprosthetic valve: Plan: History of severe s/p Bioprosthetic AVR 11/01/2012. Echocardiogram 09/16/20: -- Normal LV size, systolic function. -- LVEF 55%-60%. No regional wall motion abnormalities. -- Septal motion consistent with prior cardiac surgery. -- Mild concentric LVH. -- Mildly reduced RV systolic function. -- Mild left atrial dilation. -- Mild MR. -- Appropriately functioning bioprosthetic AVR. -- RVSP 35 mmHg. (5) CAD (coronary artery disease), [place] coronary artery: Plan: Multivessel CAD s/p CABG x 3 Vessels 11/01/2012: -- Patient is not experiencing any angina pectoris or anginal equivalent sym ptoms. -- LUEVANO to LAD. SVG to OM. SVG to PDA. -- Continue current cardiac regimen including statin, beta-tiera, calcium channel tiera. -- Initial Troponin I is normal at 0.019 ng/mL. (6) HTN (hypertension): Plan: Blood pressure is elevated at times. -- Continue beta-tiera, calcium channel tiera, and diuretic. (7) COPD, moderate: Plan: -- Manage as outlined above under problem#1. (8) Chronic diastolic congestive heart failure: Plan: Patient appears euvolemic. -- Continue Bumex 4 mg b.i.d.. -- Continue Potassium Chloride 60 mEq b.i.d. -- extra dose given in ER due to hypokalemia. -- Monitor I&O's and daily weights. (9) Current use of [employer] anticoagulation: Plan: Patient on alf Coumadin for both recurrent DVT's and paroxysmal atrial fibrillation. -- Followed at [facility] Coag clinic. -- Goal INR is 2.0 to 3.0. -- INR on admission is 1.9. -- Patient takes Coumadin 4 mg every Monday, 2 mg all other days. (10) DVT, recurrent, lower extremity, chronic: Plan: Patient on [employer] Coumadin for both recurrent DVT's and paroxysmal atrial fibrillation. -- Followed at [facility] Coag clinic. -- Goal INR is 2.0 to 3.0. -- INR on admission is 1.9. -- Patient takes Coumadin 4 mg every Monday, 2 mg all other days. (11) Paroxysmal atrial fibrillation: Plan: History of PAF and PAT. -- EKG 03/15/21 is suspicious for atrial tachycardia at 122 bpm. -- major account manager shows a sinus rhythm with occasional PAC's. (12) Hypokalemia: Plan: -- Continue Potassium Chloride 60 mEq b.i.d. -- extra dose given in ER due to hypokalemia. -- Monitor daily BMP. History of Present Illness Primary Care Provider: Anirudh Magdaleno MD Mr. 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 ER via ambulance this morning with some mild confusion, generalized weakness, questionable increased left-sided we akness, and a fever. Patient was in his usual state of health yesterday, but upon awakening this morning he was unable to get up and out of bed -- even with the help of Deepa (his significant other). She tells me that he was too weak to stand up or or stay standing. He was noted to be mildly confused and febrile at 38.2 degrees Celsius -- but no focal neurologic deficits were noticed such as a facial droop, weak arm, flaccid limb, or slurred speech. In the emergency room, patient was noted to be febrile with a temperature of 38.2 C, and he has a positive COVID test. Chest x-ray today shows patchy infiltrates consistent with SARS Co-V 2 pneumonia. Patient is chronically on supplemental oxygen at 3 L/minute and his O2 saturations are staying in 93% to 98% range. Apparently the patient's grandson recently had or currently has symptomatic COVID-19 and tested positive for the same. Patient offers no other complaints today. He does not feel short of breath currently. Patient specifically denies any chest pain or angina pectoris. His body weights have been holding steady, no recent fluid retention or worsening heart failure symptoms. He denies any headache or stiff neck. No recent change in appetite or bowel habits. Allergies Allergy/AdvReac Type Severity Reaction Status Date / Time cephalexin Allergy Intermediate ABDOMINAL Verified 03/15/21 11:36 PAIN pramipexole [From Mirapex] AdvReac Severe Hallucinati Verified 03/15/21 11:36 ng ZACH Inhibitors AdvReac Intermediate COUGH Verified 03/15/21 11:36 clindamycin AdvReac Intermediate REFLUX Verified 03/15/21 11:36 Penicillins AdvReac Intermediate ?RASH Verified 03/15/21 11:36 Sulfa (Sulfonamide AdvReac Intermediate ?RASH Verified 03/15/21 11:36 Antibiotics) Home Medications Medication Instructions Recorded Confirmed Type magnesium oxide 400 mg (241.3 mg 400 mg PO QAM 11/27/17 03/15/21 History magnesium) tablet vitamin B complex 1 tab PO QAM 11/27/17 03/15/21 History nivolumab 40 mg/4 mL intravenous See Rx Instructions .ROUTE 11/28/17 03/15/21 History solution (Opdivo) .COMPLEX ml polyethylene glycol 3350 17 gram 17 g PO DAILY PRN 11/28/17 03/15/21 History oral powder packet (Miralax) dandelion 500 mg capsule 500 mg PO DAILY cap 09/13/18 03/15/21 History levothyroxine 75 mcg tablet 75 mcg PO QAM 02/18/19 03/15/21 History metoprolol tartrate 100 mg tablet 100 mg PO BID #180 tab 02/03/20 03/15/21 Rx nebulizers #1 ea 02/19/20 02/24/21 Rx ipratropium 0.5 mg-albuterol 3 mg 3 ml INHALATION Q6H PRN #360 ml 04/15/20 03/15/21 Rx (2.5 mg base)/3 mL nebulization soln diltiazem HCl 120 mg 120 mg PO QAM #90 cap 06/09/20 03/15/21 Rx capsule,extended release 24 hr, controlled cholecalciferol (vitamin D3) 25 25 mcg PO DAILY 06/11/20 03/15/21 History mcg (1,000 unit) tablet pantoprazole 40 mg tablet,delayed 40 mg PO BID #180 tab 06/25/20 03/15/21 Rx release nebulizer accessories #1 ea 07/07/20 02/24/21 Rx nebulizers #1 ea 07/07/20 02/24/21 Rx lactulose 10 gram/15 mL (15 mL) 10 g PO BID PRN #1440 ml 09/23/20 03/15/21 Rx oral solution nut.tx.gluc.intol,lac-free,soy 1 ea PO DAILY ml 09/30/20 03/15/21 History (Jeremiasertimbo Workman) atorvastatin 40 mg tablet 40 mg PO HS #90 tab 11/03/20 03/15/21 Rx potassium chloride 20 mEq 60 meq PO BID #450 tab 11/24/20 03/15/21 Rx tablet,extended release bumetanide 2 mg tablet 4 mg PO BID #140 tab 01/15/21 03/15/21 Rx insulin NPH isoph U-100 human 100 12 unit SUBCUT Q2D ml 01/15/21 03/15/21 History unit/mL (3 mL) subcutaneous pen (Humulin N NPH U-100 Insulin KwikPen) warfarin 4 mg tablet See Rx Instructions PO UD tab 02/23/21 03/15/21 History prednisone 20 mg tablet 20 mg PO DAILY 03/15/21 03/15/21 History Past Med/Surg History Medical History Chronic constipation DVT, recurrent, lower extremity, chronic Dysphagia Gout (05/11/12) Hearing loss History of DVT (deep vein thrombosis) Hypokalemia Kidney stone (05/11/12) 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 Benson 12-09-2020 S/P AVR S/P CABG x 3 S/P spinal surgery (05/11/12) Family History Mother Myocardial infarction Heart disease Father Myocardial infarction Hypertension Stroke Heart disease Unknown Diabetes Aunt Colorectal cancer Myocardial infarction Other No family history of adverse response to anesthesia No family history of bleeding disorder Denies family history of Ovarian cancer Prostate cancer Breast cancer Social History Smoking Status: Former smoker Tobacco Type: Cigarettes Age Started Using Tobacco: 17; Age Quit Using Tobacco: 38; packs per day: 3; Years Smoked: 20; Number of Years Since Quit: 50; Second Hand Exposure: No; Hx Alcohol Use: No Hx Substance Use: No Preferred Language: Algerian Communication Ability: Effective Visual Impairment: No Limitations Hearing Ability: Use of Hearing Aid Welfare Project Manager Required: No Beliefs That Will Affect Care: None marital status: Life Partner Current Living Situation: Significant Other Current Living Situation Comment: lives with Deepa current occupational status: retired How many Children do You have: 2 Feels Safe at Home: Yes Safety Concerns: Feels Safe At This Time Childhood Exposure to Second-Hand Smoke: No caffeine: Yes during the past year weight has: decreased > 10 lbs Dental Care, Regularly: Yes Physical Activity Frequency: Does not Exercise Seatbelt Use: always Sunscreen Use: No Assistive Devices: Cane, Denture - Upper, Hearing Aid - Right, Oxygen - Continuous and Walker Assistive Devices Comment: left hearing aid was lost in ER Review of Systems Review of Systems: Ten point review of systems was completed today and is negative with the exception of what is mentioned in the HPI. Physical Exam Physical Exam: SpO2 95% on O2 at 3 L/min via nasal cannula. GENERAL: Patient is lying in a semi recumbent position on the ER litter and does not appear to be in acute distress. HEENT: Head is atraumatic, normocephalic. Sclerae anicteric. EOM's intact. Facies symmetric. No perioral cyanosis. NECK: No JVD. Carotid upstrokes are + 2 bilaterally without obvious bruits. CHEST/LUNGS: Scattered crackles throughout with expiratory wheezes. CVS: S1 and S2 are regular with a grade 2/6 basal systolic murmur heard best at the right upper sternal border. No diastolic murmurs appreciated. No gallops or rubs. PMI is nondisplaced. No lifts, heaves, or thrills. No abdominal aortic or renal bruits. ABDOMINAL EXAM: Bowel sounds are present. No masses, organomegaly, or tenderness. EXTREMITIES: No clubbing or cyanosis. Right leg with trace pretibial edema. Left leg pigmentation changes and + 1 pretibial edema, +2 ankle edema. Intact radial pulses bilaterally. NEUROLOGIC EXAM: Patient is awake, alert, and interactive. He seems to be mentating more clearly at this point. Answers questions appropriately. Speech is clear. No focal neurologic deficits on manual muscle testing. Gait pattern was not observed. major account manager shows NSR with periods of probable PAT. Results & Data Results & Data ([facility]) Vital Signs (Past 12 Hours) Vital Signs Temp Pulse Resp BP Pulse Ox 03/15/21 09:39 38.2 C H 84 22 158/97 H 99 Laboratory Results Laboratory Results - last 24 hr 03/15/21 03/15/21 03/15/21 10:14 10:14 10:14 WBC 6.72 RBC 3.60 L Hgb 12.0 L Hct 37.1 L MCV 103.1 H MCH 33.3 MCHC 32.3 RDW Std Deviation 53.6 H RDW Coeff of Sung 14.2 Plt Count 129 L MPV 11.4 H Immature Gran % (Auto) 0.3 Neut % (Auto) 76.6 Lymph % (Auto) 10.6 [place] % (Auto) 12.2 Eos % (Auto) 0.3 Baso % (Auto) 0.0 Neut # (Auto) 5.15 Lymph # (Auto) 0.71 L [place] # (Auto) 0.82 H Eos # (Auto) 0.02 Baso # (Auto) 0.00 Immature Gran # (Auto) 0.02 PT 18.6 H INR 1.9 H APTT 30.8 PTT Ratio 1.2 Sodium Potassium Chloride Carbon Dioxide Anion Gap BUN Creatinine Est Cr Clr Drug Dosing Est GFR ( Amer) Est GFR (Non-Af Amer) BUN/Creatinine Ratio Glucose POC Glucose Calcium Phosphorus Magnesium Total Bilirubin AST ALT Alkaline Phosphatase Troponin I C-Reactive Protein Total Protein Albumin Globulin Albumin/Globulin Ratio Procalcitonin SARS-CoV-2, RNA, NAAT Blood Type A Positive Antibody Screen NEGATIVE 03/15/21 03/15/21 03/15/21 10:14 10:14 10:14 WBC RBC Hgb Hct MCV MCH MCHC RDW Std Deviation RDW Coeff of Sung Plt Count MPV Immature Gran % (Auto) Neut % (Auto) Lymph % (Auto) [place] % (Auto) Eos % (Auto) Baso % (Auto) Neut # (Auto) Lymph # (Auto) [place] # (Auto) Eos # (Auto) Baso # (Auto) Immature Gran # (Auto) PT INR APTT PTT Ratio Sodium 143 Potassium 3.1 L Chloride 105 Carbon Dioxide 30 Anion Gap 7.0 BUN 30 H Creatinine 1.90 H Est Cr Clr Drug Dosing 26.4 Est GFR ( Amer) 35.4 Est GFR (Non-Af Amer) 30.6 BUN/Creatinine Ratio 15.5 Glucose 164 H POC Glucose Calcium 8.9 Phosphorus 2.3 L Magnesium 2.2 Total Bilirubin 0.8 AST 13 L ALT 23 Alkaline Phosphatase 79 Troponin I 0.019 C-Reactive Protein 3.77 H Total Protein 5.7 L Albumin 2.7 L Globulin 3.0 Albumin/Globulin Ratio 0.9 Procalcitonin SARS-CoV-2, RNA, NAAT Blood Type Antibody Screen 03/15/21 03/15/21 03/15/21 10:14 10:27 15:15 WBC RBC Hgb Hct MCV MCH MCHC RDW Std Deviation RDW Coeff of Sung Plt Count MPV Immature Gran % (Auto) Neut % (Auto) Lymph % (Auto) [place] % (Auto) Eos % (Auto) Baso % (Auto) Neut # (Auto) Lymph # (Auto) [place] # (Auto) Eos # (Auto) Baso # (Auto) Immature Gran # (Auto) PT INR APTT PTT Ratio Sodium Potassium Chloride Carbon Dioxide Anion Gap BUN Creatinine Est Cr Clr Drug Dosing Est GFR ( Amer) Est GFR (Non-Af Amer) BUN/Creatinine Ratio Glucose POC Glucose 315 H* Calcium Phosphorus Magnesium Total Bilirubin AST ALT Alkaline Phosphatase Troponin I C-Reactive Protein Total Protein Albumin Globulin Albumin/Globulin Ratio Procalcitonin 0.13 SARS-CoV-2, RNA, NAAT POSITIVE A* Blood Type Antibody Screen Diagnostic Findings CXR 03/15/21: Incidental note is made of median sternotomy wires and prosthetic aortic valve. Cardiac mediastinal silhouette is stable. There is no pneumothorax. Blunting of the left costophrenic angle is likely chronic. Bilateral mid to lower lung reticulonodular interstitial thickening and airspace opacities are present. Findings have increased since prior exam and favor an infectious process superimposed upon interstitial lung disease. IMPRESSION: Increase in bilateral mid and lower lung reticulonodular residual thickening with airspace opacities, increased since prior exam. The findings favor an infectious process superimposed upon interstitial lung disease. Radiographic follow-up is recommended. CT SCAN HEAD 03/15/21: No acute intracranial hemorrhage, midline shift or mass effect is present. Ventricular system is stable. Basal cisterns are patent. There are no extra axial collections. White matter hypodensity suggests small vessel disease. There are no CT findings to suggest acute dural sinus stenosis or acute territorial infarct. A 4 mm hypodensity within the left caudate head is new since prior exam. There are no significant calvarial abnormalities. Mild ethmoid sinus mucosal thickening is present. IMPRESSION: 1. No acute intracranial hemorrhage or mass effect. 2. Tiny age indeterminate lacunar infarct within left caudate head. CTA HEAD 03/15/21: No acute intracranial hemorrhage, midline shift or mass effect is present. Ventricular system is stable. Basal cisterns are patent. There are no extra axial collections. There is mild ethmoid sinus mucosal thickening. The bilateral M1, M2, A1 and A2 segments are patent. No intracranial aneurysm. There is no central vessel occlusion. There are large bilateral posterior communicating arteries. No central vessel occlusion is present. There is mild atherosclerotic plaque within the bilateral cavernous carotids. No significant stenosis is present. IMPRESSION: No central vessel occlusion. No intracranial aneurysm. CTA NECK 03/15/21: Atherosclerosis of the aorta. Prior median sternotomy. Patency of the innominate and imaged subclavian arteries. The common carotid arteries are patent. There is moderate atherosclerotic plaque of the right greater than left carotid bulbs. There is less than 50% stenosis of the left ICA. Motion degradation limits the study. 60% stenosis of the proximal cervical segment right ICA on image 248 of series 6. Atherosclerotic plaque at the origin of the left vertebral artery causes moderate stenosis. Mild narrowing at the origin of the right vertebral artery. No aneurysm, dissection or arterial occlusion identified. No pneumothorax. Unremarkable soft tissues. Laminectomy changes of the cervical spine with multilevel degenerative changes. IMPRESSION: 1. Moderate atherosclerotic plaque of the carotid bulbs results in 60% stenosis of the proximal cervical segment of the right ICA and less than 50% stenosis on the left. 2. Moderate narrowing at the origin of the V1 segment of the left vertebral artery. Medications Administered Medications magnesium oxide 400 mg (241.3 mg magnesium) tablet 400 mg PO QAM 11/27/17 [History Confirmed 03/15/21] vitamin B complex 1 tab PO QAM 11/27/17 [History Confirmed 03/15/21] nivolumab 40 mg/4 mL intravenous solution (Opdivo) See Rx Instructions .ROUTE .COMPLEX ml 11/28/17 [History Confirmed 03/15/21] polyethylene glycol 3350 17 gram oral powder packet (Miralax) 17 g PO DAILY PRN 11/28/17 [History Confirmed 03/15/21] dandelion 500 mg capsule 500 mg PO DAILY cap 09/13/18 [History Confirmed 03/15/21] levothyroxine 75 mcg tablet 75 mcg PO QAM 02/18/19 [History Confirmed 03/15/21] metoprolol tartrate 100 mg tablet 100 mg PO BID #180 tab 02/03/20 [Rx Confirmed 03/15/21] nebulizers #1 ea 02/19/20 [Rx Confirmed 02/24/21] ipratropium 0.5 mg-albuterol 3 mg (2.5 mg base)/3 mL nebulization soln 3 ml INHALATION Q6H PRN #360 ml 04/15/20 [Rx Confirmed 03/15/21] diltiazem HCl 120 mg capsule,extended release 24 hr, controlled 120 mg PO QAM #90 cap 06/09/20 [Rx Confirmed 03/15/21] cholecalciferol (vitamin D3) 25 mcg (1,000 unit) tablet 25 mcg PO DAILY 06/11/20 [History Confirmed 03/15/21] pantoprazole 40 mg tablet,delayed release 40 mg PO BID #180 tab 06/25/20 [Rx Confirmed 03/15/21] nebulizer accessories #1 ea 07/07/20 [Rx Confirmed 02/24/21] nebulizers #1 ea 07/07/20 [Rx Confirmed 02/24/21] lactulose 10 gram/15 mL (15 mL) oral solution 10 g PO BID PRN #1440 ml 09/23/20 [Rx Confirmed 03/15/21] nut.tx.gluc.intol,lac-free,soy (Glucerna Shake) 1 ea PO DAILY ml 09/30/20 [History Confirmed 03/15/21] atorvastatin 40 mg tablet 40 mg PO HS #90 tab 11/03/20 [Rx Confirmed 03/15/21] potassium chloride 20 mEq tablet,extended release 60 meq PO BID #450 tab 11/24/20 [Rx Confirmed 03/15/21] bumetanide 2 mg tablet 4 mg PO BID #140 tab 01/15/21 [Rx Confirmed 03/15/21] insulin NPH isoph U-100 human 100 unit/mL (3 mL) subcutaneous pen (Humulin N NPH U-100 Insulin KwikPen) 12 unit SUBCUT QAM ml 01/15/21 [History Confirmed 03/15/21] warfarin 4 mg tablet See Rx Instructions PO UD tab 02/23/21 [History Confirmed 03/15/21] prednisone 20 mg tablet 20 mg PO DAILY 03/15/21 [History Confirmed 03/15/21] Home Medications Acetaminophen (Acetaminophen 325 Mg Tab) 650 mg PO Q4H PRN PRN Reason: Pain or Fever Stop: 04/14/21 14:27 Al Hydrox/Mg Hydrox/Simethicone (Aluminum/Magnesium Susp 30 Ml Udc) 15 ml PO Q4H PRN PRN Reason: Dyspepsia Stop: 04/14/21 14:27 Albuterol (Albut/Ipratrop 3mg/0.5mg Neb 3 Ml Vial) 3 ml INH Q6H PRN; Protocol PRN Reason: wheezing Stop: 04/14/21 14:27 Atorvastatin Calcium (Atorvastatin 40 Mg Tab) 40 mg PO HS [facility] Stop: 04/14/21 20:59 Bumetanide (Bumetanide 1 Mg Tab) 4 mg PO BID [facility] Stop: 04/14/21 20:59 Diltiazem HCl (Diltiazem Hcl 120 Mg Capcr) 120 mg PO QAM [facility] Stop: 04/15/21 08:59 Dexamethasone 6 mg/ Syringe 1.5 mls @ 1 mls/min IV Q24H [facility] Stop: 04/15/21 08:59 Azithromycin 500 mg/ Dextrose 255 mls @ 127.5 mls/hr IV Q24H [facility] Stop: 03/22/21 14:27 Insulin Aspart (Insulin Aspart Per Unit) 0 units SC ACHS [facility] Stop: 04/14/21 16:29 Insulin Human NPH (Insulin Human Nph) 12 units SQ NOW ONE Stop: 03/15/21 16:31 Lactulose (Lactulose Syrup 20 Gm/30 Ml Udc) 10 gm PO BID PRN PRN Reason: constipation Stop: 04/14/21 14:41 Levothyroxine Sodium (Levothyroxine Sodium 75 Mcg Tablet) 75 mcg PO DAILYBB [facility] Stop: 04/15/21 06:29 Magnesium Hydroxide (Magnesium Hydroxide Susp 30 Ml Udc) 30 ml PO Q12H PRN PRN Reason: Constipation Stop: 04/14/21 14:27 Magnesium Oxide (Magnesium Oxide 400 Mg Tab) 400 mg PO QAM [facility] Stop: 04/15/21 08:59 Metoprolol Tartrate (Metoprolol Tartrate 100 Mg Tab) 100 mg PO BID [facility] Stop: 04/14/21 20:59 Miscellaneous Information (Pharmacy Glycemic Mgmt Consult) 1 ea N/A UD PRN PRN Reason: Consult Stop: 04/14/21 14:27 Nitroglycerin (Nitroglycerin Sl 0.4 Mg/Tab Tab) 0.4 mg SL UD PRN PRN Reason: Chest Pain Stop: 04/14/21 14:27 Non-Formulary Medication (Cholecalciferol (Vitamin D3)) 25 mcg PO DAILY [facility] Stop: 04/15/21 08:59 Non-Formulary Medication (Nut.Tx.Gluc.Intol,Lac-Free,Soy [Glucerna Shake]) 1 ea PO DAILY [facility] Stop: 04/15/21 08:59 Non-Formulary Medication (Vitamin B Complex) 1 tab PO QAM TI Stop: 04/15/21 08:59 Ondansetron HCl (Ondansetron Inj 2 Mg/Ml 2 Ml Vial) 4 mg IV Q6H PRN PRN Reason: Nausea Stop: 04/14/21 14:27 Pantoprazole Sodium (Pantoprazole 40 Mg Tab) 40 mg PO BID TI Stop: 04/14/21 20:59 Polyethylene Glycol (Polyethylene (Miralax) 17 Gm Pack) 17 gm PO DAILY PRN PRN Reason: CONSTIPATION Stop: 04/14/21 14:27 Polyethylene Glycol (Polyethylene (Miralax) 17 Gm Pack) 17 gm PO DAILY PRN PRN Reason: Constipation Stop: 04/14/21 14:27 Potassium Chloride (Potassium Chloride Crtab 20 Meq Tabcr) 60 meq PO BID TI Stop: 04/14/21 20:59 Warfarin Sodium (Warfarin Sod 4 Mg Tab) 0 mg PO UD TI Stop: 04/14/21 14:27 Zolpidem Tartrate (Zolpidem Tartrate 5 Mg Tab) 5 mg PO HS PRN PRN Reason: Sleep Stop: 04/14/21 14:27 Code Status & VTE Plan Code Status Full Code VTE Prophylaxis Plan VTE Prophylaxis will be ordered: Yes Supervising Physician Co-Signing Physician Notes I personally saw and examined the patient. I verified all dee points and agree with Akash Brown PA-C with the following exceptions and/or additions: 89 year old male admission for hypoxia from COVID-19 pneumonia. Patient vaccinated with x2 (unknown Pfizer or Moderna) 2-3 months ago. He is unclear on duration of symptoms. 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 Main symptom concern is encephalopathy rather than shortness of breath. No remdesivir due to borderline renal function and no worse hypoxia than baseline. Does not meet criteria for tocilizumab or baricitinib. Warfarin for DVT prophylaxis - close monitoring of INR with azithromycin. Continue his usual diuretics. Chronic respiratory failure with hypoxia PG Care Time/CCT Total # of Minutes Spent Total Time Spent with Patient: Total time spent is greater than 50% in coordination of care (as documented) at patient's floor/unit and/or counseling patient:40 Coding Level of Care Code 66022 Initial Inpt Care Lvl 3 Diagnoses Pneumonia due to severe acute respiratory syndrome coronavirus 2 (SARS-CoV-2) U07.1; J12.82 Confusion R41.0 Encephalopathy acute G93.40 H/O heart valve replacement with bioprosthetic valve Z95.3 CAD (coronary artery disease), [place] coronary artery I25.10 Associated angina: without angina [place] vs. transplanted heart: [place] heart HTN (hypertension) I10 Hypertension type: essential hypertension COPD, moderate J44.9 Chronic diastolic congestive heart failure I50.32 Current use of alf anticoagulation Z79.01 DVT, recurrent, lower extremity, chronic I82.509 Paroxysmal atrial fibrillation I48.0 Hypokalemia E87.6 Time Spent (min) 65 (1) CAD (coronary artery disease), [place] coronary artery Associated angina: without angina [place] vs. transplanted heart: [place] heart Qualified Code(s): I25.10 - Atherosclerotic heart disease of [place] coronary artery without angina pectoris (2) HTN (hypertension) Hypertension type: essential hypertension Qualified Code(s): I10 - Essential (primary) hypertension
--- NOTE | 2021-03-15 11:45 | XRay Report ---
XR chest 1V portable CLINICAL HISTORY: sob, ams, covid COMPARISON STUDY: Chest CT December 29, 2020. FINDINGS: Incidental note is made of median sternotomy wires and prosthetic aortic valve. Cardiac med iastinal silhouette is stable. There is no pneumothorax. Blunting of the left costophrenic angle is l ikely chronic. Bilateral mid to lower lung reticulonodular interstitial thickening and airspace opaci ties are present. Findings have increased since prior exam and favor an infectious process superimpos ed upon interstitial lung disease. IMPRESSION: Increase in bilateral mid and lower lung reticulonodular residual thickening with airspa ce opacities, increased since prior exam. The findings favor an infectious process superimposed upon interstitial lung disease. Radiographic follow-up is recommended. ACT 112: Negative or not required by law. Electronically signed by: Mookie Lainez M.D. 03/15/2021 11:43 AM
[2021-03-15] MEDS ORDERED: POTASSIUM CHLORIDE CRTAB 20 MEQ TABCR PO STA (12:47)
[2021-03-15] MEDS ORDERED: ALBUT/IPRATROP 3MG/0.5MG NEB 3 ML VIAL INH PRN (14:28)
[2021-03-15] MEDS ORDERED: MAGNESIUM HYDROXIDE SUSP 30 ML UDC PO PRN (14:28)
[2021-03-15] MEDS ORDERED: POLYETHYLENE (MIRALAX) 17 GM PACK PO PRN ×2 (14:28)
[2021-03-15] MEDS ORDERED: ALUMINUM/MAGNESIUM SUSP 30 ML UDC PO PRN (14:28)
[2021-03-15] MEDS ORDERED: ACETAMINOPHEN 325 MG TAB PO PRN (14:28)
[2021-03-15] MEDS ORDERED: ONDANSETRON INJ 2 MG/ML 2 ML VIAL IV PRN (14:28)
[2021-03-15] MEDS ORDERED: PHARMACY GLYCEMIC MGMT CONSULT PRN ×2 (14:28)
[2021-03-15] MEDS ORDERED: NITROGLYCERIN SL 0.4 MG/TAB TAB SL PRN (14:28)
[2021-03-15] MEDS ORDERED: NON-FORMULARY MEDICATION (Insulin Nph Isoph U-100 Human [Humulin N Nph Insulin Kwikpen] 10 SQ SCH (14:28)
[2021-03-15] MEDS ORDERED: ZOLPIDEM TARTRATE 5 MG TAB PO PRN (14:28)
[2021-03-15] MEDS ORDERED: LACTULOSE SYRUP 20 GM/30 ML UDC PO PRN (14:42)
--- NOTE | 2021-03-15 15:24 | Pharmacy Report ---
Pharmacy Glycemic Short Note 2 - Date of Service March 15, 2021 - Glycemic Short BSG Results (Last 24 hours): 03/15/21 03/15/21 10:14 15:15 Glucose 164 H POC Glucose 315 H* OUTPATIENT ANTIDIABETIC REGIMEN: * NPH 12 units every other day ASSESSMENT: * Mr Beth is an 89 y/o M with a PMH of T2DM on insulin who presents with COVID. * Blood sugar on PRP this AM was 164 mg/dL but by 1530 BSG was 315 mg/dL on POC. Patient received dexamethasone 6 mg IV x 1 at 1119. * Give home dose of NPH 12 units SQ x 1 then determine future dosing tomorrow based upon how patient reacts today. * Tight Novolog coverage. Patient is carbohydrate sensitive so will utilize extremely tight carbohydrate ratio. PLAN FOR INPATIENT GLYCEMIC CONTROL: * Basal insulin * NPH 12 units SQ x 1 with ongoing dosing determined after today. * Bolus insulin * NovoLog per scale ACHS or Q6hrs while NPO * Goal Range: Low 110 mg/dL - High 140 mg/dL * Correction Factor: 15 mg/dL/unit * Nutritional / Prandial insulin per carb ratio of 1 unit per 3 grams CHO consumed PLAN FOR DISCHARGE: * TBD
[2021-03-15] MEDS ORDERED: WARFARIN SOD 4 MG TAB PO SCH (16:00)
[2021-03-15] MEDS: AZITHROMYCIN 500 MG in DEXTROSE 5% 250 ML IV SCH (16:22)
[2021-03-15] MEDS ORDERED: INSULIN HUMAN NPH SQ ONE (16:30)
[2021-03-15] MEDS: INSULIN ASPART PER UNIT SC SCH ×2 (16:35→21:17)
[2021-03-15] MEDS: BUMETANIDE 1 MG TAB PO SCH (21:17)
[2021-03-15] MEDS: ATORVASTATIN 40 MG TAB PO SCH (21:17)
[2021-03-15] MEDS: PANTOprazole 40 MG TAB PO SCH (21:18)
[2021-03-15] MEDS: POTASSIUM CHLORIDE CRTAB 20 MEQ TABCR PO SCH (21:18)
[2021-03-15] MEDS: METOPROLOL TARTRATE 100 MG TAB PO SCH (21:18)
[2021-03-15] MEDS ORDERED: GADOBUTROL 65ML VIAL IV ONE (22:30)
[2021-03-16] MEDS ORDERED: INSULIN ASPART PER UNIT SC SCH
[2021-03-16] MEDS ORDERED: hydrALAZINE HCL 20 MG/ML VIAL IV PRN (04:09)
[2021-03-16 07:14] LABS: Hematocrit (blood only) 37.1 % (42-52); Hemoglobin 12.1 g/dL (14.0-18.0); Immature Granulocytes # (auto) 0.03 K/uL (0.00-0.02); Immature Granulocytes % (auto) 0.4 %; Lymphocytes # (auto) 0.62 K/uL (1.2-3.4); Lymphocytes % (auto) 7.9 %; Mean Corpuscular Hgb Conc 32.6 g/dL (32-36); Mean Corpuscular Volume 104.2 fL (80-100); Mean Platelet Volume 11.8 fL (7.4-10.4); Monocytes # (auto) 0.66 K/uL (0.11-0.59); Monocytes % (auto) 8.4 %; Neutrophils # (auto) 6.58 K/uL (1.4-6.5); Neutrophils % (auto) 83.3 %; Platelet Count 129 K/uL (130-400); RDW Coefficient of Variation 14.3 % (11.5-14.5); RDW Standard Deviation 55.2 fL (36.4-46.3); Red Blood Count 3.56 M/uL (4.7-6.1); White Blood Count 7.89 K/uL (4.8-10.8)
[2021-03-16 07:21] LABS: Prothrombin Time 18.8 Seconds (9.0-12.0)
[2021-03-16] MEDS: LEVOTHYROXINE SODIUM 75 MCG TABLET PO SCH (07:35)
[2021-03-16 08:01] LABS: Albumin Globulin Ratio 0.8 (0.9-2); Albumin Level 2.6 gm/dl (3.4-5.0); BUN Creatinine Ratio 16.2 (10-20); Bilirubin,Total 0.6 mg/dl (0.2-1); Calcium 9.2 mg/dl (8.5-10.1); Creatinine Clr Calc Pharmacy 24.3 ml/min; Est GFR (African American) 36.4 ml/min; Est GFR (Non-African American) 31.4 ml/min; Globulin 3.3 gm/dl (2.5-4.0); Potassium 4.4 mmol/L (3.5-5.1); Total Protein 5.9 gm/dl (6.4-8.2)
--- NOTE | 2021-03-16 08:11 | Magnetic Resonance Report ---
MR brain wo/w con CLINICAL HISTORY: weakness, abnormal CT scan, confusion TECHNIQUE: Multiplanar and multisequence MR images of the brain were obtained prior to and following administration of gadolinium contrast. Comparison: Comparison is made to MRI brain 04/06/2020 FINDINGS: There is a focus of restricted diffusion in the left anterior lentiform nucleus. T2 signal is seen at the site of infarct. Foci of T2 and FLAIR hyperintensity are noted in the paraventricular areas cons istent with chronic small vessel ischemic disease. Ex vacuo ventriculomegaly and sulcal enlargement i s noted compatible with diffuse encephalomalacia. There is a punctate focus of GRE hypointensity in t he left supraventricular white matter. No extra axial fluid collections are seen. There are no masses , mass effect, or midline shift. No abnormal enhancement is seen. The corpus callosum, pituitary gla nd, and cerebellar tonsils appear grossly unremarkable. Flow voids of the major intracranial arterial vessels are identified. The imaged portions of the para nasal sinuses, mastoid air cells, and orbits are unremarkable. IMPRESSION: Acute infarct in the anterior left lentiform nucleus. Possible age-indeterminate hemorrhage in the le ft supraventricular white matter. ACT 112: Positive. There are findings on this exam that require communication between the performing entity and the patient following Patient Test Result Information Act ([place] Act 112) guidelines. Electronically signed by: Todd Bullock M.D. 03/16/2021 8:10 AM
[2021-03-16] MEDS: VITAMIN B COMPLEX TAB PO SCH (08:57)
[2021-03-16] MEDS: POTASSIUM CHLORIDE CRTAB 20 MEQ TABCR PO SCH ×2 (08:57→20:49)
[2021-03-16] MEDS: dexAMETHasone 6 MG in SYRINGE 0 ML IV SCH (08:57)
[2021-03-16] MEDS: METOPROLOL TARTRATE 100 MG TAB PO SCH ×2 (08:57→20:41)
[2021-03-16] MEDS: PANTOprazole 40 MG TAB PO SCH ×2 (08:57→20:41)
[2021-03-16] MEDS: CHOLECALCIFEROL 1,000 UNITS 25 MCG TAB PO SCH (08:57)
[2021-03-16] MEDS: MAGNESIUM OXIDE 400 MG TAB PO SCH (08:58)
[2021-03-16] MEDS: dilTIAZem HCL 120 MG CAPCR PO SCH (08:58)
[2021-03-16] MEDS ORDERED: INSULIN HUMAN NPH SQ SCH (09:00)
[2021-03-16] MEDS: INSULIN ASPART PER UNIT SC SCH ×4 (09:08→21:00)
--- NOTE | 2021-03-16 09:29 | Pharmacy Report ---
Pharmacy Glycemic Short Note 2 - Date of Service March 16, 2021 - Glycemic Short BSG Results (Last 24 hours): 03/15/21 03/15/21 03/15/21 10:14 15:15 20:52 Glucose 164 H POC Glucose 315 H* 303 H* 03/15/21 03/16/21 03/16/21 23:53 03:49 06:17 Glucose 118 H POC Glucose 254 H 124 H 03/16/21 07:38 Glucose POC Glucose 132 H OUTPATIENT ANTIDIABETIC REGIMEN: * NPH 12 units every other day ASSESSMENT: 03/16 * Stressors stable - dexamethasone continues * BSG's trended down significantly after home dose NPH and 19 units of correctional insulin. Will therefore not increase NPH this AM and provide low dose of 12 units again. May need to be increased tomorrow. * No PO intake thus far to determine adequacy of Novolog CHO ratio, but given significant trend down in BSG's will loosen CHO ratio slightly. This is still tighter than his other admission (not on steroids). BSG did increase significantly from breakfast to lunch, but no insulin was administered with breakfast therefore this may be due to uncovered CHO consumption. 03/15 * Mr Beth is an 89 y/o M with a PMH of T2DM on insulin who presents with COVID. * Blood sugar on PRP this AM was 164 mg/dL but by 1530 BSG was 315 mg/dL on POC. Patient received dexamethasone 6 mg IV x 1 at 1119. * Give home dose of NPH 12 units SQ x 1 then determine future dosing tomorrow based upon how patient reacts today. * Tight Novolog coverage. Patient is carbohydrate sensitive so will utilize extremely tight carbohydrate ratio. PLAN FOR INPATIENT GLYCEMIC CONTROL: * Basal insulin * NPH 12 units SQ x 1 with ongoing dosing determined after today. * Bolus insulin * NovoLog per scale ACHS or Q6hrs while NPO * Goal Range: Low 110 mg/dL - High 140 mg/dL * Correction Factor: 15 mg/dL/unit * Nutritional / Prandial insulin per carb ratio of 1 unit per 3 grams CHO consumed PLAN FOR DISCHARGE: * TBD
[2021-03-16] MEDS: BUMETANIDE 1 MG TAB PO SCH ×2 (10:06→20:41)
[2021-03-16] MEDS: INSULIN HUMAN NPH SQ SCH (10:32)
[2021-03-16] MEDS ORDERED: WARFARIN SOD 2 MG TAB PO SCH (16:00)
[2021-03-16] MEDS: AZITHROMYCIN 500 MG in DEXTROSE 5% 250 ML IV SCH (16:57)
[2021-03-16] MEDS: ATORVASTATIN 40 MG TAB PO SCH (20:41)
[2021-03-17] MEDS: LEVOTHYROXINE SODIUM 75 MCG TABLET PO SCH (06:15)
--- NOTE | 2021-03-17 06:23 | Electrocardiogram Report ---
Test Reason : Blood Pressure : / mmHG Vent. Rate : 122 BPM Atrial Rate : 122 BPM P-R Int : 174 ms QRS Dur : 122 ms QT Int : 348 ms P-R-T Axes : 000 -15 173 degrees QTc Int : 495 ms Poor data quality, interpretation may be adversely affected Sinus tachycardia Left ventricular hypertrophy with QRS widening Nonspecific ST and T wave abnormality Abnormal ECG When compared with ECG of 05-DEC-2020 12:54, Vent. rate has increased BY [address] more depressed Lateral leads T wave inversion no longer evident in Inferior leads Confirmed by Migel Mccrary ([id number]) on 03/17/2021 6:22:44 AM Referred By: REFERRED SELF Confirmed By:Migel Mccrary
[2021-03-17 07:07] LABS: Basophils # (auto) 0.01 K/uL (0-0.2); Basophils % (auto) 0.1 %; Hematocrit (blood only) 38.4 % (42-52); Hemoglobin 12.5 g/dL (14.0-18.0); Immature Granulocytes # (auto) 0.02 K/uL (0.00-0.02); Immature Granulocytes % (auto) 0.2 %; Lymphocytes # (auto) 0.65 K/uL (1.2-3.4); Lymphocytes % (auto) 5.1 %; Mean Corpuscular Hemoglobin 33.4 pg (25-34); Mean Corpuscular Hgb Conc 32.6 g/dL (32-36); Mean Corpuscular Volume 102.7 fL (80-100); Mean Platelet Volume 11.9 fL (7.4-10.4); Monocytes # (auto) 0.99 K/uL (0.11-0.59); Monocytes % (auto) 7.8 %; Neutrophils # (auto) 11.02 K/uL (1.4-6.5); Neutrophils % (auto) 86.8 %; Platelet Count 144 K/uL (130-400); RDW Coefficient of Variation 14.3 % (11.5-14.5); Red Blood Count 3.74 M/uL (4.7-6.1); White Blood Count 12.69 K/uL (4.8-10.8)
[2021-03-17 07:22] LABS: INR 2.4 (0.9-1.1)
[2021-03-17 07:46] LABS: Albumin Level 2.6 gm/dl (3.4-5.0); BUN Creatinine Ratio 17.6 (10-20); Calcium 9.2 mg/dl (8.5-10.1); Creatinine Clr Calc Pharmacy 22.9 ml/min; Est GFR (African American) 33.9 ml/min; Est GFR (Non-African American) 29.3 ml/min
[2021-03-17 07:49] LABS: Albumin Globulin Ratio 0.7 (0.9-2); Bilirubin,Total 0.7 mg/dl (0.2-1); Globulin 3.5 gm/dl (2.5-4.0); Total Protein 6.1 gm/dl (6.4-8.2)
[2021-03-17] MEDS: METOPROLOL TARTRATE 100 MG TAB PO SCH ×2 (08:57→20:49)
[2021-03-17] MEDS: BUMETANIDE 1 MG TAB PO SCH ×2 (08:57→20:49)
[2021-03-17] MEDS: CHOLECALCIFEROL 1,000 UNITS 25 MCG TAB PO SCH (08:57)
[2021-03-17] MEDS: VITAMIN B COMPLEX TAB PO SCH (08:57)
[2021-03-17] MEDS: dexAMETHasone 6 MG in SYRINGE 0 ML IV SCH (08:57)
[2021-03-17] MEDS: PANTOprazole 40 MG TAB PO SCH ×2 (08:57→20:49)
[2021-03-17] MEDS: dilTIAZem HCL 120 MG CAPCR PO SCH (08:58)
[2021-03-17] MEDS: POTASSIUM CHLORIDE CRTAB 20 MEQ TABCR PO SCH ×2 (09:01→20:44)
[2021-03-17] MEDS: MAGNESIUM OXIDE 400 MG TAB PO SCH (09:01)
[2021-03-17] MEDS: INSULIN ASPART PER UNIT SC SCH ×4 (09:11→20:59)
[2021-03-17] MEDS: INSULIN HUMAN NPH SQ SCH (09:12)
--- NOTE | 2021-03-17 09:13 | Hospitalist Progress Note ---
Date of Service March 17, 2021 Assessment & Plan (1) CVA (cerebral vascular accident): Plan: MRI brain: acute infarct in the anterior left lentiform nucleus. Possible age- indeterminate hemorrhage in the left supraventricular white matter. place stroke order sets, consult neurology permissive HTN question is there actually a bleed? will repeat CT head: no evidence of bleed hold Coumadin but INR is 2.4, no need to reverse INR lipid panel, Hb A1c on Lipitor 40mg give aspirin 81mg daily PT/OT only complaint is right arm weakness but it is only upper arm, quality assurance monitor strength is great per family there are concerns he is too weak to come home (2) Pneumonia due to severe acute respiratory syndrome coronavirus 2 (SARS-CoV-2): Plan: no increased oxygen needs, on baseline 3L, no distress CXR with increased infiltrates will continue dexamethasone no role for Remdesivir or baricitinib (3) Confusion: Plan: -- Probably encephalopathic due to acute illness. mental status is much improved (4) Encephalopathy acute: Plan: -- As outlined above. (5) H/O heart valve replacement with bioprosthetic valve: Plan: History of severe s/p Bioprosthetic AVR 11/01/2012. Echocardiogram 09/16/20: -- Normal LV size, systolic function. -- LVEF 55%-60%. No regional wall motion abnormalities. -- Septal motion consistent with prior cardiac surgery. -- Mild concentric LVH. -- Mildly reduced RV systolic function. -- Mild left atrial dilation. -- Mild MR. -- Appropriately functioning bioprosthetic AVR. -- RVSP 35 mmHg. (6) CAD (coronary artery disease), [place] coronary artery: Plan: Multivessel CAD s/p CABG x 3 Vessels 11/01/2012: -- Patient is not experiencing any angina pectoris or anginal equivalent symptoms. -- LUEVANO to LAD. SVG to OM. SVG to PDA. -- Continue current cardiac regimen including statin, beta-tiera, calcium channel tiera. -- Initial Troponin I is normal at 0.019 ng/mL. (7) HTN (hypertension): Plan: Blood pressure is elevated at times. -- Continue beta-tiera, calcium channel tiera, and diuretic. (8) COPD, moderate: Plan: -- Manage as outlined above under problem#1. (9) Chronic diastolic congestive heart failure: Plan: Patient appears euvolemic. -- Continue Bumex 4 mg b.i.d.. -- Continue Potassium Chloride 60 mEq b.i.d. -- extra dose given in ER due to hypokalemia. -- Monitor I&O's and daily weights. 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 -- Followed at [facility] Coag clinic. -- Goal INR is 2.0 to 3.0. -- INR 2.4 -- Patient takes Coumadin 4 mg every Monday, 2 mg all other days. (11) DVT, recurrent, lower extremity, chronic: Plan: Patient on care home Coumadin for both recurrent DVT's and paroxysmal atrial fibrillation. -- Followed at [facility] Coag clinic. -- Goal INR is 2.0 to 3.0. -- INR 2.4 -- Patient takes Coumadin 4 mg every Monday, 2 mg all other days. (12) Paroxysmal atrial fibrillation: Plan: History of PAF and PAT. -- EKG 03/15/21 is suspicious for atrial tachycardia at 122 bpm. -- monitoring manager shows a sinus rhythm with occasional PAC's. (13) Hypokalemia: Plan: -- Continue Potassium Chloride 60 mEq b.i.d. -- extra dose given in ER due to hypokalemia. -- Monitor daily BMP. Admission and Anticipated Discharge Date Admission Date: March 15, 2021 Subjective patient doing well, breathing comfortably on 3L which is what he wears at home minimal cough, no fever, he says he has felt ill for a few days, very weak, poor oral intake, no BM for three days he ate a little breakfast this morning discussed getting him to a chair, having PT/OT work with him since he is on his baseline oxygen, if he gets stronger then we can get him home MRI of the brain shows a small acute CVA: Acute infarct in the anterior left lentiform nucleus. Possible age-indeterminate hemorrhage in the left supraventricular white matter. INR is 2.3, hold Coumadin, will d/w neurology before reversing INR, is this actually a bleed? Review of Systems Review of Systems: All systems reviewed & are unremarkable except as noted in Subjective Constitutional: + fatigue and + weakness; no fever Respiratory: + dyspnea on exertion; no cough and no dyspnea Cardiovascular: no chest pain Gastrointestinal: no abdominal pain, no nausea, no vomiting, no constipation, no diarrhea/loose stools and no melena Physical Exam Physical Exam: General: well developed, well nourished, elderly male, frail appearing, no distress Neck: supple, trachea midline, normal thyroid Lungs: clear to auscultation bilaterally but diminished overall, normal respiratory effort, no accessory muscle use, no distress Heart: regular S1 and S2, no murmur, peripheral pulses normal, capillary refill normal, no edema Abdomen: soft, NT, ND, + BS, no hepatomegaly, normal to percussion Extremities: normal in appearance, no cyanosis, no petechiae, strength is 5/5 bilaterally Neuro: awake, cooperative, moves all extremities, no focal motor deficits, CN II-XII intact, sensation in extremities intact, normal speech Skin: warm, dry, no rash, normal turgor, thin skin Psych: Awake, alert and oriented to person and place, unsure of the day of the week Results & Data Results & Data ([facility]) Vital Signs (Past 12 Hours) Vital Signs Temp Pulse Resp BP BP Pulse Ox 03/17/21 07:56 36.7 C 62 22 181/96 H 93 03/17/21 03:58 36.5 C 53 L 20 154/76 H 95 03/16/21 23:52 37.0 C 56 L 20 159/81 H 98 Laboratory Results Laboratory Results - last 24 hr 03/16/21 03/16/21 03/16/21 11:47 16:59 20:40 WBC RBC Hgb Hct MCV MCH MCHC RDW Std Deviation RDW Coeff of Sung Plt Count MPV Immature Gran % (Auto) Neut % (Auto) Lymph % (Auto) [place] % (Auto) Eos % (Auto) Baso % (Auto) Neut # (Auto) Lymph # (Auto) [place] # (Auto) Eos # (Auto) Baso # (Auto) Immature Gran # (Auto) PT INR Sodium Potassium Chloride Carbon Dioxide Anion Gap BUN Creatinine Est Cr Clr Drug Dosing Est GFR ( Amer) Est GFR (Non-Af Amer) BUN/Creatinine Ratio Glucose POC Glucose 193 H 187 H 221 H Calcium Total Bilirubin AST ALT Alkaline Phosphatase Total Protein Albumin Globulin Albumin/Globulin Ratio 03/17/21 03/17/21 03/17/21 06:02 06:02 06:02 WBC 12.69 H RBC 3.74 L Hgb 12.5 L Hct 38.4 L MCV 102.7 H MCH 33.4 MCHC 32.6 RDW Std Deviation 54.0 H RDW Coeff of Sung 14.3 Plt Count 144 MPV 11.9 H Immature Gran % (Auto) 0.2 Neut % (Auto) 86.8 Lymph % (Auto) 5.1 [place] % (Auto) 7.8 Eos % (Auto) 0.0 Baso % (Auto) 0.1 Neut # (Auto) 11.02 H Lymph # (Auto) 0.65 L [place] # (Auto) 0.99 H Eos # (Auto) 0.00 Baso # (Auto) 0.01 Immature Gran # (Auto) 0.02 PT 23.0 H INR 2.4 H Sodium 142 Potassium 4.0 Chloride 106 Carbon Dioxide 30 Anion Gap 6.0 BUN 35 H Creatinine 1.97 H Est Cr Clr Drug Dosing 22.9 Est GFR ( Amer) 33.9 Est GFR (Non-Af Amer) 29.3 BUN/Creatinine Ratio 17.6 Glucose 117 H POC Glucose Calcium 9.2 Total Bilirubin 0.7 AST 27 ALT 26 Alkaline Phosphatase 76 Total Protein 6.1 L Albumin 2.6 L Globulin 3.5 Albumin/Globulin Ratio 0.7 L 03/17/21 08:15 WBC RBC Hgb Hct MCV MCH MCHC RDW Std Deviation RDW Coeff of Sung Plt Count MPV Immature Gran % (Auto) Neut % (Auto) Lymph % (Auto) [place] % (Auto) Eos % (Auto) Baso % (Auto) Neut # (Auto) Lymph # (Auto) [place] # (Auto) Eos # (Auto) Baso # (Auto) Immature Gran # (Auto) PT INR Sodium Potassium Chloride Carbon Dioxide Anion Gap BUN Creatinine Est Cr Clr Drug Dosing Est GFR ( Amer) Est GFR (Non-Af Amer) BUN/Creatinine Ratio Glucose POC Glucose 119 H Calcium Total Bilirubin AST ALT Alkaline Phosphatase Total Protein Albumin Globulin Albumin/Globulin Ratio Medications Administered Current Inpatient Medications Acetaminophen (Acetaminophen 325 Mg Tab) 650 mg PO Q4H PRN PRN Reason: Pain or Fever Stop: 04/14/21 14:27 Al Hydrox/Mg Hydrox/Simethicone (Aluminum/Magnesium Susp 30 Ml Udc) 15 ml PO Q4H PRN PRN Reason: Dyspepsia Stop: 04/14/21 14:27 Albuterol (Albut/Ipratrop 3mg/0.5mg Neb 3 Ml Vial) 3 ml INH Q6H PRN; Protocol PRN Reason: wheezing Stop: 04/14/21 14:27 Atorvastatin Calcium (Atorvastatin 40 Mg Tab) 40 mg PO HS [facility] Stop: 04/14/21 20:59 Last Admin: 03/16/21 20:41 Dose: 40 mg Documented by: Bumetanide (Bumetanide 1 Mg Tab) 4 mg PO BID [facility] Stop: 04/14/21 20:59 Last Admin: 03/17/21 08:57 Dose: 4 mg Documented by: Diltiazem HCl (Diltiazem Hcl 120 Mg Capcr) 120 mg PO QAM [facility] Stop: 04/15/21 08:59 Last Admin: 03/17/21 08:58 Dose: 120 mg Documented by: Hydralazine HCl (Hydralazine Hcl 20 Mg/Ml Vial) 10 mg IV Q6H PRN PRN Reason: BP>180 systolic,>100 diastolic Stop: 04/15/21 04:08 Last Admin: 03/16/21 04:24 Dose: 10 mg Documented by: Dexamethasone 6 mg/ Syringe 1.5 mls @ 1 mls/min IV Q24H [facility] Stop: 04/15/21 08:59 Last Admin: 03/17/21 08:57 Dose: 1 mls/min Documented by: Azithromycin 500 mg/ Dextrose 255 mls @ 127.5 mls/hr IV Q24H [facility] Stop: 03/22/21 15:59 Last Infusion: 03/16/21 20:54 Dose: Infused Documented by: Insulin Aspart (Insulin Aspart Per Unit) 0 units SC ACHS [facility] Stop: 04/14/21 16:29 Last Admin: 03/16/21 21:00 Dose: 6 units Documented by: Insulin Human NPH (Insulin Human Nph) 12 units SQ QAM [facility] Stop: 04/15/21 08:59 Last Admin: 03/16/21 10:32 Dose: 12 units Documented by: Lactulose (Lactulose Syrup 20 Gm/30 Ml Udc) 10 gm PO BID PRN PRN Reason: constipation Stop: 04/14/21 14:41 Levothyroxine Sodium (Levothyroxine Sodium 75 Mcg Tablet) 75 mcg PO DAILYBB [facility] Stop: 04/15/21 06:29 Last Admin: 03/17/21 06:15 Dose: 75 mcg Documented by: Magnesium Hydroxide (Magnesium Hydroxide Susp 30 Ml Udc) 30 ml PO Q12H PRN PRN Reason: Constipation Stop: 04/14/21 14:27 Magnesium Oxide (Magnesium Oxide 400 Mg Tab) 400 mg PO QAM [facility] Stop: 04/15/21 08:59 Last Admin: 03/17/21 09:01 Dose: 400 mg Documented by: Metoprolol Tartrate (Metoprolol Tartrate 100 Mg Tab) 100 mg PO BID [facility] Stop: 04/14/21 20:59 Last Admin: 03/17/21 08:57 Dose: 100 mg Documented by: Miscellaneous Information (Pharmacy Glycemic Mgmt Consult) 1 ea N/A UD PRN PRN Reason: Consult Stop: 04/14/21 14:27 Nitroglycerin (Nitroglycerin Sl 0.4 Mg/Tab Tab) 0.4 mg SL UD PRN PRN Reason: Chest Pain Stop: 04/14/21 14:27 Ondansetron HCl (Ondansetron Inj 2 Mg/Ml 2 Ml Vial) 4 mg IV Q6H PRN PRN Reason: Nausea Stop: 04/14/21 14:27 Pantoprazole Sodium (Pantoprazole 40 Mg Tab) 40 mg PO BID [facility] Stop: 04/14/21 20:59 Last Admin: 03/17/21 08:57 Dose: 40 mg Documented by: Polyethylene Glycol (Polyethylene (Miralax) 17 Gm Pack) 17 gm PO DAILY PRN PRN Reason: CONSTIPATION Stop: 04/14/21 14:27 Potassium Chloride (Potassium Chloride Crtab 20 Meq Tabcr) 60 meq PO BID [facility] Stop: 04/14/21 20:59 Last Admin: 03/17/21 09:01 Dose: 60 meq Documented by: Vitamin B Complex (Vitamin B Complex Tab) 1 tab PO QAM [facility] Stop: 04/15/21 08:59 Last Admin: 03/17/21 08:57 Dose: 1 tab Documented by: Vitamin D (Cholecalciferol 1,000 Units 25 Mcg Tab) 1,000 units PO DAILY [facility] Stop: 04/15/21 08:59 Last Admin: 03/17/21 08:57 Dose: 1,000 units Documented by: Warfarin Sodium (Warfarin Sod 4 Mg Tab) 4 mg PO Mo@1600 [facility] Stop: 04/14/21 15:59 Last Admin: 03/15/21 16:52 Dose: 4 mg Documented by: Warfarin Sodium (Warfarin Sod 2 Mg Tab) 2 mg PO [id number]@1600 TI Stop: 04/15/21 15:59 Last Admin: 03/16/21 16:58 Dose: 2 mg Documented by: Zolpidem Tartrate (Zolpidem Tartrate 5 Mg Tab) 5 mg PO HS PRN PRN Reason: Sleep Stop: 04/14/21 14:27 PG Care Time/CCT Total # of Minutes Spent Total Time Spent with Patient: Total time spent is greater than 50% in coordination of care (as documented) at patient's floor/unit and/or counseling patient: Coding Level of Care Code 15529 Subseq Hosp Care Lvl 3 Diagnoses Pneumonia due to severe acute respiratory syndrome coronavirus 2 (SARS-CoV-2) U07.1; J12.82 Confusion R41.0 Encephalopathy acute G93.40 H/O heart valve replacement with bioprosthetic valve Z95.3 CAD (coronary artery disease), [place] coronary artery I25.10 Associated angina: without angina [place] vs. transplanted heart: [place] heart HTN (hypertension) I10 Hypertension type: essential hypertension COPD, moderate J44.9 Chronic diastolic congestive heart failure I50.32 Current use of care home anticoagulation Z79.01 DVT, recurrent, lower extremity, chronic I82.509 Paroxysmal atrial fibrillation I48.0 Hypokalemia E87.6 CVA (cerebral vascular accident) I63.9 (1) CAD (coronary artery disease), [place] coronary artery Associated angina: without angina [place] vs. transplanted heart: [place] heart Qualified Code(s): I25.10 - Atherosclerotic heart disease of [place] coronary artery without angina pectoris (2) HTN (hypertension) Hypertension type: essential hypertension Qualified Code(s): I10 - Essential (primary) hypertension
[2021-03-17] MEDS ORDERED: PHYTONADIONE 2.5 MG in SODIUM CHLORIDE 0.9% 50 ML IV ONE (09:45)
--- NOTE | 2021-03-17 10:48 | Neurology Consultation ---
Date of Consultation March 17, 2021 Assessment & Plan (1) CVA (cerebral vascular accident): Small ischemic stroke within the anterior left lentiform nucleus occurring in the context of COVID-19 pneumonia, atrial fibrillation, anticoagulated with warfarin, therapeutic pro time. He has moderate plaque within the carotids bilaterally although no significant stenosis. Also noted is a small age- indeterminate microhemorrhage within the left supraventricular white matter that I suspect is consistent with an element of cerebral amyloid angiopathy. Patient has a mild right hemiparesis affecting the face and arm, no associated aphasia. As above, he has a very small, age-indeterminate microhemorrhage within the left supraventricular white matter that appears to be consistent with an element of cerebral amyloid angiopathy. Patient informed me that his father had cerebral microbleeds as well. Although anticoagulants and antiplatelet medications are generally avoided in individuals with cerebral amyloid angiopathy, this patient has a single area of microhemorrhage that does not absolutely preclude long-term anticoagulation given his history of atrial fibrillation. Furthermore, as he does have COVID-19 infection, he is at further increased risk for thromboembolic disease. It is notable at this punctate hemorrhages not visible on his initial CT of the head. Would recommend a follow-up CT of the head today to reassess this isolated microhemorrhage. If this finding remains unseen (on CT) or not progressed I would recommend resuming anticoagulation in this patient. Continue management of hypertension, systolic blood pressure goal 140 to 160 mmHg. History of Present Illness Reason for Consultation: Acute ischemic stroke, possible hemorrhage Requesting Physician: Todd Fernandez DO Attending Physician: Todd Fernandez DO History of Present Illness The patient is an 89-year-old male who presented to the emergency department on March 15, 2 days ago, with confusion and weakness, left-sided that was noted that morning. He had also reported a fall approximately 2 weeks prior. He has a history notable for heart failure, COPD, interstitial lung disease, paroxysmal atrial fibrillation on warfarin, chronic kidney disease, history of renal cell carcinoma, and type 2 diabetes mellitus. A chest x-ray was suspicious for pneumonia. A SARS-CoV-2 RNA was positive. Patient admitted with a diagnosis of COVID-[address] of the head completed at the time of presentation was negative for hemorrhage although a tiny age-indeterminate lacunar infarct was identified within the left caudate head. CT angiography of the head and neck revealed moderate atherosclerotic plaque of the carotid bulbs with a 60% stenosis of the proximal cervical segment of the right internal carotid artery and less than 50% stenosis on the left. There was moderate narrowing at the origin of the V1 segment of the left vertebral artery. No significant intracranial vascular lesion identified. The patient did have a follow-up brain MRI completed on March 15 that revealed an acute infarct in the anterior left lentiform nucleus and a possible age-indeterminate hemorrhage in the left supraventricular white matter as there was a punctate focus on gradient echo sequences in the left supraventricular white matter. There was also evidence of ex vacuo ventriculomegaly and generalized atrophy. The patient does complain of mild weakness of the right hand this morning, denies similar weakness for the leg. No headache, change in vision or speech. When I informed patient of the small microhemorrhage on MRI, he informed me that his father had the same condition, probably cerebral amyloid angiopathy. Allergies Allergy/AdvReac Type Severity Reaction Status Date / Time cephalexin Allergy Intermediate ABDOMINAL Verified 03/15/21 11:36 PAIN pramipexole [From Mirapex] AdvReac Severe Hallucinati Verified 03/15/21 11:36 ng ZACH Inhibitors AdvReac Intermediate COUGH Verified 03/15/21 11:36 clindamycin AdvReac Intermediate REFLUX Verified 03/15/21 11:36 Penicillins AdvReac Intermediate ?RASH Verified 03/15/21 11:36 Sulfa (Sulfonamide AdvReac Intermediate ?RASH Verified 03/15/21 11:36 Antibiotics) Home Medications Medication Instructions Recorded Confirmed Type magnesium oxide 400 mg (241.3 mg 400 mg PO QAM 11/27/17 03/15/21 History magnesium) tablet vitamin B complex 1 tab PO QAM 11/27/17 03/15/21 History nivolumab 40 mg/4 mL intravenous See Rx Instructions .ROUTE 11/28/17 03/15/21 History solution (Opdivo) .COMPLEX ml polyethylene glycol 3350 17 gram 17 g PO DAILY PRN 11/28/17 03/15/21 History oral powder packet (Miralax) dandelion 500 mg capsule 500 mg PO DAILY cap 09/13/18 03/15/21 History levothyroxine 75 mcg tablet 75 mcg PO QAM 02/18/19 03/15/21 History metoprolol tartrate 100 mg tablet 100 mg PO BID #180 tab 02/03/20 03/15/21 Rx nebulizers #1 ea 02/19/20 02/24/21 Rx ipratropium 0.5 mg-albuterol 3 mg 3 ml INHALATION Q6H PRN #360 ml 04/15/20 03/15/21 Rx (2.5 mg base)/3 mL nebulization soln diltiazem HCl 120 mg 120 mg PO QAM #90 cap 06/09/20 03/15/21 Rx capsule,extended release 24 hr, controlled cholecalciferol (vitamin D3) 25 25 mcg PO DAILY 06/11/20 03/15/21 History mcg (1,000 unit) tablet pantoprazole 40 mg tablet,delayed 40 mg PO BID #180 tab 06/25/20 03/15/21 Rx release nebulizer accessories #1 ea 07/07/20 02/24/21 Rx nebulizers #1 ea 07/07/20 02/24/21 Rx lactulose 10 gram/15 mL (15 mL) 10 g PO BID PRN #1440 ml 09/23/20 03/15/21 Rx oral solution nut.tx.gluc.intol,lac-free,soy 1 ea PO DAILY ml 09/30/20 03/15/21 History (Glucerna Ji) atorvastatin 40 mg tablet 40 mg PO HS #90 tab 11/03/20 03/15/21 Rx potassium chloride 20 mEq 60 meq PO BID #450 tab 11/24/20 03/15/21 Rx tablet,extended release bumetanide 2 mg tablet 4 mg PO BID #140 tab 01/15/21 03/15/21 Rx insulin NPH isoph U-100 human 100 12 unit SUBCUT Q2D ml 01/15/21 03/15/21 History unit/mL (3 mL) subcutaneous pen (Humulin N NPH U-100 Insulin KwikPen) warfarin 4 mg tablet See Rx Instructions PO UD tab 02/23/21 03/15/21 History prednisone 20 mg tablet 20 mg PO DAILY 03/15/21 03/15/21 History Patient History Medical History Chronic constipation DVT, recurrent, lower extremity, chronic Dysphagia Gout (05/11/12) Hearing loss History of DVT (deep vein thrombosis) Hypokalemia Kidney stone (05/11/12) 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 Benson 12-09-2020 S/P AVR S/P CABG x 3 S/P spinal surgery (05/11/12) Family History Mother Myocardial infarction Heart disease Father Myocardial infarction Hypertension Stroke Heart disease Unknown Diabetes Aunt Colorectal cancer Myocardial infarction Other No family history of adverse response to anesthesia No family history of bleeding disorder Denies family history of Ovarian cancer Prostate cancer Breast cancer Social History Smoking Status: Former smoker Tobacco Type: Cigarettes Age Started Using Tobacco: 17; Age Quit Using Tobacco: 38; packs per day: 3; Years Smoked: 20; Number of Years Since Quit: 50; Second Hand Exposure: No; Hx Alcohol Use: No Hx Substance Use: No Preferred Language: Tajik Communication Ability: Effective Visual Impairment: No Limitations Hearing Ability: Use of Hearing Aid It Field Technician Required: No Beliefs That Will Affect Care: None marital status: Life Partner Current Living Situation: Significant Other Current Living Situation Comment: lives with Deepa current occupational status: retired How many Children do You have: 2 Feels Safe at Home: Yes Safety Concerns: Feels Safe At This Time Childhood Exposure to Second-Hand Smoke: No caffeine: Yes during the past year weight has: decreased > 10 lbs Dental Care, Regularly: Yes Physical Activity Frequency: Does not Exercise Seatbelt Use: always Sunscreen Use: No Assistive Devices: Hearing Aid - Right and Oxygen - Continuous Assistive Devices Comment: left hearing aid was lost in ER Review of Systems Constitutional: no fever and no chills Eyes: no blind spots and no diplopia Ear, Nose, Mouth, Throat: no ear pain and no hearing loss Respiratory: no cough and no dyspnea Cardiovascular: no chest pain and no palpitations Gastrointestinal: no constipation and no diarrhea/loose stools Genitourinary: no urinary incontinence or no urinary urgency Musculoskeletal: no muscle weakness and no muscle atrophy Integumentary: no rash and no lesions Neurologic: as per Subjective / HPI, + unsteadiness and + memory loss; no localized weakness, no loss of sensation, no tremor(s), no seizure-like activity and no headache(s) Psychiatric: no behavioral changes, no depression, no abnormal sleep pattern and no anxiety Hematologic / Lymphatic: no easy bruising and no lymphadenopathy Exam (Neuro) Constitutional: well developed and well nourished; no acute distress Eyes: normal visual lynch by confrontation, PERRL, normal accommodation and EOM intact bilaterally; no fundoscopic abnormality, no nystagmus and no papilledema Cardiovascular: Vessels: normal carotid upstroke; no carotid bruit Neurologic: Oriented to:: Person, Place and Time Memory: Short Term Intact and Remote Intact Attention: Span Intact and Concentration Intact Language: Naming Objects and Repeating Phrases Speech Fluency: negative Dysarthria Speech Aphasia: negative Aphasia Fund of Knowledge: Current Events, Past History and Vocabulary Cranial Nerves: Normal II (Visual lynch full to confrontation, visual acuity normal), III, IV, (Pupils equal round reactive to light and accommodation, eye movements normal), V (Facial sensation intact), VIII (Hearing intact), IX, X (Palate elevates to midline), XI (Shoulder shrug intact) and XII (Tongue protrudes to midline); Abnorm VII (There is mild flattening of the right nasolabial fold) Motor Strength: Normal Lower Extremities, Normal Upper Extremities and Pronator Drift (There is a fix with arm roll on the right) Laterality: Right Motor Tone: Normal Lower Extremities and Normal Upper Extremities Muscle Bulk/Involuntary Movements: No Involuntary Movements; negative Muscle Atrophy Sensation: Light Touch Intact, Pain/Temperature Intact, Vibration Intact and Proprioception Intact Coordination: Normal; negative Limited Balance, Dysdiadochokinesia, Finger-Nose Abnormal or Heel-Hwang Abnormal Deep Tendon Reflexes: Rt Triceps: 2+, Lt Triceps: 2+, Rt Biceps: 2+, Lt Biceps: 2+, Rt Brachioradialis: 2+, Lt Brachioradialis: 2+, Rt Patellar: 2+, Lt Patellar: 2+, Rt Ankle: 1+ and Lt Ankle: 1+ Special Tests: negative Babinski Present Details: Gait could not be tested in the context of patient's current neurological status. Results & Data ([facility]) Vital Signs (Past 12 Hours) Vital Signs Temp Pulse Pulse Resp BP BP Pulse Ox 03/17/21 10:16 58 L 03/17/21 07:56 36.7 C 62 22 181/96 H 93 03/17/21 03:58 36.5 C 53 L 20 154/76 H 95 03/16/21 23:52 37.0 C 56 L 20 159/81 H 98 Laboratory Results WBC 12.69, hemoglobin 12.5, hematocrit 38.4, platelet count 144, INR 2.4, sodium 142, potassium 4.0, BUN 35, creatinine 1.97, glucose 117, calcium 9.2, AST 27, ALT 26, triglycerides 102, cholesterol 154, LDL 51, VLDL 20, HDL [address] of the head, CT angiography of the head and neck, and brain MRI are as described in the history of present illness. Electrocardiogram reveals sinus tachycardia, left ventricular hypertrophy with QRS widening, 122 bpm. An echocardiogram completed this past August revealed a normal left ventricular size and systolic function, ejection fraction 55 to 60%, no regional wall motion abnormalities. Septal motion consistent with prior cardiac surgery. Mild concentric left ventricular hypertrophy. Mild left atrial dilatation. Appropriately functioning bioprosthetic aortic valve. Coding Level of Care Code 31867 Initial Inpt Care Lvl 3 Diagnoses CVA (cerebral vascular accident) I63.9
--- NOTE | 2021-03-17 12:12 | CT Scan Report ---
CT OF THE HEAD WITHOUT CONTRAST CLINICAL HISTORY: follow up possible hemorrhage COMPARISON STUDY: MRI of the brain, head CT and CTA of the head March 15, 2021. CT DOSE: 912.23 mGycm TECHNIQUE: Helical axial images of the head were obtained without IV contrast. Automated exposure con trol was utilized for the study. A dose lowering technique was utilized adhering to the principles o f ALARA. FINDINGS: No acute intracranial hemorrhage, midline shift or mass effect is present. Ventricular syst em is stable. Basal cisterns are patent. There are no extra-axial collections. The small 4 mm lacunar infarct within left caudate head is unchanged and prior head CT and MRI. The punctate hypointense fo cus within the left frontal lobe on gradient echo sequence of MRI March 15, 2021 is not evident on this exam due to technique. This favors tracer old blood products and is of doubtful significance. B jefe cisterns are patent. There are no extra axial collections. There are no significant calvarial ab normalities. IMPRESSION: 1. Redemonstration of a small 4 mm acute infarct within left caudate head, unchanged. 2. No acute intracranial hemorrhage. 3. The punctate hypointense focus within the left frontal lobe on gradient echo sequence of MRI Decem 2020 is not evident on this exam due to technique. This favors tracer old blood products and is of doubtful significance. ACT 112: Negative or not required by law. Electronically signed by: Mookie Lainez M.D. 03/17/2021 12:10 PM
--- NOTE | 2021-03-17 12:20 | Pharmacy Report ---
Pharmacy Glycemic Short Note 2 - Date of Service March 17, 2021 - Glycemic Short BSG Results (Last 24 hours): 03/16/21 03/16/21 03/17/21 16:59 20:40 06:02 Glucose 117 H POC Glucose 187 H 221 H 03/17/21 08:15 Glucose POC Glucose 119 H OUTPATIENT ANTIDIABETIC REGIMEN: * NPH 12 units every other day * HbA1c 11.5% on 02/24/21 ASSESSMENT: 03/17 * Stressors stable * AM fasting BSG in goal range - will continue same NPH dose and schedule qAM * Post-prandial BSG's all elevated yesterday ranging 187-221 mg/dL. Will tighten CHO ratio. 03/16 * Stressors stable - dexamethasone continues * BSG's trended down significantly after home dose NPH and 19 units of correctional insulin. Will therefore not increase NPH this AM and provide low dose of 12 units again. May need to be increased tomorrow. * No PO intake thus far to determine adequacy of Novolog CHO ratio, but given significant trend down in BSG's will loosen CHO ratio slightly. This is still tighter than his other admission (not on steroids). BSG did increase significantly from breakfast to lunch, but no insulin was administered with breakfast therefore this may be due to uncovered CHO consumption. 03/15 * Mr Beth is an 89 y/o M with a PMH of T2DM on insulin who presents with COVID. * Blood sugar on PRP this AM was 164 mg/dL but by 1530 BSG was 315 mg/dL on POC. Patient received dexamethasone 6 mg IV x 1 at 1119. * Give home dose of NPH 12 units SQ x 1 then determine future dosing tomorrow based upon how patient reacts today. * Tight Novolog coverage. Patient is carbohydrate sensitive so will utilize extremely tight carbohydrate ratio. PLAN FOR INPATIENT GLYCEMIC CONTROL: * Basal insulin * NPH 12 units SQ qAM * Bolus insulin * NovoLog per scale ACHS or Q6hrs while NPO * Goal Range: Low 110 mg/dL - High 140 mg/dL * Correction Factor: 15 mg/dL/unit * Nutritional / Prandial insulin per carb ratio of 1 unit per 3 grams CHO consumed PLAN FOR DISCHARGE: * TBD
[2021-03-17] MEDS: AZITHROMYCIN 500 MG in DEXTROSE 5% 250 ML IV SCH (17:02)
[2021-03-17] MEDS: ATORVASTATIN 40 MG TAB PO SCH (20:49)
[2021-03-18] MEDS ORDERED: DEXTROSE 50% 50 ML SYRINGE IV PRN (02:15)
[2021-03-18] MEDS ORDERED: GLUCOSE 40% GEL 15 GM TUBE PO PRN (02:15)
[2021-03-18] MEDS ORDERED: GLUCOSE 10 TABS/TUBE PO PRN (02:15)
[2021-03-18] MEDS ORDERED: GLUCAGON FOR INJ 1 MG VIAL IM PRN (02:15)
[2021-03-18] MEDS ORDERED: CARBOHYDRATES FOR HYPOGLYCEMIA PO PRN (02:15)
[2021-03-18] MEDS: LEVOTHYROXINE SODIUM 75 MCG TABLET PO SCH (06:18)
[2021-03-18 07:22] LABS: Hematocrit (blood only) 37.5 % (42-52); Hemoglobin 12.1 g/dL (14.0-18.0); Immature Granulocytes # (auto) 0.02 K/uL (0.00-0.02); Immature Granulocytes % (auto) 0.2 %; Lymphocytes # (auto) 0.51 K/uL (1.2-3.4); Lymphocytes % (auto) 5.6 %; Mean Corpuscular Hemoglobin 33.2 pg (25-34); Mean Corpuscular Hgb Conc 32.3 g/dL (32-36); Mean Platelet Volume 11.8 fL (7.4-10.4); Monocytes # (auto) 0.58 K/uL (0.11-0.59); Monocytes % (auto) 6.3 %; Neutrophils # (auto) 8.04 K/uL (1.4-6.5); Neutrophils % (auto) 87.9 %; Platelet Count 132 K/uL (130-400); RDW Coefficient of Variation 14.3 % (11.5-14.5); RDW Standard Deviation 54.2 fL (36.4-46.3); Red Blood Count 3.64 M/uL (4.7-6.1); White Blood Count 9.15 K/uL (4.8-10.8)
[2021-03-18 07:31] LABS: INR 1.1 (0.9-1.1); Prothrombin Time 11.4 Seconds (9.0-12.0)
[2021-03-18 08:02] LABS: Albumin Level 2.5 gm/dl (3.4-5.0); BUN Creatinine Ratio 20.3 (10-20); Calcium 9.2 mg/dl (8.5-10.1); Creatinine Clr Calc Pharmacy 23.2 ml/min; Est GFR (African American) 34.3 ml/min; Est GFR (Non-African American) 29.6 ml/min; Potassium 4.2 mmol/L (3.5-5.1)
[2021-03-18 08:04] LABS: Albumin Globulin Ratio 0.7 (0.9-2); Bilirubin,Total 0.9 mg/dl (0.2-1); Globulin 3.5 gm/dl (2.5-4.0)
[2021-03-18] MEDS: BUMETANIDE 1 MG TAB PO SCH ×2 (08:48→21:51)
[2021-03-18] MEDS: METOPROLOL TARTRATE 100 MG TAB PO SCH ×2 (08:48→21:51)
[2021-03-18] MEDS: ASPIRIN 81 MG ECTAB PO SCH (08:48)
[2021-03-18] MEDS: dexAMETHasone 6 MG in SYRINGE 0 ML IV SCH (08:48)
[2021-03-18] MEDS: dilTIAZem HCL 120 MG CAPCR PO SCH (08:48)
[2021-03-18] MEDS: VITAMIN B COMPLEX TAB PO SCH (08:48)
[2021-03-18] MEDS: PANTOprazole 40 MG TAB PO SCH ×2 (08:48→21:52)
[2021-03-18] MEDS: CHOLECALCIFEROL 1,000 UNITS 25 MCG TAB PO SCH (08:49)
[2021-03-18] MEDS: POTASSIUM CHLORIDE CRTAB 20 MEQ TABCR PO SCH ×2 (08:52→21:55)
[2021-03-18] MEDS: MAGNESIUM OXIDE 400 MG TAB PO SCH (08:53)
[2021-03-18] MEDS: INSULIN ASPART PER UNIT SC SCH ×4 (09:26→21:52)
[2021-03-18] MEDS: INSULIN HUMAN NPH SQ SCH (09:26)
[2021-03-18] MEDS: amLODIPine BESYLATE 5 MG TAB PO SCH (15:32)
[2021-03-18] MEDS: AZITHROMYCIN 500 MG in DEXTROSE 5% 250 ML IV SCH (15:57)
[2021-03-18] MEDS: WARFARIN SOD 2 MG TAB PO SCH (15:57)
[2021-03-18] MEDS: ATORVASTATIN 40 MG TAB PO SCH (21:52)
--- NOTE | 2021-03-18 23:10 | Hospitalist Progress Note ---
Date of Service March 18, 2021 Assessment & Plan (1) CVA (cerebral vascular accident): Plan: MRI brain: acute infarct in the anterior left lentiform nucleus. Possible age- indeterminate hemorrhage in the left supraventricular white matter. place stroke order sets, consulted neurology permissive HTN question is there actually a bleed? 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 mental status is much improved the past two days (4) Encephalopathy acute: Plan: -- As outlined above. (5) H/O heart valve replacement with bioprosthetic valve: Plan: History of severe s/p Bioprosthetic AVR 11/01/2012. Echocardiogram 09/16/20: -- Normal LV size, systolic function. -- LVEF 55%-60%. No regional wall motion abnormalities. -- Septal motion consistent with prior cardiac surgery. -- Mild concentric LVH. -- Mildly reduced RV systolic function. -- Mild left atrial dilation. -- Mild MR. -- Appropriately functioning bioprosthetic AVR. -- RVSP 35 mmHg. 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 -- LUEVANO to LAD. SVG to OM. SVG to PDA. -- Continue current cardiac regimen including statin, beta-tiera, calcium channel tiera. -- Initial Troponin I is normal at 0.019 ng/mL. (7) HTN (hypertension): Plan: Blood pressure is elevated at times. -- Continue beta-tiera, calcium channel tiera, and diuretic. (8) COPD, moderate: Plan: -- Manage as outlined above under problem#1. (9) Chronic diastolic congestive heart failure: Plan: Patient appears euvolemic. -- Continue Bumex 4 mg b.i.d.. -- Continue Potassium Chloride 60 mEq b.i.d. -- extra dose given in ER due to hypokalemia. -- Monitor I&O's and daily weights. (10) Current use of terminal carman anticoagulation: Plan: Patient on terminal carman Coumadin for both recurrent DVT's and paroxysmal atrial fibrillation. -- Followed at [facility]. -- Goal INR is 2.0 to 3.0. -- INR 1.1 -- Patient takes Coumadin 4 mg every Monday, 2 mg all other days. (11) DVT, recurrent, lower extremity, chronic: Plan: Patient on chcf Coumadin for both recurrent DVT's and paroxysmal atrial fibrillation. -- Followed at [facility]. -- Goal INR is 2.0 to 3.0. -- INR 1.1 -- Patient takes Coumadin 4 mg every Monday, 2 mg all other days. (12) Paroxysmal atrial fibrillation: Plan: History of PAF and PAT. -- EKG 03/15/21 is suspicious for atrial tachycardia at 122 bpm. -- chief compliance officer shows a sinus rhythm with occasional PAC's. (13) Hypokalemia: Plan: -- Continue Potassium Chloride 60 mEq b.i.d. -- extra dose given in ER due to hypokalemia. -- Monitor daily BMP. Admission and Anticipated Discharge Date Admission Date: March 15, 2021 Subjective patient doing well today, eating well, breathing comfortably on PT he walked 60 feet, independent on OT his score was 18, okay to go home with home health discussed with his daughter over the phone normally the patient and his significant other have help, aides 4 hours every morning they help with getting dressed, breakfast, getting washed up the aides will not resume services until appropriate quarantine has elapsed currently the patient's entire family has COVID, they are weak, cannot care for him discussed with her that likely he will be here over the weekend if he cannot come home attempted to move to medical, transfer order process is not working, notified charge nurse for PCU that he can go to medical floor Review of Systems Review of Systems: All systems reviewed & are unremarkable except as noted in Subjective Constitutional: + weakness Respiratory: + dyspnea on exertion Musculoskeletal: + muscle weakness (right arm, cannot raise above shoulder) Physical Exam Physical Exam: General: well developed, well nourished, elderly male, frail appearing, no distress Neck: supple, trachea midline, normal thyroid Lungs: clear to auscultation bilaterally but diminished overall, normal respiratory effort, no accessory muscle use, no distress Heart: regular S1 and S2, no murmur, peripheral pulses normal, capillary refill normal, no edema Abdomen: soft, NT, ND, + BS, no hepatomegaly, normal to percussion Extremities: normal in appearance, no cyanosis, no petechiae, strength is 5/5 left arm and legs, right hand is 5/5, right shoulder a little weak Neuro: awake, cooperative, moves all extremities, CN II-XII intact, sensation in extremities intact, normal speech Skin: warm, dry, no rash, normal turgor, thin skin Psych: Awake, alert and oriented to person and place, unsure of the day of the week Results & Data Results & Data ([facility]) Vital Signs (Past 12 Hours) Vital Signs Temp Pulse Pulse Resp BP BP Pulse Ox 03/18/21 19:57 36.5 C 57 L 15 140/97 95 03/18/21 16:26 56 L 03/18/21 16:02 70 18 153/77 H 94 Laboratory Results Laboratory Results - last 24 hr 03/18/21 03/18/21 03/18/21 06:14 06:14 06:14 WBC 9.15 RBC 3.64 L Hgb 12.1 L Hct 37.5 L MCV 103.0 H MCH 33.2 MCHC 32.3 RDW Std Deviation 54.2 H RDW Coeff of Sung 14.3 Plt Count 132 MPV 11.8 H Immature Gran % (Auto) 0.2 Neut % (Auto) 87.9 Lymph % (Auto) 5.6 [place] % (Auto) 6.3 Eos % (Auto) 0.0 Baso % (Auto) 0.0 Neut # (Auto) 8.04 H Lymph # (Auto) 0.51 L [place] # (Auto) 0.58 Eos # (Auto) 0.00 Baso # (Auto) 0.00 Immature Gran # (Auto) 0.02 PT 11.4 INR 1.1 Sodium 142 Potassium 4.2 Chloride 107 Carbon Dioxide 29 Anion Gap 6.0 BUN 40 H Creatinine 1.95 H Est Cr Clr Drug Dosing 23.2 Est GFR ( Amer) 34.3 Est GFR (Non-Af Amer) 29.6 BUN/Creatinine Ratio 20.3 H Glucose 152 H POC Glucose Calcium 9.2 Total Bilirubin 0.9 AST 32 ALT 24 Alkaline Phosphatase 71 Total Protein 6.0 L Albumin 2.5 L Globulin 3.5 Albumin/Globulin Ratio 0.7 L 03/18/21 03/18/21 03/18/21 07:40 11:51 11:55 WBC RBC Hgb Hct MCV MCH MCHC RDW Std Deviation RDW Coeff of Sung Plt Count MPV Immature Gran % (Auto) Neut % (Auto) Lymph % (Auto) [place] % (Auto) Eos % (Auto) Baso % (Auto) Neut # (Auto) Lymph # (Auto) [place] # (Auto) Eos # (Auto) Baso # (Auto) Immature Gran # (Auto) PT INR Sodium Potassium Chloride Carbon Dioxide Anion Gap BUN Creatinine Est Cr Clr Drug Dosing Est GFR ( Amer) Est GFR (Non-Af Amer) BUN/Creatinine Ratio Glucose POC Glucose 159 H 193 H 173 H Calcium Total Bilirubin AST ALT Alkaline Phosphatase Total Protein Albumin Globulin Albumin/Globulin Ratio 03/18/21 03/18/21 16:46 20:55 WBC RBC Hgb Hct MCV MCH MCHC RDW Std Deviation RDW Coeff of Sung Plt Count MPV Immature Gran % (Auto) Neut % (Auto) Lymph % (Auto) [place] % (Auto) Eos % (Auto) Baso % (Auto) Neut # (Auto) Lymph # (Auto) [place] # (Auto) Eos # (Auto) Baso # (Auto) Immature Gran # (Auto) PT INR Sodium Potassium Chloride Carbon Dioxide Anion Gap BUN Creatinine Est Cr Clr Drug Dosing Est GFR ( Amer) Est GFR (Non-Af Amer) BUN/Creatinine Ratio Glucose POC Glucose 70 113 H Calcium Total Bilirubin AST ALT Alkaline Phosphatase Total Protein Albumin Globulin Albumin/Globulin Ratio Medications Administered Current Inpatient Medications Acetaminophen (Acetaminophen 325 Mg Tab) 650 mg PO Q4H PRN PRN Reason: Pain or Fever Stop: 01/19/22 14:27 Al Hydrox/Mg Hydrox/Simethicone (Aluminum/Magnesium Susp 30 Ml Udc) 15 ml PO Q4H PRN PRN Reason: Dyspepsia Stop: 04/14/21 14:27 Albuterol (Albut/Ipratrop 3mg/0.5mg Neb 3 Ml Vial) 3 ml INH Q6H PRN; Protocol PRN Reason: wheezing Stop: 04/14/21 14:27 Amlodipine Besylate (Amlodipine Besylate 5 Mg Tab) [facility] [place] Stop: 04/17/21 12:59 Last Admin: 03/18/21 15:32 Dose: 5 mg Documented by: Aspirin (Aspirin 81 Mg Ectab) 81 mg PO [facility] Stop: 04/17/21 08:59 Last Admin: 03/18/21 08:48 Dose: 81 mg Documented by: Atorvastatin Calcium (Atorvastatin 40 Mg Tab) 40 mg PO HS [facility] Stop: 04/14/21 20:59 Last Admin: 03/18/21 21:52 Dose: 40 mg Documented by: Bumetanide (Bumetanide 1 Mg Tab) 4 mg PO BID [facility] Stop: 04/14/21 20:59 Last Admin: 03/18/21 21:51 Dose: 4 mg Documented by: Dextrose (Dextrose 50% 50 Ml Syringe) 25 - 50 ml IV UD PRN; Protocol PRN Reason: Hypoglycemia Protocol Stop: 04/17/21 02:14 Diltiazem HCl (Diltiazem Hcl 120 Mg Capcr) 120 mg PO [facility] Stop: 04/15/21 08:59 Last Admin: 03/18/21 08:48 Dose: 120 mg Documented by: Glucagon (Glucagon For Inj 1 Mg Vial) 1 mg IM UD PRN; Protocol PRN Reason: Hypoglycemia Protocol Stop: 04/17/21 02:14 Glucose (Glucose 40% Gel 15 Gm Tube) 15 - 30 gm PO UD PRN; Protocol PRN Reason: Hypoglycemia Protocol Stop: 04/17/21 02:14 Glucose (Glucose 10 Tabs/Tube) 4 - 8 tabs PO UD PRN; Protocol PRN Reason: Hypoglycemia Protocol Stop: 04/17/21 02:14 Hydralazine HCl (Hydralazine Hcl 20 Mg/Ml Vial) 10 mg IV Q6H PRN PRN Reason: BP>180 systolic,>100 diastolic Stop: 04/15/21 04:08 Last Admin: 03/16/21 04:24 Dose: 10 mg Documented by: Dexamethasone 6 mg/ Syringe 1.5 mls @ 1 mls/min IV Q24H [facility] Stop: 04/15/21 08:59 Last Admin: 03/18/21 08:48 Dose: 1 mls/min Documented by: Azithromycin 500 mg/ Dextrose 255 mls @ 127.5 mls/hr IV Q24H [facility] Stop: 03/22/21 15:59 Last Infusion: 03/18/21 17:58 Dose: Infused Documented by: Insulin Aspart (Insulin Aspart Per Unit) 0 units SC ACHS [facility] Stop: 04/14/21 16:29 Last Admin: 03/18/21 21:52 Dose: Not Given Documented by: Insulin Human NPH (Insulin Human Nph) 12 units SQ QAM [facility] Stop: 04/15/21 08:59 Last Admin: 03/18/21 09:26 Dose: 12 units Documented by: Lactulose (Lactulose Syrup 20 Gm/30 Ml Udc) 10 gm PO BID PRN PRN Reason: constipation Stop: 04/14/21 14:41 Levothyroxine Sodium (Levothyroxine Sodium 75 Mcg Tablet) 75 mcg PO DAILYBB [facility] Stop: 04/15/21 06:29 Last Admin: 03/18/21 06:18 Dose: 75 mcg Documented by: Magnesium Hydroxide (Magnesium Hydroxide Susp 30 Ml Udc) 30 ml PO Q12H PRN PRN Reason: Constipation Stop: 04/14/21 14:27 Magnesium Oxide (Magnesium Oxide 400 Mg Tab) 400 mg PO QAM [facility] Stop: 04/15/21 08:59 Last Admin: 03/18/21 08:53 Dose: 400 mg Documented by: Metoprolol Tartrate (Metoprolol Tartrate 100 Mg Tab) 100 mg PO BID [facility] Stop: 04/14/21 20:59 Last Admin: 03/18/21 21:51 Dose: 100 mg Documented by: Miscellaneous (Carbohydrates For Hypoglycemia ) 15 - 30 gm PO UD PRN PRN Reason: Hypoglycemia Treatment Stop: 04/17/21 02:14 Miscellaneous Information (Pharmacy Glycemic Mgmt Consult) 1 ea N/A UD PRN PRN Reason: Consult Stop: 04/14/21 14:27 Nitroglycerin (Nitroglycerin Sl 0.4 Mg/Tab Tab) 0.4 mg SL UD PRN PRN Reason: Chest Pain Stop: 04/14/21 14:27 Ondansetron HCl (Ondansetron Inj 2 Mg/Ml 2 Ml Vial) 4 mg IV Q6H PRN PRN Reason: Nausea Stop: 04/14/21 14:27 Pantoprazole Sodium (Pantoprazole 40 Mg Tab) 40 mg PO BID [facility] Stop: 04/14/21 20:59 Last Admin: 03/18/21 21:52 Dose: 40 mg Documented by: Polyethylene Glycol (Polyethylene (Miralax) 17 Gm Pack) 17 gm PO DAILY PRN PRN Reason: CONSTIPATION Stop: 04/14/21 14:27 Potassium Chloride (Potassium Chloride Crtab 20 Meq Tabcr) 60 meq PO BID [facility] Stop: 04/14/21 20:59 Last Admin: 03/18/21 21:55 Dose: 60 meq Documented by: Vitamin B Complex (Vitamin B Complex Tab) 1 tab PO QAM [facility] Stop: 04/15/21 08:59 Last Admin: 03/18/21 08:48 Dose: 1 tab Documented by: Vitamin D (Cholecalciferol 1,000 Units 25 Mcg Tab) 1,000 units PO DAILY [facility] Stop: 04/15/21 08:59 Last Admin: 03/18/21 08:49 Dose: 1,000 units Documented by: Warfarin Sodium (Warfarin Sod 2 Mg Tab) 2 mg PO DAILY@1600 [facility] Stop: 04/17/21 15:59 Last Admin: 03/18/21 15:57 Dose: 2 mg Documented by: Zolpidem Tartrate (Zolpidem Tartrate 5 Mg Tab) 5 mg PO HS PRN PRN Reason: Sleep Stop: 04/14/21 14:27 PG Care Time/CCT Total # of Minutes Spent Total Time Spent: 32 Total Time Spent with Patient: Total time spent is greater than 50% in coordination of care (as documented) at patient's floor/unit and/or counseling patient: Coding Level of Care Code 60904 Subseq Hosp Care Lvl 3 (25 - SIGNIFICANT, SEPARATELY IDENTIFIABLE ) Diagnoses CVA (cerebral vascular accident) I63.9 Pneumonia due to severe acute respiratory syndrome coronavirus 2 (SARS-CoV-2) U07.1; J12.82 Confusion R41.0 Encephalopathy acute G93.40 H/O heart valve replacement with bioprosthetic valve Z95.3 CAD (coronary artery disease), [place] coronary artery I25.10 [place] vs. transplanted heart: [place] heart Associated angina: without angina HTN (hypertension) I10 Hypertension type: essential hypertension COPD, moderate J44.9 Chronic diastolic congestive heart failure I50.32 Current use of chcf anticoagulation Z79.01 DVT, recurrent, lower extremity, chronic I82.509 Paroxysmal atrial fibrillation I48.0 Hypokalemia E87.6 (1) CAD (coronary artery disease), [place] coronary artery [place] vs. transplanted heart: [place] heart Associated angina: without angina Qualified Code(s): I25.10 - Atherosclerotic heart disease of [place] coronary artery without angina pectoris (2) HTN (hypertension) Hypertension type: essential hypertension Qualified Code(s): I10 - Essential (primary) hypertension
[2021-03-19] MEDS: LEVOTHYROXINE SODIUM 75 MCG TABLET PO SCH (05:48)
[2021-03-19 05:59] LABS: INR 1.1 (0.9-1.1); Prothrombin Time 11.2 Seconds (9.0-12.0)
[2021-03-19] MEDS: PANTOprazole 40 MG TAB PO SCH ×2 (08:19→20:29)
[2021-03-19] MEDS: BUMETANIDE 1 MG TAB PO SCH ×2 (08:19→20:28)
[2021-03-19] MEDS: dexAMETHasone 6 MG in SYRINGE 0 ML IV SCH (08:20)
[2021-03-19] MEDS: VITAMIN B COMPLEX TAB PO SCH (08:20)
[2021-03-19] MEDS: dilTIAZem HCL 120 MG CAPCR PO SCH (08:20)
[2021-03-19] MEDS: ASPIRIN 81 MG ECTAB PO SCH (08:21)
[2021-03-19] MEDS: amLODIPine BESYLATE 5 MG TAB PO SCH (08:21)
[2021-03-19] MEDS: CHOLECALCIFEROL 1,000 UNITS 25 MCG TAB PO SCH (08:21)
[2021-03-19] MEDS: METOPROLOL TARTRATE 100 MG TAB PO SCH ×2 (08:21→20:29)
[2021-03-19] MEDS: POTASSIUM CHLORIDE CRTAB 20 MEQ TABCR PO SCH ×2 (08:40→20:29)
[2021-03-19] MEDS: INSULIN HUMAN NPH SQ SCH (08:56)
[2021-03-19] MEDS: INSULIN ASPART PER UNIT SC SCH ×4 (08:56→20:46)
[2021-03-19] MEDS: MAGNESIUM OXIDE 400 MG TAB PO SCH (09:52)
--- NOTE | 2021-03-19 13:31 | Pharmacy Report ---
Pharmacy Glycemic Short Note 2 - Date of Service March 19, 2021 - Glycemic Short BSG Results (Last 24 hours): 03/18/21 03/18/21 03/19/21 16:46 20:55 08:10 POC Glucose 70 113 H 177 H 03/19/21 12:05 POC Glucose 230 H OUTPATIENT ANTIDIABETIC REGIMEN: * NPH 12 units every other day * HbA1c 11.5% on 02/24/21 ASSESSMENT: 03/19/21 * Patient's BSGs yesterday were 556-64-72-113 mg/dL and fasting today is 177 mg/dL. * Fasting is trending upwards ([phone] mg/dL) so considering adding second, smaller dose of NPH in the evening. HOWEVER, concerned about lower BSGs in the evening. Consider addition of second dose of NPH tomorrow and if do so could lower morning dose of NPH. * Patient overcorrections with CF of 15 so loosen to 20 mg/dL. Continue CR. 03/17 * Stressors stable * AM fasting BSG in goal range - will continue same NPH dose and schedule qAM * Post-prandial BSG's all elevated yesterday ranging 187-221 mg/dL. Will tighten CHO ratio. 03/16 * Stressors stable - dexamethasone continues * BSG's trended down significantly after home dose NPH and 19 units of correctional insulin. Will therefore not increase NPH this AM and provide low dose of 12 units again. May need to be increased tomorrow. * No PO intake thus far to determine adequacy of Novolog CHO ratio, but given significant trend down in BSG's will loosen CHO ratio slightly. This is still tighter than his other admission (not on steroids). BSG did increase significantly from breakfast to lunch, but no insulin was administered with breakfast therefore this may be due to uncovered CHO consumption. 03/15 * Mr Beth is an 89 y/o M with a PMH of T2DM on insulin who presents with COVID. * Blood sugar on PRP this AM was 164 mg/dL but by 1530 BSG was 315 mg/dL on POC. Patient received dexamethasone 6 mg IV x 1 at 1119. * Give home dose of NPH 12 units SQ x 1 then determine future dosing tomorrow based upon how patient reacts today. * Tight Novolog coverage. Patient is carbohydrate sensitive so will utilize extremely tight carbohydrate ratio. PLAN FOR INPATIENT GLYCEMIC CONTROL: * Basal insulin * NPH 12 units SQ qAM * Bolus insulin * NovoLog per scale ACHS or Q6hrs while NPO * Goal Range: Low 110 mg/dL - High 140 mg/dL * Correction Factor: 20 mg/dL/unit * Nutritional / Prandial insulin per carb ratio of 1 unit per 3 grams CHO consumed PLAN FOR DISCHARGE: * Patient's HbA1C is 11.5% which is above goal of <8% for patient's age and comorbidities. * Discharge plan will depend on what steroids patient is discharged on so will elaborate closer to discharge.
[2021-03-19] MEDS: AZITHROMYCIN 500 MG in DEXTROSE 5% 250 ML IV SCH (15:54)
[2021-03-19] MEDS: WARFARIN SOD 2 MG TAB PO SCH (16:10)
--- NOTE | 2021-03-19 19:57 | Hospitalist Progress Note ---
Date of Service March 19, 2021 Assessment & Plan (1) CVA (cerebral vascular accident): Plan: MRI brain: acute infarct in the anterior left lentiform nucleus. Possible age- indeterminate hemorrhage in the left supraventricular white matter. placed stroke order sets, consulted neurology permissive HTN question is there actually a bleed? 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 there are concerns he is too weak to come home, they need more help but not available until next week -try to discharge once family can provide more support and caregivers can come back after COVID quarantine (2) Pneumonia due to severe acute respiratory syndrome coronavirus 2 (SARS-CoV-2): Plan: now with increasing oxygen needs, now on 6LN and baseline home O2 is 2-3L, no distress CXR with increased infiltrates -continue dexamethasone 6mg IV daioly -continue azithro daily x 5 day course no role for Remdesivir or baricitinib (3) Confusion: Plan: -- Probably encephalopathic due to acute illness. mental status is much improved now-doing vwey well (4) Encephalopathy acute: Plan: -- As outlined above. (5) H/O heart valve replacement with bioprosthetic valve: Plan: History of severe s/p Bioprosthetic AVR 11/01/2012. Echocardiogram 09/16/20: -- Normal LV size, systolic function. -- LVEF 55%-60%. No regional wall motion abnormalities. -- Septal motion consistent with prior cardiac surgery. -- Mild concentric LVH. -- Mildly reduced RV systolic function. -- Mild left atrial dilation. -- Mild MR. -- Appropriately functioning bioprosthetic AVR. -- RVSP 35 mmHg. 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 -- LUEVANO to LAD. SVG to OM. SVG to PDA. -- Continue current cardiac regimen including statin, beta-tiera, calcium channel tiera. -- Initial Troponin I is normal at 0.019 ng/mL. -added on ASA 81mg daily for acute CVA as above (7) HTN (hypertension): Plan: Blood pressure is elevated at times. -- Continue beta-tiera, diltiazem, and diuretic. dc amlodipine as already on diltiazem (8) COPD, moderate: Plan: continue inhalers as needed, decadron (9) Chronic diastolic congestive heart failure: Plan: Patient appears euvolemic. -- Continue Bumex 4 mg b.i.d.. -- Continue Potassium Chloride 60 mEq b.i.d. -- extra dose given in ER due to hypokalemia. -- Monitor I&O's and daily weights. (10) Current use of intermediate designer anticoagulation: Plan: Patient on fci Coumadin for both recurrent DVT's and paroxysmal atrial fibrillation. -- Followed at [facility]. -- Goal INR is 2.0 to 3.0. -- INR 1.1 -- Patient takes Coumadin 4 mg every Monday, 2 mg all other days-changed order to 4mg daily as INR subtherapeutic and just had stroke (11) DVT, recurrent, lower extremity, chronic: Plan: Patient on intermediate designer Coumadin for both recurrent DVT's and paroxysmal atrial fibrillation. -- Followed at [facility] clinic. -- Goal INR is 2.0 to 3.0. -- INR 1.1 -- Patient takes Coumadin 4 mg every Monday, 2 mg all other days. (12) Paroxysmal atrial fibrillation: Plan: History of PAF and PAT. -- EKG 03/15/21 is suspicious for atrial tachycardia at 122 bpm. -- electronic device monitor shows a sinus rhythm with occasional PAC's. (13) Hypokalemia: Plan: -- Continue Potassium Chloride 60 mEq b.i.d. -- extra dose given in ER due to hypokalemia. -- Monitor daily BMP. Plan: Dispo-continued stay, needs improved strength before returning home, plus has increasing O2 requirement Admission and Anticipated Discharge Date Admission Date: March 15, 2021 Subjective Pt feeling fine. RN notes he dests to mid 80s with minimal movement and O2 turned up to 6L but pt does not feel SOB with this. No CP, no abd pain. Has chronic constipation. Is eating and drinking. Review of Systems Review of Systems: All systems reviewed & are unremarkable except as noted in HPI & below Physical Exam Constitutional: WD/WN, vitals as above Eyes: PERRL, conjunctivae normal, anicteric sclerae ENMT: external ear and nose normal, oropharynx normal Neck: trachea midline, no thyromegaly Respiratory: normal respiratory effort; no cough and not tachypneic Auscultation: + crackles (fine crackles in lower and middle lung lynch bilat); no rhonchi and no wheezes Cardiovascular: RRR, no murmur, no edema Chest (Breasts): Chest: normal inspection of chest Gastrointestinal (Abdomen): normal bowel sounds, soft, nontender, no hepatosplenomegaly Musculoskeletal: Extremities: extremities normal to inspection; no cyanosis and no clubbing Skin: no rashes, warm and dry Neurologic: moves all extremities and awake; no focal motor deficits Psychiatric: A+Ox3, euthymic affect Lymphatic: no lymphedema Results & Data Results & Data ([facility]) Vital Signs (Past 12 Hours) Vital Signs Temp Pulse Resp BP Pulse Ox 03/19/21 17:45 85 L 03/19/21 17:19 93 03/19/21 15:54 92 03/19/21 15:01 36.6 C 74 16 143/82 H 95 03/19/21 13:15 95 03/19/21 12:55 88 L 03/19/21 12:50 80 L 03/19/21 10:10 93 03/19/21 09:36 94 03/19/21 09:12 96 03/19/21 08:54 20 92 03/19/21 08:30 80 L Laboratory Results 03/19/21 03/19/21 03/19/21 Range/Units 20:26 16:56 12:05 PT (9.0-12.0) Seconds INR (0.9-1.1) POC Glucose 154 H 195 H 230 H (70-99) mg/dl 03/19/21 03/19/21 Range/Units 08:10 05:33 PT 11.2 (9.0-12.0) Seconds INR 1.1 (0.9-1.1) POC Glucose 177 H (70-99) mg/dl PG Care Time/CCT Total # of Minutes Spent Total Time Spent with Patient: Total time spent is greater than 50% in coordination of care (as documented) at patient's floor/unit and/or counseling patient: Coding Level of Care Code 15808 Subseq Hosp Care Lvl 3 Diagnoses CVA (cerebral vascular accident) I63.9 Pneumonia due to severe acute respiratory syndrome coronavirus 2 (SARS-CoV-2) U07.1; J12.82 Confusion R41.0 Encephalopathy acute G93.40 H/O heart valve replacement with bioprosthetic valve Z95.3 CAD (coronary artery disease), [place] coronary artery I25.10 Associated angina: without angina [place] vs. transplanted heart: [place] heart HTN (hypertension) I10 Hypertension type: essential hypertension COPD, moderate J44.9 Chronic diastolic congestive heart failure I50.32 Current use of intermediate designer anticoagulation Z79.01 DVT, recurrent, lower extremity, chronic I82.509 Paroxysmal atrial fibrillation I48.0 Hypokalemia E87.6 (1) CAD (coronary artery disease), [place] coronary artery Associated angina: without angina [place] vs. transplanted heart: [place] heart Qualified Code(s): I25.10 - Atherosclerotic heart disease of [place] coronary artery without angina pectoris (2) HTN (hypertension) Hypertension type: essential hypertension Qualified Code(s): I10 - Essential (primary) hypertension
[2021-03-19] MEDS: ATORVASTATIN 40 MG TAB PO SCH (20:28)
[2021-03-20] MEDS: LEVOTHYROXINE SODIUM 75 MCG TABLET PO SCH (05:55)
[2021-03-20 06:07] LABS: Hematocrit (blood only) 40.7 % (42-52); Hemoglobin 13.4 g/dL (14.0-18.0); Immature Granulocytes # (auto) 0.03 K/uL (0.00-0.02); Immature Granulocytes % (auto) 0.3 %; Lymphocytes # (auto) 0.68 K/uL (1.2-3.4); Lymphocytes % (auto) 6.1 %; Mean Corpuscular Hemoglobin 34.6 pg (25-34); Mean Corpuscular Hgb Conc 32.9 g/dL (32-36); Mean Corpuscular Volume 105.2 fL (80-100); Mean Platelet Volume 11.8 fL (7.4-10.4); Monocytes # (auto) 0.68 K/uL (0.11-0.59); Monocytes % (auto) 6.1 %; Neutrophils % (auto) 87.5 %; Platelet Count 161 K/uL (130-400); RDW Coefficient of Variation 14.2 % (11.5-14.5); RDW Standard Deviation 54.3 fL (36.4-46.3); Red Blood Count 3.87 M/uL (4.7-6.1); White Blood Count 11.09 K/uL (4.8-10.8)
[2021-03-20 06:16] LABS: INR 1.4 (0.9-1.1); Prothrombin Time 14.2 Seconds (9.0-12.0)
[2021-03-20 06:51] LABS: Albumin Globulin Ratio 0.7 (0.9-2); Albumin Level 2.6 gm/dl (3.4-5.0); BUN Creatinine Ratio 18.9 (10-20); C Reactive Protein 6.38 mg/dl (0-0.29); Calcium 9.3 mg/dl (8.5-10.1); Creatinine Clr Calc Pharmacy 17.9 ml/min; Est GFR (African American) 25.1 ml/min; Est GFR (Non-African American) 21.6 ml/min; Globulin 3.9 gm/dl (2.5-4.0); Potassium 4.9 mmol/L (3.5-5.1); Total Protein 6.5 gm/dl (6.4-8.2)
[2021-03-20] MEDS: INSULIN HUMAN NPH SQ SCH (08:51)
[2021-03-20] MEDS: INSULIN ASPART PER UNIT SC SCH ×5 (09:01→21:09)
[2021-03-20] MEDS: VITAMIN B COMPLEX TAB PO SCH (09:03)
[2021-03-20] MEDS: MAGNESIUM OXIDE 400 MG TAB PO SCH (09:03)
[2021-03-20] MEDS: POTASSIUM CHLORIDE CRTAB 20 MEQ TABCR PO SCH (09:03)
[2021-03-20] MEDS: PANTOprazole 40 MG TAB PO SCH ×2 (09:04→21:17)
[2021-03-20] MEDS: AZITHROMYCIN 250 MG TAB PO SCH (09:04)
[2021-03-20] MEDS: ASPIRIN 81 MG ECTAB PO SCH (09:04)
[2021-03-20] MEDS: METOPROLOL TARTRATE 100 MG TAB PO SCH ×2 (09:04→21:17)
[2021-03-20] MEDS: dilTIAZem HCL 120 MG CAPCR PO SCH (09:04)
[2021-03-20] MEDS: BUMETANIDE 1 MG TAB PO SCH (09:04)
[2021-03-20] MEDS: CHOLECALCIFEROL 1,000 UNITS 25 MCG TAB PO SCH (09:04)
[2021-03-20] MEDS: dexAMETHasone 6 MG in SYRINGE 0 ML IV SCH (09:40)
[2021-03-20] MEDS ORDERED: WARFARIN SOD 4 MG TAB PO SCH (16:00)
[2021-03-20] MEDS: ATORVASTATIN 40 MG TAB PO SCH (21:17)
[2021-03-21] MEDS: LEVOTHYROXINE SODIUM 75 MCG TABLET PO SCH (05:48)
[2021-03-21 06:21] LABS: INR 2.1 (0.9-1.1); Prothrombin Time 20.3 Seconds (9.0-12.0)
[2021-03-21] MEDS: INSULIN ASPART PER UNIT SC SCH ×4 (09:10→22:02)
[2021-03-21] MEDS: INSULIN HUMAN NPH SQ SCH (09:12)
[2021-03-21] MEDS: VITAMIN B COMPLEX TAB PO SCH (09:47)
[2021-03-21] MEDS: ASPIRIN 81 MG ECTAB PO SCH (09:47)
[2021-03-21] MEDS: AZITHROMYCIN 250 MG TAB PO SCH (09:47)
[2021-03-21] MEDS: dexAMETHasone 6 MG in SYRINGE 0 ML IV SCH (09:47)
[2021-03-21] MEDS: CHOLECALCIFEROL 1,000 UNITS 25 MCG TAB PO SCH (09:47)
[2021-03-21] MEDS: PANTOprazole 40 MG TAB PO SCH ×2 (09:47→20:43)
[2021-03-21] MEDS: MAGNESIUM OXIDE 400 MG TAB PO SCH (09:47)
[2021-03-21] MEDS: dilTIAZem HCL 120 MG CAPCR PO SCH (09:47)
[2021-03-21] MEDS: METOPROLOL TARTRATE 100 MG TAB PO SCH ×2 (09:48→20:43)
--- NOTE | 2021-03-21 10:19 | Hospitalist Progress Note ---
Date of Service March 20, 2021 Assessment & Plan (1) CVA (cerebral vascular accident): Plan: MRI brain: acute infarct in the anterior left lentiform nucleus. Possible age- indeterminate hemorrhage in the left supraventricular white matter. 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 there are concerns he is too weak to come home, they need more help but not available until next week -try to discharge once family can provide more support and caregivers can come back after COVID quarantine (2) Pneumonia due to severe acute respiratory syndrome coronavirus 2 (SARS-CoV-2): Plan: now with increasing oxygen needs, now on 6-10 LNC and baseline home O2 is 2-3L, no distress CXR with increased infiltrates -continue dexamethasone 6mg IV daily -continue azithro daily x 5 day course no role for Remdesivir or baricitinib (3) Confusion: Plan: -- Probably encephalopathic due to acute illness. mental status is much improved now-doing very well (4) Encephalopathy acute: Plan: resolved, as above (5) H/O heart valve replacement with bioprosthetic valve: Plan: History of severe s/p Bioprosthetic AVR 11/01/2012. Echocardiogram 09/16/20: -- Normal LV size, systolic function. -- LVEF 55%-60%. No regional wall motion abnormalities. -- Septal motion consistent with prior cardiac surgery. -- Mild concentric LVH. -- Mildly reduced RV systolic function. -- Mild left atrial dilation. -- Mild MR. -- Appropriately functioning bioprosthetic AVR. -- RVSP 35 mmHg. (6) CAD (coronary artery disease), [place] coronary artery: Plan: Multivessel CAD s/p CABG x 3 Vessels 11/01/2012: -- Patient is not experiencing any angina pectoris or anginal equivalent symptoms. -- LUEVANO to LAD. SVG to OM. SVG to PDA. -- Continue current cardiac regimen including statin, beta-tiera, calcium channel tiera. -- Initial Troponin I is normal at 0.019 ng/mL. -added on ASA 81mg daily for acute CVA as above (7) HTN (hypertension): Plan: Blood pressure is elevated at times. -- Continue beta-tiera, diltiazem, and diuretic, but holding diuretic today for CARLOS dcd amlodipine as already on diltiazem (8) COPD, moderate: Plan: continue inhalers as needed, decadron (9) Chronic diastolic congestive heart failure: Plan: Patient appears euvolemic. Now with CARLOS with embalmer apprentice rising to 2.53 from 1.9 baseline --HOLD Bumex 4 mg b.i.d. and HOLD KCl today -follow BMP -- Monitor I&O's and daily weights. (10) Current use of [facility] anticoagulation: Plan: Patient on rat exterminator Coumadin for both recurrent DVT's and paroxysmal atrial fibrillation. -- Followed at [facility] Coag clinic. -- Goal INR is 2.0 to 3.0. -- INR 1.1 -- Patient takes Coumadin 4 mg every Monday, 2 mg all other days-changed order to 4mg daily as INR subtherapeutic and just had stroke (11) DVT, recurrent, lower extremity, chronic: Plan: Patient on [facility] Coumadin for both recurrent DVT's and paroxysmal atrial fibrillation. -- Followed at [facility] Coag clinic. -- Goal INR is 2.0 to 3.0. -- INR 1.4 today -- Patient takes Coumadin 4 mg every Monday, 2 mg all other days, but increased to 4mg daily here due to stroke and has been subtherapeutic (12) Paroxysmal atrial fibrillation: Plan: History of PAF and PAT. -- EKG 03/15/21 is suspicious for atrial tachycardia at 122 bpm. -- field reimbursement manager shows a sinus rhythm with occasional PAC's. continue coumadin, metoprolol, diltiazem (13) Hypokalemia: Plan: -hold KCl while Bumex on hold -- Monitor daily BMP. Plan: Dispo-continued stay, needs improved strength before returning home, plus has increasing O2 requirement Admission and Anticipated Discharge Date Admission Date: March 15, 2021 Subjective Pt feels fine, some LOMELI, is on 4-6KL at rest and 10 for with exertion. No CP, no other issues Review of Systems Review of Systems: All systems reviewed & are unremarkable except as noted in HPI & below Physical Exam Constitutional: WD/WN, vitals as above Eyes: + anicteric sclerae Neck: trachea midline, no thyromegaly Respiratory: normal respiratory effort; no cough and not tachypneic Auscultation: + crackles (fine crackles in lower and middle lung lynch bilat); no rhonchi and no wheezes Cardiovascular: RRR, no murmur, no edema Chest (Breasts): Chest: normal inspection of chest Gastrointestinal (Abdomen): normal bowel sounds, soft, nontender, no hepatosplenomegaly Musculoskeletal: Extremities: extremities normal to inspection; no cyanosis and no clubbing Skin: no rashes, warm and dry Neurologic: moves all extremities and awake; no focal motor deficits Psychiatric: A+Ox3, euthymic affect Lymphatic: no lymphedema Results & Data Results & Data ([facility]) Vital Signs (Past 12 Hours) Vital Signs Temp Pulse Pulse Resp BP Pulse Ox 03/21/21 09:45 58 L 03/21/21 08:10 36.7 C 60 22 152/73 H 90 03/20/21 22:28 36.3 C L 56 L 19 143/73 H 92 PG Care Time/CCT Total # of Minutes Spent Total Time Spent with Patient: Total time spent is greater than 50% in coordination of care (as documented) at patient's floor/unit and/or counseling patient: Coding Level of Care Code 05380 Subseq Hosp Care Lvl 3 Diagnoses CVA (cerebral vascular accident) I63.9 Pneumonia due to severe acute respiratory syndrome coronavirus 2 (SARS-CoV-2) U07.1; J12.82 Confusion R41.0 Encephalopathy acute G93.40 H/O heart valve replacement with bioprosthetic valve Z95.3 CAD (coronary artery disease), [place] coronary artery I25.10 [place] vs. transplanted heart: [place] heart Associated angina: without angina HTN (hypertension) I10 Hypertension type: essential hypertension COPD, moderate J44.9 Chronic diastolic congestive heart failure I50.32 Current use of rat exterminator anticoagulation Z79.01 DVT, recurrent, lower extremity, chronic I82.509 Paroxysmal atrial fibrillation I48.0 Hypokalemia E87.6 (1) CAD (coronary artery disease), [place] coronary artery [place] vs. transplanted heart: [place] heart Associated angina: without angina Qualified Code(s): I25.10 - Atherosclerotic heart disease of [place] coronary artery without angina pectoris (2) HTN (hypertension) Hypertension type: essential hypertension Qualified Code(s): I10 - Essential (primary) hypertension
[2021-03-21 10:52] LABS: BUN Creatinine Ratio 23.2 (10-20); Creatinine Clr Calc Pharmacy 18.8 ml/min; Est GFR (African American) 26.6 ml/min; Est GFR (Non-African American) 22.9 ml/min; Potassium 4.7 mmol/L (3.5-5.1)
--- NOTE | 2021-03-21 14:15 | Hospitalist Progress Note ---
Date of Service March 21, 2021 Assessment & Plan (1) CVA (cerebral vascular accident): Plan: MRI brain: acute infarct in the anterior left lentiform nucleus. Possible age- indeterminate hemorrhage in the left supraventricular white matter. 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 there are concerns he is too weak to come home, they need more help but not available until next week -plan is now for rehab placement-referral made to rehab -continue PT/OT (2) Pneumonia due to severe acute respiratory syndrome coronavirus 2 (SARS-CoV-2): Plan: now with increasing oxygen needs, now on 6-8LNC and baseline home O2 is 2-3L, no distress but does get dyspneic and sat drops with even sitting up in bed CXR with increased infiltrates -continue dexamethasone 6mg IV daily -continue azithro daily x 5 day course-now completed no role for Remdesivir or baricitinib (3) Confusion: Plan: -- Probably encephalopathic due to acute illness. mental status is much improved now-doing very well (4) Encephalopathy acute: Plan: resolved, as above (5) H/O heart valve replacement with bioprosthetic valve: Plan: History of severe s/p Bioprosthetic AVR 11/01/2012. Echocardiogram 09/16/20: -- Normal LV size, systolic function. -- LVEF 55%-60%. No regional wall motion abnormalities. -- Septal motion consistent with prior cardiac surgery. -- Mild concentric LVH. -- Mildly reduced RV systolic function. -- Mild left atrial dilation. -- Mild MR. -- Appropriately functioning bioprosthetic AVR. -- RVSP 35 mmHg. 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 -- LUEVANO to LAD. SVG to OM. SVG to PDA. -- Continue current cardiac regimen including statin, beta-tiera, calcium channel tiera -- Initial Troponin I is normal at 0.019 ng/mL. -added on ASA 81mg daily for acute CVA as above (7) HTN (hypertension): Plan: Blood pressure is elevated at times. -- Continue beta-tiera, diltiazem -continue holding Bumex for CARLOS which is now improving dc amlodipine as already on diltiazem (8) COPD, moderate: Plan: continue inhalers as needed, decadron (9) Chronic diastolic congestive heart failure: Plan: Patient appears euvolemic. 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 and HOLD KCl -follow BMP -- Monitor I&O's and daily weights (10) Current use of machine long goods helper anticoagulation: Plan: Patient on machine long goods helper Coumadin for both recurrent DVT's and paroxysmal atrial fibrillation. -- Followed at [facility] Coag clinic. -- Goal INR is 2.0 to 3.0. -- INR now at goal of 2.1 -- Patient takes Coumadin 4 mg every Monday, 2 mg all other days-gave 4mg daily x 2 days as INR subtherapeutic and just had stroke, but now decrease back to 2mg daily as is on steroids and my become supratherapeutic (11) DVT, recurrent, lower extremity, chronic: Plan: Patient on machine long goods helper Coumadin for both recurrent DVT's and paroxysmal atrial fibrillation. -- Followed at [facility] Coag clinic. -- Goal INR is 2.0 to 3.0. INR at goal now (12) Paroxysmal atrial fibrillation: Plan: History of PAF and PAT. -- EKG 03/15/21 is suspicious for atrial tachycardia at 122 bpm. -- lab animal technician shows a sinus rhythm with occasional PAC's. now in regular rhythm on exam continue diltiazem, metoprolol (13) Hypokalemia: Plan: hold home KCl while Bumex on hold -- Monitor daily BMP. 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 (15) Diabetes mellitus: Plan: uncontrolled, A1C 11.5% Pharmacy managing insulin while decadron needs improved outpt regimen (16) CKD (chronic kidney disease) stage 4, GFR 15-29 ml/min: Plan: bufferer baseline 1.8-2.2 with CARLOS as above -Avoid nephrotoxins -renally dose meds when appropriate -follow BMP (17) Hypothyroid: Plan: TSH 1.6 earlier this month continue home LT4 Plan: Dispo-continued stay for high O2 requirement, but now plan to go to rehab after COVID improved due to weakness from stroke and generalized weakness from COVID infection Admission and Anticipated Discharge Date Admission Date: March 15, 2021 Subjective Pt feels SOB with exertion, feels weak all over. Otherwise not really coughing.No other concerns Review of Systems Review of Systems: All systems reviewed & are unremarkable except as noted in HPI & below Physical Exam Constitutional: WD/WN, vitals as above Eyes: + anicteric sclerae ENMT: external ear and nose normal, oropharynx normal Neck: trachea midline, no thyromegaly Respiratory: normal respiratory effort; no cough and not tachypneic Auscul tation: + crackles (fine crackles in lower and middle lung lynch bilat); no rhonchi and no wheezes Cardiovascular: RRR, no murmur, no edema Chest (Breasts): Chest: normal inspection of chest Gastrointestinal (Abdomen): normal bowel sounds, soft, nontender, no hepatosplenomegaly Musculoskeletal: Extremities: extremities normal to inspection; no cyanosis and no clubbing Skin: no rashes, warm and dry Neurologic: moves all extremities and awake; no focal motor deficits (except very mild RUE weakness,triceps,biceps) Psychiatric: A+Ox3, euthymic affect Lymphatic: no lymphedema Results & Data Results & Data ([facility]) Vital Signs (Past 12 Hours) Vital Signs Temp Pulse Pulse Resp BP Pulse Ox 03/21/21 14:04 90 03/21/21 13:37 91 03/21/21 13:07 94 03/21/21 12:14 91 03/21/21 09:45 58 L 03/21/21 08:10 36.7 C 60 22 152/73 H 90 Laboratory Results 03/21/21 03/21/21 03/21/21 Range/Units 12:17 10:16 08:14 PT (9.0-12.0) Seconds INR (0.9-1.1) Sodium 145 (136-145) mmol/L Potassium 4.7 (3.5-5.1) mmol/L Chloride 110 H (98-107) mmol/L Carbon Dioxide 30 (21-32) mmol/L Anion Gap 5.0 (3-11) BUN 56 H (7-18) mg/dl Creatinine 2.41 H (0.6-1.4) mg/dl Est Cr Clr Drug Dosing 18.8 ml/min Est GFR ( Amer) 26.6 ml/min Est GFR (Non-Af Amer) 22.9 ml/min BUN/Creatinine Ratio 23.2 H (10-20) Glucose 110 H (70-99) mg/dl POC Glucose 170 H 122 H (70-99) mg/dl Calcium 9.0 (8.5-10.1) mg/dl 03/21/21 03/20/21 03/20/21 Range/Units 05:52 21:01 17:26 PT 20.3 H (9.0-12.0) Seconds INR 2.1 H (0.9-1.1) Sodium (136-145) mmol/L Potassium (3.5-5.1) mmol/L Chloride (98-107) mmol/L Carbon Dioxide (21-32) mmol/L Anion Gap (3-11) BUN (7-18) mg/dl Creatinine (0.6-1.4) mg/dl Est Cr Clr Drug Dosing ml/min Est GFR ( Amer) ml/min Est GFR (Non-Af Amer) ml/min BUN/Creatinine Ratio (10-20) Glucose (70-99) mg/dl POC Glucose 258 H 186 H (70-99) mg/dl Calcium (8.5-10.1) mg/dl PG Care Time/CCT Total # of Minutes Spent Total Time Spent with Patient: Total time spent is greater than 50% in coordination of care (as documented) at patient's floor/unit and/or counseling patient: Coding Level of Care Code 55026 Subseq Hosp Care Lvl 3 Diagnoses CVA (cerebral vascular accident) I63.9 Pneumonia due to severe acute respiratory syndrome coronavirus 2 (SARS-CoV-2) U07.1; J12.82 Confusion R41.0 Encephalopathy acute G93.40 H/O heart valve replacement with bioprosthetic valve Z95.3 CAD (coronary artery disease), [place] coronary artery I25.10 Associated angina: without angina [place] vs. transplanted heart: [place] heart HTN (hypertension) I10 Hypertension type: essential hypertension COPD, moderate J44.9 Chronic diastolic congestive heart failure I50.32 Current use of machine long goods helper anticoagulation Z79.01 DVT, recurrent, lower extremity, chronic I82.509 Paroxysmal atrial fibrillation I48.0 Hypokalemia E87.6 O2 dependent Z99.81 Diabetes mellitus E11.69; Z79.4 Diabetes mellitus type: type 2 Diabetes mellitus chcf insulin use: with chcf use Diabetes mellitus complication status: with other specified complication CKD (chronic kidney disease) stage 4, GFR 15-29 ml/min N18.4 Hypothyroid E03.9 (1) CAD (coronary artery disease), [place] coronary artery Associated angina: without angina [place] vs. transplanted heart: [place] heart Qualified Code(s): I25.10 - Atherosclerotic heart disease of [place] coronary artery without angina pectoris (2) HTN (hypertension) Hypertension type: essential hypertension Qualified Code(s): I10 - Essential (primary) hypertension (3) Diabetes mellitus Diabetes mellitus type: type 2 Diabetes mellitus chcf insulin use: with chcf use Diabetes mellitus complication status: with other specified complication Qualified Code(s): E11.69 - Type 2 diabetes mellitus with other specified complication; Z79.4 - moth exterminator (current) use of insulin
[2021-03-21] MEDS ORDERED: WARFARIN SOD 2 MG TAB PO SCH (16:00)
[2021-03-21] MEDS: ATORVASTATIN 40 MG TAB PO SCH (20:43)
[2021-03-22] MEDS: LEVOTHYROXINE SODIUM 75 MCG TABLET PO SCH (06:14)
[2021-03-22 06:46] LABS: Hemoglobin 12.9 g/dL (14.0-18.0); INR 3.1 (0.9-1.1); Immature Granulocytes # (auto) 0.04 K/uL (0.00-0.02); Immature Granulocytes % (auto) 0.4 %; Lymphocytes # (auto) 0.85 K/uL (1.2-3.4); Lymphocytes % (auto) 7.6 %; Mean Corpuscular Hemoglobin 33.7 pg (25-34); Mean Corpuscular Hgb Conc 32.3 g/dL (32-36); Mean Corpuscular Volume 104.4 fL (80-100); Mean Platelet Volume 11.7 fL (7.4-10.4); Monocytes # (auto) 0.27 K/uL (0.11-0.59); Monocytes % (auto) 2.4 %; Neutrophils # (auto) 10.02 K/uL (1.4-6.5); Neutrophils % (auto) 89.6 %; Platelet Count 190 K/uL (130-400); Prothrombin Time 28.7 Seconds (9.0-12.0); RDW Coefficient of Variation 14.1 % (11.5-14.5); RDW Standard Deviation 54.3 fL (36.4-46.3); Red Blood Count 3.83 M/uL (4.7-6.1); White Blood Count 11.18 K/uL (4.8-10.8)
[2021-03-22 07:01] LABS: BUN Creatinine Ratio 24.1 (10-20); Calcium 9.1 mg/dl (8.5-10.1); Creatinine Clr Calc Pharmacy 19.5 ml/min; Est GFR (African American) 27.8 ml/min; Potassium 4.6 mmol/L (3.5-5.1)
[2021-03-22] MEDS: dexAMETHasone 6 MG in SYRINGE 0 ML IV SCH (08:32)
[2021-03-22] MEDS: VITAMIN B COMPLEX TAB PO SCH (08:32)
[2021-03-22] MEDS: MAGNESIUM OXIDE 400 MG TAB PO SCH (08:33)
[2021-03-22] MEDS: ASPIRIN 81 MG ECTAB PO SCH (08:33)
[2021-03-22] MEDS: CHOLECALCIFEROL 1,000 UNITS 25 MCG TAB PO SCH (08:33)
[2021-03-22] MEDS: PANTOprazole 40 MG TAB PO SCH ×2 (08:34→20:50)
[2021-03-22] MEDS: METOPROLOL TARTRATE 100 MG TAB PO SCH ×2 (08:45→20:50)
[2021-03-22] MEDS: dilTIAZem HCL 120 MG CAPCR PO SCH (08:45)
[2021-03-22] MEDS: INSULIN ASPART PER UNIT SC SCH ×4 (08:57→20:46)
[2021-03-22] MEDS: INSULIN HUMAN NPH SQ SCH (08:58)
--- NOTE | 2021-03-22 16:08 | Hospitalist Progress Note ---
Date of Service March 22, 2021 Assessment & Plan (1) CVA (cerebral vascular accident): Plan: MRI brain: acute infarct in the anterior left lentiform nucleus. Possible age- indeterminate hemorrhage in the left supraventricular white matter. 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 per family there are concerns he is too weak to come home, they need more help but not available until next week -plan is now for rehab placement-referral made to rehab -continue PT/OT (2) Pneumonia due to severe acute respiratory syndrome coronavirus 2 (SARS-CoV-2): Plan: now with increasing oxygen needs over the last 2 days, now on HFNC 25L and 70% FiO2 Baseline home O2 is 2-3LNC CXR with increased infiltrates -continue dexamethasone 6mg IV daily -completed 5 day course of azithro daily no role for Remdesivir or baricitinib (3) Confusion: Plan: -- Probably encephalopathic due to acute illness. mental status is much improved now-doing very well (4) Encephalopathy acute: Plan: resolved, as above (5) H/O heart valve replacement with bioprosthetic valve: Plan: History of severe s/p Bioprosthetic AVR 11/01/2012. Echocardiogram 09/16/20: -- Normal LV size, systolic function. -- LVEF 55%-60%. No regional wall motion abnormalities. -- Septal motion consistent with prior cardiac surgery. -- Mild concentric LVH. -- Mildly reduced RV systolic function. -- Mild left atrial dilation. -- Mild MR. -- Appropriately functioning bioprosthetic AVR. -- RVSP 35 mmHg. (6) CAD (coronary artery disease), [place] coronary artery: Plan: Multivessel CAD s/p CABG x 3 Vessels 11/01/2012: -- Patient is not experiencing any angina pectoris or anginal equivalent symptoms. -- LUEVANO to LAD. SVG to OM. SVG to PDA. -- Continue current cardiac regimen including statin, beta-tiera, calcium channel tiera -- Initial Troponin I is normal at 0.019 ng/mL. -added on ASA 81mg daily for acute CVA as above (7) HTN (hypertension): Plan: Blood pressure is elevated at times. -- Continue beta-tiera, diltiazem -ok to restart home Bumex which was held for CARLOS which is now improving dcd amlodipine as already on diltiazem (8) COPD, moderate: Plan: continue inhalers as needed, decadron (9) Chronic diastolic congestive heart failure: Plan: Patient appears euvolemic. Had CARLOS with auto body repairer fiberglass rising to 2.53 from 1.9-2.2 baseline on 03/20 Camera Technician today improved withholding Bumex, down to 2.3 --ok to restart home Bumex 4 mg b.i.d. -follow BMP -- Monitor I&O's and daily weights (10) Current use of termite helper anticoagulation: Plan: Patient on termite helper Coumadin for both recurrent DVT's and paroxysmal atrial fibrillation. -- Followed at [facility] Co[facility]. -- Goal INR is 2.0 to 3.0. -- INR now high at 3.1 and ws subtherapeutic after admission -- Patient takes Coumadin 4 mg every Monday, 2 mg all other days-received 4mg daily x 2 days as INR subtherapeutic and just had stroke, but then decreased back to 2mg daily as is on steroids Now HOLD coumadin for INR 3.1 follow INR in AM (11) DVT, recurrent, lower extremity, chronic: Plan: Patient on termite helper Coumadin for both recurrent DVT's and paroxysmal atrial fibrillation. -- Followed at [facility] Coag clinic. -- Goal INR is 2.0 to 3.0. as above (12) Paroxysmal atrial fibrillation: Plan: History of PAF and PAT. -- EKG 03/15/21 is suspicious for atrial tachycardia at 122 bpm. 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 now in regular rhythm and rate on exam continue diltiazem, metoprolol (13) Hypokalemia: Plan: holding home KCl and follow BMP. 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 (15) Diabetes mellitus: Plan: uncontrolled, A1C 11.5% Pharmacy managing insulin while decadron with some hyperglycemia needs improved outpt regimen (16) CKD (chronic kidney disease) stage 4, GFR 15-29 ml/min: Plan: auto body repairer fiberglass baseline 1.8-2.2 with CARLOS as above now improving -Avoid nephrotoxins -renally dose meds when appropriate -follow BMP (17) Hypothyroid: Plan: TSH 1.6 earlier this month continue home LT4 Plan: Dispo-continued stay for high O2 requirement, but now plan to go to rehab after COVID improved due to weakness from stroke and generalized weakness from COVID infection Expect will be here at least through this week Updated daughter by phone Admission and Anticipated Discharge Date Admission Date: March 15, 2021 Subjective Pt had to be placed on HFNC today for worsening hypoxia. Feels very weak still all over especially in his arms, but legs feel strong. Was OOB to chair for a few hours today. Denies CP. Is not moving bowels but is making urine. Review of Systems Review of Systems: All systems reviewed & are unremarkable except as noted in HPI & below Physical Exam Constitutional: WD/WN, vitals as above Eyes: + anicteric sclerae ENMT: external ear and nose normal, oropharynx normal Neck: trachea midline, no thyromegaly Respiratory: normal respiratory effort; no cough and not tachypneic Auscultation: + crackles (fine crackles in lower and middle lung lynch bilat); no rhonchi and no wheezes Cardiovascular: RRR, no murmur, no edema Chest (Breasts): Chest: normal inspection of chest Gastrointestinal (Abdomen): normal bowel sounds, soft, nontender, no hepatosplenomegaly Musculoskeletal: Extremities: extremities normal to inspection; no cyanosis and no clubbing Skin: no rashes, warm and dry Neurologic: moves all extremities and awake; no focal motor deficits (except very mild RUE weakness,triceps,biceps) Psychiatric: A+Ox3, euthymic affect Lymphatic: no lymphedema Results & Data Results & Data ([facility]) Vital Signs (Past 12 Hours) Vital Signs Temp Pulse Pulse Resp BP BP Pulse Ox 03/22/21 15:35 74 24 91 03/22/21 14:53 36.6 C 56 L 24 150/74 H 92 03/22/21 11:34 84 22 90 03/22/21 08:43 63 176/86 H 03/22/21 07:50 87 22 93 03/22/21 07:39 36.4 C L 57 L 20 163/73 H 92 Laboratory Results 03/22/21 03/22/21 03/22/21 Range/Units 12:01 08:13 06:13 WBC 11.18 H (4.8-10.8) K/uL RBC 3.83 L (4.7-6.1) M/uL Hgb 12.9 L (14.0-18.0) g/dL Hct 40.0 L (42-52) % MCV 104.4 H (80-100) fL MCH 33.7 (25-34) pg MCHC 32.3 (32-36) g/dL RDW Std Deviation 54.3 H (36.4-46.3) fL RDW Coeff of Sung 14.1 (11.5-14.5) % Plt Count 190 (130-400) K/uL MPV 11.7 H (7.4-10.4) fL Immature Gran % (Auto) 0.4 % Neut % (Auto) 89.6 % Lymph % (Auto) 7.6 % [place] % (Auto) 2.4 % Eos % (Auto) 0.0 % Baso % (Auto) 0.0 % Neut # (Auto) 10.02 H (1.4-6.5) K/uL Lymph # (Auto) 0.85 L (1.2-3.4) K/uL [place] # (Auto) 0.27 (0.11-0.59) K/uL Eos # (Auto) 0.00 (0-0.5) K/uL Baso # (Auto) 0.00 (0-0.2) K/uL Immature Gran # (Auto) 0.04 H (0.00-0.02) K/uL PT (9.0-12.0) Seconds INR (0.9-1.1) Sodium (136-145) mmol/L Potassium (3.5-5.1) mmol/L Chloride (98-107) mmol/L Carbon Dioxide (21-32) mmol/L Anion Gap (3-11) BUN (7-18) mg/dl Creatinine (0.6-1.4) mg/dl Est Cr Clr Drug Dosing ml/min Est GFR ( Amer) ml/min Est GFR (Non-Af Amer) ml/min BUN/Creatinine Ratio (10-20) Glucose (70-99) mg/dl POC Glucose 270 H 166 H (70-99) mg/dl Calcium (8.5-10.1) mg/dl 03/22/21 03/22/21 03/21/21 Range/Units 06:13 06:13 20:39 WBC (4.8-10.8) K/uL RBC (4.7-6.1) M/uL Hgb (14.0-18.0) g/dL Hct (42-52) % MCV (80-100) fL MCH (25-34) pg MCHC (32-36) g/dL RDW Std Deviation (36.4-46.3) fL RDW Coeff of Sung (11.5-14.5) % Plt Count (130-400) K/uL MPV (7.4-10.4) fL Immature Gran % (Auto) % Neut % (Auto) % Lymph % (Auto) % [place] % (Auto) % Eos % (Auto) % Baso % (Auto) % Neut # (Auto) (1.4-6.5) K/uL Lymph # (Auto) (1.2-3.4) K/uL [place] # (Auto) (0.11-0.59) K/uL Eos # (Auto) (0-0.5) K/uL Baso # (Auto) (0-0.2) K/uL Immature Gran # (Auto) (0.00-0.02) K/uL PT 28.7 H (9.0-12.0) Seconds INR 3.1 H (0.9-1.1) Sodium 144 (136-145) mmol/L Potassium 4.6 (3.5-5.1) mmol/L Chloride 108 H (98-107) mmol/L Carbon Dioxide 29 (21-32) mmol/L Anion Gap 7.0 (3-11) BUN 56 H (7-18) mg/dl Creatinine 2.32 H (0.6-1.4) mg/dl Est Cr Clr Drug Dosing 19.5 ml/min Est GFR ( Amer) 27.8 ml/min Est GFR (Non-Af Amer) 24.0 ml/min BUN/Creatinine Ratio 24.1 H (10-20) Glucose 164 H (70-99) mg/dl POC Glucose 120 H (70-99) mg/dl Calcium 9.1 (8.5-10.1) mg/dl 03/21/21 Range/Units 17:15 WBC (4.8-10.8) K/uL RBC (4.7-6.1) M/uL Hgb (14.0-18.0) g/dL Hct (42-52) % MCV (80-100) fL MCH (25-34) pg MCHC (32-36) g/dL RDW Std Deviation (36.4-46.3) fL RDW Coeff of Sung (11.5-14.5) % Plt Count (130-400) K/uL MPV (7.4-10.4) fL Immature Gran % (Auto) % Neut % (Auto) % Lymph % (Auto) % [place] % (Auto) % Eos % (Auto) % Baso % (Auto) % Neut # (Auto) (1.4-6.5) K/uL Lymph # (Auto) (1.2-3.4) K/uL [place] # (Auto) (0.11-0.59) K/uL Eos # (Auto) (0-0.5) K/uL Baso # (Auto) (0-0.2) K/uL Immature Gran # (Auto) (0.00-0.02) K/uL PT (9.0-12.0) Seconds INR (0.9-1.1) Sodium (136-145) mmol/L Potassium (3.5-5.1) mmol/L Chloride (98-107) mmol/L Carbon Dioxide (21-32) mmol/L Anion Gap (3-11) BUN (7-18) mg/dl Creatinine (0.6-1.4) mg/dl Est Cr Clr Drug Dosing ml/min Est GFR ( Amer) ml/min Est GFR (Non-Af Amer) ml/min BUN/Creatinine Ratio (10-20) Glucose (70-99) mg/dl POC Glucose 124 H (70-99) mg/dl Calcium (8.5-10.1) mg/dl PG Care Time/CCT Total # of Minutes Spent Total Time Spent with Patient: Total time spent is greater than 50% in coordination of care (as documented) at patient's floor/unit and/or counseling patient: Coding Level of Care Code 30237 Subseq Hosp Care Lvl 3 Diagnoses CVA (cerebral vascular accident) I63.9 Pneumonia due to severe acute respiratory syndrome coronavirus 2 (SARS-CoV-2) U07.1; J12.82 Confusion R41.0 Encephalopathy acute G93.40 H/O heart valve replacement with bioprosthetic valve Z95.3 CAD (coronary artery disease), [place] coronary artery I25.10 [place] vs. transplanted heart: [place] heart Associated angina: without angina HTN (hypertension) I10 Hypertension type: essential hypertension COPD, moderate J44.9 Chronic diastolic congestive heart failure I50.32 Current use of senior care anticoagulation Z79.01 DVT, recurrent, lower extremity, chronic I82.509 Paroxysmal atrial fibrillation I48.0 Hypokalemia E87.6 O2 dependent Z99.81 Diabetes mellitus E11.69; Z79.4 Diabetes mellitus type: type 2 Diabetes mellitus termite helper insulin use: with termite helper use Diabetes mellitus complication status: with other specified complication CKD (chronic kidney disease) stage 4, GFR 15-29 ml/min N18.4 Hypothyroid E03.9 (1) CAD (coronary artery disease), [place] coronary artery [place] vs. transplanted heart: [place] heart Associated angina: without angina Qualified Code(s): I25.10 - Atherosclerotic heart disease of [place] coronary artery without angina pectoris (2) HTN (hypertension) Hypertension type: essential hypertension Qualified Code(s): I10 - Essential (primary) hypertension (3) Diabetes mellitus Diabetes mellitus type: type 2 Diabetes mellitus senior care insulin use: with termite helper use Diabetes mellitus complication status: with other specified complication Qualified Code(s): E11.69 - Type 2 diabetes mellitus with other specified complication; Z79.4 - snf (current) use of insulin
[2021-03-22] MEDS: BUMETANIDE 1 MG TAB PO SCH (18:08)
[2021-03-22] MEDS: ATORVASTATIN 40 MG TAB PO SCH (20:50)
[2021-03-22] MEDS: ACYCLOVIR 5% OINT 15 GM TUBE EXT SCH (20:50)
[2021-03-23] MEDS: LEVOTHYROXINE SODIUM 75 MCG TABLET PO SCH (05:35)
[2021-03-23 06:15] LABS: INR 3.1 (0.9-1.1); Prothrombin Time 28.6 Seconds (9.0-12.0)
[2021-03-23 06:36] LABS: Albumin Level 2.1 gm/dl (3.4-5.0); BUN Creatinine Ratio 31.2 (10-20); Calcium 8.9 mg/dl (8.5-10.1); Creatinine Clr Calc Pharmacy 21.1 ml/min; Est GFR (African American) 30.7 ml/min; Est GFR (Non-African American) 26.5 ml/min
[2021-03-23 06:39] LABS: Albumin Globulin Ratio 0.6 (0.9-2); Bilirubin,Total 0.7 mg/dl (0.2-1); C Reactive Protein 9.07 mg/dl (0-0.29); Globulin 3.7 gm/dl (2.5-4.0); Total Protein 5.8 gm/dl (6.4-8.2)
[2021-03-23] MEDS: METOPROLOL TARTRATE 100 MG TAB PO SCH ×2 (08:44→20:47)
[2021-03-23] MEDS: PANTOprazole 40 MG TAB PO SCH ×2 (08:44→20:47)
[2021-03-23] MEDS: dilTIAZem HCL 120 MG CAPCR PO SCH (08:45)
[2021-03-23] MEDS: MAGNESIUM OXIDE 400 MG TAB PO SCH (08:45)
[2021-03-23] MEDS: VITAMIN B COMPLEX TAB PO SCH (08:45)
[2021-03-23] MEDS: ASPIRIN 81 MG ECTAB PO SCH (08:45)
[2021-03-23] MEDS: dexAMETHasone 6 MG in SYRINGE 0 ML IV SCH (08:46)
[2021-03-23] MEDS: CHOLECALCIFEROL 1,000 UNITS 25 MCG TAB PO SCH (08:46)
[2021-03-23] MEDS: ACYCLOVIR 5% OINT 15 GM TUBE EXT SCH ×2 (08:46→20:47)
[2021-03-23] MEDS: BUMETANIDE 1 MG TAB PO SCH ×2 (08:46→17:10)
[2021-03-23] MEDS: INSULIN HUMAN NPH SQ SCH (08:52)
--- NOTE | 2021-03-23 08:52 | Pharmacy Report ---
Pharmacy Glycemic Short Note 2 - Date of Service March 23, 2021 - Glycemic Short BSG Results (Last 24 hours): 03/22/21 03/22/21 03/22/21 12:01 17:02 20:36 Glucose POC Glucose 270 H 157 H 261 H 03/23/21 05:26 Glucose 123 H POC Glucose OUTPATIENT ANTIDIABETIC REGIMEN: * NPH 12 units every other day * HbA1c 11.5% on 02/24/21 ASSESSMENT: 03/23/21 * Patient received total of 71 units of insulin yesterday, of which 12 were NPH to cover steroids * BSGs elevated at lunch time, therefore will tighten CR more at breakfast today 03/19/21 * Patient's BSGs yesterday were 298-27-72-113 mg/dL and fasting today is 177 mg/dL. * Fasting is trending upwards (161-661-311-177 mg/dL) so considering adding second, smaller dose of NPH in the evening. HOWEVER, concerned about lower BSGs in the evening. Consider addition of second dose of NPH tomorrow and if do so could lower morning dose of NPH. * Patient overcorrections with CF of 15 so loosen to 20 mg/dL. Continue CR. 03/17 * Stressors stable * AM fasting BSG in goal range - will continue same NPH dose and schedule qAM * Post-prandial BSG's all elevated yesterday ranging 187-221 mg/dL. Will tighten CHO ratio. 03/16 * Stressors stable - dexamethasone continues * BSG's trended down significantly after home dose NPH and 19 units of correctional insulin. Will therefore not increase NPH this AM and provide low dose of 12 units again. May need to be increased tomorrow. * No PO intake thus far to determine adequacy of Novolog CHO ratio, but given significant trend down in BSG's will loosen CHO ratio slightly. This is still tighter than his other admission (not on steroids). BSG did increase significantly from breakfast to lunch, but no insulin was administered with breakfast therefore this may be due to uncovered CHO consumption. 03/15 * Mr Beth is an 89 y/o M with a PMH of T2DM on insulin who presents with COVID. * Blood sugar on PRP this AM was 164 mg/dL but by 1530 BSG was 315 mg/dL on POC. Patient received dexamethasone 6 mg IV x 1 at 1119. * Give home dose of NPH 12 units SQ x 1 then determine future dosing tomorrow based upon how patient reacts today. * Tight Novolog coverage. Patient is carbohydrate sensitive so will utilize extremely tight carbohydrate ratio. PLAN FOR INPATIENT GLYCEMIC CONTROL: * Basal insulin * NPH 12 units SQ qAM * Bolus insulin * NovoLog per scale ACHS or Q6hrs while NPO * Goal Range: Low 110 mg/dL - High 140 mg/dL * Correction Factor: 20 mg/dL/unit * Nutritional / Prandial insulin per carb ratio of 1 unit per 2 grams CHO consumed PLAN FOR DISCHARGE: * Patient's HbA1C is 11.5% which is above goal of <8% for patient's age and comorbidities. * Discharge plan will depend on what steroids patient is discharged on so will reevaluate closer to discharge.
[2021-03-23] MEDS: INSULIN ASPART PER UNIT SC SCH ×4 (09:23→20:52)
--- NOTE | 2021-03-23 11:30 | Hospitalist Progress Note ---
Date of Service March 23, 2021 Assessment & Plan (1) CVA (cerebral vascular accident): Plan: MRI brain: acute infarct in the anterior left lentiform nucleus. Possible age- indeterminate hemorrhage in the left supraventricular white matter. placed stroke order sets, consulted neurology permissive HTN but now can control BP question initially of ICH but repeat CT head: no evidence of bleed INR is now therapeutic-continue Coumadin lipid panel: LDL 52, Hb A1c from 02/24/21 very high at 11.5% on Lipitor 40mg started aspirin 81mg daily for small vessel thrombotic type CVA PT score is 24, did great OT score is 18, recommend home health only complaint is right arm weakness but it is only upper arm, tufter operator strength is great per family there are concerns he is too weak to come home, they need more help but not available until next week -plan is now for rehab placement-referral made to rehab but needs to be on less oxygen -continue PT/OT (2) Pneumonia due to severe acute respiratory syndrome coronavirus 2 (SARS-CoV-2): Plan: now with increasing oxygen needs over the last 3 days, now on HFNC 30L and 70% FiO2 Baseline home O2 is 2-3LNC CXR is stable today compared to 03/15 -continue dexamethasone 6mg IV daily but CRP trending up to 9 will increase to 20mg IV in the morning, will need to adjust insulin therapy -completed 5 day course of azithro daily no role for Remdesivir or baricitinib (3) Confusion: Plan: -- Probably encephalopathic due to acute illness. mental status is much improved now-doing very well (4) Encephalopathy acute: Plan: resolved, as above (5) H/O heart valve replacement with bioprosthetic valve: Plan: History of severe s/p Bioprosthetic AVR 11/01/2012. Echocardiogram 09/16/20: -- Normal LV size, systolic function. -- LVEF 55%-60%. No regional wall motion abnormalities. -- Septal motion consistent with prior cardiac surgery. -- Mild concentric LVH. -- Mildly reduced RV systolic function. -- Mild left atrial dilation. -- Mild MR. -- Appropriately functioning bioprosthetic AVR. -- RVSP 35 mmHg. 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 -- LUEVANO to LAD. SVG to OM. SVG to PDA. -- Continue current cardiac regimen including statin, beta-tiera, calcium channel tiera -- Initial Troponin I is normal at 0.019 ng/mL. -added on ASA 81mg daily for acute CVA as above (7) HTN (hypertension): Plan: Blood pressure is elevated at times. -- Continue beta-tiera, diltiazem -ok to restart home Bumex which was held for CARLOS which is now improving dcd amlodipine as already on diltiazem (8) COPD, moderate: Plan: continue inhalers as needed, decadron (9) Chronic diastolic congestive heart failure: Plan: Patient appears euvolemic. Had CARLOS with carry in worker rising to 2.53 from 1.9-2.2 baseline on 03/20 Counter Sales Person today improved withholding Bumex, down to 2.3 --ok to restart home Bumex 4 mg b.i.d. -follow BMP -- Monitor I&O's and daily weights (10) Current use of termite treater anticoagulation: Plan: Patient on detention Coumadin for both recurrent DVT's and paroxysmal atrial fibrillation. -- Followed at [facility] Co[facility] clinic. -- Goal INR is 2.0 to 3.0. -- INR now high at 3.1 and ws subtherapeutic after admission -- Patient takes Coumadin 4 mg every Monday, 2 mg all other days-received 4mg daily x 2 days as INR subtherapeutic and just had stroke, but then decreased back to 2mg daily as is on steroids Now HOLD coumadin for INR 3.1, again 3.1 today follow INR in AM (11) DVT, recurrent, lower extremity, chronic: Plan: Patient on termite treater Coumadin for both recurrent DVT's and paroxysmal atrial fibrillation. -- Followed at [facility] Coag clinic. -- Goal INR is 2.0 to 3.0. as above (12) Paroxysmal atrial fibrillation: Plan: History of PAF and PAT. -- EKG 03/15/21 is suspicious for atrial tachycardia at 122 bpm. -- school lunch monitor shows a sinus rhythm with occasional PAC's. now in regular rhythm and rate on exam continue diltiazem, metoprolol (13) Hypokalemia: Plan: holding home KCl and follow BMP. 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 (15) Diabetes mellitus: Plan: uncontrolled, A1C 11.5% Pharmacy managing insulin while decadron with some hyperglycemia needs improved outpt regimen will need to adjust tomorrow morning with plans for dexamethasone 20mg will d/w pharmacy (16) CKD (chronic kidney disease) stage 4, GFR 15-29 ml/min: Plan: carry in worker baseline 1.8-2.2 with CARLOS as above now improving -Avoid nephrotoxins -renally dose meds when appropriate -follow BMP, Cr is 2.14 today (17) Hypothyroid: Plan: TSH 1.6 earlier this month continue home LT4 Plan: Dispo-continued stay for high O2 requirement, but now plan to go to rehab after COVID improved due to weakness from stroke and generalized weakness from COVID infection Expect will be here at least through this week Admission and Anticipated Discharge Date Admission Date: March 15, 2021 Subjective patient doing well, says he feels cold, he is trying to eat no BM for three days, he is making urine he is on 30L 70% but no distress and saturations in mid 90s got CXR today, no significant change in 8 days although he is on more oxygen discussed that he needs to get back down to 3-4L to get home or to rehab, he understands Review of Systems Review of Systems: All systems reviewed & are unremarkable except as noted in Subjective Constitutional: + fatigue and + weakness; no fever Respiratory: + cough and + dyspnea on exertion; no dyspnea Gastrointestinal: + constipation Physical Exam Physical Exam: General: well developed, well nourished, elderly male, frail appearing, no distress Neck: supple, trachea midline, normal thyroid Lungs: clear to auscultation bilaterally but diminished overall, normal respiratory effort, no accessory muscle use, no distress Heart: regular S1 and S2, no murmur, peripheral pulses normal, capillary refill normal, no edema Abdomen: soft, NT, ND, + BS, no hepatomegaly, normal to percussion Extremities: normal in appearance, no cyanosis, no petechiae, strength is 5/5 left arm and legs, right hand is 5/5, right shoulder a little weak Neuro: awake, cooperative, moves all extremities, CN II-XII intact, sensation in extremities intact, normal speech Skin: warm, dry, no rash, normal turgor, thin skin Psych: Awake, alert and oriented to person and place, unsure of the day of the week Results & Data Results & Data ([facility]) Vital Signs (Past 12 Hours) Vital Signs Temp Pulse Pulse Resp BP Pulse Ox 03/23/21 07:27 66 19 89 L 03/23/21 07:25 36.3 C L 63 26 H 138/60 91 Laboratory Results Laboratory Results - last 24 hr 03/22/21 03/22/21 03/23/21 17:02 20:36 05:26 PT 28.6 H INR 3.1 H Sodium Potassium Chloride Carbon Dioxide Anion Gap BUN Creatinine Est Cr Clr Drug Dosing Est GFR ( Amer) Est GFR (Non-Af Amer) BUN/Creatinine Ratio Glucose POC Glucose 157 H 261 H Calcium Total Bilirubin AST ALT Alkaline Phosphatase C-Reactive Protein Total Protein Albumin Globulin Albumin/Globulin Ratio 03/23/21 03/23/21 03/23/21 05:26 08:31 12:18 PT INR Sodium 143 Potassium 4.0 Chloride 108 H Carbon Dioxide 29 Anion Gap 6.0 BUN 67 H Creatinine 2.14 H Est Cr Clr Drug Dosing 21.1 Est GFR ( Amer) 30.7 Est GFR (Non-Af Amer) 26.5 BUN/Creatinine Ratio 31.2 H Glucose 123 H POC Glucose 163 H 250 H Calcium 8.9 Total Bilirubin 0.7 AST 27 ALT 20 Alkaline Phosphatase 81 C-Reactive Protein 9.07 H Total Protein 5.8 L Albumin 2.1 L Globulin 3.7 Albumin/Globulin Ratio 0.6 L Medications Administered Current Inpatient Medications Acetaminophen (Acetaminophen 325 Mg Tab) 650 mg PO Q4H PRN PRN Reason: Pain or Fever Stop: 04/14/21 14:27 Acyclovir (Acyclovir 5% Oint 15 Gm Tube) 1 appln EXT BID TI Stop: 04/01/21 18:54 Last Admin: 03/23/21 08:46 Dose: Not Given Documented by: Al Hydrox/Mg Hydrox/Simethicone (Aluminum/Magnesium Susp 30 Ml Udc) 15 ml PO Q4H PRN PRN Reason: Dyspepsia Stop: 04/14/21 14:27 Albuterol (Albut/Ipratrop 3mg/0.5mg Neb 3 Ml Vial) 3 ml INH Q6H PRN; Protocol PRN Reason: wheezing Stop: 04/14/21 14:27 Last Admin: 03/19/21 06:22 Dose: 3 ml Documented by: Aspirin (Aspirin 81 Mg Ectab) 81 mg PO QAM COUNT INCLUDES THE [facility] Stop: 04/17/21 08:59 Last Admin: 03/23/21 08:45 Dose: 81 mg Documented by: Atorvastatin Calcium (Atorvastatin 40 Mg Tab) 40 mg PO HS COUNT INCLUDES THE [facility] Stop: 04/14/21 20:59 Last Admin: 03/22/21 20:50 Dose: 40 mg Documented by: Bumetanide (Bumetanide 1 Mg Tab) 4 mg PO BID17 COUNT INCLUDES THE [facility] Stop: 04/21/21 16:59 Last Admin: 03/23/21 08:46 Dose: 4 mg Documented by: Nystatin 30 ml/ Dexamethasone 3.75 mg/ Diphenhydramine HCl 300 mg/ Sucrose 45 ml/Microcrystalline Cellulose 45 ml/ [employer]CODE IDENTIFIER 1 ea 0 ml PO Q4H PRN PRN Reason: mouth sores Stop: 04/21/21 23:18 Last Admin: 03/23/21 11:39 Dose: 5 ml Documented by: Dextrose (Dextrose 50% 50 Ml Syringe) 25 - 50 ml IV UD PRN; Protocol PRN Reason: Hypoglycemia Protocol Stop: 04/17/21 02:14 Diltiazem HCl (Diltiazem Hcl 120 Mg Capcr) [facility] Stop: 04/15/21 08:59 Last Admin: 03/23/21 08:45 Dose: 120 mg Documented by: Glucagon (Glucagon For Inj 1 Mg Vial) 1 mg IM UD PRN; Protocol PRN Reason: Hypoglycemia Protocol Stop: 04/17/21 02:14 Glucose (Glucose 40% Gel 15 Gm Tube) 15 - 30 gm PO UD PRN; Protocol PRN Reason: Hypoglycemia Protocol Stop: 04/17/21 02:14 Glucose (Glucose 10 Tabs/Tube) 4 - 8 tabs PO UD PRN; Protocol PRN Reason: Hypoglycemia Protocol Stop: 04/17/21 02:14 Hydralazine HCl (Hydralazine Hcl 20 Mg/Ml Vial) 10 mg IV Q6H PRN PRN Reason: BP>180 systolic,>100 diastolic Stop: 04/15/21 04:08 Last Admin: 03/16/21 04:24 Dose: 10 mg Documented by: Dexamethasone 6 mg/ Syringe 1.5 mls @ 1 mls/min IV Q24H COUNT INCLUDES THE [facility] Stop: 04/15/21 08:59 Last Admin: 03/23/21 08:46 Dose: 1 mls/min Documented by: Insulin Aspart (Insulin Aspart Per Unit) 0 units SC ACHS COUNT INCLUDES THE [facility] Stop: 04/14/21 16:29 Last Admin: 03/23/21 12:41 Dose: 6 units Documented by: Insulin Human NPH (Insulin Human Nph) 12 units SQ QAM COUNT INCLUDES THE [facility] Stop: 04/15/21 08:59 Last Admin: 03/23/21 08:52 Dose: 12 units Documented by: Lactulose (Lactulose Syrup 20 Gm/30 Ml Udc) 10 gm PO BID PRN PRN Reason: constipation Stop: 04/14/21 14:41 Levothyroxine Sodium (Levothyroxine Sodium 75 Mcg Tablet) [facility] Stop: 04/15/21 06:29 Last Admin: 03/23/21 05:35 Dose: 75 mcg Documented by: Magnesium Hydroxide (Magnesium Hydroxide Susp 30 Ml Udc) 30 ml PO Q12H PRN PRN Reason: Constipation Stop: 04/14/21 14:27 Magnesium Oxide (Magnesium Oxide 400 Mg Tab) 400 mg PO [facility] Stop: 04/15/21 08:59 Last Admin: 03/23/21 08:45 Dose: 400 mg Documented by: Metoprolol Tartrate (Metoprolol Tartrate 100 Mg Tab) 100 mg PO BID COUNT INCLUDES THE [facility] Stop: 04/14/21 20:59 Last Admin: 03/23/21 08:44 Dose: 100 mg Documented by: Miscellaneous (Carbohydrates For Hypoglycemia ) 15 - 30 gm PO UD PRN PRN Reason: Hypoglycemia Treatment Stop: 04/17/21 02:14 Miscellaneous Information (Pharmacy Glycemic Mgmt Consult) 1 ea N/A UD PRN PRN Reason: Consult Stop: 04/14/21 14:27 Nitroglycerin (Nitroglycerin Sl 0.4 Mg/Tab Tab) 0.4 mg SL UD PRN PRN Reason: Chest Pain Stop: 04/14/21 14:27 Ondansetron HCl (Ondansetron Inj 2 Mg/Ml 2 Ml Vial) 4 mg IV Q6H PRN PRN Reason: Nausea Stop: 04/14/21 14:27 Pantoprazole Sodium (Pantoprazole 40 Mg Tab) 40 mg PO BID COUNT INCLUDES THE [facility] Stop: 04/14/21 20:59 Last Admin: 03/23/21 08:44 Dose: 40 mg Documented by: Polyethylene Glycol (Polyethylene (Miralax) 17 Gm Pack) 17 gm PO DAILY PRN PRN Reason: CONSTIPATION Stop: 04/14/21 14:27 Potassium Chloride (Potassium Chloride Crtab 20 Meq Tabcr) 60 meq PO BID COUNT INCLUDES THE [facility] Stop: 04/14/21 20:59 Last Admin: 03/20/21 09:03 Dose: 60 meq Documented by: Vitamin B Complex (Vitamin B Complex Tab) 1 tab PO QAM COUNT INCLUDES THE [facility] Stop: 04/15/21 08:59 Last Admin: 03/23/21 08:45 Dose: 1 tab Documented by: Vitamin D (Cholecalciferol 1,000 Units 25 Mcg Tab) 1,000 units PO DAILY COUNT INCLUDES THE [facility] Stop: 04/15/21 08:59 Last Admin: 03/23/21 08:46 Dose: 1,000 units Documented by: Warfarin Sodium (Warfarin Sod 2 Mg Tab) 2 mg PO DAILY@1600 COUNT INCLUDES THE [facility] Stop: 04/20/21 15:59 Last Admin: 03/21/21 16:02 Dose: 2 mg Documented by: PG Care Time/CCT Total # of Minutes Spent Total Time Spent with Patient: Total time spent is greater than 50% in coordination of care (as documented) at patient's floor/unit and/or counseling patient: Coding Level of Care Code 82152 Subseq Hosp Care Lvl 3 Diagnoses CVA (cerebral vascular accident) I63.9 Pneumonia due to severe acute respiratory syndrome coronavirus 2 (SARS-CoV-2) U07.1; J12.82 Confusion R41.0 Encephalopathy acute G93.40 H/O heart valve replacement with bioprosthetic valve Z95.3 CAD (coronary artery disease), [place] coronary artery I25.10 Associated angina: without angina [place] vs. 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 transplanted heart: [place] heart Qualified Code(s): I25.10 - Atherosclerotic heart disease of [place] coronary artery without angina pectoris (3) HTN (hypertension) Hypertension type: essential hypertension Qualified Code(s): I10 - Essential (primary) hypertension
--- NOTE | 2021-03-23 12:06 | XRay Report ---
XR chest 1V portable HISTORY: hypoxia, COVID COMPARISON: Chest 03/15/2021. FINDINGS: The heart is mildly enlarged. This remains unchanged. An aortic valve prosthesis and postst ernotomy changes are again noted. Suspect trace bilateral pleural fusions. Diffuse interstitial thick ening and patchy bilateral airspace opacities persist. This is similar to the prior study. IMPRESSION: No change in the hazy bilateral airspace opacities and interstitial thickening. This favors a viral p neumonia superimposed on chronic interstitial change. ACT 112: Negative or not required by law. Electronically signed by: Gonzalez Taylor M.D. 03/23/2021 12:05 PM
[2021-03-23] MEDS: ATORVASTATIN 40 MG TAB PO SCH (20:47)
[2021-03-24] MEDS: LEVOTHYROXINE SODIUM 75 MCG TABLET PO SCH (05:21)
[2021-03-24] MEDS: PANTOprazole 40 MG TAB PO SCH ×2 (08:42→20:40)
[2021-03-24] MEDS: ACYCLOVIR 5% OINT 15 GM TUBE EXT SCH ×2 (08:42→20:33)
[2021-03-24] MEDS: METOPROLOL TARTRATE 100 MG TAB PO SCH ×2 (08:43→20:40)
[2021-03-24] MEDS: ASPIRIN 81 MG ECTAB PO SCH (08:43)
[2021-03-24] MEDS: VITAMIN B COMPLEX TAB PO SCH (08:43)
[2021-03-24] MEDS: BUMETANIDE 1 MG TAB PO SCH ×2 (08:44→17:48)
[2021-03-24] MEDS: MAGNESIUM OXIDE 400 MG TAB PO SCH (08:45)
[2021-03-24] MEDS: CHOLECALCIFEROL 1,000 UNITS 25 MCG TAB PO SCH (08:45)
[2021-03-24] MEDS: dilTIAZem HCL 120 MG CAPCR PO SCH (08:46)
[2021-03-24] MEDS ORDERED: dexAMETHasone 20 MG in SYRINGE 0 ML IV SCH (09:00)
[2021-03-24] MEDS: INSULIN ASPART PER UNIT SC SCH ×4 (09:00→20:33)
[2021-03-24] MEDS: INSULIN HUMAN NPH SQ SCH (09:02)
[2021-03-24] MEDS: dexAMETHasone 20 MG in DEXTROSE 5% 25 ML IV SCH (09:24)
--- NOTE | 2021-03-24 13:39 | Hospitalist Progress Note ---
Date of Service March 24, 2021 Assessment & Plan (1) CVA (cerebral vascular accident): Plan: MRI brain: acute infarct in the anterior left lentiform nucleus. Possible age- indeterminate hemorrhage in the left supraventricular white matter. placed stroke order sets, consulted neurology permissive HTN but now can control BP question initially of ICH but repeat CT head: no evidence of bleed INR is now therapeutic-continue Coumadin lipid panel: LDL 52, Hb A1c from 02/24/21 very high at 11.5% on Lipitor 40mg started aspirin 81mg daily for small vessel thrombotic type CVA PT score is 24, did great OT score is 18, recommend home health only complaint is right arm weakness but it is only upper arm, engineering manager electronics strength is great per family there are concerns he is too weak to come home, they need more help but not available until next week -plan is now for rehab placement-referral made to rehab but needs to be on less oxygen, need to wean him back to 3-4L -continue PT/OT (2) Pneumonia due to severe acute respiratory syndrome coronavirus 2 (SARS-CoV-2): Plan: now with increasing oxygen needs over the last 4 days, now on HFNC 30L and 65% FiO2 Baseline home O2 is 2-3LNC CXR is stable on 03/23 compared to 03/15 -continue dexamethasone 6mg IV daily but CRP trending up to 9 increased to 20mg IV daily on 03/24 x 5 days, then 10mg x 5 days -completed 5 day course of azithromycin daily no role for Remdesivir or baricitinib (3) Confusion: Plan: -- Probably encephalopathic due to acute illness. mental status is much improved now-doing very well (4) Encephalopathy acute: Plan: resolved, as above (5) H/O heart valve replacement with bioprosthetic valve: Plan: History of severe s/p Bioprosthetic AVR 11/01/2012. Echocardiogram 09/16/20: -- Normal LV size, systolic function. -- LVEF 55%-60%. No regional wall motion abnormalities. -- Septal motion consistent with prior cardiac surgery. -- Mild concentric LVH. -- Mildly reduced RV systolic function. -- Mild left atrial dilation. -- Mild MR. -- Appropriately functioning bioprosthetic AVR. -- RVSP 35 mmHg. 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 -- LUEVANO to LAD. SVG to OM. SVG to PDA. -- Continue current cardiac regimen including statin, beta-tiera, calcium channel tiera -- Initial Troponin I is normal at 0.019 ng/mL. -added on ASA 81mg daily for acute CVA as above (7) HTN (hypertension): Plan: Blood pressure is elevated at times. -- Continue beta-tiera, diltiazem -ok to restart home Bumex which was held for CARLOS which is now improving dcd amlodipine as already on diltiazem (8) COPD, moderate: Plan: continue inhalers as needed, decadron (9) Chronic diastolic congestive heart failure: Plan: Patient appears euvolemic. Had CARLOS with road manager rising to 2.53 from 1.9-2.2 baseline on 03/20 Backend Developer today improved withholding Bumex, down to 2.3 --ok to restart home Bumex 4 mg b.i.d. -follow BMP -- Monitor I&O's and daily weights (10) Current use of usp anticoagulation: Plan: Patient on stone gluer Coumadin for both recurrent DVT's and paroxysmal atrial fibrillation. -- Followed at [facility]. -- Goal INR is 2.0 to 3.0. -- INR now high at 3.1 and ws subtherapeutic after admission -- Patient takes Coumadin 4 mg every Monday, 2 mg all other days-received 4mg daily x 2 days as INR subtherapeutic and just had stroke, but then decreased back to 2mg daily as is on steroids INR was 3.1 yesterday, repeat tomorrow, holding Coumadin follow INR in AM (11) DVT, recurrent, lower extremity, chronic: Plan: Patient on usp Coumadin for both recurrent DVT's and paroxysmal atrial fibrillation. -- Followed at [facility]. -- Goal INR is 2.0 to 3.0. as above (12) Paroxysmal atrial fibrillation: Plan: History of PAF and PAT. -- EKG 03/15/21 is suspicious for atrial tachycardia at 122 bpm. -- monitor and storage bin tender shows a sinus rhythm with occasional PAC's. now in regular rhythm and rate on exam continue diltiazem, metoprolol (13) Hypokalemia: Plan: holding home KCl and follow BMP. 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 (15) Diabetes mellitus: Plan: uncontrolled, A1C 11.5% Pharmacy managing insulin while decadron with some hyperglycemia needs improved outpt regimen pharmacy making changes with increase in dexamethasone (16) CKD (chronic kidney disease) stage 4, GFR 15-29 ml/min: Plan: road manager baseline 1.8-2.2 with CARLOS as above now improving -Avoid nephrotoxins -renally dose meds when appropriate -follow BMP, Cr is 2.14 on 03/23 (17) Hypothyroid: Plan: TSH 1.6 earlier this month continue home LT4 (18) Chronic constipation: Plan: will give Miralax BID until he moves bowels Plan: Dispo-continued stay for high O2 requirement, but now plan to go to rehab after COVID improved due to weakness from stroke and generalized weakness from COVID infection Expect will be here at least through this week Admission and Anticipated Discharge Date Admission Date: March 15, 2021 Subjective patient sitting up in a chair, breathing comfortably down slightly to 65%, still on 30L c/o constipation, "the Miralax isn't working" eating fairly well, maybe 50% of meals minimal cough, no chest pain, no nausea or abdominal pain no fever asking "when can I go home, I want to get outta here" explained he is on way too much oxygen, he nodded his head Review of Systems Review of Systems: All systems reviewed & are unremarkable except as noted in Subjective Gastrointestinal: + constipation Physical Exam Physical Exam: General: well developed, well nourished, elderly male, frail appearing, no distress Neck: supple, trachea midline, normal thyroid Lungs: clear to auscultation bilaterally but diminished overall, normal respiratory effort, no accessory muscle use, no distress Heart: regular S1 and S2, no murmur, peripheral pulses normal, capillary refill normal, no edema Abdomen: soft, NT, ND, + BS, no hepatomegaly, normal to percussion Extremities: normal in appearance, no cyanosis, no petechiae, strength is 5/5 left arm and legs, right hand is 5/5, right shoulder a little weak Neuro: awake, cooperative, moves all extremities, CN II-XII intact, sensation in extremities intact, normal speech Skin: warm, dry, no rash, normal turgor, thin skin Psych: Awake, alert and oriented to person and place, unsure of the day of the week Results & Data Results & Data ([facility]) Vital Signs (Past 12 Hours) Vital Signs Temp Pulse Pulse Resp BP BP Pulse Ox 03/24/21 10:40 68 92 03/24/21 08:40 61 143/67 H 03/24/21 07:14 36.5 C 62 21 158/73 H 91 03/24/21 07:09 63 22 93 03/24/21 03:05 56 L 24 90 Laboratory Results Laboratory Results - last 24 hr 03/23/21 03/23/21 03/24/21 17:08 20:46 08:14 POC Glucose 125 H 139 H 209 H 03/24/21 12:14 POC Glucose 295 H Medications Administered Current Inpatient Medications Acetaminophen (Acetaminophen 325 Mg Tab) 650 mg PO Q4H PRN PRN Reason: Pain or Fever Stop: 04/14/21 14:27 Acyclovir (Acyclovir 5% Oint 15 Gm Tube) 1 appln EXT BID [facility] Stop: 04/01/21 18:54 Last Admin: 03/24/21 08:42 Dose: 1 appln Documented by: Al Hydrox/Mg Hydrox/Simethicone (Aluminum/Magnesium Susp 30 Ml Udc) 15 ml PO Q4H PRN PRN Reason: Dyspepsia Stop: 04/14/21 14:27 Last Admin: 03/24/21 05:21 Dose: 15 ml Documented by: Albuterol (Albut/Ipratrop 3mg/0.5mg Neb 3 Ml Vial) 3 ml INH Q6H PRN; Protocol PRN Reason: wheezing Stop: 04/14/21 14:27 Last Admin: 03/19/21 06:22 Dose: 3 ml Documented by: Aspirin (Aspirin 81 Mg Ectab) [facility] [place]: 04/17/21 08:59 Last Admin: 03/24/21 08:43 Dose: 81 mg Documented by: Atorvastatin Calcium (Atorvastatin 40 Mg Tab) 40 mg PO HS [facility] Stop: 04/14/21 20:59 Last Admin: 03/23/21 20:47 Dose: 40 mg Documented by: Bumetanide (Bumetanide 1 Mg Tab) 4 mg PO BID17 [facility] Stop: 04/21/21 16:59 Last Admin: 03/24/21 08:44 Dose: 4 mg Documented by: Nystatin 30 ml/ Dexamethasone 3.75 mg/ Diphenhydramine HCl 300 mg/ Sucrose 45 ml/Microcrystalline Cellulose 45 ml/ BARCODE IDENTIFIER 1 ea 0 ml PO Q4H PRN PRN Reason: mouth sores Stop: 04/21/21 23:18 Last Admin: 03/23/21 11:39 Dose: 5 ml Documented by: Dextrose (Dextrose 50% 50 Ml Syringe) 25 - 50 ml IV UD PRN; Protocol PRN Reason: Hypoglycemia Protocol Stop: 04/17/21 02:14 Diltiazem HCl (Diltiazem Hcl 120 Mg Capcr) 120 mg PO QAM [facility] Stop: 04/15/21 08:59 Last Admin: 03/24/21 08:46 Dose: 120 mg Documented by: Glucagon (Glucagon For Inj 1 Mg Vial) 1 mg IM UD PRN; Protocol PRN Reason: Hypoglycemia Protocol Stop: 04/17/21 02:14 Glucose (Glucose 40% Gel 15 Gm Tube) 15 - 30 gm PO UD PRN; Protocol PRN Reason: Hypoglycemia Protocol Stop: 04/17/21 02:14 Glucose (Glucose 10 Tabs/Tube) 4 - 8 tabs PO UD PRN; Protocol PRN Reason: Hypoglycemia Protocol Stop: 04/17/21 02:14 Hydralazine HCl (Hydralazine Hcl 20 Mg/Ml Vial) 10 mg IV Q6H PRN PRN Reason: BP>180 systolic,>100 diastolic Stop: 04/15/21 04:08 Last Admin: 03/16/21 04:24 Dose: 10 mg Documented by: Dexamethasone 20 mg/ Dextrose 30 mls @ 0.833 mls/min IV Q24H [facility] Stop: 04/23/21 08:59 Last Infusion: 03/24/21 10:06 Dose: Infused Documented by: Insulin Aspart (Insulin Aspart Per Unit) 0 units SC ACHS [facility] Stop: 04/14/21 16:29 Last Admin: 03/24/21 13:03 Dose: 45 units Documented by: Insulin Human NPH (Insulin Human Nph) 12 units SQ QAM [facility] Stop: 04/15/21 08:59 Last Admin: 03/24/21 09:02 Dose: 12 units Documented by: Lactulose (Lactulose Syrup 20 Gm/30 Ml Udc) 10 gm PO BID PRN PRN Reason: constipation Stop: 04/14/21 14:41 Levothyroxine Sodium (Levothyroxine Sodium 75 Mcg Tablet) 75 mcg PO DAILYBB [facility] Stop: 04/15/21 06:29 Last Admin: 03/24/21 05:21 Dose: 75 mcg Documented by: Magnesium Hydroxide (Magnesium Hydroxide Susp 30 Ml Udc) 30 ml PO Q12H PRN PRN Reason: Constipation Stop: 04/14/21 14:27 Magnesium Oxide (Magnesium Oxide 400 Mg Tab) 400 mg PO QAM [facility] Stop: 04/15/21 08:59 Last Admin: 03/24/21 08:45 Dose: 400 mg Documented by: Metoprolol Tartrate (Metoprolol Tartrate 100 Mg Tab) 100 mg PO BID [facility] Stop: 04/14/21 20:59 Last Admin: 03/24/21 08:43 Dose: 100 mg Documented by: Miscellaneous (Carbohydrates For Hypoglycemia ) 15 - 30 gm PO UD PRN PRN Reason: Hypoglycemia Treatment Stop: 04/17/21 02:14 Miscellaneous Information (Pharmacy Glycemic Mgmt Consult) 1 ea N/A UD PRN PRN Reason: Consult Stop: 04/14/21 14:27 Nitroglycerin (Nitroglycerin Sl 0.4 Mg/Tab Tab) 0.4 mg SL UD PRN PRN Reason: Chest Pain Stop: 04/14/21 14:27 Ondansetron HCl (Ondansetron Inj 2 Mg/Ml 2 Ml Vial) 4 mg IV Q6H PRN PRN Reason: Nausea Stop: 04/14/21 14:27 Pantoprazole Sodium (Pantoprazole 40 Mg Tab) 40 mg PO BID [facility] Stop: 04/14/21 20:59 Last Admin: 03/24/21 08:42 Dose: 40 mg Documented by: Polyethylene Glycol (Polyethylene (Miralax) 17 Gm Pack) 17 gm PO DAILY PRN PRN Reason: CONSTIPATION Stop: 04/14/21 14:27 Last Admin: 03/24/21 13:21 Dose: 17 gm Documented by: Potassium Chloride (Potassium Chloride Crtab 20 Meq Tabcr) 60 meq PO BID [facility] Stop: 04/14/21 20:59 Last Admin: 03/20/21 09:03 Dose: 60 meq Documented by: Vitamin B Complex (Vitamin B Complex Tab) 1 tab PO QAM [facility] Stop: 04/15/21 08:59 Last Admin: 03/24/21 08:43 Dose: 1 tab Documented by: Vitamin D (Cholecalciferol 1,000 Units 25 Mcg Tab) 1,000 units PO DAILY [facility] Stop: 04/15/21 08:59 Last Admin: 03/24/21 08:45 Dose: 1,000 units Documented by: Warfarin Sodium (Warfarin Sod 2 Mg Tab) 2 mg PO DAILY@1600 [facility] Stop: 04/20/21 15:59 Last Admin: 03/21/21 16:02 Dose: 2 mg Documented by: PG Care Time/CCT Total # of Minutes Spent Total Time Spent with Patient: Total time spent is greater than 50% in coordination of care (as documented) at patient's floor/unit and/or counseling patient: Coding Level of Care Code 05458 Subseq Hosp Care Lvl 2 Diagnoses CVA (cerebral vascular accident) I63.9 Pneumonia due to severe acute respiratory syndrome coronavirus 2 (SARS-CoV-2) U07.1; J12.82 Confusion R41.0 Encephalopathy acute G93.40 H/O heart valve replacement with bioprosthetic valve Z95.3 CAD (coronary artery disease), [place] coronary artery I25.10 [place] vs. transplanted heart: [place] heart Associated angina: without angina HTN (hypertension) I10 Hypertension type: essential hypertension COPD, moderate J44.9 Chronic diastolic congestive heart failure I50.32 Current use of usp anticoagulation Z79.01 DVT, recurrent, lower extremity, chronic I82.509 Paroxysmal atrial fibrillation I48.0 Hypokalemia E87.6 O2 dependent Z99.81 Diabetes mellitus E11.69; Z79.4 Diabetes mellitus type: type 2 Diabetes mellitus usp insulin use: with stone gluer use Diabetes mellitus complication status: with other specified complication CKD (chronic kidney disease) stage 4, GFR 15-29 ml/min N18.4 Hypothyroid E03.9 Chronic constipation K59.09 (1) CAD (coronary artery disease), [place] coronary artery [place] vs. transplanted heart: [place] heart Associated angina: without angina Qualified Code(s): I25.10 - Atherosclerotic heart disease of [place] coronary artery without angina pectoris (2) HTN (hypertension) Hypertension type: essential hypertension Qualified Code(s): I10 - Essential (primary) hypertension (3) Diabetes mellitus Diabetes mellitus type: type 2 Diabetes mellitus usp insulin use: with stone gluer use Diabetes mellitus complication status: with other specified complication Qualified Code(s): E11.69 - Type 2 diabetes mellitus with other specified complication; Z79.4 - media marketing manager (current) use of insulin
--- NOTE | 2021-03-24 14:28 | Pharmacy Report ---
Pharmacy Glycemic Short Note 2 - Date of Service March 24, 2021 - Glycemic Short BSG Results (Last 24 hours): 03/23/21 03/23/21 03/24/21 17:08 20:46 08:14 POC Glucose 125 H 139 H 209 H 03/24/21 12:14 POC Glucose 295 H OUTPATIENT ANTIDIABETIC REGIMEN: * NPH 12 units every other day * HbA1c 11.5% on 02/24/21 ASSESSMENT: 03/24/21 * Patient's BSGs yesterday were [phone] mg/dL. Patient received 45 units of insulin (12 units of basal and 33 units of bolus). * Dexamethasone has increased to 20 mg IV daily. * BSGs will increase with dexamethasone 20 mg. However, concerned with increasing NPH at this time. Most evenings patient trends downwards significantly in the evening and requires very little insulin with dinner and HS. If patient has significant elevations in the evening tonight, then NPH could be increased. Unsure how patient will react. * Will not tighten CF has patient corrects nicely. * Tighten CR significantly since this will help manage steroid hyperglycemia. 03/23/21 * Patient received total of 71 units of insulin yesterday, of which 12 were NPH to cover steroids * BSGs elevated at lunch time, therefore will tighten CR more at breakfast today 03/19/21 * Patient's BSGs yesterday were [phone] mg/dL and fasting today is 177 mg/dL. * Fasting is trending upwards ([phone] mg/dL) so considering adding second, smaller dose of NPH in the evening. HOWEVER, concerned about lower BSGs in the evening. Consider addition of second dose of NPH tomorrow and if do so could lower morning dose of NPH. * Patient overcorrections with CF of 15 so loosen to 20 mg/dL. Continue CR. 03/17 * Stressors stable * AM fasting BSG in goal range - will continue same NPH dose and schedule qAM * Post-prandial BSG's all elevated yesterday ranging 187-221 mg/dL. Will tighten CHO ratio. 03/16 * Stressors stable - dexamethasone continues * BSG's trended down significantly after home dose NPH and 19 units of correctional insulin. Will therefore not increase NPH this AM and provide low dose of 12 units again. May need to be increased tomorrow. * No PO intake thus far to determine adequacy of Novolog CHO ratio, but given significant trend down in BSG's will loosen CHO ratio slightly. This is still tighter than his other admission (not on steroids). BSG did increase significantly from breakfast to lunch, but no insulin was administered with breakfast therefore this may be due to uncovered CHO consumption. 03/15 * Mr Beth is an 89 y/o M with a PMH of T2DM on insulin who presents with COVID. * Blood sugar on PRP this AM was 164 mg/dL but by 1530 BSG was 315 mg/dL on POC. Patient received dexamethasone 6 mg IV x 1 at 1119. * Give home dose of NPH 12 units SQ x 1 then determine future dosing tomorrow based upon how patient reacts today. * Tight Novolog coverage. Patient is carbohydrate sensitive so will utilize extremely tight carbohydrate ratio. PLAN FOR INPATIENT GLYCEMIC CONTROL: * Basal insulin * NPH 12 units SQ qAM * Bolus insulin * NovoLog per scale ACHS or Q6hrs while NPO * Goal Range: Low 110 mg/dL - High 140 mg/dL * Correction Factor: 20 mg/dL/unit * Nutritional / Prandial insulin per carb ratio of 1 unit per 1.25 grams CHO consumed PLAN FOR DISCHARGE: * Patient's HbA1C is 11.5% which is above goal of <8% for patient's age and comorbidities. * Discharge plan will depend on what steroids patient is discharged on so will reevaluate closer to discharge.
[2021-03-24] MEDS: POLYETHYLENE (MIRALAX) 17 GM PACK PO SCH (20:34)
[2021-03-24] MEDS: LACTULOSE SYRUP 20 GM/30 ML UDC PO SCH (20:35)
[2021-03-24] MEDS: ATORVASTATIN 40 MG TAB PO SCH (20:40)
[2021-03-24] MEDS ORDERED: bisacodyL 10 MG SUPP PR PRN (20:52)
[2021-03-25] MEDS: LEVOTHYROXINE SODIUM 75 MCG TABLET PO SCH (04:49)
[2021-03-25 06:14] LABS: INR 2.5 (0.9-1.1); Prothrombin Time 23.9 Seconds (9.0-12.0)
[2021-03-25 06:15] LABS: Hematocrit (blood only) 36.1 % (42-52); Hemoglobin 11.8 g/dL (14.0-18.0); Mean Corpuscular Hemoglobin 32.4 pg (25-34); Mean Corpuscular Hgb Conc 32.7 g/dL (32-36); Mean Corpuscular Volume 99.2 fL (80-100); Mean Platelet Volume 11.3 fL (7.4-10.4); Platelet Count 188 K/uL (130-400); RDW Coefficient of Variation 13.6 % (11.5-14.5); RDW Standard Deviation 49.5 fL (36.4-46.3); Red Blood Count 3.64 M/uL (4.7-6.1); White Blood Count 8.56 K/uL (4.8-10.8)
[2021-03-25 06:42] LABS: BUN Creatinine Ratio 36.5 (10-20); Calcium 8.7 mg/dl (8.5-10.1); Creatinine Clr Calc Pharmacy 19.1 ml/min; Est GFR (African American) 27.1 ml/min; Est GFR (Non-African American) 23.4 ml/min; Potassium 4.3 mmol/L (3.5-5.1)
[2021-03-25] MEDS: ASPIRIN 81 MG ECTAB PO SCH (08:42)
[2021-03-25] MEDS: CHOLECALCIFEROL 1,000 UNITS 25 MCG TAB PO SCH (08:42)
[2021-03-25] MEDS: dilTIAZem HCL 120 MG CAPCR PO SCH (08:43)
[2021-03-25] MEDS: MAGNESIUM OXIDE 400 MG TAB PO SCH (08:43)
[2021-03-25] MEDS: VITAMIN B COMPLEX TAB PO SCH (08:43)
[2021-03-25] MEDS: BUMETANIDE 1 MG TAB PO SCH ×2 (08:44→17:38)
[2021-03-25] MEDS: PANTOprazole 40 MG TAB PO SCH ×2 (08:44→21:54)
[2021-03-25] MEDS: METOPROLOL TARTRATE 100 MG TAB PO SCH ×2 (08:45→21:55)
[2021-03-25] MEDS: INSULIN HUMAN NPH SQ SCH (08:46)
[2021-03-25] MEDS: LACTULOSE SYRUP 20 GM/30 ML UDC PO SCH (08:46)
[2021-03-25] MEDS: dexAMETHasone 20 MG in DEXTROSE 5% 25 ML IV SCH (08:48)
[2021-03-25] MEDS: ACYCLOVIR 5% OINT 15 GM TUBE EXT SCH ×2 (08:48→21:54)
[2021-03-25] MEDS: POLYETHYLENE (MIRALAX) 17 GM PACK PO SCH ×2 (08:50→21:55)
[2021-03-25] MEDS: INSULIN ASPART PER UNIT SC SCH ×4 (09:01→21:22)
--- NOTE | 2021-03-25 21:03 | Hospitalist Progress Note ---
Date of Service March 25, 2021 Assessment & Plan (1) Pneumonia due to severe acute respiratory syndrome coronavirus 2 ( RS-CoV-2): Plan: now with increasing oxygen needs over the last 5 days, now on HFNC 35L and 75% FiO2 getting worse, feeling more weak but not in distress Baseline home O2 is 2-3LNC CXR is stable on 03/23 compared to 03/15 -treated with dexamethasone 6mg IV daily but CRP trended up to 9 instead of going down and oxygen requirement went up increased dexamethasone to 20mg IV daily on 03/24 x 5 days, then 10mg x 5 days -completed 5 day course of azithromycin daily no role for Remdesivir or baricitinib (2) CVA (cerebral vascular accident): Plan: MRI brain: acute infarct in the anterior left lentiform nucleus. Possible age- indeterminate hemorrhage in the left supraventricular white matter. 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 mental status is much improved now-doing very well (4) Encephalopathy acute: Plan: resolved, as above (5) H/O heart valve replacement with bioprosthetic valve: Plan: History of severe s/p Bioprosthetic AVR 11/01/2012. Echocardiogram 09/16/20: -- Normal LV size, systolic function. -- LVEF 55%-60%. No regional wall motion abnormalities. -- Septal motion consistent with prior cardiac surgery. -- Mild concentric LVH. -- Mildly reduced RV systolic function. -- Mild left atrial dilation. -- Mild MR. -- Appropriately functioning bioprosthetic AVR. -- RVSP 35 mmHg. 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 -- LUEVANO to LAD. SVG to OM. SVG to PDA. -- Continue current cardiac regimen including statin, beta-tiera, calcium ch nona tiera -- Initial Troponin I is normal at 0.019 ng/mL. -added on ASA 81mg daily for acute CVA as above (7) HTN (hypertension): Plan: Blood pressure is elevated at times. -- Continue beta-tiera, diltiazem -ok to restart home Bumex which was held for CARLOS which is now improving dcd amlodipine as already on diltiazem (8) COPD, moderate: Plan: continue inhalers as needed, decadron (9) Chronic diastolic congestive heart failure: Plan: Patient appears euvolemic. 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 -follow BMP -- Monitor I&O's and daily weights (10) Current use of jail anticoagulation: Plan: Patient on filler leaf cutter long Coumadin for both recurrent DVT's and paroxysmal atrial fibrillation. -- Followed at [facility] Coag clinic. -- Goal INR is 2.0 to 3.0. -- INR 2.3, resume Coumadin 2mg daily (11) DVT, recurrent, lower extremity, chronic: Plan: Patient on jail Coumadin for both recurrent DVT's and paroxysmal atrial fibrillation. -- Followed at [facility] Coag clinic. -- Goal INR is 2.0 to 3.0. as above (12) Paroxysmal atrial fibrillation: Plan: History of PAF and PAT. -- EKG 03/15/21 is suspicious for atrial tachycardia at 122 bpm. -- quality assurance monitor chassis shows a sinus rhythm with occasional PAC's. now in regular rhythm and rate on exam continue diltiazem, metoprolol (13) Hypokalemia: Plan: holding home KCl and follow BMP. 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 (15) Diabetes mellitus: Plan: uncontrolled, A1C 11.5% Pharmacy managing insulin while decadron with some hyperglycemia needs improved outpt regimen pharmacy making changes with increase in dexamethasone (16) CKD (chronic kidney disease) stage 4, GFR 15-29 ml/min: Plan: display associate baseline 1.8-2.2 with CARLOS as above now improving -Avoid nephrotoxins -renally dose meds when appropriate -follow BMP, Cr is 2.3 (17) Hypothyroid: Plan: TSH 1.6 earlier this month continue home LT4 (18) Chronic constipation: Plan: moved bowels after suppository Plan: Dispo-continued stay for high O2 requirement, but now plan to go to rehab after COVID improved due to weakness from stroke and generalized weakness from COVID infection Expect will be here at least through this week Admission and Anticipated Discharge Date Admission Date: March 15, 2021 Subjective patient still on high flow, not making much progress, he is up to 35L and 75% he is eating okay, had a BM last night finally after suppository I discussed his increasing oxygen requirements, asked him if he would want to be placed on a ventilator if his oxygen saturations got worse he said "yes, it's worth a shot" he admits to being very weak, sleepy no chest pain, no fever, no cough Review of Systems Review of Systems: All systems reviewed & are unremarkable except as noted in Subjective Respiratory: + dyspnea and + dyspnea on exertion Physical Exam Physical Exam: General: well developed, well nourished, elderly male, frail appearing, no distress Neck: supple, trachea midline, normal thyroid Lungs: clear to auscultation bilaterally but diminished overall, normal respiratory effort, no accessory muscle use, no distress Heart: regular S1 and S2, no murmur, peripheral pulses normal, capillary refill normal, no edema Abdomen: soft, NT, ND, + BS, no hepatomegaly, normal to percussion Extremities: normal in appearance, no cyanosis, no petechiae, strength is 5/5 left arm and legs, right hand is 5/5, right shoulder a little weak Neuro: awake, cooperative, moves all extremities, CN II-XII intact, sensation in extremities intact, normal speech Skin: warm, dry, no rash, normal turgor, thin skin Psych: Awake, alert and oriented to person and place, unsure of the day of the week Results & Data Results & Data ([facility]) Vital Signs (Past 12 Hours) Vital Signs Temp Pulse Pulse Resp BP Pulse Ox 03/25/21 19:27 58 L 22 90 03/25/21 17:36 59 L 155/74 H 03/25/21 15:36 57 L 18 91 03/25/21 15:27 36.4 C L 58 L 20 133/68 90 03/25/21 10:42 55 L 18 95 Laboratory Results Laboratory Results - last 24 hr 03/25/21 03/25/21 03/25/21 05:35 05:35 05:35 WBC 8.56 RBC 3.64 L Hgb 11.8 L Hct 36.1 L MCV 99.2 MCH 32.4 MCHC 32.7 RDW Std Deviation 49.5 H RDW Coeff of Sung 13.6 Plt Count 188 MPV 11.3 H PT 23.9 H INR 2.5 H Sodium 139 Potassium 4.3 Chloride 105 Carbon Dioxide 30 Anion Gap 4.0 BUN 86 H Creatinine 2.37 H Est Cr Clr Drug Dosing 19.1 Est GFR ( Amer) 27.1 Est GFR (Non-Af Amer) 23.4 BUN/Creatinine Ratio 36.5 H Glucose 137 H POC Glucose Calcium 8.7 03/25/21 03/25/21 03/25/21 08:28 12:33 17:20 WBC RBC Hgb Hct MCV MCH MCHC RDW Std Deviation RDW Coeff of Sung Plt Count MPV PT INR Sodium Potassium Chloride Carbon Dioxide Anion Gap BUN Creatinine Est Cr Clr Drug Dosing Est GFR ( Amer) Est GFR (Non-Af Amer) BUN/Creatinine Ratio Glucose POC Glucose 188 H 222 H 134 H Calcium 03/25/21 20:05 WBC RBC Hgb Hct MCV MCH MCHC RDW Std Deviation RDW Coeff of Sung Plt Count MPV PT INR Sodium Potassium Chloride Carbon Dioxide Anion Gap BUN Creatinine Est Cr Clr Drug Dosing Est GFR ( Amer) Est GFR (Non-Af Amer) BUN/Creatinine Ratio Glucose POC Glucose 116 H Calcium PG Care Time/CCT Total # of Minutes Spent Total Time Spent with Patient: Total time spent is greater than 50% in coordination of care (as documented) at patient's floor/unit and/or counseling patient: Coding Level of Care Code 43272 Subseq Hosp Care Lvl 3 Diagnoses CVA (cerebral vascular accident) I63.9 Pneumonia due to severe acute respiratory syndrome coronavirus 2 (SARS-CoV-2) U07.1; J12.82 Confusion R41.0 Encephalopathy acute G93.40 H/O heart valve replacement with bioprosthetic valve Z95.3 CAD (coronary artery disease), [place] coronary artery I25.10 [place] vs. transplanted heart: [place] heart Associated angina: without angina HTN (hypertension) I10 Hypertension type: essential hypertension COPD, moderate J44.9 Chronic diastolic congestive heart failure I50.32 Current use of filler leaf cutter long anticoagulation Z79.01 DVT, recurrent, lower extremity, chronic I82.509 Paroxysmal atrial fibrillation I48.0 Hypokalemia E87.6 O2 dependent Z99.81 Diabetes mellitus E11.69; Z79.4 Diabetes mellitus type: type 2 Diabetes mellitus filler leaf cutter long insulin use: with jail use Diabetes mellitus complication status: with other specified complication CKD (chronic kidney disease) stage 4, GFR 15-29 ml/min N18.4 Hypothyroid E03.9 Chronic constipation K59.09 (1) CAD (coronary artery disease), [place] coronary artery [place] vs. transplanted heart: [place] heart Associated angina: without angina Qualified Code(s): I25.10 - Atherosclerotic heart disease of [place] coronary artery without angina pectoris (2) HTN (hypertension) Hypertension type: essential hypertension Qualified Code(s): I10 - Essential (primary) hypertension (3) Diabetes mellitus Diabetes mellitus type: type 2 Diabetes mellitus jail insulin use: with jail use Diabetes mellitus complication status: with other specified complication Qualified Code(s): E11.69 - Type 2 diabetes mellitus with other specified complication; Z79.4 - USP (current) use of insulin
[2021-03-25] MEDS: LACTULOSE SYRUP 10 GM/15 ML BTL 960 ML PO SCH (21:55)
[2021-03-25] MEDS: ATORVASTATIN 40 MG TAB PO SCH (21:56)
[2021-03-26 06:04] LABS: INR 2.4 (0.9-1.1); Prothrombin Time 22.6 Seconds (9.0-12.0)
[2021-03-26] MEDS: LEVOTHYROXINE SODIUM 75 MCG TABLET PO SCH (06:07)
[2021-03-26] MEDS: PANTOprazole 40 MG TAB PO SCH ×2 (08:43→21:54)
[2021-03-26] MEDS: CHOLECALCIFEROL 1,000 UNITS 25 MCG TAB PO SCH (08:44)
[2021-03-26] MEDS: METOPROLOL TARTRATE 100 MG TAB PO SCH ×2 (08:45→21:58)
[2021-03-26] MEDS: dilTIAZem HCL 120 MG CAPCR PO SCH (08:46)
[2021-03-26] MEDS: ASPIRIN 81 MG ECTAB PO SCH (08:48)
[2021-03-26] MEDS: VITAMIN B COMPLEX TAB PO SCH (08:49)
[2021-03-26] MEDS: MAGNESIUM OXIDE 400 MG TAB PO SCH (08:49)
[2021-03-26] MEDS: BUMETANIDE 1 MG TAB PO SCH ×2 (08:54→16:54)
[2021-03-26] MEDS: POLYETHYLENE (MIRALAX) 17 GM PACK PO SCH ×2 (08:57→21:59)
[2021-03-26] MEDS: LACTULOSE SYRUP 10 GM/15 ML BTL 960 ML PO SCH ×2 (08:57→21:54)
[2021-03-26] MEDS ORDERED: INSULIN HUMAN NPH SQ SCH (09:00)
[2021-03-26] MEDS: INSULIN HUMAN NPH SQ SCH (09:01)
[2021-03-26] MEDS: INSULIN ASPART PER UNIT SC SCH ×5 (09:17→21:59)
[2021-03-26] MEDS: dexAMETHasone 20 MG in DEXTROSE 5% 25 ML IV SCH (10:57)
--- NOTE | 2021-03-26 11:20 | Pharmacy Report ---
Pharmacy Glycemic Short Note 2 - Date of Service March 26, 2021 - Glycemic Short BSG Results (Last 24 hours): 03/25/21 03/25/21 03/25/21 12:33 17:20 20:05 POC Glucose 222 H 134 H 116 H 03/26/21 08:28 POC Glucose 186 H OUTPATIENT ANTIDIABETIC REGIMEN: * NPH 12 units every other day * HbA1c 11.5% on 02/24/21 ASSESSMENT: 03/26/21 * Patient's BSGs yesterday were [phone] mg/dL. Fasting today is 186 mg/dL. * Patient received 125 units of insulin yesterday (12 units of basal and 113 units of bolus). * Lunch continues to be highest value of the day. Tighten breakfast CR to 1. * Continue NPH as BSGs trend downwards throughout the day. * Add overnight checks to determine how much NPH to give later in the day as patient appears to need more coverage. 03/24/21 * Patient's BSGs yesterday were [phone] mg/dL. Patient received 45 units of insulin (12 units of basal and 33 units of bolus). * Dexamethasone has increased to 20 mg IV daily. * BSGs will increase with dexamethasone 20 mg. However, concerned with increasing NPH at this time. Most evenings patient trends downwards significantly in the evening and requires very little insulin with dinner and HS. If patient has significant elevations in the evening tonight, then NPH could be increased. Unsure how patient will react. * Will not tighten CF has patient corrects nicely. * Tighten CR significantly since this will help manage steroid hyperglycemia. 03/23/21 * Patient received total of 71 units of insulin yesterday, of which 12 were NPH to cover steroids * BSGs elevated at lunch time, therefore will tighten CR more at breakfast today 03/19/21 * Patient's BSGs yesterday were [phone] mg/dL and fasting today is 177 mg/dL. * Fasting is trending upwards ([phone] mg/dL) so considering adding second, smaller dose of NPH in the evening. HOWEVER, concerned about lower BSGs in the evening. Consider addition of second dose of NPH tomorrow and if do so could lower morning dose of NPH. * Patient overcorrections with CF of 15 so loosen to 20 mg/dL. Continue CR. 03/17 * Stressors stable * AM fasting BSG in goal range - will continue same NPH dose and schedule qAM * Post-prandial BSG's all elevated yesterday ranging 187-221 mg/dL. Will tighten CHO ratio. 03/16 * Stressors stable - dexamethasone continues * BSG's trended down significantly after home dose NPH and 19 units of correctional insulin. Will therefore not increase NPH this AM and provide low dose of 12 units again. May need to be increased tomorrow. * No PO intake thus far to determine adequacy of Novolog CHO ratio, but given significant trend down in BSG's will loosen CHO ratio slightly. This is still tighter than his other admission (not on steroids). BSG did increase significantly from breakfast to lunch, but no insulin was administered with breakfast therefore this may be due to uncovered CHO consumption. 03/15 * Mr Beth is an 89 y/o M with a PMH of T2DM on insulin who presents with COVID. * Blood sugar on PRP this AM was 164 mg/dL but by 1530 BSG was 315 mg/dL on POC. Patient received dexamethasone 6 mg IV x 1 at 1119. * Give home dose of NPH 12 units SQ x 1 then determine future dosing tomorrow based upon how patient reacts today. * Tight Novolog coverage. Patient is carbohydrate sensitive so will utilize extremely tight carbohydrate ratio. PLAN FOR INPATIENT GLYCEMIC CONTROL: * Basal insulin * NPH 12 units SQ qAM * Bolus insulin * NovoLog per scale ACHS or Q6hrs while NPO * Goal Range: Low 110 mg/dL - High 140 mg/dL * Correction Factor: 20 mg/dL/unit * Nutritional / Prandial insulin per carb ratio of 1 unit per 1.5 grams CHO consumed (except at breakfast utilize carbohydrate ratio of 1 unit per 1 grams CHO consumed) PLAN FOR DISCHARGE: * Patient's HbA1C is 11.5% which is above goal of <8% for patient's age and comorbidities. * Discharge plan will depend on what steroids patient is discharged on so will reevaluate closer to discharge.
[2021-03-26] MEDS: ACYCLOVIR 5% OINT 15 GM TUBE EXT SCH ×2 (13:13→22:03)
--- NOTE | 2021-03-26 15:17 | Hospitalist Progress Note ---
Date of Service March 26, 2021 Assessment & Plan (1) Pneumonia due to severe acute respiratory syndrome coronavirus 2 ( RS-CoV-2): Plan: now with increasing oxygen needs over the last 6 days, now on HFNC 30L and 90% FiO2 getting worse, feeling more weak but not in distress Baseline home O2 is 2-3LNC CXR is stable on 03/23 compared to 03/15 -treated with dexamethasone 6mg IV daily but CRP trended up to 9 instead of going down and oxygen requirement went up increased dexamethasone to 20mg IV daily on 03/24 x 5 days (day 3), then 10mg x 5 days -completed 5 day course of azithromycin daily no role for Remdesivir or baricitinib hoping he plateaus on oxygen requirements soon discussed worsening status and if he would want intubated, he immediately said "yes, I would want to try" (2) CVA (cerebral vascular accident): Plan: MRI brain: acute infarct in the anterior left lentiform nucleus. Possible age- indeterminate hemorrhage in the left supraventricular white matter. 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 mental status is much improved now-doing very well (4) Encephalopathy acute: Plan: resolved, as above (5) H/O heart valve replacement with bioprosthetic valve: Plan: History of severe s/p Bioprosthetic AVR 11/01/2012. Echocardiogram 09/16/20: -- Normal LV size, systolic function. -- LVEF 55%-60%. No regional wall motion abnormalities. -- Septal motion consistent with prior cardiac surgery. -- Mild concentric LVH. -- Mildly reduced RV systolic function. -- Mild left atrial dilation. -- Mild MR. -- Appropriately functioning bioprosthetic AVR. -- RVSP 35 mmHg. 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 -- LUEVANO to LAD. SVG to OM. SVG to PDA. -- Continue current cardiac regimen including statin, beta-tiera, calcium channel tiera -- Initial Troponin I is normal at 0.019 ng/mL. -added on ASA 81mg daily for acute CVA as above (7) HTN (hypertension): Plan: Blood pressure is elevated at times. -- Continue beta-tiera, diltiazem -ok to restart home Bumex which was held for CARLOS which is now improving dcd amlodipine as already on diltiazem (8) COPD, moderate: Plan: continue inhalers as needed, decadron (9) Chronic diastolic congestive heart failure: Plan: Patient appears euvolemic. Had CARLOS with hosiery looper rising to 2.53 from 1.9-2.2 baseline on 03/20 Diesel Electrician today is 2.3 --continue Bumex 4 mg b.i.d. -follow BMP -- Monitor I&O's and daily weights (10) Current use of care home anticoagulation: Plan: Patient on terminal makeup operator Coumadin for both recurrent DVT's and paroxysmal atrial fi brillation. -- Followed at [facility] Coag clinic. -- Goal INR is 2.0 to 3.0. -- INR 2.4, hold Coumadin due to some blood in stool (11) DVT, recurrent, lower extremity, chronic: Plan: Patient on terminal makeup operator Coumadin for both recurrent DVT's and paroxysmal atrial fibrillation. -- Followed at [facility] Coag clinic. -- Goal INR is 2.0 to 3.0. as above (12) Paroxysmal atrial fibrillation: Plan: History of PAF and PAT. -- EKG 03/15/21 is suspicious for atrial tachycardia at 122 bpm. -- data communications analyst shows a sinus rhythm with occasional PAC's. now in regular rhythm and rate on exam continue diltiazem, metoprolol (13) Hypokalemia: Plan: holding home KCl and follow BMP. 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 (15) Diabetes mellitus: Plan: uncontrolled, A1C 11.5% Pharmacy managing insulin while decadron with some hyperglycemia needs improved outpt regimen pharmacy making changes with increase in dexamethasone (16) CKD (chronic kidney disease) stage 4, GFR 15-29 ml/min: Plan: hosiery looper baseline 1.8-2.2 with CARLOS as above now improving -Avoid nephrotoxins -renally dose meds when appropriate -follow BMP, Cr is 2.3 (17) Hypothyroid: Plan: TSH 1.6 earlier this month continue home LT4 (18) Chronic constipation: Plan: moved bowels after suppository Plan: Dispo-continued stay for high O2 requirement, but now plan to go to rehab after COVID improved due to weakness from stroke and generalized weakness from COVID infection Expect will be here at least through this week Admission and Anticipated Discharge Date Admission Date: March 15, 2021 Subjective patient laying in bed, resting very comfortably he denies any pain, says he is eating he is up to 30L and 90% but saturations are 95% and not in distress RN reported he had some blood with bowel movement, patient says that is normal INR is 2.4, holding Coumadin Review of Systems Review of Systems: All systems reviewed & are unremarkable except as noted in Subjective Respiratory: + dyspnea and + dyspnea on exertion Gastrointestinal: + blood in stools Physical Exam Physical Exam: General: well developed, well nourished, elderly male, frail appearing, no distress Neck: supple, trachea midline, normal thyroid Lungs: clear to auscultation bilaterally but diminished overall, normal respiratory effort, no accessory muscle use, no distress Heart: regular S1 and S2, no murmur, peripheral pulses normal, capillary refill normal, no edema Abdomen: soft, NT, ND, + BS, no hepatomegaly, normal to percussion Extremities: normal in appearance, no cyanosis, no petechiae, strength is 5/5 left arm and legs, right hand is 5/5, right shoulder a little weak Neuro: awake, cooperative, moves all extremities, CN II-XII intact, sensation in extremities intact, normal speech Skin: warm, dry, no rash, normal turgor, thin skin Psych: Awake, alert and oriented to person and place, unsure of the day of the week Results & Data Results & Data ([facility]) Vital Signs (Past 12 Hours) Vital Signs Temp Pulse Resp BP Pulse Ox 03/26/21 11:15 80 22 95 03/26/21 07:45 75 22 89 L 03/26/21 07:13 36.5 C 61 16 136/65 91 03/26/21 03:45 88 24 90 Laboratory Results Laboratory Results - last 24 hr 03/25/21 03/25/21 03/26/21 17:20 20:05 05:25 PT 22.6 H INR 2.4 H POC Glucose 134 H 116 H 03/26/21 03/26/21 08:28 12:44 PT INR POC Glucose 186 H 220 H Medications Administered Current Inpatient Medications Acetaminophen (Acetaminophen 325 Mg Tab) 650 mg PO Q4H PRN PRN Reason: Pain or Fever Stop: 04/14/21 14:27 Acyclovir (Acyclovir 5% Oint 15 Gm Tube) 1 appln EXT BID [facility] Stop: 04/01/21 18:54 Last Admin: 03/26/21 13:13 Dose: Not Given Documented by: Al Hydrox/Mg Hydrox/Simethicone (Aluminum/Magnesium Susp 30 Ml Udc) 15 ml PO Q4H PRN PRN Reason: Dyspepsia Stop: 04/14/21 14:27 Last Admin: 03/24/21 05:21 Dose: 15 ml Documented by: Albuterol (Albut/Ipratrop 3mg/0.5mg Neb 3 Ml Vial) 3 ml INH Q6H PRN; Protocol PRN Reason: wheezing Stop: 04/14/21 14:27 Last Admin: 03/19/21 06:22 Dose: 3 ml Documented by: Aspirin (Aspirin 81 Mg Ectab) [facility] [place]: 04/17/21 08:59 Last Admin: 03/26/21 08:48 Dose: 81 mg Documented by: Atorvastatin Calcium (Atorvastatin 40 Mg Tab) 40 mg PO HS [facility] Stop: 04/14/21 20:59 Last Admin: 03/25/21 21:56 Dose: 40 mg Documented by: Bisacodyl (Bisacodyl 10 Mg Supp) 10 mg [place] DAILY PRN PRN Reason: Constipation Stop: 04/23/21 20:51 Bumetanide (Bumetanide 1 Mg Tab) 4 mg PO BID17 [facility] Stop: 04/21/21 16:59 Last Admin: 03/26/21 16:54 Dose: 4 mg Documented by: Nystatin 30 ml/ Dexamethasone 3.75 mg/ Diphenhydramine HCl 300 mg/ Sucrose 45 ml/Microcrystalline Cellulose 45 ml/ BARCODE IDENTIFIER 1 ea 0 ml PO Q4H PRN PRN Reason: mouth sores Stop: 04/21/21 23:18 Last Admin: 03/23/21 11:39 Dose: 5 ml Documented by: Dextrose (Dextrose 50% 50 Ml Syringe) 25 - 50 ml IV UD PRN; Protocol PRN Reason: Hypoglycemia Protocol Stop: 04/17/21 02:14 Diltiazem HCl (Diltiazem Hcl 120 Mg Capcr) 120 mg PO QAM [facility] Stop: 04/15/21 08:59 Last Admin: 03/26/21 08:46 Dose: 120 mg Documented by: Glucagon (Glucagon For Inj 1 Mg Vial) 1 mg IM UD PRN; Protocol PRN Reason: Hypoglycemia Protocol Stop: 04/17/21 02:14 Glucose (Glucose 40% Gel 15 Gm Tube) 15 - 30 gm PO UD PRN; Protocol PRN Reason: Hypoglycemia Protocol Stop: 04/17/21 02:14 Glucose (Glucose 10 Tabs/Tube) 4 - 8 tabs PO UD PRN; Protocol PRN Reason: Hypoglycemia Protocol Stop: 04/17/21 02:14 Hydralazine HCl (Hydralazine Hcl 20 Mg/Ml Vial) 10 mg IV Q6H PRN PRN Reason: BP>180 systolic,>100 diastolic Stop: 04/15/21 04:08 Last Admin: 03/16/21 04:24 Dose: 10 mg Documented by: Dexamethasone 20 mg/ Dextrose 30 mls @ 0.833 mls/min IV Q24H [facility] Stop: 03/28/21 09:35 Last Infusion: 03/26/21 11:35 Dose: Infused Documented by: Dexamethasone 10 mg/ Syringe 2.5 mls @ 1 mls/min IV DAILY [facility] Stop: 04/02/21 09:03 Insulin Aspart (Insulin Aspart Per Unit) 0 units SC DAILY@0730 [facility] Stop: 04/25/21 07:29 Last Admin: 03/26/21 09:17 Dose: 15 units Documented by: Insulin Aspart (Insulin Aspart Per Unit) 0 units SC DAILY@1130,1630,2100 [facility] Stop: 04/25/21 11:29 Last Admin: 03/26/21 13:12 Dose: 4 units Documented by: Insulin Aspart (Insulin Aspart Per Unit) 0 units SC 0000,0400 [facility] Stop: 03/27/21 04:01 Insulin Human NPH (Insulin Human Nph) 12 units SQ QAM [facility] Stop: 04/25/21 08:59 Last Admin: 03/26/21 09:01 Dose: 12 units Documented by: Lactulose (Lactulose Syrup 10 Gm/15 Ml Btl 960 Ml) 10 gm PO BID [facility] Stop: 04/24/21 20:59 Last Admin: 03/26/21 08:57 Dose: 10 gm Documented by: Levothyroxine Sodium (Levothyroxine Sodium 75 Mcg Tablet) 75 mcg PO DAILYBB [facility] Stop: 04/15/21 06:29 Last Admin: 03/26/21 06:07 Dose: 75 mcg Documented by: Magnesium Hydroxide (Magnesium Hydroxide Susp 30 Ml Udc) 30 ml PO Q12H PRN PRN Reason: Constipation Stop: 04/14/21 14:27 Last Admin: 03/24/21 18:08 Dose: 30 ml Documented by: Magnesium Oxide (Magnesium Oxide 400 Mg Tab) [facility] [place]: 04/15/21 08:59 Last Admin: 03/26/21 08:49 Dose: 400 mg Documented by: Metoprolol Tartrate (Metoprolol Tartrate 100 Mg Tab) 100 mg PO BID [facility] Stop: 04/14/21 20:59 Last Admin: 03/26/21 08:45 Dose: 100 mg Documented by: Miscellaneous (Carbohydrates For Hypoglycemia ) 15 - 30 gm PO UD PRN PRN Reason: Hypoglycemia Treatment Stop: 04/17/21 02:14 Miscellaneous Information (Pharmacy Glycemic Mgmt Consult) 1 ea N/A UD PRN PRN Reason: Consult Stop: 04/14/21 14:27 Nitroglycerin (Nitroglycerin Sl 0.4 Mg/Tab Tab) 0.4 mg SL UD PRN PRN Reason: Chest Pain Stop: 04/14/21 14:27 Ondansetron HCl (Ondansetron Inj 2 Mg/Ml 2 Ml Vial) 4 mg IV Q6H PRN PRN Reason: Nausea Stop: 04/14/21 14:27 Pantoprazole Sodium (Pantoprazole 40 Mg Tab) 40 mg PO BID [facility] Stop: 04/14/21 20:59 Last Admin: 03/26/21 08:43 Dose: 40 mg Documented by: Polyethylene Glycol (Polyethylene (Miralax) 17 Gm Pack) 17 gm PO BID [facility] Stop: 04/23/21 20:59 Last Admin: 03/26/21 08:57 Dose: 17 gm Documented by: Potassium Chloride (Potassium Chloride Crtab 20 Meq Tabcr) 60 meq PO BID [facility] Stop: 04/14/21 20:59 Last Admin: 03/20/21 09:03 Dose: 60 meq Documented by: Vitamin B Complex (Vitamin B Complex Tab) 1 tab PO QAM [facility] Stop: 04/15/21 08:59 Last Admin: 03/26/21 08:49 Dose: 1 tab Documented by: Vitamin D (Cholecalciferol 1,000 Units 25 Mcg Tab) 1,000 units PO DAILY [facility] Stop: 04/15/21 08:59 Last Admin: 03/26/21 08:44 Dose: 1,000 units Documented by: Warfarin Sodium (Warfarin Sod 2 Mg Tab) 2 mg PO DAILY@1600 [facility] Stop: 04/25/21 15:59 PG Care Time/CCT Total # of Minutes Spent Total Time Spent with Patient: Total time spent is greater than 50% in coordination of care (as documented) at patient's floor/unit and/or counseling patient: Coding Level of Care Code 64254 Subseq Hosp Care Lvl 2 Diagnoses Pneumonia due to severe acute respiratory syndrome coronavirus 2 (SARS-CoV-2) U07.1; J12.82 CVA (cerebral vascular accident) I63.9 Confusion R41.0 Encephalopathy acute G93.40 H/O heart valve replacement with bioprosthetic valve Z95.3 CAD (coronary artery disease), [place] coronary artery I25.10 Associated angina: without angina [place] vs. 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 transplanted heart: [place] heart Qualified Code(s): I25.10 - Atherosclerotic heart disease of [place] coronary artery without angina pectoris (3) HTN (hypertension) Hypertension type: essential hypertension Qualified Code(s): I10 - Essential (primary) hypertension
[2021-03-26] MEDS ORDERED: WARFARIN SOD 2 MG TAB PO SCH (16:00)
[2021-03-26] MEDS: ATORVASTATIN 40 MG TAB PO SCH (21:54)
[2021-03-27] MEDS: INSULIN ASPART PER UNIT SC SCH ×6 (00:22→20:49)
[2021-03-27] MEDS: LEVOTHYROXINE SODIUM 75 MCG TABLET PO SCH (05:05)
[2021-03-27 06:04] LABS: Hematocrit (blood only) 37.4 % (42-52); Hemoglobin 12.2 g/dL (14.0-18.0); Mean Corpuscular Hemoglobin 32.8 pg (25-34); Mean Corpuscular Hgb Conc 32.6 g/dL (32-36); Mean Corpuscular Volume 100.5 fL (80-100); Mean Platelet Volume 11.4 fL (7.4-10.4); Platelet Count 202 K/uL (130-400); RDW Coefficient of Variation 13.7 % (11.5-14.5); RDW Standard Deviation 50.3 fL (36.4-46.3); Red Blood Count 3.72 M/uL (4.7-6.1); White Blood Count 13.24 K/uL (4.8-10.8)
[2021-03-27 06:13] LABS: INR 2.2 (0.9-1.1); Prothrombin Time 20.7 Seconds (9.0-12.0)
[2021-03-27 06:38] LABS: BUN Creatinine Ratio 35.8 (10-20); Calcium 8.7 mg/dl (8.5-10.1); Creatinine Clr Calc Pharmacy 17.3 ml/min; Est GFR (African American) 24.1 ml/min; Est GFR (Non-African American) 20.8 ml/min; Potassium 4.3 mmol/L (3.5-5.1)
[2021-03-27] MEDS: ACYCLOVIR 5% OINT 15 GM TUBE EXT SCH ×2 (09:50→20:44)
[2021-03-27] MEDS: LACTULOSE SYRUP 10 GM/15 ML BTL 960 ML PO SCH ×2 (09:57→20:46)
[2021-03-27] MEDS: ASPIRIN 81 MG ECTAB PO SCH (09:57)
[2021-03-27] MEDS: dilTIAZem HCL 120 MG CAPCR PO SCH (09:58)
[2021-03-27] MEDS: CHOLECALCIFEROL 1,000 UNITS 25 MCG TAB PO SCH (09:58)
[2021-03-27] MEDS: MAGNESIUM OXIDE 400 MG TAB PO SCH (09:59)
[2021-03-27] MEDS: METOPROLOL TARTRATE 100 MG TAB PO SCH ×2 (09:59→20:47)
[2021-03-27] MEDS: POLYETHYLENE (MIRALAX) 17 GM PACK PO SCH ×2 (10:02→20:47)
[2021-03-27] MEDS: VITAMIN B COMPLEX TAB PO SCH (10:03)
[2021-03-27] MEDS: PANTOprazole 40 MG TAB PO SCH ×2 (10:03→20:46)
[2021-03-27] MEDS: INSULIN HUMAN NPH SQ SCH (10:21)
[2021-03-27] MEDS: dexAMETHasone 20 MG in DEXTROSE 5% 25 ML IV SCH (10:27)
--- NOTE | 2021-03-27 12:43 | Hospitalist Progress Note ---
Date of Service March 27, 2021 Assessment & Plan (1) Pneumonia due to severe acute respiratory syndrome coronavirus 2 (SARS -CoV-2): Plan: now with increasing oxygen needs over the last 6 days, now on HFNC 30L and 80% FiO2 getting worse, feeling more weak but not in distress Baseline home O2 is 2-3LNC CXR is stable on 03/23 compared to 03/15 -treated with dexamethasone 6mg IV daily but CRP trended up to 9 instead of going down and oxygen requirement went up increased dexamethasone to 20mg IV daily on 03/24 x 5 days (day 4), then 10mg x 5 days -completed 5 day course of azithromycin daily no role for Remdesivir or baricitinib long discussion with patient and family about real possibility of needing intubated if he gets worse we can try CPAP as a bridge explained that realistically he will be difficult to wean from ventilator spoke with his daughter Michelle, will try to arrange for visit tomorrow if she is interested (2) CVA (cerebral vascular accident): Plan: MRI brain: acute infarct in the anterior left lentiform nucleus. Possible age- indeterminate hemorrhage in the left supraventricular white matter. 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 mental status is much improved now-doing very well (4) Encephalopathy acute: Plan: resolved, as above (5) H/O heart valve replacement with bioprosthetic valve: Plan: History of severe s/p Bioprosthetic AVR 11/01/2012. Echocardiogram 09/16/20: -- Normal LV size, systolic function. -- LVEF 55%-60%. No regional wall motion abnormalities. -- Septal motion consistent with prior cardiac surgery. -- Mild concentric LVH. -- Mildly reduced RV systolic function. -- Mild left atrial dilation. -- Mild MR. -- Appropriately functioning bioprosthetic AVR. -- RVSP 35 mmHg. 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 -- LUEVANO to LAD. SVG to OM. SVG to PDA. -- Continue current cardiac regimen including statin, beta-tiera, calcium channel tiera -- Initial Troponin I is normal at 0.019 ng/mL. -added on ASA 81mg daily for acute CVA as above (7) HTN (hypertension): Plan: Blood pressure is elevated at times. -- Continue beta-tiera, diltiazem - hold Bumex with Cr climbing to 2.6 and BUN 90s (8) COPD, moderate: Plan: continue inhalers as needed, decadron (9) Chronic diastolic congestive heart failure: Plan: Patient appears dry Had CARLOS with carpenter streetcar rising to 2.53 from 1.9-2.2 baseline on 03/20 [employer]icult[employer] today is 2.6 --hold Bumex 4 mg b.i.d. as of this morning -follow BMP in AM -- Monitor I&O's and daily weights (10) Current use of assisted anticoagulation: Plan: Patient on meterman Coumadin for both recurrent DVT's and paroxysmal atrial fibrillation. -- Followed at [facility]. -- Goal INR is 2.0 to 3.0. -- INR 2.2, holding Coumadin due to some blood in stool on 03/26, nothing further (11) DVT, recurrent, lower extremity, chronic: Plan: Patient on meterman Coumadin for both recurrent DVT's and paroxysmal atrial fibrillation. -- Followed at [facility]. -- Goal INR is 2.0 to 3.0. as above (12) Paroxysmal atrial fibrillation: Plan: History of PAF and PAT. -- EKG 03/15/21 is suspicious for atrial tachycardia at 122 bpm. -- monitor technician shows a sinus rhythm with occasional PAC's. now in regular rhythm and rate on exam continue diltiazem, metoprolol (13) Hypokalemia: Plan: K is 4.3 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 (15) Diabetes mellitus: Plan: uncontrolled, A1C 11.5% Pharmacy managing insulin while decadron with some hyperglycemia needs improved outpt regimen pharmacy making changes with increase in dexamethasone to 20mg, no extreme highs today (16) CKD (chronic kidney disease) stage 4, GFR 15-29 ml/min: Plan: carpenter streetcar baseline 1.8-2.2 with CARLOS as above, Cr is 2.6, hold Bumex again (17) Hypothyroid: Plan: TSH 1.6 earlier this month continue home LT4 (18) Chronic constipation: Plan: moved bowels after suppository Plan: Dispo-continued stay for high O2 requirement, but now plan to go to rehab after COVID improved due to weakness from stroke and generalized weakness from COVID infection Expect will be here at least through this week now unsure he will recover, discussed code status, he wants to remain level 1 will try to get his daughter in to see him Admission and Anticipated Discharge Date Admission Date: March 15, 2021 Subjective patient laying in bed, he says he feels terrible "I have never felt this sick in my life" he is not eating or drinking much, 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 I told him that given his age, frail condition, chronic lung disease that it would be very difficult to get him off a ventilator he shrugged his shoulders, asked me to call his daughter I spoke with Michelle over the phone, gave her a long update on serious condition explained that he does not need intubated or ventilated today, but that could change tomorrow told her that placing him on a ventilator could stabilize him and provide oxygen, but weaning him off would be difficult explained that patients and families should consider if the patient would ultimately want a tracheostomy if unable to come off ventilator explained that there are three options if breathing gets worse... intubate and if he does not improve perform tracheostomy, intubate and if he does not improve terminal extubation or if he needs intubated, he and family could opt for comfort measures and we could provide morphine I offered her the chance to visit the patient tomorrow since he is not on COVID unit, she will consider it, I told her I would call her in the morning after I see him Review of Systems Review of Systems: All systems reviewed & are unremarkable except as noted in Subjective Constitutional: + fatigue and + weakness; no fever Respiratory: + cough, + dyspnea and + dyspnea on exertion; no sputum production Cardiovascular: no chest pain and no edema Gastrointestinal: + early satiety; no abdominal pain, no nausea, no vomiting, no constipation and no diarrhea/loose stools Physical Exam Physical Exam: General: well developed, well nourished, elderly male, frail appearing, very weak Neck: supple, trachea midline, normal thyroid Lungs: clear to auscultation bilaterally but diminished overall, slight tachypnea, slight accessory muscle use, no distress Heart: regular S1 and S2, no murmur, peripheral pulses normal, capillary refill normal, no edema Abdomen: soft, NT, ND, + BS, no hepatomegaly, normal to percussion Extremities: normal in appearance, no cyanosis, no petechiae, strength is diminished in general, laying in bed Neuro: awake, cooperative, moves all extremities, CN II-XII intact, sensation in extremities intact, normal speech Skin: warm, dry, no rash, normal turgor, thin skin Psych: Awake, alert and oriented to person and place, unsure of the day of the week, he is cooperative Results & Data Results & Data ([facility]) Vital Signs (Past 12 Hours) Vital Signs Temp Pulse Resp BP Pulse Ox 03/27/21 10:57 50 L 20 95 03/27/21 07:49 50 L 20 92 03/27/21 07:22 36.6 C 51 L 16 135/76 92 03/27/21 04:00 92 H 21 89 L 03/27/21 03:07 71 24 90 Laboratory Results Laboratory Results - last 24 hr 03/26/21 03/26/21 03/26/21 12:44 17:05 21:15 WBC RBC Hgb Hct MCV MCH MCHC RDW Std Deviation RDW Coeff of Sung Plt Count MPV PT INR Sodium Potassium Chloride Carbon Dioxide Anion Gap BUN Creatinine Est Cr Clr Drug Dosing Est GFR ( Amer) Est GFR (Non-Af Amer) BUN/Creatinine Ratio Glucose POC Glucose 220 H 140 H 116 H Calcium 03/26/21 03/27/21 03/27/21 23:43 04:35 05:40 WBC RBC Hgb Hct MCV MCH MCHC RDW Std Deviation RDW Coeff of Sung Plt Count MPV PT 20.7 H INR 2.2 H Sodium Potassium Chloride Carbon Dioxide Anion Gap BUN Creatinine Est Cr Clr Drug Dosing Est GFR ( Amer) Est GFR (Non-Af Amer) BUN/Creatinine Ratio Glucose POC Glucose 114 H 154 H Calcium 03/27/21 03/27/21 03/27/21 05:40 05:40 08:28 WBC 13.24 H RBC 3.72 L Hgb 12.2 L Hct 37.4 L MCV 100.5 H MCH 32.8 MCHC 32.6 RDW Std Deviation 50.3 H RDW Coeff of Sung 13.7 Plt Count 202 MPV 11.4 H PT INR Sodium 142 Potassium 4.3 Chloride 105 Carbon Dioxide 31 Anion Gap 6.0 BUN 93 H Creatinine 2.61 H Est Cr Clr Drug Dosing 17.3 Est GFR ( Amer) 24.1 Est GFR (Non-Af Amer) 20.8 BUN/Creatinine Ratio 35.8 H Glucose 190 H POC Glucose 182 H Calcium 8.7 03/27/21 12:34 WBC RBC Hgb Hct MCV MCH MCHC RDW Std Deviation RDW Coeff of Sung Plt Count MPV PT INR Sodium Potassium Chloride Carbon Dioxide Anion Gap BUN Creatinine Est Cr Clr Drug Dosing Est GFR ( Amer) Est GFR (Non-Af Amer) BUN/Creatinine Ratio Glucose POC Glucose 236 H Calcium Medications Administered Current Inpatient Medications Acetaminophen (Acetaminophen 325 Mg Tab) 650 mg PO Q4H PRN PRN Reason: Pain or Fever Stop: 04/14/21 14:27 Acyclovir (Acyclovir 5% Oint 15 Gm Tube) 1 appln EXT BID TI Stop: 04/01/21 18:54 Last Admin: 03/27/21 09:50 Dose: 1 appln Documented by: Al Hydrox/Mg Hydrox/Simethicone (Aluminum/Magnesium Susp 30 Ml Udc) 15 ml PO Q4H PRN PRN Reason: Dyspepsia Stop: 04/14/21 14:27 Last Admin: 03/24/21 05:21 Dose: 15 ml Documented by: Albuterol (Albut/Ipratrop 3mg/0.5mg Neb 3 Ml Vial) 3 ml INH Q6H PRN; Protocol PRN Reason: wheezing Stop: 04/14/21 14:27 Last Admin: 03/19/21 06:22 Dose: 3 ml Documented by: Aspirin (Aspirin 81 Mg Ectab) 81 mg PO QAM [facility] Stop: 04/17/21 08:59 Last Admin: 03/27/21 09:57 Dose: 81 mg Documented by: Atorvastatin Calcium (Atorvastatin 40 Mg Tab) 40 mg PO HS [facility] Stop: 04/14/21 20:59 Last Admin: 03/26/21 21:54 Dose: 40 mg Documented by: Bisacodyl (Bisacodyl 10 Mg Supp) 10 mg TX DAILY PRN PRN Reason: Constipation Stop: 04/23/21 20:51 Bumetanide (Bumetanide 1 Mg Tab) 4 mg PO BID17 [facility] Stop: 04/21/21 16:59 Last Admin: 03/26/21 16:54 Dose: 4 mg Documented by: Nystatin 30 ml/ Dexamethasone 3.75 mg/ Diphenhydramine HCl 300 mg/ Sucrose 45 ml/Microcrystalline Cellulose 45 ml/ BARCODE IDENTIFIER 1 ea 0 ml PO Q4H PRN PRN Reason: mouth sores Stop: 04/21/21 23:18 Last Admin: 03/23/21 11:39 Dose: 5 ml Documented by: Dextrose (Dextrose 50% 50 Ml Syringe) 25 - 50 ml IV UD PRN; Protocol PRN Reason: Hypoglycemia Protocol Stop: 04/17/21 02:14 Diltiazem HCl (Diltiazem Hcl 120 Mg Capcr) 120 mg PO QAM [facility] Stop: 04/15/21 08:59 Last Admin: 03/27/21 09:58 Dose: Not Given Documented by: Glucagon (Glucagon For Inj 1 Mg Vial) 1 mg IM UD PRN; Protocol PRN Reason: Hypoglycemia Protocol Stop: 04/17/21 02:14 Glucose (Glucose 40% Gel 15 Gm Tube) 15 - 30 gm PO UD PRN; Protocol PRN Reason: Hypoglycemia Protocol Stop: 04/17/21 02:14 Glucose (Glucose 10 Tabs/Tube) 4 - 8 tabs PO UD PRN; Protocol PRN Reason: Hypoglycemia Protocol Stop: 04/17/21 02:14 Hydralazine HCl (Hydralazine Hcl 20 Mg/Ml Vial) 10 mg IV Q6H PRN PRN Reason: BP>180 systolic,>100 diastolic Stop: 04/15/21 04:08 Last Admin: 03/16/21 04:24 Dose: 10 mg Documented by: Dexamethasone 20 mg/ Dextrose 30 mls @ 0.833 mls/min IV Q24H [facility] Stop: 03/28/21 09:35 Last Infusion: 03/27/21 11:00 Dose: Infused Documented by: Dexamethasone 10 mg/ Syringe 2.5 mls @ 1 mls/min IV DAILY [facility] Stop: 04/02/21 09:03 Insulin Aspart (Insulin Aspart Per Unit) 0 units SC DAILY@0730 [facility] Stop: 04/25/21 07:29 Last Admin: 03/27/21 10:20 Dose: 48 units Documented by: Insulin Aspart (Insulin Aspart Per Unit) 0 units SC DAILY@1130,1630,2100 [facility] Stop: 04/25/21 11:29 Last Admin: 03/26/21 21:59 Dose: Not Given Documented by: Insulin Human NPH (Insulin Human Nph) 12 units SQ QAM [facility] Stop: 04/25/21 08:59 Last Admin: 03/27/21 10:21 Dose: 12 units Documented by: Lactulose (Lactulose Syrup 10 Gm/15 Ml Btl 960 Ml) 10 gm PO BID TI Stop: 04/24/21 20:59 Last Admin: 03/27/21 09:57 Dose: 10 gm Documented by: Levothyroxine Sodium (Levothyroxine Sodium 75 Mcg Tablet) 75 mcg PO DAILYBB [facility] Stop: 04/15/21 06:29 Last Admin: 03/27/21 05:05 Dose: 75 mcg Documented by: Magnesium Hydroxide (Magnesium Hydroxide Susp 30 Ml Udc) 30 ml PO Q12H PRN PRN Reason: Constipation Stop: 04/14/21 14:27 Last Admin: 03/24/21 18:08 Dose: 30 ml Documented by: Magnesium Oxide (Magnesium Oxide 400 Mg Tab) 400 mg PO QAM [facility] Stop: 04/15/21 08:59 Last Admin: 03/27/21 09:59 Dose: 400 mg Documented by: Metoprolol Tartrate (Metoprolol Tartrate 100 Mg Tab) 100 mg PO BID [facility] Stop: 04/14/21 20:59 Last Admin: 03/27/21 09:59 Dose: Not Given Documented by: Miscellaneous (Carbohydrates For Hypoglycemia ) 15 - 30 gm PO UD PRN PRN Reason: Hypoglycemia Treatment Stop: 04/17/21 02:14 Miscellaneous Information (Pharmacy Glycemic Mgmt Consult) 1 ea N/A UD PRN PRN Reason: Consult Stop: 04/14/21 14:27 Nitroglycerin (Nitroglycerin Sl 0.4 Mg/Tab Tab) 0.4 mg SL UD PRN PRN Reason: Chest Pain Stop: 04/14/21 14:27 Ondansetron HCl (Ondansetron Inj 2 Mg/Ml 2 Ml Vial) 4 mg IV Q6H PRN PRN Reason: Nausea Stop: 04/14/21 14:27 Pantoprazole Sodium (Pantoprazole 40 Mg Tab) 40 mg PO BID [facility] Stop: 04/14/21 20:59 Last Admin: 03/27/21 10:03 Dose: 40 mg Documented by: Polyethylene Glycol (Polyethylene (Miralax) 17 Gm Pack) 17 gm PO BID [facility] Stop: 04/23/21 20:59 Last Admin: 03/27/21 10:02 Dose: Not Given Documented by: Potassium Chloride (Potassium Chloride Crtab 20 Meq Tabcr) 60 meq PO BID [facility] Stop: 04/14/21 20:59 Last Admin: 03/20/21 09:03 Dose: 60 meq Documented by: Vitamin B Complex (Vitamin B Complex Tab) 1 tab PO QAM [facility] Stop: 04/15/21 08:59 Last Admin: 03/27/21 10:03 Dose: 1 tab Documented by: Vitamin D (Cholecalciferol 1,000 Units 25 Mcg Tab) 1,000 units PO DAILY [facility] Stop: 04/15/21 08:59 Last Admin: 03/27/21 09:58 Dose: 1,000 units Documented by: Warfarin Sodium (Warfarin Sod 2 Mg Tab) 2 mg PO DAILY@1600 [facility] Stop: 04/25/21 15:59 PG Care Time/CCT Total # of Minutes Spent Total Time Spent: 40 Total Time Spent with Patient: Total time spent is greater than 50% in coordination of care (as documented) at patient's floor/unit and/or counseling patient: Coding Level of Care Code 70330 Subseq Hosp Care Lvl 3 (25 - SIGNIFICANT, SEPARATELY IDENTIFIABLE ) Diagnoses Pneumonia due to severe acute respiratory syndrome coronavirus 2 (SARS-CoV-2) U07.1; J12.82 CVA (cerebral vascular accident) I63.9 Confusion R41.0 Encephalopathy acute G93.40 H/O heart valve replacement with bioprosthetic valve Z95.3 CAD (coronary artery disease), [place] coronary artery I25.10 Associated angina: without angina [place] vs. transplanted heart: [place] heart HTN (hypertension) I10 Hypertension type: essential hypertension COPD, moderate J44.9 Chronic diastolic congestive heart failure I50.32 Current use of meterman anticoagulation Z79.01 DVT, recurrent, lower extremity, chronic I82.509 Paroxysmal atrial fibrillation I48.0 Hypokalemia E87.6 O2 dependent Z99.81 Diabetes mellitus E11.69; Z79.4 Diabetes mellitus complication status: with other specified complication Diabetes mellitus assisted insulin use: with assisted use Diabetes mellitus type: type 2 CKD (chronic kidney disease) stage 4, GFR 15-29 ml/min N18.4 Hypothyroid E03.9 Chronic constipation K59.09 (1) Diabetes mellitus Diabetes mellitus complication status: with other specified complication Diabetes mellitus assisted insulin use: with assisted use Diabetes mellitus type: type 2 Qualified Code(s): E11.69 - Type 2 diabetes mellitus with other specified complication; Z79.4 - care home (current) use of insulin (2) CAD (coronary artery disease), [place] coronary artery Associated angina: without angina [place] vs. transplanted heart: [place] heart Qualified Code(s): I25.10 - Atherosclerotic heart disease of [place] coronary artery without angina pectoris (3) HTN (hypertension) Hypertension type: essential hypertension Qualified Code(s): I10 - Essential (primary) hypertension
[2021-03-27] MEDS ORDERED: LANTUS PER UNIT CHARGE SQ ONE (13:00)
[2021-03-27] MEDS: ATORVASTATIN 40 MG TAB PO SCH (20:44)
[2021-03-28] MEDS: LEVOTHYROXINE SODIUM 75 MCG TABLET PO SCH (05:14)
[2021-03-28] MEDS: dilTIAZem HCL 120 MG CAPCR PO SCH (08:36)
[2021-03-28] MEDS: METOPROLOL TARTRATE 100 MG TAB PO SCH ×2 (08:37→21:55)
[2021-03-28] MEDS: POLYETHYLENE (MIRALAX) 17 GM PACK PO SCH (08:40)
[2021-03-28] MEDS: ACYCLOVIR 5% OINT 15 GM TUBE EXT SCH ×2 (09:26→21:54)
[2021-03-28] MEDS: PANTOprazole 40 MG TAB PO SCH (09:27)
[2021-03-28] MEDS: LACTULOSE SYRUP 10 GM/15 ML BTL 960 ML PO SCH (09:27)
[2021-03-28] MEDS: VITAMIN B COMPLEX TAB PO SCH (09:27)
[2021-03-28] MEDS: ASPIRIN 81 MG ECTAB PO SCH (09:27)
[2021-03-28] MEDS: MAGNESIUM OXIDE 400 MG TAB PO SCH (09:27)
[2021-03-28] MEDS: CHOLECALCIFEROL 1,000 UNITS 25 MCG TAB PO SCH (09:27)
[2021-03-28] MEDS: dexAMETHasone 20 MG in DEXTROSE 5% 25 ML IV SCH (09:27)
--- NOTE | 2021-03-28 09:38 | Hospitalist Progress Note ---
Date of Service March 28, 2021 Assessment & Plan (1) Pneumonia due to severe acute respiratory syndrome coronavirus 2 (SARS -CoV-2): Plan: now with increasing oxygen needs over the last 7 days, now maxed out on HFNC 60L 100% getting worse, breathing is more labored, coughing up more sputum, desaturates with cough CXR todaym, 03/28/21 shows no real change in infiltrates -treated with dexamethasone 6mg IV daily on admission but CRP trended up to 9 instead of going down and oxygen requirement went up increased dexamethasone to 20mg IV daily on 03/24 x 5 days (day 5 today) however, CRP is still 8.4, no real response to higher dose steroid and breathing is worse -completed 5 day course of azithromycin daily no role for Remdesivir or baricitinib long discussion with patient and family at the bedside about worsening respiratory status discussed that he is dying from COVID pneumonia, respiratory failure, labs are getting worse patient does not want intubated and family supports that decision, they want to be able to visit with him other daughter coming from [place] today will get union organiser to call in for last rites he is on 60L 100% with saturations 89-90% start on Roxanol PRN for any respiratory discomfort not officially on comfort measures only, continue steroids for now but anticipate DRUM TESTER in next 24 hours (2) CVA (cerebral vascular accident): Plan: new finding on admission MRI brain: acute infarct in the anterior left lentiform nucleus. Possible age- indeterminate hemorrhage in the left supraventricular white matter. placed stroke order sets, consulted neurology permissive HTN but now can control BP question initially of ICH but repeat CT head: no evidence of bleed INR is 1.8 lipid panel: LDL 52, Hb A1c from 02/24/21 very high at 11.5% on Lipitor 40mg started aspirin 81mg daily for small vessel thrombotic type CVA initial plan was to go to rehab however, respiratory status has declined significantly, now likely for DRUM TESTER (3) Confusion: Plan: -- Probably encephalopathic due to acute illness. mental status is much improved now-doing very well (4) Encephalopathy acute: Plan: resolved, as above (5) H/O heart valve replacement with bioprosthetic valve: Plan: History of severe s/p Bioprosthetic AVR 11/01/2012. Echocardiogram 09/16/20: -- Normal LV size, systolic function. -- LVEF 55%-60%. No regional wall motion abnormalities. -- Septal motion consistent with prior cardiac surgery. -- Mild concentric LVH. -- Mildly reduced RV systolic function. -- Mild left atrial dilation. -- Mild MR. -- Appropriately functioning bioprosthetic AVR. -- RVSP 35 mmHg. (6) CAD (coronary artery disease), [place] coronary artery: Plan: Multivessel CAD s/p CABG x 3 Vessels 11/01/2012: -- Patient is not experiencing any angina pectoris or anginal equivalent symptoms. -- LUEVANO to LAD. SVG to OM. SVG to PDA. -- Continue current cardiac regimen including statin, beta-tiera, calcium channel tiera -- Initial Troponin I is normal at 0.019 ng/mL. -added on ASA 81mg daily for acute CVA as above (7) HTN (hypertension): Plan: Blood pressure is elevated at times. -- Continue beta-tiera, diltiazem - continue to hold Bumex with Cr climbing to 2.9 (8) COPD, moderate: Plan: continue inhalers as needed, decadron (9) Chronic diastolic congestive heart failure: Plan: Patient appears dry Had CARLOS with windows architect rising to 2.53 from 1.9-2.2 baseline on 03/20 Mercantile Agent today is 2.9 -- continue to hold Bumex 4 mg BID, last dose was 03/26 no further labs (10) Current use of residential anticoagulation: Plan: Patient on intermediate card tender Coumadin for both recurrent DVT's and paroxysmal atrial fibrillation. -- Followed at [facility]. -- Goal INR is 2.0 to 3.0. -- INR 1.8, holding Coumadin due to some blood in stool on 03/26, nothing further hold on further Coumadin with anticipation of DRUM TESTER (11) DVT, recurrent, lower extremity, chronic: Plan: Patient on intermediate card tender Coumadin for both recurrent DVT's and paroxysmal atrial fibrillation. -- Followed at [facility]. -- Goal INR is 2.0 to 3.0. INR is 1.8, holding Coumadin (12) Paroxysmal atrial fibrillation: Plan: History of PAF and PAT. -- EKG 03/15/21 is suspicious for atrial tachycardia at 122 bpm. -- it project manager showed a sinus rhythm with occasional PAC's. now in regular rhythm and rate on exam continue diltiazem, metoprolol (13) Hypokalemia: Plan: K is 4.4 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 (15) Diabetes mellitus: Plan: uncontrolled, A1C 11.5% Pharmacy managing insulin while decadron with some hyperglycemia needs improved outpt regimen pharmacy making changes with increase in dexamethasone to 20mg, > 300 today (16) CKD (chronic kidney disease) stage 4, GFR 15-29 ml/min: Plan: windows architect baseline 1.8-2.2 with CARLOS as above, Cr is 2.9, hold Bumex again today (17) Hypothyroid: Plan: TSH 1.6 earlier this month continue home LT4 (18) Chronic constipation: Plan: moved bowels after suppository Plan: continue current care but anticipate changing to DRUM TESTER once he gets a little worse change to DNR/DNI, confirmed by patient and family at the bedside family can visit him in room 300, they have all had COVID 3 weeks ago Admission and Anticipated Discharge Date Admission Date: March 15, 2021 Subjective patient up to 50L and 90% FiO2, he feels weaker than yesterday, has a moist cough he was able to eat a decent breakfast this morning, confirmed by RN, this was after he did not eat at all yesterday discussed that he is getting worse, oxygen requirements going up CXR shows no real change since 03/23, still with considerable infiltrates bilaterally CRP is still high at 8.4, has not really changed with dexamethasone 20mg IV daily for the past 5 days Cr is going up, it is 2.9, sugars are really high, > 300 his daughter Kerline, grandson Arvind and son in law came in to visit him we had a discussion prior to entering the room about patient getting worse, likely approaching point that he would need intubated discussed that intubation and ventilation would not improve the lungs, would just keep him alive the alternative would be to focus on comfort, allow family to visit and be with him allowed family to visit for a few minutes and then I came back and had discussion with patient and family together patient is scared to , says he doesn't want to give up I explained that it is normal to be scared, I just want him to have all the information explained that given his age, chronic lung disease, frail condition, being hospitalized for 13 days, I do not believe he would come off a ventilator he would likely pass away on a ventilator or be terminally extubated after a week explained that alternatively, we could give him morphine for any discomfort and allow his family to visit with him he decided to not be intubated, we will continue treatment but if he deteriorates any further we will transition to comfort measures his other daughter is traveling from [place], will be here around 3-330 his family requests we arrange for to call in for last rights total time with patient today was 62 minutes Review of Systems Review of Systems: All systems reviewed & are unremarkable except as noted in Subjective Constitutional: + fatigue and + weakness; no fever Respiratory: + cough, + chest congestion, + dyspnea, + dyspnea on exertion and + sputum production; no hemoptysis Cardiovascular: no chest pain and no edema Gastrointestinal: no abdominal pain, no nausea, no vomiting, no constipation and no diarrhea/loose stools Physical Exam Physical Exam: General: well developed, well nourished, elderly male, frail appearing, very weak, looks worse than yesterday Neck: supple, trachea midline, normal thyroid Lungs: rhonchi bilaterally and diminished overall, slight tachypnea, + accessory muscle use, mild distress Heart: regular S1 and S2, no murmur, peripheral pulses normal, capillary refill normal, no edema Abdomen: soft, NT, ND, + BS, no hepatomegaly, normal to percussion Extremities: normal in appearance, no cyanosis, no petechiae, strength is diminished in general, laying in bed Neuro: awake, cooperative, moves all extremities, CN II-XII intact, normal speech Integ: skin warm, thin, dry, bruising on arms Psych: Awake, alert and oriented to person and place, + tearful affect with his family Results & Data Results & Data ([facility]) Vital Signs (Past 12 Hours) Vital Signs Temp Pulse Pulse Resp BP Pulse Ox 03/28/21 07:38 59 L 21 91 03/28/21 07:11 36.4 C L 60 18 138/71 97 03/28/21 05:50 20 85 L 03/28/21 01:45 45 L 16 93 03/27/21 23:05 46 L 18 92 03/27/21 22:39 62 15 89 L Laboratory Results Laboratory Results - last 24 hr 03/27/21 03/27/21 03/28/21 17:22 20:44 08:26 WBC RBC Hgb Hct MCV MCH MCHC RDW Std Deviation RDW Coeff of Sung Plt Count MPV PT INR Sodium Potassium Chloride Carbon Dioxide Anion Gap BUN Creatinine Est Cr Clr Drug Dosing Est GFR ( Amer) Est GFR (Non-Af Amer) BUN/Creatinine Ratio Glucose POC Glucose 107 H 107 H 217 H Calcium C-Reactive Protein Beta-Hydroxybutyric Acd 03/28/21 03/28/21 03/28/21 09:51 09:51 09:51 WBC 15.30 H RBC 3.82 L Hgb 12.7 L Hct 38.8 L MCV 101.6 H MCH 33.2 MCHC 32.7 RDW Std Deviation 51.4 H RDW Coeff of Sung 13.8 Plt Count 193 MPV 11.4 H PT 17.7 H INR 1.8 H Sodium 138 Potassium 4.4 Chloride 102 Carbon Dioxide 26 Anion Gap 11.0 BUN 115 H Creatinine 2.90 H Est Cr Clr Drug Dosing 15.6 Est GFR ( Amer) 21.3 Est GFR (Non-Af Amer) 18.3 BUN/Creatinine Ratio 39.7 H Glucose 363 H* POC Glucose Calcium 8.7 C-Reactive Protein 8.43 H Beta-Hydroxybutyric Acd 13.47 H 03/28/21 03/28/21 12:22 12:23 WBC RBC Hgb Hct MCV MCH MCHC RDW Std Deviation RDW Coeff of Sung Plt Count MPV PT INR Sodium Potassium Chloride Carbon Dioxide Anion Gap BUN Creatinine Est Cr Clr Drug Dosing Est GFR ( Amer) Est GFR (Non-Af Amer) BUN/Creatinine Ratio Glucose POC Glucose 326 H* 331 H* Calcium C-Reactive Protein Beta-Hydroxybutyric Acd Diagnostic Findings SINGLE VIEW CHEST CLINICAL HISTORY: Hypoxia. Covid pneumonia. FINDINGS: An AP, portable, upright chest radiograph is compared to study dated 03/23/2021. Correlation is made with chest CT dated 12/29/2020. Surgical clips project over the lower neck. The patient is status post midline sternotomy. The heart is enlarged noting atherosclerotic calcification of the thoracic aorta. Multifocal airspace consolidation has not significantly changed as compared to 03/23/2021. No large pleural effusion or pneumothorax is seen. The skeletal structures are osteopenic. The bony thorax is grossly intact. Degenerative change is noted in the shoulders. Superior subluxation of the right humeral head suggests chronic rotator cuff injury. IMPRESSION: Multifocal airspace consolidation has not appreciably changed as compared to 03/23/2021. Medications Administered Current Inpatient Medications Acetaminophen (Acetaminophen 325 Mg Tab) 650 mg PO Q4H PRN PRN Reason: Pain or Fever Stop: 04/14/21 14:27 Acyclovir (Acyclovir 5% Oint 15 Gm Tube) 1 appln EXT BID TI Stop: 04/01/21 18:54 Last Admin: 03/28/21 09:26 Dose: 1 appln Documented by: Al Hydrox/Mg Hydrox/Simethicone (Aluminum/Magnesium Susp 30 Ml Udc) 15 ml PO Q4H PRN PRN Reason: Dyspepsia Stop: 04/14/21 14:27 Last Admin: 03/24/21 05:21 Dose: 15 ml Documented by: Albuterol (Albut/Ipratrop 3mg/0.5mg Neb 3 Ml Vial) 3 ml INH Q6H PRN; Protocol PRN Reason: wheezing Stop: 04/14/21 14:27 Last Admin: 03/19/21 06:22 Dose: 3 ml Documented by: Aspirin (Aspirin 81 Mg Ectab) 81 mg PO QAM [facility] Stop: 04/17/21 08:59 Last Admin: 03/28/21 09:27 Dose: 81 mg Documented by: Atorvastatin Calcium (Atorvastatin 40 Mg Tab) 40 mg PO HS [facility] Stop: 04/14/21 20:59 Last Admin: 03/27/21 20:44 Dose: 40 mg Documented by: Bisacodyl (Bisacodyl 10 Mg Supp) 10 mg [place] DAILY PRN PRN Reason: Constipation Stop: 04/23/21 20:51 Bumetanide (Bumetanide 1 Mg Tab) 4 mg PO BID17 [facility] Stop: 04/21/21 16:59 Last Admin: 03/26/21 16:54 Dose: 4 mg Documented by: Nystatin 30 ml/ Dexamethasone 3.75 mg/ Diphenhydramine HCl 300 mg/ Sucrose 45 ml/Microcrystalline Cellulose 45 ml/ BARCODE IDENTIFIER 1 ea 0 ml PO Q4H PRN PRN Reason: mouth sores Stop: 04/21/21 23:18 Last Admin: 03/23/21 11:39 Dose: 5 ml Documented by: Dextrose (Dextrose 50% 50 Ml Syringe) 25 - 50 ml IV UD PRN; Protocol PRN Reason: Hypoglycemia Protocol Stop: 04/17/21 02:14 Diltiazem HCl (Diltiazem Hcl 120 Mg Capcr) 120 mg PO QAM [facility] Stop: 04/15/21 08:59 Last Admin: 03/28/21 08:36 Dose: Not Given Documented by: Glucagon (Glucagon For Inj 1 Mg Vial) 1 mg IM UD PRN; Protocol PRN Reason: Hypoglycemia Protocol Stop: 04/17/21 02:14 Glucose (Glucose 40% Gel 15 Gm Tube) 15 - 30 gm PO UD PRN; Protocol PRN Reason: Hypoglycemia Protocol Stop: 04/17/21 02:14 Glucose (Glucose 10 Tabs/Tube) 4 - 8 tabs PO UD PRN; Protocol PRN Reason: Hypoglycemia Protocol Stop: 04/17/21 02:14 Hydralazine HCl (Hydralazine Hcl 20 Mg/Ml Vial) 10 mg IV Q6H PRN PRN Reason: BP>180 systolic,>100 diastolic Stop: 04/15/21 04:08 Last Admin: 03/16/21 04:24 Dose: 10 mg Documented by: Dexamethasone 10 mg/ Syringe 2.5 mls @ 1 mls/min IV DAILY [facility] Stop: 04/02/21 09:03 Insulin Aspart (Insulin Aspart Per Unit) 0 units SC DAILY@0730 [facility] Stop: 04/25/21 07:29 Last Admin: 03/28/21 09:39 Dose: 88 units Documented by: Insulin Aspart (Insulin Aspart Per Unit) 0 units SC DAILY@1130,1630,2100 [facility] Stop: 04/25/21 11:29 Last Admin: 03/27/21 20:49 Dose: Not Given Documented by: Insulin Human NPH (Insulin Human Nph) 12 units SQ QAM [facility] Stop: 04/25/21 08:59 Last Admin: 03/28/21 09:40 Dose: 12 units Documented by: Lactulose (Lactulose Syrup 10 Gm/15 Ml Btl 960 Ml) 10 gm PO BID PRN PRN Reason: Constipation Stop: 04/24/21 20:59 Levothyroxine Sodium (Levothyroxine Sodium 75 Mcg Tablet) 75 mcg PO DAILYBB [facility] Stop: 04/15/21 06:29 Last Admin: 03/28/21 05:14 Dose: 75 mcg Documented by: Magnesium Hydroxide (Magnesium Hydroxide Susp 30 Ml Udc) 30 ml PO Q12H PRN PRN Reason: Constipation Stop: 04/14/21 14:27 Last Admin: 03/24/21 18:08 Dose: 30 ml Documented by: Magnesium Oxide (Magnesium Oxide 400 Mg Tab) 400 mg PO QAM [facility] Stop: 04/15/21 08:59 Last Admin: 03/28/21 09:27 Dose: 400 mg Documented by: Metoprolol Tartrate (Metoprolol Tartrate 100 Mg Tab) 100 mg PO BID [facility] Stop: 04/14/21 20:59 Last Admin: 03/28/21 08:37 Dose: Not Given Documented by: Miscellaneous (Carbohydrates For Hypoglycemia ) 15 - 30 gm PO UD PRN PRN Reason: Hypoglycemia Treatment Stop: 04/17/21 02:14 Miscellaneous Information (Pharmacy Glycemic Mgmt Consult) 1 ea N/A UD PRN PRN Reason: Consult Stop: 04/14/21 14:27 Nitroglycerin (Nitroglycerin Sl 0.4 Mg/Tab Tab) 0.4 mg SL UD PRN PRN Reason: Chest Pain Stop: 04/14/21 14:27 Ondansetron HCl (Ondansetron Inj 2 Mg/Ml 2 Ml Vial) 4 mg IV Q6H PRN PRN Reason: Nausea Stop: 04/14/21 14:27 Pantoprazole Sodium (Pantoprazole 40 Mg Tab) 40 mg PO BID [facility] Stop: 04/14/21 20:59 Last Admin: 03/28/21 09:27 Dose: 40 mg Documented by: Polyethylene Glycol (Polyethylene (Miralax) 17 Gm Pack) 17 gm PO BID [facility] Stop: 04/23/21 20:59 Last Admin: 03/28/21 08:40 Dose: 17 gm Documented by: Potassium Chloride (Potassium Chloride Crtab 20 Meq Tabcr) 60 meq PO BID [facility] Stop: 04/14/21 20:59 Last Admin: 03/20/21 09:03 Dose: 60 meq Documented by: Vitamin B Complex (Vitamin B Complex Tab) 1 tab PO QAM [facility] Stop: 04/15/21 08:59 Last Admin: 03/28/21 09:27 Dose: 1 tab Documented by: Vitamin D (Cholecalciferol 1,000 Units 25 Mcg Tab) 1,000 units PO DAILY [facility] Stop: 04/15/21 08:59 Last Admin: 03/28/21 09:27 Dose: 1,000 units Documented by: Warfarin Sodium (Warfarin Sod 2 Mg Tab) 2 mg PO DAILY@1600 [facility] Stop: 04/25/21 15:59 PG Care Time/CCT Total # of Minutes Spent Total Time Spent: 62 Total Time Spent with Patient: Total time spent is greater than 50% in coordination of care (as documented) at patient's floor/unit and/or counseling patient: Prolonged Care Time Prolonged Care Time: Yes Total Prolonged Care Time: 32 62 minutes Coding Level of Care Code 22432 Subseq Hosp Care Lvl 3 (25 - SIGNIFICANT, SEPARATELY IDENTIFIABLE ) Diagnoses Pneumonia due to severe acute respiratory syndrome coronavirus 2 (SARS-CoV-2) U07.1; J12.82 CVA (cerebral vascular accident) I63.9 Confusion R41.0 Encephalopathy acute G93.40 H/O heart valve replacement with bioprosthetic valve Z95.3 CAD (coronary artery disease), [place] coronary artery I25.10 Associated angina: without angina [place] vs. transplanted heart: [place] heart HTN (hypertension) I10 Hypertension type: essential hypertension COPD, moderate J44.9 Chronic diastolic congestive heart failure I50.32 Current use of intermediate card tender anticoagulation Z79.01 DVT, recurrent, lower extremity, chronic I82.509 Paroxysmal atrial fibrillation I48.0 Hypokalemia E87.6 O2 dependent Z99.81 Diabetes mellitus E11.69; Z79.4 Diabetes mellitus complication status: with other specified complication Diabetes mellitus residential insulin use: with intermediate card tender use Diabetes mellitus type: type 2 CKD (chronic kidney disease) stage 4, GFR 15-29 ml/min N18.4 Hypothyroid E03.9 Chronic constipation K59.09 Additional Codes Prolonged Care Time - Prolonged Care Time: Yes ([id number]) (1) Diabetes mellitus Diabetes mellitus complication status: with other specified complication Diabetes mellitus intermediate card tender insulin use: with intermediate card tender use Diabetes mellitus type: type 2 Qualified Code(s): E11.69 - Type 2 diabetes mellitus with other specified complication; Z79.4 - terminal carman (current) use of insulin (2) CAD (coronary artery disease), [place] coronary artery Associated angina: without angina [place] vs. transplanted heart: [place] heart Qualified Code(s): I25.10 - Atherosclerotic heart disease of [place] coronary artery without angina pectoris (3) HTN (hypertension) Hypertension type: essential hypertension Qualified Code(s): I10 - Essential (primary) hypertension
[2021-03-28] MEDS ORDERED: LACTULOSE SYRUP 10 GM/15 ML BTL 960 ML PO PRN (09:39)
[2021-03-28] MEDS: INSULIN ASPART PER UNIT SC SCH ×3 (09:39→17:39)
[2021-03-28] MEDS: INSULIN HUMAN NPH SQ SCH (09:40)
[2021-03-28] MEDS ORDERED: LANTUS PER UNIT CHARGE SQ ONE (10:00)
[2021-03-28 10:07] LABS: Hematocrit (blood only) 38.8 % (42-52); Hemoglobin 12.7 g/dL (14.0-18.0); Mean Corpuscular Hemoglobin 33.2 pg (25-34); Mean Corpuscular Hgb Conc 32.7 g/dL (32-36); Mean Corpuscular Volume 101.6 fL (80-100); Mean Platelet Volume 11.4 fL (7.4-10.4); Platelet Count 193 K/uL (130-400); RDW Coefficient of Variation 13.8 % (11.5-14.5); RDW Standard Deviation 51.4 fL (36.4-46.3); Red Blood Count 3.82 M/uL (4.7-6.1)
[2021-03-28 10:26] LABS: INR 1.8 (0.9-1.1); Prothrombin Time 17.7 Seconds (9.0-12.0)
[2021-03-28 10:59] LABS: BUN Creatinine Ratio 39.7 (10-20); C Reactive Protein 8.43 mg/dl (0-0.29); Calcium 8.7 mg/dl (8.5-10.1); Creatinine Clr Calc Pharmacy 15.6 ml/min; Est GFR (African American) 21.3 ml/min; Est GFR (Non-African American) 18.3 ml/min; Potassium 4.4 mmol/L (3.5-5.1)
--- NOTE | 2021-03-28 11:19 | XRay Report ---
SINGLE VIEW CHEST CLINICAL HISTORY: Hypoxia. Covid pneumonia. FINDINGS: An AP, portable, upright chest radiograph is compared to study dated 03/23/2021. Correlatio n is made with chest CT dated 12/29/2020. Surgical clips project over the lower neck. The patient is s tatus post midline sternotomy. The heart is enlarged noting atherosclerotic calcification of the thor acic aorta. Multifocal airspace consolidation has not significantly changed as compared to 03/23/2021 . No large pleural effusion or pneumothorax is seen. The skeletal structures are osteopenic. The bony thorax is grossly intact. Degenerative change is noted in the shoulders. Superior subluxation of the right humeral head suggests chronic rotator cuff injury. IMPRESSION: Multifocal airspace consolidation has not appreciably changed as compared to 03/23/2021. ACT 112: Negative or not required by law. Electronically signed by: Arvind Keating M.D. 03/28/2021 11:18 AM
[2021-03-28 11:52] LABS: Beta-Hydroxybutyrate 13.47 mg/dl (0.2-2.81)
--- NOTE | 2021-03-28 14:04 | Pharmacy Report ---
Pharmacy Glycemic Short Note 2 - Date of Service March 28, 2021 - Glycemic Short BSG Results (Last 24 hours): 03/27/21 03/27/21 03/28/21 17:22 20:44 08:26 Glucose POC Glucose 107 H 107 H 217 H 03/28/21 03/28/21 03/28/21 09:51 12:22 12:23 Glucose 363 H* POC Glucose 326 H* 331 H* OUTPATIENT ANTIDIABETIC REGIMEN: * NPH 12 units every other day * HbA1c 11.5% on 02/24/21 ASSESSMENT: 03/28/21: * Lalito received 92 units of insulin yesterday with decent glycemic control * 12 units NPH + 7 units Lantus + 75 units Novolog * Fasting BSG elevated today despite starting Lantus yesterday. Will increase dose for tomorrow. * Post prandial BSG trending down after lunch - will loosen novolog parameters with the exception of breakfast since lunch remains highest of the day * Dexamethasone dose will decrease to 10 mg daily tomorrow morning. I suspect novolog parameters will require further adjustment after 20 mg dose wears off. 03/26/21 * Patient's BSGs yesterday were [phone] mg/dL. Fasting today is 186 mg/dL. * Patient received 125 units of insulin yesterday (12 units of basal and 113 units of bolus). * Lunch continues to be highest value of the day. Tighten breakfast CR to 1. * Continue NPH as BSGs trend downwards throughout the day. * Add overnight checks to determine how much NPH to give later in the day as patient appears to need more coverage. 03/24/21 * Patient's BSGs yesterday were [phone] mg/dL. Patient received 45 units of insulin (12 units of basal and 33 units of bolus). * Dexamethasone has increased to 20 mg IV daily. * BSGs will increase with dexamethasone 20 mg. However, concerned with increasing NPH at this time. Most evenings patient trends downwards significantly in the evening and requires very little insulin with dinner and HS. If patient has significant elevations in the evening tonight, then NPH could be increased. Unsure how patient will react. * Will not tighten CF has patient corrects nicely. * Tighten CR significantly since this will help manage steroid hyperglycemia. 03/23/21 * Patient received total of 71 units of insulin yesterday, of which 12 were NPH to cover steroids * BSGs elevated at lunch time, therefore will tighten CR more at breakfast today 03/19/21 * Patient's BSGs yesterday were [phone] mg/dL and fasting today is 177 mg/dL. * Fasting is trending upwards ([phone] mg/dL) so considering adding seco nd, smaller dose of NPH in the evening. HOWEVER, concerned about lower BSGs in the evening. Consider addition of second dose of NPH tomorrow and if do so could lower morning dose of NPH. * Patient overcorrections with CF of 15 so loosen to 20 mg/dL. Continue CR. PLAN FOR INPATIENT GLYCEMIC CONTROL: * Basal insulin - increase * NPH 12 units SQ qAM * Lantus 5 units SQ daily -> Lantus 7 units SQ daily starting 1/3 * Bolus insulin * NovoLog per scale ACHS or Q6hrs while NPO * Goal Range: Low 110 mg/dL - High 140 mg/dL Breakfast: * Correction Factor: 20 mg/dL/unit * Nutritional / Prandial insulin per carb ratio of 1 unit per 1 grams CHO consumed Lunch/dinner/HS: - loosen * Correction Factor: 25 mg/dL/unit * Nutritional / Prandial insulin per carb ratio of 1 unit per 2.5 grams CHO consumed PLAN FOR DISCHARGE: * Patient's HbA1C is 11.5% which is above goal of <8% for patient's age and comorbidities. * Discharge plan will depend on what steroids patient is discharged on so will reevaluate closer to discharge.
[2021-03-28] MEDS ORDERED: LORazepam 0.5 MG TAB PO PRN (15:25)
[2021-03-28] MEDS ORDERED: LORazepam 0.5 MG/1 ML VIAL IV PRN (15:25)
[2021-03-29] MEDS: dilTIAZem HCL 120 MG CAPCR PO SCH (08:22)
[2021-03-29] MEDS: METOPROLOL TARTRATE 100 MG TAB PO SCH ×2 (08:23→21:23)
[2021-03-29] MEDS: ACYCLOVIR 5% OINT 15 GM TUBE EXT SCH ×2 (08:23→21:24)
[2021-03-29] MEDS: PANTOprazole 40 MG TAB PO SCH (08:24)
[2021-03-29] MEDS ORDERED: dexAMETHasone 10 MG in SYRINGE 0 ML IV SCH (09:00)
[2021-03-29] MEDS ORDERED: INSULIN GLARGINE SOLOSTAR 100 UNITS/ML 3 ML PEN SC SCH (09:00)
--- NOTE | 2021-03-29 14:45 | Hospitalist Progress Note ---
Date of Service March 29, 2021 Assessment & Plan (1) Pneumonia due to severe acute respiratory syndrome coronavirus 2 (SARS -CoV-2): Plan: severe disease. with resulting ARDS. max HFNC settings over the last few days. had received IV dexamethasone 6mg IV daily since admission then his dexamethasone was increased to 20mg IV daily on 03/24 for ARDS Rx but no response to such clinically s/p 5 day course of azithromycin was not a candidate/no role for Remdesivir or baricitinib 03/28/21 -- DR Fernandez had multiple discussions with patient and his family decision made to transition to comfort care measures I confirmed w/ the patient today that indeed he does not want to continue routine/aggressive care confirms DNR status confirms comfort care status focus on comfort/pain control/dyspnea morphine prn ativan prn family can visit more liberally given his comfort care status stop continuous pulse ox, vitals, labs, etc (2) Acute and chronic respiratory failure with hypoxia: Plan: acute component - COVID-19 pneumonia with resulting ARDS. chronic component - COPD/ILD, on home O2. (3) CVA (cerebral vascular accident): Plan: new finding on admission in the setting of his COVID-19 infection MRI brain: acute infarct in the anterior left lentiform nucleus. Possible age- indeterminate hemorrhage in the left supraventricular white matter. no further Rx (4) Confusion: Plan: metabolic encephalopathy 2nd to #1 - resolved patient very awake, alert, oriented today (5) Encephalopathy acute: Plan: resolved, as above (6) H/O heart valve replacement with bioprosthetic valve: Plan: History of severe s/p Bioprosthetic AVR 11/01/2012. (7) CAD (coronary artery disease), [place] coronary artery: Plan: Multivessel CAD s/p CABG x 3 Vessels 11/01/2012 all cardiac meds stopped - transitioned to comfort care pathway (8) HTN (hypertension): (9) COPD, moderate: Plan: continue inhalers as needed for symptoms as desired (10) Chronic diastolic congestive heart failure: (11) Current use of intermediate anticoagulation: Plan: coumadin stopped transitioned to comfort care measures (12) DVT, recurrent, lower extremity, chronic: Plan: anticoagulation stopped (13) Paroxysmal atrial fibrillation: Plan: History of PAF and PAT (14) Hypokalemia: (15) O2 dependent: Plan: chronic O2 dependent -- 2-3LNC 2nd to ILD and COPD (16) Diabetes mellitus: Plan: uncontrolled, A1C 11.5% (17) CKD (chronic kidney disease) stage 4, GFR 15-29 ml/min: Plan: Creatinine baseline 1.8-2.2 then developed CARLOS while here (18) Hypothyroid: (19) Chronic constipation: (20) Acute kidney injury: (21) 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: Plan: history of Plan: DNR/DNI comfort care measures/pathway gave support to patient prayed with him spoke with Loi, daughter, by phone confirmed ongoing comfort care measures, plan of care, etc gave support to Loi Admission and Anticipated Discharge Date Admission Date: March 15, 2021 Subjective patient states he "feels terrible" no appetite dyspneic coughing he remains very much at peace with transitioning to comfort care he realizes that he is dying and that he is not improving from his illness he reports much munira with seeing his family yesterday we talked about his life - 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 [employer], 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[employer], etc he has a strong jules - Sikhism restoration - we did pray together during the visit Review of Systems Review of Systems: gen - extreme fatigue, weakness, malaise with severe anorexia cv - no chest pain gi - no abd pain pulm - dyspnea, cough, LOMELI Physical Exam Physical Exam: gen - looks very sick, weak, tired, worn-out mouth - MM dry neck - no JVD heart - RRR, s1 s2 lungs - diffuse rales b/l, poor airation; coughing during the visit abd - mildly distended, BS+, NT ext - trace edema b/l, pulses 2+ b/l psych - a/o x 3; restricted affect Results & Data Results & Data ([facility]) Vital Signs (Past 12 Hours) Vital Signs Pulse Resp BP Pulse Ox 03/29/21 08:30 87 26 H 92 03/29/21 08:20 88 175/84 H PG Care Time/CCT Total # of Minutes Spent Total Time Spent with Patient: Total time spent is greater than 50% in coordination of care (as documented) at patient's floor/unit and/or counseling patient: Coding Level of Care Code 22403 Subseq Hosp Care Lvl 2 Diagnoses Pneumonia due to severe acute respiratory syndrome coronavirus 2 (SARS-CoV-2) U07.1; J12.82 CVA (cerebral vascular accident) I63.9 Confusion R41.0 Encephalopathy acute G93.40 H/O heart valve replacement with bioprosthetic valve Z95.3 CAD (coronary artery disease), [place] coronary artery I25.10 [place] vs. transplanted heart: [place] heart Associated angina: without angina HTN (hypertension) I10 Hypertension type: essential hypertension COPD, moderate J44.9 Chronic diastolic congestive heart failure I50.32 Current use of rodent exterminator anticoagulation Z79.01 DVT, recurrent, lower extremity, chronic I82.509 Paroxysmal atrial fibrillation I48.0 Hypokalemia E87.6 O2 dependent Z99.81 Diabetes mellitus E11.69; Z79.4 Diabetes mellitus type: type 2 Diabetes mellitus rodent exterminator insulin use: with intermediate use Diabetes mellitus complication status: with other specified complication CKD (chronic kidney disease) stage 4, GFR 15-29 ml/min N18.4 Hypothyroid E03.9 Chronic constipation K59.09 Acute kidney injury N17.9 Acute and chronic respiratory failure with hypoxia J96.21 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 transplanted heart: [place] heart Associated angina: without angina Qualified Code(s): I25.10 - Atherosclerotic heart disease of [place] coronary artery without angina pectoris (2) HTN (hypertension) Hypertension type: essential hypertension Qualified Code(s): I10 - Essential (primary) hypertension (3) Diabetes mellitus Diabetes mellitus type: type 2 Diabetes mellitus rodent exterminator insulin use: with rodent exterminator use Diabetes mellitus complication status: with other specified complication Qualified Code(s): E11.69 - Type 2 diabetes mellitus with other specified complication; Z79.4 - retirement (current) use of insulin
[2021-03-30] MEDS: MoRPHine SULFATE 5 MG/0.25 ML UDP PO PRN ×2 (07:46→10:36)
[2021-03-30] MEDS: PANTOprazole 40 MG TAB PO SCH (10:37)
[2021-03-30] MEDS: dilTIAZem HCL 120 MG CAPCR PO SCH (10:37)
[2021-03-30] MEDS: ACYCLOVIR 5% OINT 15 GM TUBE EXT SCH (10:37)
[2021-03-30] MEDS: METOPROLOL TARTRATE 100 MG TAB PO SCH ×2 (10:37→23:03)
[2021-03-30] MEDS ORDERED: MoRPHine SULFATE 2 MG/ML CARP ONE (12:10)
[2021-03-30] MEDS ORDERED: STAT IV Infusion **Titration per Protocol STA (12:27)
[2021-03-30] MEDS ORDERED: MoRPHine SULF/NSS 250 MG/250 ML BTL IV SCH (12:30)
--- NOTE | 2021-03-30 18:07 | Hospitalist Progress Note ---
Date of Service March 30, 2021 Assessment & Plan (1) Palliative care patient: Plan: patient with severe ARDS 2nd to COVID-19 pneumonia. worsening disease over the last several days despite maximal medical efforts. made DNR/DNI this past weekend. transitioned to full comfort care on 03/29/21. today his respiratory distress worsened considerably. appears to be in some form of tachycardia - could easily be a.fib with RVR. regardless he was very uncomfortable today. start morphine infusion. titrate by 1mg every 30 minutes as needed for optimal comfort. cont ativan prn. once comfort is achieved can d/c the HFNC and change to wall-mounted high-flow (which can provide up to 15 L) or oxymask. during my visit the pt's daughter entered the room. I updated her on the plan of care. I told her that her father was worse today, much further along on his comfort care journey than yesterday, and that we were about to begin morphine infusion. she voiced understanding. she will alert other family members about his status. gave support. (2) Need for comfort care: Plan: full comfort care measures initiated 03/29/21 anticipate his passing in the next few days (3) Pneumonia due to severe acute respiratory syndrome coronavirus 2 (SARS-CoV-2): Plan: severe disease. with resulting ARDS. max HFNC settings over the last few days. had received IV dexamethasone 6mg IV daily since admission then his dexamethasone was increased to 20mg IV daily on 03/24 for ARDS Rx but no response to such clinically s/p 5 day course of azithromycin was not a candidate/no role for Remdesivir or baricitinib 03/28/21 -- DR Fernandez had multiple discussions with patient and his family decision made to transition to comfort care measures full comfort care started 03/29/21 remains on comfort today with ongoing decline (4) Acute and chronic respiratory failure with hypoxia: Plan: acute component - COVID-19 pneumonia with resulting ARDS. chronic component - COPD/ILD, on home O2. (5) CVA (cerebral vascular accident): Plan: new finding on admission in the setting of his COVID-19 infection MRI brain: acute infarct in the anterior left lentiform nucleus. Possible age- indeterminate hemorrhage in the left supraventricular white matter. no further Rx (6) Confusion: Plan: met encephalopathy earlier this admission had resolved very lucid last few days - had voiced his wishes re: comfort care (7) Encephalopathy acute: Plan: resolved, as above; now returned today - likely from worsening hypoxia (8) H/O heart valve replacement with bioprosthetic valve: Plan: History of severe s/p Bioprosthetic AVR 11/01/2012. (9) CAD (coronary artery disease), 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: Plan: coumadin stopped transitioned to comfort care measures (14) DVT, recurrent, lower extremity, chronic: Plan: anticoagulation stopped (15) Paroxysmal atrial fibrillation: Plan: History of PAF and PAT he is tachycardic today - likely in rapid a.fib (16) Hypokalemia: (17) O2 dependent: Plan: chronic O2 dependent -- 2-3LNC 2nd to ILD and COPD (18) Diabetes mellitus: Plan: uncontrolled, A1C 11.5% noted earlier this admission (19) CKD (chronic kidney disease) stage 4, GFR 15-29 ml/min: Plan: Creatinine baseline 1.8-2.2 then developed CARLOS while here (20) Hypothyroid: (21) Chronic constipation: (22) Acute kidney injury: (23) 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: Plan: history of Plan: DNR/DNI comfort care measures/pathway gave support to patient prayed with him again today updated his daughter Loi at bedside today Admission and Anticipated Discharge Date Admission Date: March 15, 2021 Subjective received notification by the pt's nurse this am that patient was having increased work of breathing, was uncomfortable, etc morphine PO given rivera placed he refused ativan upon my visit he was grunting much of the time he was confused he was moaning at times morphine 2mg IV x 1 ordered and given a short time later I prayed with the patient - he was not very alert during such, only reciting a few words of the prayer Review of Systems Review of Systems: denied pain in any location but ROS otherwise could not be obtained Physical Exam Physical Exam: gen - increased work of breathing, uncomfortable, grunting, confused mouth/lips - cyanotic neck - no JVD heart - tachy, irregular, s1 s2 lungs - diffuse rales b/l - worse today; increased work of breathing - tachypnea, grunting, retractions abd - mildly distended, BS+, NT ext - trace edema b/l, pulses 1+ b/l psych - not alert, confused Results & Data Results & Data ([facility]) Vital Signs (Past 12 Hours) Vital Signs Pulse Resp Pulse Ox 03/30/21 14:22 142 H 20 84 L PG Care Time/CCT Total # of Minutes Spent Total Time Spent with Patient: Total time spent is greater than 50% in coordination of care (as documented) at patient's floor/unit and/or counseling patient: Coding Level of Care Code 19878 Subseq Hosp Care Lvl 2 Diagnoses Pneumonia due to severe acute respiratory syndrome coronavirus 2 (SARS-CoV-2) U07.1; J12.82 Acute and chronic respiratory failure with hypoxia J96.21 CVA (cerebral vascular accident) I63.9 Confusion R41.0 Encephalopathy acute G93.40 H/O heart valve replacement with bioprosthetic valve Z95.3 CAD (coronary artery disease), [place] coronary artery I25.10 Associated angina: without angina [place] vs. transplanted heart: 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 Z79.01 DVT, recurrent, lower extremity, chronic I82.509 Paroxysmal atrial fibrillation I48.0 Hypokalemia E87.6 O2 dependent Z99.81 Diabetes mellitus E11.69; Z79.4 Diabetes mellitus complication status: with other specified complication Diabetes mellitus prison insulin use: with prison use Diabetes mellitus type: type 2 CKD (chronic kidney disease) stage 4, GFR 15-29 ml/min N18.4 Hypothyroid E03.9 Chronic constipation K59.09 Acute kidney injury N17.9 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 coronary artery Associated angina: without angina [place] vs. transplanted heart: [place] heart Qualified Code(s): I25.10 - Atherosclerotic heart disease of [place] coronary artery without angina pectoris (3) HTN (hypertension) Hypertension type: essential hypertension Qualified Code(s): I10 - Essential (primary) hypertension
[2021-03-31] MEDS: ACYCLOVIR 5% OINT 15 GM TUBE EXT SCH ×2 (04:08→10:46)
[2021-03-31] MEDS: METOPROLOL TARTRATE 100 MG TAB PO SCH (10:46)
[2021-03-31] MEDS: dilTIAZem HCL 120 MG CAPCR PO SCH (10:46)
[2021-03-31] MEDS: PANTOprazole 40 MG TAB PO SCH (10:47)
[2021-03-31] MEDS: ATROPINE SULFATE 1% OP SOLN 5 ML BTL SL PRN ×4 (12:46→23:40)
[2021-03-31] MEDS ORDERED: GLYCOPYRROLATE 0.2 MG/ML VIAL IV PRN (18:37)
--- NOTE | 2021-03-31 18:39 | Hospitalist Progress Note ---
Date of Service March 31, 2021 Assessment & Plan (1) Palliative care patient: Plan: patient with severe ARDS 2nd to COVID-19 pneumonia. made DNR/DNI this past weekend in the context of worsening illness and lack of any meaningful improvement. transitioned to full comfort care on 03/29/21. cont morphine infusion. will titrate now and then cont to titrate to comfort. cont atropine drops prn secretions. since the secretions are severe will add scopalamine patch. will also add robinul IV 0.25mg q6h prn secretions. ativan prn but doubt he will need such. cont wall-mounted high-flow. gave support to daughter and son-in-law. counseled them about the secretions, potential for apneas/irregular breathing, etc. anticipate the pt passing in the next 1-2 days. (2) Need for comfort care: Plan: full comfort care measures initiated 03/29/21 see above (3) Pneumonia due to severe acute respiratory syndrome coronavirus 2 (SARS-CoV-2): Plan: severe disease. with resulting ARDS. max HFNC settings over the last few days. had received IV dexamethasone 6mg IV daily since admission then his dexamethasone was increased to 20mg IV daily on 03/24 for ARDS Rx but no response to such clinically s/p 5 day course of azithromycin was not a candidate/no role for Remdesivir or baricitinib 03/28/21 -- DR Fernandez had multiple discussions with patient and his family decision made to transition to comfort care measures full comfort care started 03/29/21 remains on comfort today with ongoing decline (4) Acute and chronic respiratory failure with hypoxia: Plan: acute component - COVID-19 pneumonia with resulting ARDS. likely now in acute CHF. chronic component - COPD/ILD, on home O2. (5) CVA (cerebral vascular accident): Plan: new finding on admission in the setting of his COVID-19 infection MRI brain: acute infarct in the anterior left lentiform nucleus. Possible age- indeterminate hemorrhage in the left supraventricular white matter. no further Rx (6) Confusion: (7) Encephalopathy acute: Plan: earlier in the admission - due to COVID-19, etc (8) H/O heart valve replacement with bioprosthetic valve: Plan: History of severe s/p Bioprosthetic AVR 11/01/2012. (9) CAD (coronary artery disease), [place] coronary artery: Plan: Multivessel CAD s/p CABG x 3 Vessels 11/01/2012 all cardiac meds stopped - transitioned to comfort care pathway (10) HTN (hypertension): (11) COPD, moderate: (12) Chronic diastolic congestive heart failure: Plan: with probable acute on chronic based on my exam today no Rx focus on comfort oxygen morphine drip (13) Current use of group home anticoagulation: Plan: coumadin stopped transitioned to comfort care measures (14) DVT, recurrent, lower extremity, chronic: Plan: anticoagulation stopped (15) Paroxysmal atrial fibrillation: Plan: History of PAF and PAT he is likely in rapid a.fib no Rx (16) Hypokalemia: (17) O2 dependent: Plan: 2nd to ILD and COPD (18) Diabetes mellitus: Plan: uncontrolled, A1C 11.5% noted earlier this admission (19) CKD (chronic kidney disease) stage 4, GFR 15-29 ml/min: Plan: Creatinine baseline 1.8-2.2 then developed CARLOS while here (20) Hypothyroid: (21) Chronic constipation: (22) Acute kidney injury: (23) 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: Plan: history of Plan: DNR/DNI cont comfort care measures/pathway gave support to his daughter Loi at bedside today along with son-in-law Admission and Anticipated Discharge Date Admission Date: March 15, 2021 Subjective pt's daughter, son-in-law at bedside patient unresponsive on morphine infusion drip now at 2mg/hr during the visit he had increased work of breathing and increased secretions with resulting girgling breath sounds only awoke briefly when grandson visited earlier today Review of Systems Review of Systems: Unobtainable due to reduced consciousness Physical Exam Physical Exam: gen - unresponsive/obtunded, tachypneic, girgling breath sounds, increased work of breathing neck - JVD present mouth - MM dry heart - irregularly irregular, tachy, s1 s2 lungs - diffuse rales all lung segments b/l, increased work of breathing, subcostal retractions ext - pulses 1+, cool feet abd - mild distension but nontender PG Care Time/CCT Total # of Minutes Spent Total Time Spent with Patient: Total time spent is greater than 50% in coordination of care (as documented) at patient's floor/unit and/or counseling patient: Coding Level of Care Code 59057 Subseq Hosp Care Lvl 1 Diagnoses Palliative care patient Z51.5 Need for comfort care Pneumonia due to severe acute respiratory syndrome coronavirus 2 (SARS-CoV-2) U07.1; J12.82 Acute and chronic respiratory failure with hypoxia J96.21 CVA (cerebral vascular accident) I63.9 Confusion R41.0 Encephalopathy acute G93.40 H/O heart valve replacement with bioprosthetic valve Z95.3 CAD (coronary artery disease), [place] coronary artery I25.10 Associated angina: without angina [place] vs. transplanted heart: [place] heart HTN (hypertension) I10 Hypertension type: essential hypertension COPD, moderate J44.9 Chronic diastolic congestive heart failure I50.32 Current use of terminal carman anticoagulation Z79.01 DVT, recurrent, lower extremity, chronic I82.509 Paroxysmal atrial fibrillation I48.0 Hypokalemia E87.6 O2 dependent Z99.81 Diabetes mellitus E11.69; Z79.4 Diabetes mellitus complication status: with other specified complication Diabetes mellitus terminal carman insulin use: with terminal carman use Diabetes mellitus type: type 2 CKD (chronic kidney disease) stage 4, GFR 15-29 ml/min N18.4 Hypothyroid E03.9 Chronic constipation K59.09 Acute kidney injury N17.9 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 transplanted heart: [place] heart Qualified Code(s): I25.10 - Atherosclerotic heart disease of [place] coronary artery without angina pectoris (3) HTN (hypertension) Hypertension type: essential hypertension Qualified Code(s): I10 - Essential (primary) hypertension
--- NOTE | 2021-04-01 19:05 | Discharge Summary ---
Date of Service date of admission - March 15, 2021 date of - April 01, 2021 time of pronouncement - 0233 Admission HPI Per Admitting Provider Mr. 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 Patient was in his usual state of health yesterday, but upon awakening this morning he was unable to get up and out of bed -- even with the help of Deepa (his significant other). She tells me that he was too weak to stand up or or stay standing. He was noted to be mildly confused and febrile at 38.2 degrees Celsius -- but no focal neurologic deficits were noticed such as a facial droop, weak arm, flaccid limb, or slurred speech. In the emergency room, patient was noted to be febrile with a temperature of 38.2 C, and he has a positive COVID test. Chest x-ray today shows patchy infiltrates consistent with SARS Co-V 2 pneumonia. Patient is chronically on supplemental oxygen at 3 L/minute and his O2 saturations are staying in 93% to 98% range. Apparently the patient's grandson recently had or currently has symptomatic COVID-19 and tested positive for the same. Patient offers no other complaints today. He does not feel short of breath currently. Patient specifically denies any chest pain or angina pectoris. His body weights have been holding steady, no recent fluid retention or worsening heart failure symptoms. He denies any headache or stiff neck. No recent change in appetite or bowel habits. Principal Diagnosis 1. acute/chronic hypoxic respiratory failure - acute component secondary to #2 below 2. ARDS 2nd to severe COVID-19 pneumonia Discharge Exam last exam prior to patient's - gen - obtunded, increased work of breathing (tachypnea, retractions); excessive oral secretions with girgling breath sounds neck - JVD present heart - irregular, tachycardic, s1 s2 lungs - diffuse rales all lung segments with increased work of breathing abd - soft, no apparent tenderness ext - cool, pulses weak/1+ b/l Discharge Data Allergies Allergy/AdvReac Type Severity Reaction Status Date / Time cephalexin Allergy Intermediate ABDOMINAL Verified 03/15/21 11:36 PAIN pramipexole [From Mirapex] AdvReac Severe Hallucinati Verified 03/15/21 11:36 ng ZACH Inhibitors AdvReac Intermediate COUGH Verified 03/15/21 11:36 clindamycin AdvReac Intermediate REFLUX Verified 03/15/21 11:36 Penicillins AdvReac Intermediate ?RASH Verified 03/15/21 11:36 Sulfa (Sulfonamide AdvReac Intermediate ?RASH Verified 03/15/21 11:36 Antibiotics) Consultations Neurology PT, OT Respiratory Therapy Ordered Studies 03/15/21 09:46 CT angio head w con Stat CT angio neck with con Stat CT head/brain wo con Stat 03/15/21 14:28 MR brain wo/w con Routine 03/17/21 09:42 CT head/brain wo con Urgent Multiple Chest x-rays Hospital Course (1) Palliative care patient: patient with acute/chronic hypoxic respiratory failure 2nd severe ARDS from COVID-19 pneumonia. he was made DNR/DNI late in his stay in the context of worsening illness and lac k of any meaningful improvement. transitioned to full comfort care on 03/29/21. ultimately required use of morphine infusion for comfort and treatment of respiratory distress. patient passed peacefully early in the AM on 04/01/21. (2) Need for comfort care: full comfort care measures initiated 03/29/21 see above (3) Pneumonia due to severe acute respiratory syndrome coronavirus 2 (SARS-CoV-2): severe disease. with resulting ARDS. max HFNC settings were needed in the days leading up to being made comfort care. had received IV dexamethasone 6mg IV daily since admission on 03/15/21. his dexamethasone had been increased to 20mg IV daily on 03/24/21 for ARDS Rx but he had no response to such clinically. received a 5 day course of azithromycin while hospitalized. was never a candidate for Remdesivir or baricitinib/tocilizumab. 03/28/21 -- attending physician Dr Todd Fernandez had multiple discussions with the patient and his family regarding his worsening illness/status. pt's code status changed to DNR/DNI, and decision was made to transition to comfort care measures. full comfort care started 03/29/21. (4) Acute respiratory distress syndrome (ARDS) due to COVID-19 virus: (5) Acute and chronic respiratory failure with hypoxia: acute component - COVID-19 pneumonia with resulting ARDS and decompensated CHF in his final days. chronic component - COPD/ILD, on home O2. (6) CVA (cerebral vascular accident): new finding on admission - in the setting of his COVID-19 infection MRI brain: acute infarct in the anterior left lentiform nucleus. Possible age- indeterminate hemorrhage in the left supraventricular white matter. (7) Confusion: (8) Encephalopathy acute: earlier in the admission - due to COVID-19, etc (9) H/O heart valve replacement with bioprosthetic valve: History of severe s/p Bioprosthetic AVR 11/01/2012. 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: (15) DVT, recurrent, lower extremity, chronic: (16) Paroxysmal atrial fibrillation: History of PAF and PAT Likely developed rapid a.fib just prior to his (17) Hypokalemia: (18) O2 dependent: 2nd to ILD and COPD 3 L NC O2 continously prior to admission (19) Diabetes mellitus: uncontrolled, A1C 11.5% noted earlier this admission (20) CKD (chronic kidney disease) stage 4, GFR 15-29 ml/min: Creatinine baseline 1.8-2.2 then developed CARLOS while here (21) Hypothyroid: (22) Chronic constipation: (23) Acute kidney injury: Cr 1.9 at admission Cr 2.9 upon last check prior to his CARLOS due to multi-organ failure from COVID-19 (24) 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: history of Total Time Total Time Spent Total Time Spent (In Minutes): on date of 15 minutes spent on his summary only Discharge Plan Discharge Items Patient Disposition: Other Date/Time: 04/01/21 02:33 Coding Level of Care Code None Diagnoses Palliative care patient Z51.5 Need for comfort care Pneumonia due to severe acute respiratory syndrome coronavirus 2 (SARS-CoV-2) U07.1; J12.82 Acute and chronic respiratory failure with hypoxia J96.21 CVA (cerebral vascular accident) I63.9 Confusion R41.0 Encephalopathy acute G93.40 H/O heart valve replacement with bioprosthetic valve Z95.3 CAD (coronary artery disease), [place] coronary artery I25.10 Associated angina: without angina [place] vs. transplanted heart: [place] heart HTN (hypertension) I10 Hypertension type: essential hypertension COPD, moderate J44.9 Chronic diastolic congestive heart failure I50.32 Current use of residential anticoagulation Z79.01 DVT, recurrent, lower extremity, chronic I82.509 Paroxysmal atrial fibrillation I48.0 Hypokalemia E87.6 O2 dependent Z99.81 Diabetes mellitus E11.69; Z79.4 Diabetes mellitus complication status: with other specified complication Diabetes mellitus residential insulin use: with residential use Diabetes mellitus type: type 2 CKD (chronic kidney disease) stage 4, GFR 15-29 ml/min N18.4 Hypothyroid E03.9 Chronic constipation K59.09 Acute kidney injury N17.9 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
== END 2021-04-01 03:44 | disposition expired | DRG 177 ==
LOC: ED 09:45 → SUATTDRO 12:00 → EDINP 12:00 → 2E 14:26 → 3W 03-19 00:22 → 3E 03-25 19:14
DX: J12.82 Pneumonia due to coronavirus disease 2019; Z95.2 Presence of prosthetic heart valve; Z79.4 Long term (current) use of insulin; J80 Acute respiratory distress syndrome; Z82.49 Family history of ischemic heart disease and other diseases of the circulatory system; Z83.49 Family history of other endocrine, nutritional and metabolic diseases; G93.41 Metabolic encephalopathy; Z85.528 Personal history of other malignant neoplasm of kidney; Z85.118 Personal history of other malignant neoplasm of bronchus and lung; K59.09 Other constipation; K21.9 Gastro-esophageal reflux disease without esophagitis; Z82.3 Family history of stroke; N17.9 Acute kidney failure, unspecified; E55.9 Vitamin D deficiency, unspecified; N18.4 Chronic kidney disease, stage 4 (severe); Z88.1 Allergy status to other antibiotic agents; E03.9 Hypothyroidism, unspecified; Z79.52 Long term (current) use of systemic steroids; I65.23 Occlusion and stenosis of bilateral carotid arteries; I50.32 Chronic diastolic (congestive) heart failure; Z88.0 Allergy status to penicillin; Z86.79 Personal history of other diseases of the circulatory system; Z95.1 Presence of aortocoronary bypass graft; I25.10 Atherosclerotic heart disease of native coronary artery without angina pectoris; Z79.899 Other long term (current) drug therapy; I48.0 Paroxysmal atrial fibrillation; U07.1 COVID-19; I13.0 Hypertensive heart and chronic kidney disease with heart failure and stage 1 through stage 4 chronic kidney disease, or unspecified chronic kidney disease; I47.1 Supraventricular tachycardia; G81.91 Hemiplegia, unspecified affecting right dominant side; Z85.821 Personal history of Merkel cell carcinoma; E85.4 Organ-limited amyloidosis; I65.02 Occlusion and stenosis of left vertebral artery; Z87.891 Personal history of nicotine dependence; Z79.01 Long term (current) use of anticoagulants; Z88.2 Allergy status to sulfonamides; I82.5Z9 Chronic embolism and thrombosis of unspecified deep veins of unspecified distal lower extremity; J44.9 Chronic obstructive pulmonary disease, unspecified; I68.0 Cerebral amyloid angiopathy; I63.81 Other cerebral infarction due to occlusion or stenosis of small artery; Z51.5 Encounter for palliative care; E11.65 Type 2 diabetes mellitus with hyperglycemia; Z66 Do not resuscitate; J96.11 Chronic respiratory failure with hypoxia; Z79.890 Hormone replacement therapy; E87.6 Hypokalemia; E11.22 Type 2 diabetes mellitus with diabetic chronic kidney disease; Z88.8 Allergy status to other drugs, medicaments and biological substances; Z99.81 Dependence on supplemental oxygen; E78.5 Hyperlipidemia, unspecified